=== PATIENT | female | born 1940 | race Caucasian/White ===

== ENCOUNTER → 2017-02-16 | Outpatient (CLI) | payer OTHER ==
[~2017-02-16] MED LIST: AMLO10TA4 PO; ASPI81TA28 PO; ATEN50TA PO; ATOR-26 PO; B-COTAB18 PO; CYCL5TAB PO; GADAVIST IV PRN; GLC/500 PO; GLIP5TAB3 PO; KLN5 PO; LISI-725 PO; OMEP40CA PO; RANI300T2 PO; SERT-234 PO; ULT50 PO; VITACAP26 PO
--- NOTE | 2017-02-16 09:12 | DIAGNOSTIC IMAGING REPORT ---
MRI LUMBAR SPINE W/O CONTRAST CLINICAL HISTORY: CYSTIC ENCEPHALOMALACIA; LUMBAR DDD WORSENING BACK PAIN. DIFFICULTY STANDING. TECHNIQUE: Sagittal and axial T1, T2 and STIR images were obtained. COMPARISON STUDY: No previous studies for comparison. OBSERVATIONS: The vertebral bodies and posterior elements appear intact. There is no abnormal bony signal present to suggest a marrow replacement process. There is artifact from a right sacral bolts. There is a lumbar scoliosis. L1-2: There is a circumferential disc bulge present. There is no significant spinal stenosis. There is moderate left-sided foraminal narrowing. L2-3: There is a circumferential disc bulge. There is mild spinal canal narrowing. There is mild bilateral foraminal narrowing. L3-4: There is a circumferential disc bulge present. There is mild spinal stenosis. There is moderate right-sided foraminal narrowing. L4-5: There is a circumferential disc bulge. There is mild spinal canal narrowing. There is moderate right-sided foraminal narrowing. L5-S1: There is a mild circumferential disc bulge present. There is a probable L5 pars defect. There is bilateral foraminal narrowing. There is mild spinal canal narrowing. The conus medullaris and cauda equina appear normal. IMPRESSION: 1. Scoliosis and moderately advanced multilevel degenerative change 2. Multilevel mild spinal canal narrowing 3. Multilevel foraminal stenosis. Electronically signed by: Bassem Kay M.D. 02/16/2017 9:11 AM Dictated Date/Time: 02/16/2017 9:06 AM
--- NOTE | 2017-02-16 09:51 | DIAGNOSTIC IMAGING REPORT ---
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 COMPARISON STUDY: Noncontrast head CT dated 04/27/2015 TECHNIQUE: MRI of the brain was performed from the vertex to the skull base utilizing various T1 and T2 weighted sequences. Following the IV administration of 7.5 mL of Gadavist contrast, additional enhanced images were obtained. FINDINGS: Sagittal T1, axial diffusion, proton density and T2 weighted axial, coronal FLAIR, and pre and post axial T1-weighted images were acquired. These were supplemented with post gadolinium coronal T1 weighted images. No intra or extra-axial mass lesions are visualized. Axial diffusion-weighted images reveal no evidence of acute or subacute infarction. There is no evidence of ventricular dilatation. Proton density T2-weighted and FLAIR images reveal scattered foci of increased T2 signal within the white matter, likely on a small vessel basis. 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 There are no abnormal flow voids. There is linear hemosiderin apposition in the posterior aspect of the right hemispheric infarct. The 7th and 8th nerve complexes appear normal bilaterally. No cerebellopontine angle masses are visualized. Postcontrast images reveal no evidence of pathologic enhancement. IMPRESSION: 1. No acute intracranial findings 2. 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 No evidence of acute or subacute infarction 4. No evidence of intracranial mass Electronically signed by: Bassem Kay M.D. 02/16/2017 9:49 AM Dictated Date/Time: 02/16/2017 9:43 AM
== END | disposition home or self-care (01) ==
LOC: C.MRIBC 08:16
PROVIDERS: ATTEND Physician Assistant
DX: H90.41 Sensorineural hearing loss, unilateral, right ear, with unrestricted hearing on the contralateral side (principal); M51.36 Other intervertebral disc degeneration, lumbar region; M54.5 Low back pain; M12.88 Other specific arthropathies, not elsewhere classified, other specified site; M47.9 Spondylosis, unspecified; M48.06 Spinal stenosis, lumbar region

== ENCOUNTER 2023-09-28 22:18 | Inpatient (IN) ==
--- NOTE | 2023-09-28 22:34 | Emergency Department Note ---
History of Present Illness General Chief complaint: Abdominal Pain Stated complaint: AB PAIN Time Seen by Provider: 09/28/23 22:22 History of Present Illness Maximum Pain Intensity: 8 This 82-year-old female presents ER complaining of mid abdominal pain for the past 1 to 2 days. She is also has some nausea and vomiting. No diarrhea. She had a partial colectomy in the past due to a polyp. Patient has chest pain, dyspnea, fever, chills, flank pain, diarrhea, urinary symptoms, trauma to the area. Home Medications Medication Instructions Recorded Confirmed Type Saccharomyces boulardii 250 mg 250 mg PO BID 09/16/19 05/17/21 History capsule (Daily Probiotic (S. boulardii)) amlodipine 10 mg tablet 10 mg PO DAILY 09/16/19 05/17/21 History ascorbic acid (vitamin C) 500 mg 500 mg PO DAILY 09/16/19 05/17/21 History capsule aspirin 81 mg tablet,delayed 81 mg PO DAILY 09/16/19 05/17/21 History release atenolol 50 mg tablet 50 mg PO DAILY 09/16/19 05/17/21 History atorvastatin 80 mg tablet 80 mg PO DAILY 09/16/19 05/17/21 History biotin 10,000 mcg capsule 10,000 mcg PO DAILY 09/16/19 05/17/21 History buspirone 5 mg tablet 5 mg PO BID 09/16/19 05/17/21 History cholecalciferol (vitamin D3) 100 4,000 units PO DAILY 09/16/19 05/17/21 History mcg (4,000 unit) capsule cyclobenzaprine 5 mg tablet 5 mg PO TID PRN Spasms 09/16/19 01/30/20 History empagliflozin 10 mg tablet 10 mg PO DAILY 09/16/19 05/17/21 History (Jardiance) glipizide 5 mg tablet 5 mg PO BID 09/16/19 05/17/21 History lisinopril 20 mg tablet 20 mg PO DAILY 09/16/19 05/17/21 History metformin 500 mg tablet 500 mg PO DAILY 09/16/19 05/17/21 History multivitamin (One-A-Day Essential 1 tab PO DAILY 09/16/19 05/17/21 History tablet) pantoprazole 40 mg tablet,delayed 40 mg PO DAILY 09/16/19 05/17/21 History release (Protonix) tramadol 50 mg tablet 50 mg PO DAILY PRN Pain 09/16/19 05/17/21 History trazodone 50 mg tablet 50 mg PO DAILY 09/16/19 05/17/21 History coenzyme Q10 100 mg capsule 100 mg PO DAILY 01/14/20 05/17/21 History sertraline 100 mg tablet 200 mg PO DAILY 01/14/20 05/17/21 History simethicone 125 mg tablet 250 mg PO BID PRN Heartburn 01/14/20 05/17/21 History fluticasone propionate 50 2 sprays intranasal DAILY #18.2 mL 01/16/20 05/17/21 Rx mcg/actuation nasal spray,suspension levocetirizine 5 mg tablet 5 mg PO DAILY PRN allergy symptoms 01/16/20 05/17/21 Rx #60 tabs Allergies Allergy/AdvReac Type Severity Reaction Status Date / Time amoxicillin AdvReac Unknown TARRY Unverified 05/17/21 10:28 STOOLS Past Med/Surg History Medical History Diabetes Surgical History Hx of colonoscopy Social History Smoking Status: Never smoker Age Started Using Tobacco: 22; Age Quit Using Tobacco: 23; Second Hand Exposure: Yes; Do You Dip or Chew Tobacco: No; Preferred Language: Lithuanian Feels Safe at Home: Yes Review of Systems A total of 10 systems reviewed and were otherwise negative Physical Exam Vital Signs Vital Signs - 24 hr 09/28/23 22:27 09/28/23 22:29 09/28/23 22:33 Temperature 36.8 C Temperature Source Oral Pulse Rate 88 94 H Pulse Rate [Apical] Respiratory Rate 20 Respiratory Effort / Characteristics Non-Labored Spontaneous Respiratory Depth Normal Respiratory Pattern Regular Blood Pressure 146/88 H Blood Pressure [Right Arm] Blood Pressure Mean 107 Blood Pressure Mean [Right Arm] Blood Pressure Position Semi-fowlers Blood Pressure Position [Right Arm] Pulse Oximetry 99 97 Oxygen Delivery Method Room Air Room Air Sepsis Recent Fever Within 48 Hours No Sepsis New/Unexplained Change in Mental Status N/A Sepsis Action Taken by Nursing No Action Required 09/28/23 23:32 Temperature Temperature Source Pulse Rate Pulse Rate [Apical] 85 Respiratory Rate 16 Respiratory Effort / Characteristics Non-Labored Spontaneous Respiratory Depth Normal Respiratory Pattern Regular Blood Pressure Blood Pressure [Right Arm] 112/79 Blood Pressure Mean Blood Pressure Mean [Right Arm] 90 Blood Pressure Position Blood Pressure Position [Right Arm] Lying Pulse Oximetry 94 Oxygen Delivery Method Room Air Sepsis Recent Fever Within 48 Hours Sepsis New/Unexplained Change in Mental Status Sepsis Action Taken by Nursing VITALS: Vitals are noted on the nurse's note and reviewed by myself. Vital signs stable. GENERAL: Pleasant elderly female hard of hearing, in no acute distress, nondiaphoretic, well-developed well-nourished. SKIN: Capillary reflex less than 2 seconds. HEENT: Normocephalic. PERRLA. EOMI. Nares patent. Mucous membranes moist. Neck is supple without nuchal rigidity. HEART: Regular rate and rhythm LUNGS: Clear to auscultation bilaterally without wheezes, rales or rhonchi. No retractions or accessory muscle use. ABDOMEN: Positive bowel sounds x 4. Normal tympanic percussion. Soft, tender mid abdomen, without masses or organomegaly. Tamez sign negative. No guarding or rebound tenderness. no CVA tenderness MUSCULOSKELETAL: No gross musculoskeletal defects. NEURO: Patient was alert and oriented to person place and time. No focal neurological deficits. Course Administered Medications Magnesium Sulfate/Dextrose (Magnesium Sulfate / D5w) 1 gm in 100 mls @ 100 mls/hr IV Q1H TERRI Stop: 09/29/23 01:22 Last Admin: 09/29/23 00:24 Dose: 100 mls/hr Documented By: Infusion: 09/29/23 00:24 Dose: Infused Documented By: Admin: 09/28/23 23:33 Dose: 100 mls/hr Documented By: Discontinued Medications Sodium Chloride (Nss) 500 mls @ 999 mls/hr IV .Q31M STA Stop: 09/28/23 23:00 Last Infusion: 09/28/23 23:16 Dose: Infused Documented By: Admin: 09/28/23 22:36 Dose: 999 mls/hr Documented By: BRIDGET Acetaminophen (Ofirmev) 1,000 mg in 100 mls @ 400 mls/hr IV NOW STA Stop: 03/28/24 22:44 Last Infusion: 09/28/23 22:50 Dose: Infused Documented By: Admin: 09/28/23 22:35 Dose: 400 mls/hr Documented By: BRIDGET Ioversol (Optiray 320 100ml) 100 ml IV ONCE ONE Stop: 09/28/23 23:03 Last Admin: 09/28/23 23:02 Dose: 90 ml Documented By: JESSICA Ondansetron HCl (Ondansetron Inj 2 Mg/Ml 2 Ml Vial) 4 mg IV NOW STA Stop: 09/28/23 22:31 Last Admin: 09/28/23 22:35 Dose: 4 mg Documented By: BRIDGET Medical Decision Making Medical Records Attestation: I reviewed the patient's medical records. Home Medications Current Medication List: was personally reviewed by me Laboratory Data Attestation: I reviewed the patient's lab results. 09/28/23 22:31 09/28/23 22:31 Lab Results 09/28/23 09/28/23 Range/Units 22:31 22:38 WBC 11.17 H (4.8-10.8) K/ul RBC 4.40 (4.20-5.40) M/uL Hgb 12.7 (12.0-16.0) g/dl POC Hgb 13.6 (12.0-16.0) g/dl Hct 38.7 (37.0-47.0) % POC Hct 40 (37-47) % MCV 88.0 (80.0-100.0) fL MCH 28.9 (25.0-34.0) pg MCHC 32.8 (32.0-36.0) g/dL RDW Std Deviation 45.1 (36.4-46.3) fL RDW Coeff of Nelida 13.9 (11.5-14.5) % Plt Count 214 (130-400) K/uL MPV 10.4 (9.4-12.4) fL Immature Gran % (Auto) 0.3 % Neut % (Auto) 84.2 % Lymph % (Auto) 6.9 % Pershing % (Auto) 6.9 % Eos % (Auto) 1.3 % Baso % (Auto) 0.4 % Neut # (Auto) 9.42 H (1.40-6.50) K/uL Lymph # (Auto) 0.77 L (1.20-3.40) K/uL Pershing # (Auto) 0.77 H (0.11-0.59) K/uL Eos # (Auto) 0.14 (0.00-0.50) K/uL Baso # (Auto) 0.04 (0.00-0.20) K/uL Immature Gran # (Auto) 0.03 (0.01-0.20) K/uL POC Sodium 138 (135-144) mmol/L Sodium 136 (136-145) mmol/L POC Potassium 4.1 (3.3-5.0) mmol/L Potassium 4.3 (3.5-5.1) mmol/L POC Chloride 101 (101-112) mmol/L Chloride 101 (98-107) mmol/L Carbon Dioxide 25 (21-32) mmol/L POC Total CO2 27 (24-31) mmol/L Anion Gap 10 (3-11) POC Anion Gap 16.0 (16-25) mmol/L POC BUN 22 H (7-18) mg/dl BUN 19 (6-23) mg/dl Creatinine 1.14 (0.6-1.2) mg/dl POC Creatinine 1.1 (0.6-1.3) mg/dl Est Cr Clr Drug Dosing Not Reportable Est GFR ( Amer) 52.6 ml/min Est GFR (Non-Af Amer) 45.4 ml/min BUN/Creatinine Ratio 16.7 (10-20) Glucose 176 H (70-99(Fasting)) mg/dl POC Glucose (other) 180 H (70-99) mg/dl Lactate 0.8 (0.4-2.0) mmol/L Calcium 10.3 (8.6-10.3) mg/dl POC Ioniz Calcium Nickie 1.24 (1.12-1.32) mmol/l Magnesium 1.3 L (1.7-2.4) mg/dl Total Bilirubin 0.6 (0.2-1.0) mg/dl AST 19 (13-39) U/L ALT 12 (7-52) U/L Alkaline Phosphatase 57 (34-104) U/L Troponin I High Sens 4.8 (0-14) pg/ml Total Protein 8.3 (6.0-8.3) gm/dl Albumin 4.9 (3.4-5.0) gm/dl Globulin 3.4 (2.5-4.0) gm/dl Albumin/Globulin Ratio 1.4 (0.9-2) Lipase 45 (11-82) U/L Imaging Data Attestation: I personally reviewed and interpreted this imaging study as follows: Radiologist's Impression: Abdomen/Pelvis CT 09/28/23 22:30 Exam(s): CT ABDOMEN + PELVIS With Contrast IV Amt: 90 ml optiray 320 EXAM: CT Abdomen and Pelvis With Intravenous Contrast CLINICAL HISTORY: Reason for exam: mid abd pain. TECHNIQUE: Axial computed tomography images of the abdomen and pelvis with intravenous contrast. CTDI is 22.59 mGy and DLP is 1053.17 mGy-cm. Automated exposure control was utilized for the study. A dose lowering technique was utilized adhering to the principles of ALARA. CONTRAST: Patient received 90 ml optiray 320 of IV contrast COMPARISON: None. FINDINGS: Lung bases: Trace bilateral lower lobe subpleural atelectasis otherwise clear lung parenchyma. Heart: Unremarkable. No cardiomegaly. No significant pericardial effusion. Normal cardiac size with coronary artery calcifications. Mediastinum: Small hiatal hernia. ABDOMEN: Liver: Unremarkable. No mass. Gallbladder and bile ducts: Status post cholecystectomy with intrahepatic biliary distention. No ductal dilation. Pancreas: Unremarkable. No mass. No ductal dilation. Spleen: The spleen measures 13.0 cm consistent with bright lights but no megaly. Adrenals: Unremarkable. No mass. Kidneys and ureters: Unremarkable. No solid mass. No hydronephrosis. Stomach and bowel: Multiple loops of small bowel distended up to a maximum diameter of 3.4 cm consistent with small bowel obstruction, zone of transition indeterminate. The descending colon is decompressed. There are stuck with the changes along the sigmoid. No mucosal thickening. PELVIS: Appendix: Normal appendix. Bladder: Unremarkable. No mass. Reproductive: Unremarkable as visualized. ABDOMEN and PELVIS: Intraperitoneal space: Unremarkable. No free air. No significant fluid collection. Bones/joints: Advanced degenerative disease of the spine with scoliosis and multilevel vacuum phenomenon. No acute fracture. No dislocation. Soft tissues: There are 2 ventral hernias, one at the umbilicus and one cephalad containing fat. Vasculature: Atherosclerotic disease of aorta with no aneurysm or dissection. Lymph nodes: Unremarkable. No enlarged lymph nodes. IMPRESSION: 1. Small bowel obstruction with indeterminate zone of transition. 2. Mild hiatal hernia. 3. Status post cholecystectomy with nonspecific intrahepatic biliary distention. Remainder of abdominal viscera unremarkable. Electronically signed by: Azalia James MD 09/29/23 00:17 AM Chest X-Ray 09/28/23 22:30 SINGLE VIEW CHEST CLINICAL HISTORY: Upper abdominal pain. FINDINGS: An AP, portable, upright chest radiograph is compared to study dated 04/27/2015 and correlated with chest CT dated 08/19/2019. The examination is mildly degraded by portable technique and patient rotation. The heart is mildly enlarged noting atherosclerotic calcification of the thoracic aorta. The pulmonary vasculature is noncongested. Chronic interstitial thickening is similar to previous. There is mild elevation of the left hemidiaphragm with associated atelectasis. A 9 mm right upper lobe pulmonary nodule is similar to previous. This was also seen on the [address] The lungs and pleural spaces are otherwise clear. No pneumothorax is seen. The skeletal structures are osteopenic. The bony thorax is grossly intact. IMPRESSION: No acute cardiopulmonary abnormality. ACT 112: Negative or not required by law. Electronically signed by: Pepe Estevez M.D. 09/28/2023 11:01 PM MDM Narrative Prior records/ancillary studies reviewed. Triage Nursing notes reviewed. Additional history obtained from nursing. The patient's history was concerning for abdominal pain. Differential diagnosis: Etiologies such as appendicitis, diverticulitis, PUD, biliary pathology, UTI, pancreatitis, obstruction, mesenteric ischemia, aortic pathology, infections, inflammatory bowel disease, renal colic, as well as others were entertained. Physical examination findings: As above. ER treatment provided: An order was placed for continuous cardiac monitoring. The monitor shows a rate of 60-100 with a sinus rhythm per my Independent interpretation. IV fluids, Tylenol, Mg On reassessment the patient felt better. Diagnostics interpreted by me: ECG: Ordered for upper abdominal pain EKG: Normal sinus, normal intervals, no acute ST-T wave changes. Impression normal sinus rhythm independently interpreted by myself The labs Independently Interpreted by myself revealed negative lactic. Mild leukocytosis low mg Imaging studies: Chest x-ray with no acute consolidation, pneumothorax or free air per my independent interpretation; left hemidiaphragm elevation. Consultation: A consultation was placed with the surgeon, Dr. Hanson. The case was discussed and diagnostics were reviewed. He recommends IV fluids and NG tube if patient is vomiting and medical admission. Medicine was consulted and case discussed. Patient was admitted to the medical service. Exam and history seem consistent with small bowel obstruction. Patient was not vomiting in the ER. She was given IV fluids and magnesium as above. She is agreeable treatment plan admission. Medicine and surgery were consulted and the case was discussed. Negative lactic. By the evaluation outlined above emergent etiologies such as appendicitis, diverticulitis, PUD, biliary pathology, UTI, pancreatitis, mesenteric ischemia, aortic pathology, infections, inflammatory bowel disease, renal colic, as well as others were deemed relatively unlikely. The pt informed about the findings as listed above. All questions were answered and pleased with the treatment. The chart was completed utilizing [employer] Speech voice recognition software. Grammatical errors, random word insertions, pronoun errors, and incomplete sentences are an occassional consequence of this system due to software limitations, ambient noise, and hardware issues. Any formal questions or concerns about the content, text, or information contained within the body of this dictation should be directly addressed to the physician diet assistant for clarification. Impression & Plan Small bowel obstruction Discharge Plan Visit Data Chief Complaint: Abdominal Pain Stated Complaint: AB PAIN ED Provider: Agustín Gabriel ED Midlevel Provider: Alannah Melo Discharge Problem: Small bowel obstruction Patient Disposition: Admitted As Inpatient Condition: Good Forms Stand Alone Forms: My [facility] Prescriptions Prescriptions: No Action metformin 500 mg tablet 500 mg PO DAILY glipizide 5 mg tablet 5 mg PO BID Jardiance 10 mg tablet 10 mg PO DAILY atorvastatin 80 mg tablet 80 mg PO DAILY amlodipine 10 mg tablet 10 mg PO DAILY lisinopril 20 mg tablet 20 mg PO DAILY atenolol 50 mg tablet 50 mg PO DAILY pantoprazole [Protonix] 40 mg tablet,delayed release (DR/EC) 40 mg PO DAILY aspirin 81 mg tablet,delayed release (DR/EC) 81 mg PO DAILY trazodone 50 mg tablet 50 mg PO DAILY buspirone 5 mg tablet 5 mg PO BID cyclobenzaprine 5 mg tablet 5 mg PO TID PRN (Reason: Spasms) tramadol 50 mg tablet 50 mg PO DAILY PRN (Reason: Pain) ascorbic acid (vitamin C) 500 mg capsule 500 mg PO DAILY biotin 10,000 mcg capsule 10,000 mcg PO DAILY multivitamin [One-A-Day Essential] Tablet 1 tab PO DAILY cholecalciferol (vitamin D3) 4,000 unit capsule 4,000 units PO DAILY Daily Probiotic (S. boulardii) 250 mg capsule 250 mg PO BID coenzyme Q10 100 mg capsule 100 mg PO DAILY Bicarsim Forte 125 mg tablet 250 mg PO BID PRN (Reason: Heartburn) sertraline 100 mg tablet 200 mg PO DAILY levocetirizine 5 mg tablet 5 mg PO DAILY PRN (Reason: allergy symptoms) Qty: 60 0RF Rx Instructions: Take daily for 10 days then PRN fluticasone propionate 50 mcg/actuation spray,suspension 2 sprays INTNAS DAILY Qty: 18.2 5RF Referrals Referrals: Ludmila Miranda DO [Outside Practitioners] -
[2023-09-28] MEDS: ONDANSETRON INJ 2 MG/ML 2 ML VIAL IV STA (22:35)
[2023-09-28] MEDS: ACETAMINOPHEN 1,000 MG/100 ML VIAL IV STA (22:35)
[2023-09-28] MEDS: SODIUM CHLORIDE 0.9% 500 ML IV STA (22:36)
[2023-09-28 22:47] LABS: Basophils # (auto) 0.04 K/uL (0.00-0.20); Basophils % (auto) 0.4 %; Eosinophils # (auto) 0.14 K/uL (0.00-0.50); Eosinophils % (auto) 1.3 %; Hematocrit (blood only) 38.7 % (37.0-47.0); Hemoglobin 12.7 g/dl (12.0-16.0); Immature Granulocytes # (auto) 0.03 K/uL (0.01-0.20); Immature Granulocytes % (auto) 0.3 %; Lymphocytes # (auto) 0.77 K/uL (1.20-3.40); Lymphocytes % (auto) 6.9 %; Mean Corpuscular Hemoglobin 28.9 pg (25.0-34.0); Mean Corpuscular Hgb Conc 32.8 g/dL (32.0-36.0); Mean Platelet Volume 10.4 fL (9.4-12.4); Monocytes # (auto) 0.77 K/uL (0.11-0.59); Monocytes % (auto) 6.9 %; Neutrophils # (auto) 9.42 K/uL (1.40-6.50); Neutrophils % (auto) 84.2 %; Platelet Count 214 K/uL (130-400); RDW Coefficient of Variation 13.9 % (11.5-14.5); RDW Standard Deviation 45.1 fL (36.4-46.3); White Blood Count 11.17 K/ul (4.8-10.8)
[2023-09-28 22:50] LABS: iSTAT Creatinine 1.1 mg/dl (0.6-1.3); iSTAT Hemoglobin 13.6 g/dl (12.0-16.0); iSTAT Ionized Calcium 1.24 mmol/l (1.12-1.32); iSTAT Potassium 4.1 mmol/L (3.3-5.0)
[2023-09-28] MEDS: OPTIRAY 320 100ml IV ONE (23:02)
--- NOTE | 2023-09-28 23:02 | XRay Report ---
SINGLE VIEW CHEST CLINICAL HISTORY: Upper abdominal pain. FINDINGS: An AP, portable, upright chest radiograph is compared to study dated 04/27/2015 and correla itzel with chest CT dated 08/19/2019. The examination is mildly degraded by portable technique and patie nt rotation. The heart is mildly enlarged noting atherosclerotic calcification of the thoracic aorta . The pulmonary vasculature is noncongested. Chronic interstitial thickening is similar to previous. There is mild elevation of the left hemidiaphragm with associated atelectasis. A 9 mm right upper lob e pulmonary nodule is similar to previous. This was also seen on the [address] The lungs and ple ural spaces are otherwise clear. No pneumothorax is seen. The skeletal structures are osteopenic. The bony thorax is grossly intact. IMPRESSION: No acute cardiopulmonary abnormality. ACT 112: Negative or not required by law. Electronically signed by: Pepe Estevez M.D. 09/28/2023 11:01 PM
[2023-09-28 23:19] LABS: Albumin Level 4.9 gm/dl (3.4-5.0); Anion Gap 10 (3-11); Bilirubin,Total 0.6 mg/dl (0.2-1.0); Calcium 10.3 mg/dl (8.6-10.3); Carbon Dioxide 25 mmol/L (21-32); Chloride 101 mmol/L (98-107); Magnesium 1.3 mg/dl (1.7-2.4); Potassium 4.3 mmol/L (3.5-5.1); Sodium 136 mmol/L (136-145)
[2023-09-28 23:25] LABS: Alanine Aminotransferase 12 U/L (7-52); Albumin Globulin Ratio 1.4 (0.9-2); Alkaline Phosphatase 57 U/L (34-104); Aspartate Aminotransferase 19 U/L (13-39); BUN Creatinine Ratio 16.7 (10-20); Blood Urea Nitrogen 19 mg/dl (6-23); Est GFR (African American) 52.6 ml/min; Est GFR (Non-African American) 45.4 ml/min; Globulin 3.4 gm/dl (2.5-4.0); Glucose 176 mg/dl (70-99(Fasting)); Lipase 45 U/L (11-82); Total Protein 8.3 gm/dl (6.0-8.3)
[2023-09-28 23:26] LABS: Troponin I High Sensitivity 4.8 pg/ml (0-14)
[2023-09-28] MEDS: MAGNESIUM SULFATE / D5W 1 GM/100 ML BAG IV SCH (23:33)
--- NOTE | 2023-09-28 23:57 | Emergency Department Note ---
ED Visit Note ED attending note Patient was seen by the RAMBO Patient has abdominal pain, and prior history of ischemic colitis I have reviewed the patient's lab work, chest x-ray CT is pending at the time of dictation Plan is to evaluate for admission due to abdominal pain I agree with the disposition plan and treatment plan provided by the RAMBO .
--- NOTE | 2023-09-29 00:18 | CT Scan Report ---
Exam(s): CT ABDOMEN + PELVIS With Contrast IV Amt: 90 ml optiray 320 EXAM: CT Abdomen and Pelvis With Intravenous Contrast CLINICAL HISTORY: Reason for exam: mid abd pain. TECHNIQUE: Axial computed tomography images of the abdomen and pelvis with intravenous contrast. CTDI is 22.59 mGy and DLP is 1053.17 mGy-cm. Automated exposure control was utilized for the study. A dose lowering technique was utilized adhering to the principles of ALARA. CONTRAST: Patient received 90 ml optiray 320 of IV contrast COMPARISON: None. FINDINGS: Lung bases: Trace bilateral lower lobe subpleural atelectasis otherwise clear lung parenchyma. Heart: Unremarkable. No cardiomegaly. No significant pericardial effusion. Normal cardiac size with coronary artery calcifications. Mediastinum: Small hiatal hernia. ABDOMEN: Liver: Unremarkable. No mass. Gallbladder and bile ducts: Status post cholecystectomy with intrahepatic biliary distention. No ductal dilation. Pancreas: Unremarkable. No mass. No ductal dilation. Spleen: The spleen measures 13.0 cm consistent with bright lights but no megaly. Adrenals: Unremarkable. No mass. Kidneys and ureters: Unremarkable. No solid mass. No hydronephrosis. Stomach and bowel: Multiple loops of small bowel distended up to a maximum diameter of 3.4 cm consistent with small bowel obstruction, zone of transition indeterminate. The descending colon is decompressed. There are stuck with the changes along the sigmoid. No mucosal thickening. PELVIS: Appendix: Normal appendix. Bladder: Unremarkable. No mass. Reproductive: Unremarkable as visualized. ABDOMEN and PELVIS: Intraperitoneal space: Unremarkable. No free air. No significant fluid collection. Bones/joints: Advanced degenerative disease of the spine with scoliosis and multilevel vacuum phenomenon. No acute fracture. No dislocation. Soft tissues: There are 2 ventral hernias, one at the umbilicus and one cephalad containing fat. Vasculature: Atherosclerotic disease of aorta with no aneurysm or dissection. Lymph nodes: Unremarkable. No enlarged lymph nodes. IMPRESSION: 1. Small bowel obstruction with indeterminate zone of transition. 2. Mild hiatal hernia. 3. Status post cholecystectomy with nonspecific intrahepatic biliary distention. Remainder of abdominal viscera unremarkable. Electronically signed by: Azaila James MD 09/29/23 00:17 AM
[2023-09-29] MEDS: SODIUM CHLORIDE 0.9% 500 ML IV SCH (01:17)
--- NOTE | 2023-09-29 01:27 | History & Physical Report ---
Date of Service September 29, 2023 Assessment & Plan (1) Small bowel obstruction: Plan: 82-year-old female with past medical history significant for type 2 diabetes, hyperlipidemia, drug-induced hyperkalemia, history of CVA, hypertension, paroxysmal supraventricular tachycardia, history of CAD, GERD, vitamin B12 deficiency, degenerative's disc disease, iron deficiency anemia, general anxiety disorder, primary insomnia, presents with abdominal pain and found to have small bowel obstruction. Patient states since last couple of days she is having abdominal pain all over the abdomen 5/10 in severity. And today she had several episodes of vomiting before the ambulance came. Currently after pain medication pain is improved. She had a small bowel movement in the ER. Normal micturition. No fevers. No chest pain or shortness of breath. No cough. No earache. No runny nose or sore throat. No headache. Resting comfortably and hemodynamically stable. Small bowel obstruction N.p.o., IV fluids, IV antiemetics., IV pain meds as needed KUB in a.m. If symptoms were to worsen will do NG tube Surgery consult for further recommendations Hypomagnesia Replace Follow labs Type 2 diabetes Hold metformin Sliding scale Will monitor Mild nonobstructive CAD On aspirin, statin and beta-yamilet History of CVA History of PFO On statin and aspirin. History of hypertension On amlodipine and atenolol Will monitor Paroxysmal supplemental tachycardia On atenolol Hyperlipidemia On statin GERD Protonix GERD anxiety disorder Buspirone Zoloft Insomnia Trazodone DVT prophylaxis Lovenox Disposition Medical floor Full code History of Present Illness Chief Complaint: Abdominal pain Primary Care Provider: Domo Pool DO 82-year-old female with past medical history significant for type 2 diabetes, hyperlipidemia, drug-induced hyperkalemia, history of CVA, hypertension, paroxysmal supraventricular tachycardia, history of CAD, GERD, vitamin B12 deficiency, degenerative's disc disease, iron deficiency anemia, general anxiety disorder, primary insomnia, presents with abdominal pain and found to have small bowel obstruction. Patient states since last couple of days she is having abdominal pain all over the abdomen 5/10 in severity. And today she had several episodes of vomiting before the ambulance came. Currently after pain medication pain is improved. She had a small bowel movement in the ER. Normal micturition. No fevers. No chest pain or shortness of breath. No cough. No earache. No runny nose or sore throat. No headache. Resting comfortably and hemodynamically stable. past medical history. As mentioned above. Past surgical history. Colonoscopy. EGD. EGD with transendoscopic dilatation. 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 Laparoscopic hand-assisted sigmoid colon resection, laparoscopic mobilization of the splenic flexure. Cholecystectomy. Sacroiliac joint injection. Total abdominal hysterectomy with removal of tubes. Social history. . Quit smoking 1961. No alcohol use. No drug use. Family history. Daughter has ALS. Daughter passed of stroke. Mother had retroperitoneal sarcoma. Father had pancreatitis. Ulcers. Maternal grandmother had heart disease. Allergies Allergy/AdvReac Type Severity Reaction Status Date / Time amoxicillin AdvReac Unknown TARRY Unverified 05/17/21 10:28 STOOLS Home Medications Medication Instructions Recorded Confirmed Type amlodipine 5 mg tablet 5 mg PO DAILY 09/29/23 09/29/23 History aspirin 81 mg tablet,delayed 81 mg PO DAILY 09/29/23 09/29/23 History release atenolol 50 mg tablet 50 mg PO DAILY 09/29/23 09/29/23 History atorvastatin 80 mg tablet 80 mg PO DAILY 09/29/23 09/29/23 History buspirone 10 mg tablet 10 mg PO BID 09/29/23 09/29/23 History cetirizine 10 mg tablet 10 mg PO DAILY 09/29/23 09/29/23 History ketoconazole 2 % topical cream 1 applic topical BID 09/29/23 09/29/23 History metformin 1,000 mg tablet 1,000 mg PO BID 09/29/23 09/29/23 History pantoprazole 20 mg tablet,delayed 20 mg PO DAILY 09/29/23 09/29/23 History release sertraline 100 mg tablet 100 mg PO DAILY 09/29/23 09/29/23 History trazodone 50 mg tablet 50 mg PO HS 09/29/23 09/29/23 History Past Med/Surg History Medical History Diabetes Surgical History Hx of colonoscopy Social History Smoking Status: Never smoker Age Started Using Tobacco: 22; Age Quit Using Tobacco: 23; Second Hand Exposure: Yes; Do You Dip or Chew Tobacco: No; Hx Alcohol Use: No Hx Substance Use: No Preferred Language: Peruvian Communication Ability: Effective Pesticide Applicator Required: No Beliefs That Will Affect Care: None Current Living Situation: Spouse Current Living Situation Comment: Mobile Home Other Information That Helps Us Care for You: No Feels Safe at Home: Yes Safety Concerns: Feels Safe At This Time Assistive Devices: None Review of Systems Review of Systems: All systems reviewed & are unremarkable except as noted in HPI & below Physical Exam Physical Exam: General- Not in distress Head- atraumatic Eyes- PERRL. ENT- oropharynx clear Neck- supple, no JVD. Lungs- clear to auscultation , no wheezing or crackles. Heart- regular rhythm; no murmur, no gallop. Abdomen- normal bowel sounds, soft, mild diffuse tenderness, no guarding no distension Extremities- no pretibial edema, no erythema seen Neuro- alert, oriented PERRL, no facial palsy; no dysarthria; moves extremities. Results & Data Results & Data Vital Signs (Past 12 Hours) Vital Signs Temp Pulse Pulse Resp BP BP Pulse Ox 09/29/23 01:00 83 17 132/75 96 09/29/23 00:46 88 09/29/23 00:30 85 17 146/78 H 09/28/23 23:32 85 112/79 95 09/28/23 23:32 85 16 112/79 94 09/28/23 22:33 97 09/28/23 22:29 94 H 09/28/23 22:27 36.8 C 88 20 146/88 H 99 O2 Del Method 09/29/23 01:00 Room Air 09/29/23 00:46 09/29/23 00:30 09/28/23 23:32 Room Air 09/28/23 23:32 Room Air 09/28/23 22:33 Room Air 09/28/23 22:29 09/28/23 22:27 Room Air Diagnostic Findings Laboratory Results WBC 11.17 K/ul (4.8-10.8) H 09/28/23 22:31 RBC 4.40 M/uL (4.20-5.40) 09/28/23 22:31 Hgb 12.7 g/dl (12.0-16.0) 09/28/23 22: POC Hgb 13.6 g/dl (12.0-16.0) 09/28/23 22: Hct 38.7 % (37.0-47.0) 09/28/23 22: POC Hct 40 % (37-47) 09/28/23 22: MCV 88.0 fL (80.0-100.0) 09/28/23 22: MCH 28.9 pg (25.0-34.0) 09/28/23 22: MCHC 32.8 g/dL (32.0-36.0) 09/28/23: RDW Std Deviation 45.1 fL (36.4-46.3) 09/28/23: RDW Coeff of Nelida 13.9 % (11.5-14.5) 09/28/23 22: Plt Count 214 K/uL (130-400) 09/28/23 22: MPV 10.4 fL (9.4-12.4) 09/28/23 22: Immature Gran % (Auto) 0.3 % 09/28/23 22: Neut % (Auto) 84.2 % 09/28/23 22: Lymph % (Auto) 6.9 % 09/28/23 22: [place] % (Auto) 6.9 % 09/28/23 22: Eos % (Auto) 1.3 % 09/28/23 22: Baso % (Auto) 0.4 % 09/28/23: Neut # (Auto) 9.42 K/uL (1.40-6.50) H 09/28/23 22: Lymph # (Auto) 0.77 K/uL (1.20-3.40) L 09/28/23 22: [place] # (Auto) 0.77 K/uL (0.11-0.59) H 09/28/23 22: Eos # (Auto) 0.14 K/uL (0.00-0.50) 09/28/23 22: Baso # (Auto) 0.04 K/uL (0.00-0.20) 09/28/23 22:31 Immature Gran # (Auto) 0.03 K/uL (0.01-0.20) 09/28/23 22:31 POC Sodium 138 mmol/L (135-144) 09/28/23 22:38 Sodium 136 mmol/L (136-145) 09/28/23 22:31 POC Potassium 4.1 mmol/L (3.3-5.0) 09/28/23 22:38 Potassium 4.3 mmol/L (3.5-5.1) 09/28/23 22:31 POC Chloride 101 mmol/L (101-112) 09/28/23 22:38 Chloride 101 mmol/L (98-107) 09/28/23 22:31 Carbon Dioxide 25 mmol/L (21-32) 09/28/23 22:31 POC Total CO2 27 mmol/L (24-31) 09/28/23 22:38 Anion Gap 10 (3-11) 09/28/23 22:31 POC Anion Gap 16.0 mmol/L (16-25) 09/28/23 22:38 POC BUN 22 mg/dl (7-18) H 09/28/23 22:38 BUN 19 mg/dl (6-23) 09/28/23 22:31 Creatinine 1.14 mg/dl (0.6-1.2) 09/28/23 22:31 POC Creatinine 1.1 mg/dl (0.6-1.3) 09/28/23 22:38 Est Cr Clr Drug Dosing Not Reportable 09/28/23 22:31 Est GFR ( Amer) 52.6 ml/min 09/28/23 22:31 Est GFR (Non-Af Amer) 45.4 ml/min 09/28/23 22:31 BUN/Creatinine Ratio 16.7 (10-20) 09/28/23 22:31 Glucose 176 mg/dl (70-99(Fasting)) H 09/28/23 22:31 POC Glucose (other) 180 mg/dl (70-99) H 09/28/23 22:38 Lactate 0.8 mmol/L (0.4-2.0) 09/28/23 22:31 Calcium 10.3 mg/dl (8.6-10.3) 09/28/23 22:31 POC Ioniz Calcium Nickie 1.24 mmol/l (1.12-1.32) 09/28/23 22:38 Magnesium 1.3 mg/dl (1.7-2.4) L 09/28/23 22:31 Total Bilirubin 0.6 mg/dl (0.2-1.0) 09/28/23 22:31 AST 19 U/L (13-39) 09/28/23 22:31 ALT 12 U/L (7-52) 09/28/23 22:31 Alkaline Phosphatase 57 U/L (34-104) 09/28/23 22:31 Troponin I High Sens 4.8 pg/ml (0-14) 09/28/23 22:31 Total Protein 8.3 gm/dl (6.0-8.3) 09/28/23 22:31 Albumin 4.9 gm/dl (3.4-5.0) 09/28/23 22:31 Globulin 3.4 gm/dl (2.5-4.0) 09/28/23 22:31 Albumin/Globulin Ratio 1.4 (0.9-2) 09/28/23 22:31 Lipase 45 U/L (11-82) 09/28/23 22:31 Impressions Abdomen/Pelvis CT 09/28/23 22:30 Exam(s): CT ABDOMEN + PELVIS With Contrast IV Amt: 90 ml optiray 320 EXAM: CT Abdomen and Pelvis With Intravenous Contrast CLINICAL HISTORY: Reason for exam: mid abd pain. TECHNIQUE: Axial computed tomography images of the abdomen and pelvis with intravenous contrast. CTDI is 22.59 mGy and DLP is 1053.17 mGy-cm. Automated exposure control was utilized for the study. A dose lowering technique was utilized adhering to the principles of ALARA. CONTRAST: Patient received 90 ml optiray 320 of IV contrast COMPARISON: None. FINDINGS: Lung bases: Trace bilateral lower lobe subpleural atelectasis otherwise clear lung parenchyma. Heart: Unremarkable. No cardiomegaly. No significant pericardial effusion. Normal cardiac size with coronary artery calcifications. Mediastinum: Small hiatal hernia. ABDOMEN: Liver: Unremarkable. No mass. Gallbladder and bile ducts: Status post cholecystectomy with intrahepatic biliary distention. No ductal dilation. Pancreas: Unremarkable. No mass. No ductal dilation. Spleen: The spleen measures 13.0 cm consistent with bright lights but no megaly. Adrenals: Unremarkable. No mass. Kidneys and ureters: Unremarkable. No solid mass. No hydronephrosis. Stomach and bowel: Multiple loops of small bowel distended up to a maximum diameter of 3.4 cm consistent with small bowel obstruction, zone of transition indeterminate. The descending colon is decompressed. There are stuck with the changes along the sigmoid. No mucosal thickening. PELVIS: Appendix: Normal appendix. Bladder: Unremarkable. No mass. Reproductive: Unremarkable as visualized. ABDOMEN and PELVIS: Intraperitoneal space: Unremarkable. No free air. No significant fluid collection. Bones/joints: Advanced degenerative disease of the spine with scoliosis and multilevel vacuum phenomenon. No acute fracture. No dislocation. Soft tissues: There are 2 ventral hernias, one at the umbilicus and one cephalad containing fat. Vasculature: Atherosclerotic disease of aorta with no aneurysm or dissection. Lymph nodes: Unremarkable. No enlarged lymph nodes. IMPRESSION: 1. Small bowel obstruction with indeterminate zone of transition. 2. Mild hiatal hernia. 3. Status post cholecystectomy with nonspecific intrahepatic biliary distention. Remainder of abdominal viscera unremarkable. Electronically signed by: Azalia James MD 09/29/23 00:17 AM Chest X-Ray 09/28/23 22:30 SINGLE VIEW CHEST CLINICAL HISTORY: Upper abdominal pain. FINDINGS: An AP, portable, upright chest radiograph is compared to study dated 04/27/2015 and correlated with chest CT dated 08/19/2019. The examination is mildly degraded by portable technique and patient rotation. The heart is mildly enlarged noting atherosclerotic calcification of the thoracic aorta. The pulmonary vasculature is noncongested. Chronic interstitial thickening is similar to previous. There is mild elevation of the left hemidiaphragm with associated atelectasis. A 9 mm right upper lobe pulmonary nodule is similar to previous. This was also seen on the [address] The lungs and pleural spaces are otherwise clear. No pneumothorax is seen. The skeletal structures are osteopenic. The bony thorax is grossly intact. IMPRESSION: No acute cardiopulmonary abnormality. ACT 112: Negative or not required by law. Electronically signed by: Pepe Estevez M.D. 09/28/2023 11:01 PM ECG Additional Comments: ECG. Normal sinus rhythm at a rate of 87. No acute ST changes seen. Code Status & VTE Plan VTE Prophylaxis Plan VTE Prophylaxis will be ordered: Yes
[2023-09-29] MEDS ORDERED: GLUCAGON FOR INJ 1 MG VIAL SQ PRN (02:43)
[2023-09-29] MEDS ORDERED: GLUCOSE 10 TAB/TUBE PO PRN (02:43)
[2023-09-29] MEDS ORDERED: ONDANSETRON INJ 2 MG/ML 2 ML VIAL IV PRN (02:43)
[2023-09-29] MEDS ORDERED: CARBOHYDRATES FOR HYPOGLYCEMIA PO PRN (02:43)
[2023-09-29] MEDS ORDERED: GLUCOSE 40% GEL 15 GM TUBE PO PRN (02:43)
[2023-09-29] MEDS ORDERED: MoRPHine SULFATE 4 MG/ML 1 ML CARP\\VIAL IV PRN (02:43)
[2023-09-29] MEDS ORDERED: DEXTROSE 50% 50 ML SYRINGE IV PRN (02:43)
[2023-09-29] MEDS: Patient's HEIGHT &/or WEIGHT Needed STA (03:02)
[2023-09-29] MEDS: INSULIN ASPART PER UNIT CHARGE SC SCH (06:18)
[2023-09-29 07:15] LABS: Estimated Average Glucose 157 mg/dl; Hemoglobin A1C 7.1 % (4.5-5.6)
[2023-09-29 07:16] LABS: Basophils # (auto) 0.03 K/uL (0.00-0.20); Basophils % (auto) 0.5 %; Eosinophils # (auto) 0.07 K/uL (0.00-0.50); Eosinophils % (auto) 1.1 %; Hematocrit (blood only) 30.2 % (37.0-47.0); Hemoglobin 9.8 g/dl (12.0-16.0); Immature Granulocytes # (auto) 0.03 K/uL (0.01-0.20); Immature Granulocytes % (auto) 0.5 %; Lymphocytes # (auto) 0.99 K/uL (1.20-3.40); Lymphocytes % (auto) 16.1 %; Mean Corpuscular Hemoglobin 28.6 pg (25.0-34.0); Mean Corpuscular Hgb Conc 32.5 g/dL (32.0-36.0); Mean Platelet Volume 10.1 fL (9.4-12.4); Monocytes # (auto) 0.57 K/uL (0.11-0.59); Monocytes % (auto) 9.3 %; Neutrophils # (auto) 4.47 K/uL (1.40-6.50); Neutrophils % (auto) 72.5 %; Platelet Count 171 K/uL (130-400); Red Blood Count 3.43 M/uL (4.20-5.40); White Blood Count 6.16 K/ul (4.8-10.8)
[2023-09-29 07:24] LABS: BUN Creatinine Ratio 19.8 (10-20); Calcium 8.5 mg/dl (8.6-10.3); Creatinine Clr Calc Pharmacy 51.9 ml/min; Est GFR (African American) 79.5 ml/min; Est GFR (Non-African American) 68.6 ml/min; Magnesium 1.6 mg/dl (1.7-2.4); Potassium 4.2 mmol/L (3.5-5.1)
[2023-09-29] MEDS: SERTRALINE HCL 100 MG TABLET PO SCH (08:41)
[2023-09-29] MEDS: amLODIPine BESYLATE 5 MG TAB PO SCH (08:41)
[2023-09-29] MEDS: ATENOLOL 50 MG TABLET PO SCH (08:41)
[2023-09-29] MEDS: PANTOprazole 40 MG TAB PO SCH (08:41)
[2023-09-29] MEDS: ASPIRIN 81 MG ECTAB PO SCH (08:41)
[2023-09-29] MEDS: busPIRone 5 MG TAB PO SCH (08:41)
[2023-09-29] MEDS: CETIRIZINE HCL 10 MG TABLET PO SCH (08:41)
[2023-09-29] MEDS: ATORVASTATIN 40 MG TAB PO SCH (08:41)
[2023-09-29] MEDS: ENOXAPARIN INJ 40 MG/0.4 ML SYR SQ SCH (08:42)
[2023-09-29] MEDS: KETOCONAZOLE 2% CR 15 GM TUBE EXT SCH (08:42)
--- NOTE | 2023-09-29 08:48 | Surgery Consultation ---
Date of Consultation September 29, 2023 Assessment & Plan (1) Small bowel obstruction: 82 yo female with 3 days history of abdominal pain with nausea and vomiting. CT scan with SBO. History of prior abdominal surgeries including sigmoid colon resection. KUB today showing persistent SBO but there is air in the right colon. Plan: No acute surgical intervention required continue conservative management highly encouraged ambulating to increase gi motility continue medical management [facility] surgery covering this weekend Discussed wtih Dr. mccall who agrees with above. History of Present Illness Reason for Consultation: SBO Requesting Physician: MD Amadeo Attending Physician: Daniel Childs MD History of Present Illness Dyana is an 82 yo female who presented to ED via EMS due to abdominal pain, nausea, and vomiting that started 3 days ago. States abdominal pain started, generalized in upper abdomen and then nausea and vomiting started yesterday with 4 episodes of projectile vomiting. No prior history of SBO. History of sigmoid colon resection, total hysterectomy, and cholecystectomy. Sigmoid resection for large colon polyp. Denies of any fever or chills. She currently states she is feeling better. Pain about 4/10. Has not passed gas or had bowel movement yet but vomiting has subsided. Allergies Allergy/AdvReac Type Severity Reaction Status Date / Time amoxicillin AdvReac Unknown TARRY Unverified 05/17/21 10:28 STOOLS Home Medications Medication Instructions Recorded Confirmed Type amlodipine 5 mg tablet 5 mg PO DAILY 09/29/23 09/29/23 History aspirin 81 mg tablet,delayed 81 mg PO DAILY 09/29/23 09/29/23 History release atenolol 50 mg tablet 50 mg PO DAILY 09/29/23 09/29/23 History atorvastatin 80 mg tablet 80 mg PO DAILY 09/29/23 09/29/23 History buspirone 10 mg tablet 10 mg PO BID 09/29/23 09/29/23 History cetirizine 10 mg tablet 10 mg PO DAILY 09/29/23 09/29/23 History ketoconazole 2 % topical cream 1 applic topical BID 09/29/23 09/29/23 History metformin 1,000 mg tablet 1,000 mg PO BID 09/29/23 09/29/23 History pantoprazole 20 mg tablet,delayed 20 mg PO DAILY 09/29/23 09/29/23 History release sertraline 100 mg tablet 100 mg PO DAILY 09/29/23 09/29/23 History trazodone 50 mg tablet 50 mg PO HS 09/29/23 09/29/23 History Patient History Medical History Diabetes Surgical History Hx of colonoscopy Social History Smoking Status: Never smoker Age Started Using Tobacco: 22; Age Quit Using Tobacco: 23; Second Hand Exposure: Yes; Do You Dip or Chew Tobacco: No; Hx Alcohol Use: No Hx Substance Use: No Preferred Language: Micronesian Communication Ability: Effective Grain Drier Operator Required: No Beliefs That Will Affect Care: None Current Living Situation: Spouse Current Living Situation Comment: Mobile Home Other Information That Helps Us Care for You: No Feels Safe at Home: Yes Safety Concerns: Feels Safe At This Time Assistive Devices: None Review of Systems Review of Systems: All systems reviewed & are unremarkable except as noted in HPI & below Physical Exam Constitutional: WD/WN, vitals as above cooperative and comfortable; no acute distress and not ill appearing Respiratory: normal respiratory effort, lungs clear to auscultation Cardiovascular: RRR, no murmur, no edema Gastrointestinal (Abdomen): Inspection/Auscultation: abdomen normal to inspection and + abdominal surgical scar (midline laparotomy scar); abdomen not distended Percussion/Palpation: + abdomen tender (upper abdomen and RLQ) and abdomen soft; no guarding, abdomen not rigid and abdomen not firm Skin: no rashes, warm and dry Psychiatric: A+Ox3, euthymic affect Results & Data Vital Signs (Past 12 Hours) Vital Signs Temp Pulse Pulse Pulse Resp BP BP 09/29/23 07:25 36.6 C 79 18 155/79 H 09/29/23 02:44 09/29/23 02:44 36.7 C 79 18 136/75 09/29/23 02:25 09/29/23 01:30 81 15 131/72 09/29/23 01:00 83 17 132/75 09/29/23 00:46 88 09/29/23 00:30 85 17 146/78 H 09/28/23 23:32 85 112/79 09/28/23 23:32 85 16 112/79 09/28/23 22:33 09/28/23 22:29 94 H 09/28/23 22:27 36.8 C 88 20 146/88 H Pulse Ox O2 Del Method 09/29/23 07:25 97 Room Air 09/29/23 02:44 Room Air 09/29/23 02:44 97 Room Air 09/29/23 02:25 Room Air 09/29/23 01:30 96 Room Air 09/29/23 01:00 96 Room Air 09/29/23 00:46 09/29/23 00:30 09/28/23 23:32 95 Room Air 09/28/23 23:32 94 Room Air 09/28/23 22:33 97 Room Air 09/28/23 22:29 09/28/23 22:27 99 Room Air Laboratory Results 09/29/23 09/29/23 09/29/23 Range/Units 06:35 05:52 03:09 WBC 6.16 (4.8-10.8) K/ul RBC 3.43 L (4.20-5.40) M/uL Hgb 9.8 L D (12.0-16.0) g/dl POC Hgb (12.0-16.0) g/dl Hct 30.2 L (37.0-47.0) % POC Hct (37-47) % MCV 88.0 (80.0-100.0) fL MCH 28.6 (25.0-34.0) pg MCHC 32.5 (32.0-36.0) g/dL RDW Std Deviation 45.0 (36.4-46.3) fL RDW Coeff of Nelida 14.0 (11.5-14.5) % Plt Count 171 (130-400) K/uL MPV 10.1 (9.4-12.4) fL Immature Gran % (Auto) 0.5 % Neut % (Auto) 72.5 % Lymph % (Auto) 16.1 % [place] % (Auto) 9.3 % Eos % (Auto) 1.1 % Baso % (Auto) 0.5 % Neut # (Auto) 4.47 (1.40-6.50) K/uL Lymph # (Auto) 0.99 L (1.20-3.40) K/uL [place] # (Auto) 0.57 (0.11-0.59) K/uL Eos # (Auto) 0.07 (0.00-0.50) K/uL Baso # (Auto) 0.03 (0.00-0.20) K/uL Immature Gran # (Auto) 0.03 (0.01-0.20) K/uL POC Sodium (135-144) mmol/L Sodium 138 (136-145) mmol/L POC Potassium (3.3-5.0) mmol/L Potassium 4.2 (3.5-5.1) mmol/L POC Chloride (101-112) mmol/L Chloride 108 H (98-107) mmol/L Carbon Dioxide 26 (21-32) mmol/L POC Total CO2 (24-31) mmol/L Anion Gap 4 (3-11) POC Anion Gap (16-25) mmol/L POC BUN (7-18) mg/dl BUN 16 (6-23) mg/dl Creatinine 0.81 D (0.6-1.2) mg/dl POC Creatinine (0.6-1.3) mg/dl Est Cr Clr Drug Dosing 51.9 Est GFR ( Amer) 79.5 ml/min Est GFR (Non-Af Amer) 68.6 ml/min BUN/Creatinine Ratio 19.8 (10-20) Glucose 130 H (70-99(Fasting)) mg/dl POC Glucose 131 H 167 H (70-99) mg/dl POC Glucose (other) (70-99) mg/dl Estimat Average Glucose 157 mg/dl Hemoglobin A1c 7.1 H (4.5-5.6) % Lactate (0.4-2.0) mmol/L Calcium 8.5 L (8.6-10.3) mg/dl POC Ioniz Calcium Nickie (1.12-1.32) mmol/l Magnesium 1.6 L (1.7-2.4) mg/dl Total Bilirubin (0.2-1.0) mg/dl AST (13-39) U/L ALT (7-52) U/L Alkaline Phosphatase (34-104) U/L Troponin I High Sens (0-14) pg/ml Total Protein (6.0-8.3) gm/dl Albumin (3.4-5.0) gm/dl Globulin (2.5-4.0) gm/dl Albumin/Globulin Ratio (0.9-2) Lipase (11-82) U/L 09/28/23 09/28/23 Range/Units 22:38 22:31 WBC 11.17 H (4.8-10.8) K/ul RBC 4.40 (4.20-5.40) M/uL Hgb 12.7 (12.0-16.0) g/dl POC Hgb 13.6 (12.0-16.0) g/dl Hct 38.7 (37.0-47.0) % POC Hct 40 (37-47) % MCV 88.0 (80.0-100.0) fL MCH 28.9 (25.0-34.0) pg MCHC 32.8 (32.0-36.0) g/dL RDW Std Deviation 45.1 (36.4-46.3) fL RDW Coeff of Nelida 13.9 (11.5-14.5) % Plt Count 214 (130-400) K/uL MPV 10.4 (9.4-12.4) fL Immature Gran % (Auto) 0.3 % Neut % (Auto) 84.2 % Lymph % (Auto) 6.9 % [place] % (Auto) 6.9 % Eos % (Auto) 1.3 % Baso % (Auto) 0.4 % Neut # (Auto) 9.42 H (1.40-6.50) K/uL Lymph # (Auto) 0.77 L (1.20-3.40) K/uL [place] # (Auto) 0.77 H (0.11-0.59) K/uL Eos # (Auto) 0.14 (0.00-0.50) K/uL Baso # (Auto) 0.04 (0.00-0.20) K/uL Immature Gran # (Auto) 0.03 (0.01-0.20) K/uL POC Sodium 138 (135-144) mmol/L Sodium 136 (136-145) mmol/L POC Potassium 4.1 (3.3-5.0) mmol/L Potassium 4.3 (3.5-5.1) mmol/L POC Chloride 101 (101-112) mmol/L Chloride 101 (98-107) mmol/L Carbon Dioxide 25 (21-32) mmol/L POC Total CO2 27 (24-31) mmol/L Anion Gap 10 (3-11) POC Anion Gap 16.0 (16-25) mmol/L POC BUN 22 H (7-18) mg/dl BUN 19 (6-23) mg/dl Creatinine 1.14 (0.6-1.2) mg/dl POC Creatinine 1.1 (0.6-1.3) mg/dl Est Cr Clr Drug Dosing Not Reportable Est GFR ( Amer) 52.6 ml/min Est GFR (Non-Af Amer) 45.4 ml/min BUN/Creatinine Ratio 16.7 (10-20) Glucose 176 H (70-99(Fasting)) mg/dl POC Glucose (70-99) mg/dl POC Glucose (other) 180 H (70-99) mg/dl Estimat Average Glucose mg/dl Hemoglobin A1c (4.5-5.6) % Lactate 0.8 (0.4-2.0) mmol/L Calcium 10.3 (8.6-10.3) mg/dl POC Ioniz Calcium Nickie 1.24 (1.12-1.32) mmol/l Magnesium 1.3 L (1.7-2.4) mg/dl Total Bilirubin 0.6 (0.2-1.0) mg/dl AST 19 (13-39) U/L ALT 12 (7-52) U/L Alkaline Phosphatase 57 (34-104) U/L Troponin I High Sens 4.8 (0-14) pg/ml Total Protein 8.3 (6.0-8.3) gm/dl Albumin 4.9 (3.4-5.0) gm/dl Globulin 3.4 (2.5-4.0) gm/dl Albumin/Globulin Ratio 1.4 (0.9-2) Lipase 45 (11-82) U/L Diagnostic Findings Exam(s): CT ABDOMEN + PELVIS With Contrast IV Amt: 90 ml optiray 320 EXAM: CT Abdomen and Pelvis With Intravenous Contrast CLINICAL HISTORY: Reason for exam: mid abd pain. TECHNIQUE: Axial computed tomography images of the abdomen and pelvis with intravenous contrast. CTDI is 22.59 mGy and DLP is 1053.17 mGy-cm. Automated exposure control was utilized for the study. A dose lowering technique was utilized adhering to the principles of ALARA. CONTRAST: Patient received 90 ml optiray 320 of IV contrast COMPARISON: None. FINDINGS: Lung bases: Trace bilateral lower lobe subpleural atelectasis otherwise clear lung parenchyma. Heart: Unremarkable. No cardiomegaly. No significant pericardial effusion. Normal cardiac size with coronary artery calcifications. Mediastinum: Small hiatal hernia. ABDOMEN: Liver: Unremarkable. No mass. Gallbladder and bile ducts: Status post cholecystectomy with intrahepatic biliary distention. No ductal dilation. Pancreas: Unremarkable. No mass. No ductal dilation. Spleen: The spleen measures 13.0 cm consistent with bright lights but no megaly. Adrenals: Unremarkable. No mass. Kidneys and ureters: Unremarkable. No solid mass. No hydronephrosis. Stomach and bowel: Multiple loops of small bowel distended up to a maximum diameter of 3.4 cm consistent with small bowel obstruction, zone of transition indeterminate. The descending colon is decompressed. There are stuck with the changes along the sigmoid. No mucosal thickening. PELVIS: Appendix: Normal appendix. Bladder: Unremarkable. No mass. Reproductive: Unremarkable as visualized. ABDOMEN and PELVIS: Intraperitoneal space: Unremarkable. No free air. No significant fluid collection. Bones/joints: Advanced degenerative disease of the spine with scoliosis and multilevel vacuum phenomenon. No acute fracture. No dislocation. Soft tissues: There are 2 ventral hernias, one at the umbilicus and one cephalad containing fat. Vasculature: Atherosclerotic disease of aorta with no aneurysm or dissection. Lymph nodes: Unremarkable. No enlarged lymph nodes. IMPRESSION: 1. Small bowel obstruction with indeterminate zone of transition. 2. Mild hiatal hernia. 3. Status post cholecystectomy with nonspecific intrahepatic biliary distention. Remainder of abdominal viscera unremarkable. KUB CLINICAL HISTORY: Small bowel obstruction. FINDINGS: 2 AP, portable, supine abdominal radiographs are correlated with abdominal CT dated 09/28/2023. Distended and gas-filled loops of small bowel measure up to 3.6 cm. This indicates persistent obstruction. No evidence of int raperitoneal free air is seen on these supine images. Cholecystectomy clips are noted in the right upper quadrant. The bladder is filled with excreted IV contrast. There are no abnormal abdominal calcifications. Phleboliths are seen in the pelvis. The skeletal structures are osteopenic and appear intact. There is advanced lumbosacral spondylosis and scoliosis. A cortical lag screw transfixes the right sacroiliac joint. The lung bases are clear as imaged. IMPRESSION: Persistent small bowel obstruction.
--- OUTSIDE RECORDS SUMMARY | 2023-09-29 09:08 | External Medical Summary | Summary of Care ---
Author Name Unknown Organization [facility] Address [address] [place] [address] Phone [phone] Care Team Providers Care Book Sewer Name Role Phone Domo Pool DO Primary Care Provider [phone] Reason for Visit * Reason Onset Date Comments Follow Up Immunizations 09/27/2023 Immunization RSV Vaccine 09/27/2023 Encounter Details Date Type Department Care Team (Latest Contact Info) Description 09/27/2023 9:40 AM EDT Office Visit Family Practice [address] [facility] [address] [place] [address] Domo Pool DO [address] [place] [address] Hip pain, left*; Type 2 diabetes mellitus with hemoglobin A1c goal of less than 8.0% ([facility]); Dyslipidemia, goal LDL below 70; PSVT (paroxysmal supraventricular tachycardia); Essential hypertension with goal blood pressure less than 140/90; Cerebrovascular disease, arteriosclerotic, post-stroke; DDD (degenerative disc disease), lumbar; Primary osteoarthritis of left foot; Primary insomnia; Generalized anxiety disorder; Gastroesophageal reflux disease without esophagitis; Need for RSV vaccination; DM type 2 nursing care encounter ([facility]); Need for qgvadpmlir-mxfezxv-dwbxs ssis (Tdap) vaccine; Coronary artery disease involving lummi coronary artery of lummi heart without angina pectoris; Iron deficiency anemia, unspecified iron deficiency anemia type; Vitamin B 12 deficiency; DDD (degenerative disc disease), cervical Allergies Active Allergy Reactions Criticality Noted Date Comments Amoxicillin Bleeding High 04/27/2015 Amoxicillin-Pot Clavulanate 09/05/19 14 tary stools documented as of this encounter (statuses as of 09/27/2023) Medications Medication Sig Dispensed Refills Start Date End Date Status Aspirin 81 MG Tablet Take 1 Tablet by mouth in the morning. 0 Active Cholecalciferol (VITAMIN D) 1000 UNIT Capsule Take 1 Capsule by mouth in the morning. 0 Active traMADol HCl 50 MG Oral Tablet (Ultram)Indications :Acute bilateral low back pain with left-sided sciatica Take 1 Tab by mouth every 6 hours as needed (for back pain). 60 Tab 0 10/12/2020 Active Additional Information Patient not taking.Reported on 08/02/2023 Polyethylene Glycol 3350 17 GM/SCOOP Oral Powder (MiraLax) Take by mouth 17 g in the morning. One cap full in juice, to effect 1 stool per day. .. 507 g 3 09/22/2021 Active Additional Information Patient taking differently:17 g Oral Daily(AM), One cap full in juice, to effect 1 stool per day. .,Indications: bloating, Reported on 06/08/2022 Prevagen Extra Strength 20 MG Oral Capsule (Apoaequorin)Indica tions:clear mind Take by mouth 1 Capsule daily . 0 Active Probiotic Acidophilus BioBeads Oral Capsule Take 1 Capsule by mouth in the morning. 0 Active OneTouch Verio w/Device Kit Use as directed . Use to test blood sugar once daily 1 Kit 0 01/20/2022 Active Vitamin C 500 MG Oral Capsule Take 1 Capsule by mouth every evening. 0 Active OneTouch UltraSoft LancetsIndications: Type 2 diabetes mellitus with hemoglobin A1c goal of less than 7.0% ([facility]) Use to check blood sugar once daily as directed 100 Each 3 01/25/2022 Active Acetaminophen ER 650 MG Oral Tablet Extended Release Take 2 Tablets by mouth at bedtime as needed (hip pain). 0 Active Meclizine HCl 25 MG Oral Tablet (Antivert) TAKE 1 TABLET BY MOUTH 3 TIMES DAILY NEEDED FOR DIZZINESS Strength: 25 mg 30 Tablet 3 10/10/2022 Active Dicyclomine HCl 10 MG Oral Capsule (Bentyl) TAKE ONE CAPSULE BY MOUTH FOUR TIMES A DAY NEEDED FOR DIARRHEA AND PAIN 120 Capsule 3 01/26/2023 4 Active Fluticasone Propionate 50 MCG/ACT Nasal Suspension (Flonase)Indication s:Post-nasal drip ADMINISTER 2 SPRAYS INTO EACH NOSTRIL IN THE MORNING NEEDED 16 g 3 01/26/2023 4 Active Gabapentin 100 MG Oral Capsule (Neurontin)Indicati ons:DDD (degenerative disc disease), lumbar Take 1 Capsule by mouth in the morning and 1 Capsule at noon and 1 Capsule before bedtime. 300 Capsule 3 02/07/2023 Active metFORMIN HCl 1000 MG Oral Tablet (Glucophage) Take 1 Tablet by mouth 2 times a day with morning and evening meals. 200 Tablet 3 02/15/2023 Active Cyclobenzaprine HCl 5 MG Oral Tablet (Flexeril)Indicatio ns:DDD (degenerative disc disease), cervical,DDD (degenerative disc disease), lumbar TAKE ONE TABLET BY MOUTH THREE TIMES A DAY NEEDED FOR MUSCLE SPASMS, 270 Tablet 3 03/03/2023 Active Atenolol 50 MG Oral Tablet (Tenormin)Indicatio ns:HTN, goal below 140/90 TAKE ONE TABLET BY MOUTH IN THE MORNING 100 Tablet 3 03/25/2023 4 Active amLODIPine Besylate 5 MG Oral Tablet (Norvasc)Indication s:HTN, goal below 140/90 Take 1 Tablet by mouth in the morning. 100 Tablet 3 03/30/2023 Active Sertraline HCl 100 MG Oral Tablet (Zoloft)Indications :Anxiety Take 1 Tablet by mouth in the morning. Takes additional 50 mg tablet. 100 Tablet 3 04/03/2023 Active Ozempic (0.25 or 0.5 MG/DOSE) 2 MG/3ML Solution Pen-injector (Semaglutide(0.25 or 0.5MG/DOS)) Inject 0.5 mg under the skin once a week. - gets from the surgical first assistant! 0 04/03/2023 Active Miconazole Nitrate 2 % External Cream (Monistat Derm) Apply to skin folds as directed 0 Active Nystatin 185942 UNIT/GM External Powder (Nystop) Apply topically to affected area 3 times a day. Apply to skin folds 60 g 0 06/30/2023 Active traZODone HCl 50 MG Oral Tablet (Desyrel)Indication s:Primary insomnia Take 1 Tablet by mouth at bedtime. 90 Tablet 1 07/14/2023 Active Vitamin B12 1000 MCG Oral Tablet Extended Release Take by mouth daily. 0 07/25/2023 Active Cetirizine HCl 10 MG Oral Tablet (ZyrTEC)Indications :Non-seasonal allergic rhinitis due to pollen Take 1 Tablet by mouth in the morning. 100 Tablet 3 07/26/2023 Active Sertraline HCl 50 MG Oral Tablet (Zoloft)Indications :Generalized anxiety disorder Take 1 Tablet by mouth in the morning. 100 Tablet 3 07/26/2023 Active OneTouch Verio In Vitro Strip (Glucose Blood)Indications:T ype 2 diabetes mellitus with hemoglobin A1c goal of less than 7.0% (HCC) USE TO CHECK BLOOD SUGAR TWICE DAILY DIRECTED 200 Strip 3 07/31/2023 Active busPIRone HCl 10 MG Oral Tablet (Buspar)Indications :Anxiety Take 1 Tablet by mouth in the morning and 1 Tablet before bedtime. 200 Tablet 1 09/08/2023 Active Pantoprazole Sodium 20 MG Oral Tablet Delayed Release (Protonix)Indicatio ns:Gastroesophageal reflux disease without esophagitis TAKE ONE TABLET BY MOUTH TWICE A DAY 30 MINUTES BEFORE A MEAL DO NOT CUT, CRUSH OR CHEW THE TABLET. 200 Tablet 3 09/19/2023 Active Atorvastatin Calcium 80 MG Oral Tablet (Lipitor)Indication s:Type 2 diabetes mellitus with hemoglobin A1c goal of less than 7.0% (HCC),Cerebrovascul ar disease, arteriosclerotic, post-stroke Take 1 Tablet by mouth in the morning. 100 Tablet 3 09/22/2023 Active Olaufvy-Ormaok-Zegq l Pertussis 5-2.5-18.5 LF-MCG/0.5 Suspension Prefilled Syringe (Boostrix)Indicatio ns:Need for diphtheria-tetanus- pertussis (Tdap) vaccine Inject 0.5 mL into a large muscle once for 1 dose. 0.5 mL 0 09/27/2023 4 Active Abrysvo 120 MCG/0.5ML Intramuscular Solution Reconstituted (RSV Pre-Fusion F A&B Vac [facility])Indications:Ne ed for RSV vaccination Inject 0.5 mL into a large muscle once for 1 dose. 1 Each 0 09/27/2023 4 Active Hospital, Clinic, or Other Facility Administered Medication Ordered Dose Route Frequency Start Date End Date Status vitamin b-12 (Cyanocobalamin) inj 1,000 mcgIndications:Vitamin B 12 deficiency 1000 mcg IM [id number] 12/29/2022 11/30/2023 Active documented as of this encounter (statuses as of 09/27/2023) Active Problems Problem Noted Date Diagnosed Date Stress due to illness of family member Drug-induced hyperkalemia 04/11/2023 Overview: LISINOPRIL Vitamin B 12 deficiency 12/29/2022 Primary insomnia 06/08/2022 Generalized anxiety disorder 01/25/2022 Sacroiliitis, not elsewhere classified DDD (degenerative disc disease), lumbar 01/26/20 Iron deficiency anemia 09/14/2018 Gastroesophageal reflux disease without esophagi tis 09/14/2018 Type 2 diabetes mellitus wit h hemoglobin A1c goal of less than 8.0% 10/17/2017 Bilateral carpal tunnel syndrome 10/17/2017 Primary osteoarthritis of left foot 10/17/2017 DDD (degenerative disc disease), cervical 2017 Coronary artery disease invo lving lummi coronary artery of lummi heart without angina pectoris 10/17/2017 Dyslipidemia, goal LDL below 70 11/13/2015 PSVT (paroxysmal supraventricular tachycardia) 0 10/14/2015 Essential hypertension with goal blood pressure less than 140/90 09/18/2014 Cerebrovascular disease, arteriosclerotic, post- stroke 07/21/2009 documented as of this encounter (statuses as of 09/27/2023) Resolved Problems Problem Noted Date Diagnosed Date Resolved Date Food insecurity 04/10/2023 08/17/2023 Overview: Per [facility] Protocol Slow transit constipation 01/25/2022 Food insecurity 02/08/2021 04/14/2022 Overview: Per [facility] Protocol Chronic kidney disease, stage 3a 01/11/2021 07/26/2021 Overview: Per CKD protocol Duplicate Type 2 diabetes mellitus wit h stage 3a chronic kidney disease 12/15/2020 01/25/2022 Overview: Per CKD protocol Hypertensive kidney disease with stage 3a chronic kidney disease 12/15/2020 04/19/2022 Overview: Per CKD protocol Sacroiliitis 06/13/2018 11/04/2020 Hypertensive kidney disease with stage 3 chronic kidney disease 04/26/2018 12/17/2020 Overview: Per CKD protocol Diabetes mellitus with stage 3 chronic kidney disease 03/22/2018 12/17/2020 Overview: Per CKD protocol Kidney disease, chronic, sta ge III (GFR 30-59 ml/min) 10/23/2017 04/16/2018 History of ischemic colitis 12/28/2016 09/04/2018 Abnormal stress echocardiogram 10/14/2015 03/22/2018 BARRON (dyspnea on exertion) 09/24/2015 Palpitations 09/24/2015 03/22/2018 Closed fracture of second cervical vertebra 04/28/2015 12/27/2016 Gastritis 04/15/2015 11/02/2017 Anxiety 03/24/2014 01/25/2022 Tubulovillous adenoma of colon 06/27/2012 03/22/2018 Ischemic colitis 02/06/2012 12/28/2016 Overview: found on colonoscopy HTN, goal below 130/80 07/29/200909/18 Overview: Per HTN Taxonomy. Type 2 diabetes mellitus wit h hemoglobin A1c goal of less than 7.0% 04/16/2009 04/05/2022 Overview: Modified per Diabetes protocol #14. ICD-10 update of inactive term DM type 2, not at goal 06/05/200804/16 Overview: Modified per Diabetes protocol #14. HTN, goal below 140/90 06/05/200807/29 Overview: Per HTN Taxonomy. documented as of this encounter (statuses as of 09/27/2023) Immunizations Name Administration Dates Next Due COVID-19 mRNA, LNP-s, No Pre serve, 2-Dose Series (Pfizer) 06/03/2021,09/30/2020,09/04/2020 COVID-19, MRNA-LNP, 23-24, P F, 30 MCG/0.3 mL, 12 YRS AND ABOVE, IM (PFIZER-Comirnaty) 07/21/2023 Covid-19, Mrna, Lnp-s, Pf, B ivalent, 30 Mcg, IM, 12 yrs and above (Pfizer) 06/14/2022 Pneumococcal Conjugate Vacc, 13 Valent (Prevnar) 11/19/2015 Pneumococcal Polysaccharide PPV23 (Pneumovax) 07/03/2008 RSV Vac., Bivalent, Perfusio n F, Pf,0.5 Ml (Abrysvo) 09/27/2023 Seasonal Influenza, PF, 6 M & above, IM , (FluLaval or Fluzone) 03/11/2020,04/15/2019,05/10/2018,03/27 Seasonal Influenza, Quadriva lent Hd (Fluzone Hd) 03/30/2023,04/05/2022,04/14/2021 Seasonal Influenza, Quadriva lent, No Preserve, IM 04/08/2015 Seasonal Influenza, Split, I IV3, With Preserve, Inj 03/24/2014,06/14/2013,04/05/2011,04/02,07/03/2008,06/05/2008 TDAP (age 10 and older)(Boostrix) 09/27/2023,10/2013 Varicella Zoster Vaccine (Adult) 08/19/2015 Zoster Vaccine Recombinant (Shingrix) 12/09/2020 ,11/19/2020,10/22/2020 documented as of this encounter Social History Tobacco Use Types Packs/Day Years Used Date Smoking Tobacco: Former Cigarettes Q uit: 07/28/1961 Passive Smoke Exposure: Current Smokeless Tobacco: Never Tobacco Cessation:Counseling Given: Yes Comments:quit 40 yrs ago, only smoked 6 months. Alcohol Use Standard Drinks/Week Comments No 0 (1 standard drink = 0.6 oz pur e alcohol) PHQ-2 Answer Date Recorded PHQ Adult Total Score 0 07/31/2023 Hunger Vital Sign Answer Date Recorded Within the past 12 months, y ou worried that your food would run out before you got the money to buy more. Never true 08/02/19 24 Within the past 12 months, t he food you bought just didn't last and you didn't have money to get more. Never true 08/02/2023 Sex and Gender Information Value Date Recorded Sex Assigned at Female 10/11/2018 12:10 PM EDT Gender Identity Female 10/11/2018 12:10 PM EDT Sexual Orientation Straight 10/11/2018 12 :10 PM EDT Job Start Date Occupation Industry Not on file Not on file Not on file documented as of this encounter Last Filed Vital Signs Vital Sign Reading Time Taken Comments Blood Pressure 122/70 09/27/2023 9:15 AM EDT Pulse 90 09/27/2023 9:15 AM EDT Temperature 35.8 C (96.5 F) 09/27/2023 9:15 AM ED T Respiratory Rate 14 09/27/2023 9:15 AM EDT Oxygen Saturation 98% 09/27/2023 9:15 AM EDT Inhaled Oxygen Concentration - - Weight 67.8 kg (149 lb 6.4 oz) 09/27/2023 9:15 A M EDT Height 163.2 cm (5' 4.25") 09/27/2023 9:15 AM ED T Body Mass Index 25.45 09/27/2023 9:15 AM EDT documented in this encounter Functional Status Functional Status Response Date of Assess ment Are you deaf or do you have serious difficulty h earing? No 04/27/2015 Are you blind or do you have serious difficulty seeing, even when wearing glasses? No 04/27/2015 Do you have difficulty dress ing or bathing? (5 years old or older) No 04/27/2015 Because of a physical, menta l, or emotional condition, do you have difficulty doing errands alone such as visiting a doctor s office or shopping? (15 years old or older) No 04/27/20 15 Cognitive Status Response Date of Assessm ent Because of a physical, menta l, or emotional condition, do you have serious difficulty concentrating, remembering, or making decisions? (5 years old or older) No 04/27/2015 documented as of this encounter Patient Instructions * Patient Instructions* Celena Rosenberg LPN - 09/27/2023 9:12 AM EDT Diabetes: Keeping Feet Healthy Inspect your feet every day for signs of a problem. Diabetes can damage nerves in your feet and cause neuropathy. This condition makes it hard for you to feel injuries or sore spots. Diabetes can also change blood flow, making it harder for small problems, like a blister, to heal properly. In fact, minor injuries can quickly become serious infections that send you to the hospital. Practice self-care to protect your feet and keep them healthy. Take Special Care Inspect your feet daily for problems such as redness, blisters, cracks, dry skin, or numbness. Use a mirror to see the bottoms of your feet. Or, ask for help. Manage your diabetes. Monitor and control your blood sugar. Take all your medications as prescribed. Avoid walking barefoot, even indoors. Wash your feet with warm water and mild soap. Dry well, especially between toes. Dont treat corns or calluses yourself. Talk to your doctor or point of sale associate (a doctor who specializes in foot care) if you need assistance trimming your toenails. Use moisturizing cream or lotion if you have dry skin, but dont use it between toes. Dont use heating pads on your feet. If you have neuropathy, you could get a burn and not feel it. Stop smoking. Smoking restricts blood flow and can make it harder for wounds to heal. Have Regular Checkups Foot problems can develop quickly. So be sure to follow your healthcare teams schedule for regular checkups. During office visits, take off your shoes and socks as soon as you get in the exam room. Ask your healthcare provider to examine your feet for problems. This will make it easier to find and treat small skin irritations before they get worse. Regular checkups can also help keep track of the blood flow and feeling in your feet. If you have neuropathy, you may need to have checkups more often. Wear Proper Footwear Wearing proper footwear is very important. If areas of your feet have been damaged by too much pressure, your healthcare provider may recommend changing your footwear. In some cases, avoiding high heels or tight work boots may be all thats needed. Or, your healthcare provider may recommend special shoes or custom inserts. These help protect your feet and keep existing irritations from getting worse. If you need special footwear, ask your healthcare provider if you qualify for [facility] diabetic shoe program. Make Sure Shoes and Socks Fit Any pair of shoes--new or old--should feel comfortable as soon as you put them on. There shouldnt be any rubbing when you walk. Wear the right shoe for any activity. For instance, a running shoe is designed to keep your feet injury-free while jogging. Buy shoes at the end of the day, when your feet are larger. Make sure they provide support without feeling too loose. Make sure your socks fit, t oo. Wear soft, seamless, well-padded socks for activity. Cotton or microfiber socks are best to help to absorb sweat. To protect your feet, avoid shoes that are open-toed or open-heeled. If you have questions about what kinds of shoes and socks are best, talk to your healthcare team. Get Regular Exercise Regular exercise improves blood flow in your feet. It also increases foot strength and flexibility.Gentle exercises, like walking or riding a stationary bicycle, are best. You can also do special foot exercises. Just be sure to talk with your healthcare provider before starting any exercise program. Also mention if any exercise causes pain, redness, or other signs of foot problems. Note: If you have any kind of break in the skin of your foot or ankle, keep the area clean. Then call your doctor--especially if the area doesnt appear to be healing. [id number] [employer], [address] [place] [address]. All rights reserved. This information is not intended as a substitute for professional medical care. Always follow your healthcare professional's instructions. ~~PATIENT INSTRUCTIONS FOR TDAP VACCINE~~ Possible side effects of TDAP vaccine, (tetanus shot), are usually mild and can include: 1. Soreness or redness at injection site 2. Low grade fever 3. Body aches You may use a fever / pain reducing medication as needed for these symptoms. LET YOUR DOCTOR KNOW IMMEDIATELY IF YOU HAVE DIFFICULTY BREATHING OR SWALLOWING, EXPERIENCE ITCHINGOF FEET OR HANDS, HAVE SWELLING OF EYES, FACE OR INSIDE OF NOSE. Possible side effects of RSV vaccine, (Respiratory Syncytial Virus), are usually mild and can include: Soreness, swelling or redness at injection site Low grade fever Body aches or joint pain Headache Nausea or diarrhea You may use a fever/pain reducing medication for these symptoms. LET YOUR DOCTOR KNOW IMMEDIATELY IF YOU HAVE DIFFICULTY BREATHING OR SWALLOWING, EXPERIENCE ITCHINGOF FEET OR HANDS, HAVE SWELLING OF EYES, FACE OR INSIDE OF NOSE. documented in this encounter Progress Notes * Domo Pool, DO - 09/27/2023 10:48 AM EDT SUBJECTIVE: Dyana Menard is a 82 year old female. Chief Complaint Patient presents with Follow Up Immunizations Immunization RSV Vaccine HPI: Patient is an 82 year old female with a history of DM type II, CVA, HTN, Hyperlipidemia, Diabetic Neuropathy, CAD, GERD, Iron Deficiency Anemia, Constipation, B -12 Deficiency, Anxiety, Lumbar DDD, and Cervical DDD that is seen after falling 1 week ago. The patient fell on her left thigh. She hit her head and did not have syncope. Head pain has resolved. Left thigh pain is still present. She is able to ambulate. Patient had Lumbar medical branch blocks done by pain management 2 days ago. Back pain has improved. No chest pain or shortness of breath are present. Weight is stable and appetite isfair. Anxiety is unchnaged. Chronic alternating diarrhea and constipation are unchanged. Patient Active Problem List Diagnosis Code Cerebrovascular disease, arteriosclerotic, post-stroke I67.2, Z86.73 Essential hypertension with goal blood pressure less than 140/90 I10 PSVT (paroxysmal supraventricular tachycardia) I47.10 Dyslipidemia, goal LDL below 70 E78.5 Type 2 diabetes mellitus with hemoglobin A1c goal of less than 8.0% ([facility]) E11.9 Bilateral carpal tunnel syndrome G56.03 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 DDD (degenerative disc disease), cervical M50.30 Coronary artery disease involving lummi coronary artery of lummi heart without angina pectoris I25.10 Iron deficiency anemia D50.9 Gastroesophageal reflux disease without esophagitis K21.9 Generalized anxiety disorder F41.1 Sacroiliitis, not elsewhere classified (HCC) M46.1 DDD (degenerative disc disease), lumbar M51.36 Primary insomnia F51.01 Vitamin B 12 deficiency E53.8 Drug-induced hyperkalemia E87.5, T50.905A Stress due to illness of family member Z63.66 Current Outpatient Medications Medication Sig Dispense Refill Aspirin 81 MG Tablet Take 1 Tablet by mouth in the morning. Cholecalciferol (VITAMIN D) 1000 UNIT Capsule Take 1 Capsule by mouth in the morning. Polyethylene Glycol 3350 17 GM/SCOOP Oral Powder (MiraLax) Take by mouth 17 g in the morning. One cap full in juice, to effect 1 stool per day. .. (Patient taking differently: Take 17 g by mouth in the morning. One cap full in juice, to effect 1 stool per day. ..) 507 g 3 Prevagen Extra Strength 20 MG Oral Capsule (Apoaequorin) Take by mouth 1 Capsule daily . Probiotic Acidophilus BioBeads Oral Capsule Take 1 Capsule by mouth in the morning. Vitamin C 500 MG Oral Capsule Take 1 Capsule by mouth every evening. Acetaminophen ER 650 MG Oral Tablet Extended Release Take 2 Tablets by mouth at bedtime as needed (hip pain). Meclizine HCl 25 MG Oral Tablet (Antivert) TAKE 1 TABLET BY MOUTH 3 TIMES DAILY NEEDED FOR DIZZINESS Strength: 25 mg 30 Tablet 3 Dicyclomine HCl 10 MG Oral Capsule (Bentyl) TAKE ONE CAPSULE BY MOUTH FOUR TIMES A DAY NEEDED FOR DIARRHEA AND PAIN 120 Capsule 3 Fluticasone Propionate 50 MCG/ACT Nasal Suspension (Flonase) ADMINISTER 2 SPRAYS INTO EACH NOSTRIL IN THE MORNING NEEDED 16 g 3 Gabapentin 100 MG Oral Capsule (Neurontin) Take 1 Capsule by mouth in the morning and 1 Capsule at noon and 1 Capsule before bedtime. 300 Capsule 3 metFORMIN HCl 1000 MG Oral Tablet (Glucophage) Take 1 Tablet by mouth 2 times a day with morning and evening meals. 200 Tablet 3 Cyclobenzaprine HCl 5 MG Oral Tablet (Flexeril) TAKE ONE TABLET BY MOUTH THREE TIMES A DAY NEEDED FOR MUSCLE SPASMS, 270 Tablet 3 Atenolol 50 MG Oral Tablet (Tenormin) TAKE ONE TABLET BY MOUTH IN THE MORNING 100 Tablet 3 amLODIPine Besylate 5 MG Oral Tablet (Norvasc) Take 1 Tablet by mouth in the morning. 100 Tablet 3 Sertraline HCl 100 MG Oral Tablet (Zoloft) Take 1 Tablet by mouth in the morning. Takes additional 50 mg tablet. 100 Tablet 3 Ozempic (0.25 or 0.5 MG/DOSE) 2 MG/3ML Solution Pen-injector (Semaglutide(0.25 or 0.5MG/DOS)) Inject 0.5 mg under the skin once a week. - gets from the surgical first assistant! traZODone HCl 50 MG Oral Tablet (Desyrel) Take 1 Tablet by mouth at bedtime. 90 Tablet 1 Vitamin B12 1000 MCG Oral Tablet Extended Release Take by mouth daily. Cetirizine HCl 10 MG Oral Tablet (ZyrTEC) Take 1 Tablet by mouth in the morning. 100 Tablet 3 Sertraline HCl 50 MG Oral Tablet (Zoloft) Take 1 Tablet by mouth in the morning. 100 Tablet 3 busPIRone HCl 10 MG Oral Tablet (Buspar) Take 1 Tablet by mouth in the morning and 1 Tablet before bedtime. 200 Tablet 1 Pantoprazole Sodium 20 MG Oral Tablet Delayed Release (Protonix) TAKE ONE TABLET BY MOUTH TWICE A DAY 30 MINUTES BEFORE A MEAL DO NOT CUT, CRUSH OR CHEW THE TABLET. 200 Tablet 3 Atorvastatin Calcium 80 MG Oral Tablet (Lipitor) Take 1 Tablet by mouth in the morning. 100 Tablet 3 Bsfxpza-Wsxygs-Cjain Pertussis 5-2.5-18.5 LF-MCG/0.5 Suspension Prefilled Syringe (Boostrix) Inject0.5 mL into a large muscle once for 1 dose. 0.5 mL 0 Abrysvo 120 MCG/0.5ML Intramuscular Solution Reconstituted (RSV Pre-Fusion F A&B Vac Rcmb) Inject 0.5 mL into a large muscle once for 1 dose. 1 Each 0 traMADol HCl 50 MG Oral Tablet (Ultram) Take 1 Tab by mouth every 6 hours as needed (for back pain). (Patient not taking: Reported on 08/02/2023) 60 Tab 0 MindFuseTouch Verio w/Device Kit Use as directed . Use to test blood sugar once daily 1 Kit 0 MindFuseTouch UltraSoft Lancets Use to check blood sugar once daily as directed 100 Each 3 Miconazole Nitrate 2 % External Cream (Monistat Derm) Apply to skin folds as directed Nystatin 215703 UNIT/GM External Powder (Nystop) Apply topically to affected area 3 times a day. Apply to skin folds 60 g 0 MindFuseTouch Verio In Vitro Strip (Glucose Blood) USE TO CHECK BLOOD SUGAR TWICE DAILY DIRECTED 200 Strip 3 Current Facility-Administered Medications Medication Dose Route Frequency Provider Last Rate Last Admin vitamin b-12 (Cyanocobalamin) inj 1,000 mcg 1,000 mcg Intramuscular Q4 Weeks Domo Pool DO 1,000 mcg at 09/27/23 1016 The patient's medication list was reviewed and updated as needed. Past Medical History: Diagnosis Date Anxiety Bloating CVA (cerebral infarction) 2009 affected her speech. RCA Hearing loss Hypertension Ischemic colitis (HCC) 02/06/12 found on colonoscopy-repeat colonoscopy 05/28/12 Slow transit constipation 01/25/2022 Type 2 diabetes mellitus (HCC) Past Surgical History: Procedure Laterality Date COLONOSCOPY THRU STOMA, W/BIOPSY 02/06/2012 ischemic colitis-repeat colonoscopy in 05/28/12 COLONOSCOPY, DIAGNOSTIC (RECTUM) 03/04/2014 COLONOSCOPY FLEXIBLE PROXIMAL DIAGNOSTIC performed by Riaz Hanson MD at [facility] COLONOSCOPY, DIAGNOSTIC (RECTUM) 02/03/2016 normal, repeat 5 yrs/COLONOSCOPY FLEXIBLE PROXIMAL DIAGNOSTIC performed by Debbie Gordon DO at [facility] COLONOSCOPY, DIAGNOSTIC (RECTUM) 05/11/2020 adenomatous polyp, diverticulosis / COLONOSCOPY FLEXIBLE PROXIMAL DIAGNOSTIC performed by Samy Roe MD at [facility] DESTROY LUMBAR SACRAL NERVE IMAGING SINGLE 04/24/2017 DESTROY LUMBAR SACRAL NERVE IMAGING SINGLE performed by Dez Arevalo DO at [facility] DESTROY LUMBAR SACRAL NERVE IMAGING SINGLE 02/15/2018 DESTROY LUMBAR SACRAL NERVE IMAGING SINGLE performed by Dez Arevalo DO at [facility] DESTROY LUMBAR SACRAL NERVE IMAGING SINGLE 01/18/2023 DESTROY LUMBAR SACRAL NERVE IMAGING SINGLE performed by Dez Arevalo DO at [facility] EGD, FLEXIBLE, DIAGNOSTIC 09/17/2012 biopsies--intestinal metaplasia EGD, FLEXIBLE, DIAGNOSTIC 02/03/2016 mild gastritis, sm HH/ESOPHAGOGASTRODUODENOSCOPY (EGD), FLEXIBLE, TRANSORAL, DIAGNOSTIC performed by Debbie Gordon DO at [facility] EGD, FLEXIBLE, DIAGNOSTIC 05/11/2020 normal bx / ESOPHAGOGASTRODUODENOSCOPY (EGD), FLEXIBLE, TRANSORAL, DIAGNOSTIC performed by Samy Quintana MD at [facility] EGD, FLEXIBLE, TRANSENDOSCOPIC DILATION <30MM 03/04/2014 ESOPHAGOGASTRODUODENOSCOPY (EGD), FLEXIBLE, TRANSORAL, BALLOON DILATION LESS THAN 30MM performed byRiaz Hanson MD at [facility] INFORMATION Pin in right hip for chronic dislocation INFORMATION 02/07/2014 needle loc parial mastectomy/lumpectomy with oncoplastic closure and right axilla sentinel lymph node biopsy [facility] 02/07/14 jillian mandel L-/S-SPINE PARAVERTEBRAL FACET INJ,1 LEVEL 03/16/2017 L-/S-SPINE PARAVERTEBRAL FACET INJ, 1 LEVEL performed by Dez Arevalo, DO at [facility] L-/S-SPINE PARAVERTEBRAL FACET INJ,1 LEVEL 02/05/2018 L-/S-SPINE PARAVERTEBRAL FACET INJ, 1 LEVEL performed by Dez Arevalo, DO at [facility] L-/S-SPINE PARAVERTEBRAL FACET INJ,1 LEVEL 11/03/2022 L-/S-SPINE PARAVERTEBRAL FACET INJ, 1 LEVEL performed by Dez Arevalo, DO at [facility] L-/S-SPINE PARAVERTEBRAL FACET INJ,1 LEVEL 12/07/2022 L-/S-SPINE PARAVERTEBRAL FACET INJ, 1 LEVEL performed by Dez Arevalo, DO at [facility] L-/S-SPINE PARAVERTEBRL FACET INJ,2 LEVELS 03/30/2017 L-/S-SPINE PARAVERTEBRAL FACET INJ, 2 LEVELS performed by Dez Arevalo, DO at [facility] PARTIAL REMOVAL OF COLON 06/11/2012 06/11/2012 Laparoscopic hand-assisted sigmoid colon resection,laparoscopic mobilization of the splenic flexure Dr Hanson [facility]06/11/12 REMOVE GALLBLADDER SACROILIAC JOINT INJECT W/GUIDANCE 04/05/2018 INJECTION SACROILIAC JOINT performed by Dez Arevalo, DO at [facility] SACROILIAC JOINT INJECT W/GUIDANCE 06/18/2018 INJECTION SACROILIAC JOINT performed by Dez Arevalo, DO at [facility] SACROILIAC JOINT INJECT W/GUIDANCE 10/15/2018 INJECTION SACROILIAC JOINT performed by Dez Arevalo, DO at [facility] SACROILIAC JOINT INJECT W/GUIDANCE 01/14/2019 INJECTION SACROILIAC JOINT performed by Dez Arevalo, DO at [facility] SACROILIAC JOINT INJECT W/GUIDANCE 05/20/2019 INJECTION SACROILIAC JOINT performed by Dez Arevalo, DO at [facility] SACROILIAC JOINT INJECT W/GUIDANCE 12/23/2019 INJECTION SACROILIAC JOINT performed by Dez Arevalo, DO at [facility] SACROILIAC JOINT INJECT W/GUIDANCE 01/23/2020 INJECTION SACROILIAC JOINT performed by Dez Arevalo, DO at [facility] SACROILIAC JOINT INJECT W/GUIDANCE 01/18/2021 INJECTION SACROILIAC JOINT performed by Dez Arevalo, DO at [facility] SACROILIAC JOINT INJECT W/GUIDANCE 07/12/2021 INJECTION SACROILIAC JOINT performed by Dez Arevalo, DO at [facility] SACROILIAC JOINT INJECT W/GUIDANCE 01/19/2022 INJECTION SACROILIAC JOINT performed by Dez Arevalo, DO at [facility] SACROILIAC JOINT INJECT W/GUIDANCE 05/31/2023 INJECTION SACROILIAC JOINT performed by Dez Arevalo DO at [facility] TOTAL ABD HYSTERECTOMY W/WO REMOVAL OF TUBE(S) Bilateral age 47 TOTAL HYSTERECTOMY Review of patient's allergies indicates: Allergen Reactions Amoxicillin Bleeding Amoxicillin-Pot Clavulanate tary stools Review of Systems Constitutional: Positive for fatigue. Negative for appetite change and unexpected weight change. HENT: Negative for congestion, sore throat and trouble swallowing. Respiratory: Negative for cough, shortness of breath and wheezing. Cardiovascular: Negative for chest pain, palpitations and leg swelling. Gastrointestinal: Positive for constipation and diarrhea. Negative for abdominal pain, blood in stool, nausea and vomiting. Genitourinary: Negative for dysuria, frequency and hematuria. Musculoskeletal: Positive for back pain and gait problem. Left thigh pain post fall Neurological: Negative for dizziness, syncope and headaches. Psychiatric/Behavioral: Positive for decreased concentration and dysphoric mood. Negative for confusion and sleep disturbance. OBJECTIVE: BP 122/70 | Pulse 90 | Temp 35.8 C (96.5 F) (Tympanic) | Resp 14 | Ht 1.632 m (5' 4.25") | Wt 67.8 kg (149 lb 6.4 oz) | SpO2 98% | BMI 25.45 kg/m | BSA 1.75 m Physical Exam Vitals and nursing note reviewed. Constitutional: General: She is not in acute distress. Appearance: Normal appearance. She is not toxic-appearing. HENT: Head: Normocephalic and atraumatic. Cardiovascular: Rate and Rhythm: Normal rate and regular rhythm. Heart sounds: Normal heart sounds. No murmur heard. No gallop. Pulmonary: Breath sounds: Normal breath sounds. No wheezing, rhonchi or rales. Abdominal: General: Bowel sounds are normal. There is no distension. Palpations: Abdomen is soft. Tenderness: There is no abdominal tenderness. Musculoskeletal: Left upper leg: Tenderness present. No swelling, deformity or bony tenderness. Right lower leg: No edema. Left lower leg: No edema. Neurological: Mental Status: She is alert and oriented to person, place, and time. Mental status is at baseline. Motor: No weakness. Gait: Gait normal. Psychiatric: Mood and Affect: Mood normal. Behavior: Behavior normal. Thought Content: Thought content normal. PLAN AND ASSESSMENT: Hip pain, left (Primary) - XR HIP UNILAT 2-3 VIEWS INCLUDING AP PELVIS No fracture present on x-rays of hip Type 2 diabetes mellitus with hemoglobin A1c goal of less than 8.0% ([facility]) Continue Semaglutide, and Metformin Dyslipidemia, goal LDL below 70 Continue Atorvastatin PSVT (paroxysmal supraventricular tachycardia) Continue Atenolol Essential hypertension with goal blood pressure less than 140/90 Continue Amlodipine, and Atenolol Cerebrovascular disease, arteriosclerotic, post-stroke Continue Atenolol, and ASA DDD (degenerative disc disease), lumbar Primary osteoarthritis of left foot Primary insomnia Generalized anxiety disorder Continue Sertraline and Buspar Gastroesophageal reflux disease without esophagitis Continue Pantoprazole Need for RSV vaccination - RSV VAC, BIVALENT, PERF, PF, 0.5 ML, 60YRS AND ABOVE - Abrysvo 120 MCG/0.5ML Intramuscular Solution Reconstituted (RSV Pre-Fusion F A&B Vac Rcmb); Inject 0.5 mL into a large muscle once for 1 dose. DM type 2 nursing care encounter (HCC) - DIABETES FOOT EXAM Need for nsufhorvol-angqpfz-hilzrxvqz (Tdap) vaccine - TDAP (AGE 10 AND OLDER)(BOOSTRIX) - Eorjoct-Palnob-Gfuhd Pertussis 5-2.5-18.5 LF-MCG/0.5 Suspension Prefilled Syringe (Boostrix); Inject 0.5 mL into a large muscle once for 1 dose. Coronary artery disease involving lummi coronary artery of lummi heart without angina pectoris Continue Atenolol, and ASA Iron deficiency anemia, unspecified iron deficiency anemia type Vitamin B 12 deficiency DDD (degenerative disc disease), cervical Follow Up: Return in about 2 months (around 11/27/2023), or if symptoms worsen or fail to improve. Domo Pool DO 10:48 AM 09/27/2023 * Celena Rosenberg LPN - 09/27/2023 10:22 AM EDT Pre-Administration Time Out Procedure Performed: Yes Patient Identified (Ask Name/Date of ): Yes Does the patient have a fever greater than 101 degrees today? No Patient allergic to latex? No Has the patient ever fainted after receiving an injection? No VFC Stock: No Immunization(s) verified: Yes, Immunization Name: DTaP, vitamin B 12 and RSV , VIS Sheet(s) given: Verified Side and Site: Yes Verified Shot(s) with Parent(s)/Patient: Yes * Celena Rosenberg LPN - 09/27/2023 9:12 AM EDT Socks and Shoes Removed for Annual Diabetic Foot Screening RIGHT FOOT: No Reddened, Cracking, Or Open Areas Noted. RIGHT Dorsalis Pedis Pulse: Palpable RIGHT Posterior Tibial Pulse: Palpable RIGHT Monofilament:Patient reports feeling monofilament pressure on plantar surface of foot LEFT FOOT: No Reddened, Cracking or Open Areas Noted. LEFT Dorsalis Pedis Pulse: Palpable LEFT Posterior Tibial Pulse: Palpable LEFT Monofilament:Patient reports feeling monofilament pressure on plantar surface of foot Do you need diabetic shoes: N/A DM Foot Exam completed today. Provider aware. Celena Rosenberg LPN Tdap covered under Medicare Part D, prescription order pended for physician to sign. Celena Rosenberg LPN documented in this encounter Nursing Notes * Celena Rosenberg LPN - 09/27/2023 9:11 AM EDT Patient had a fall a week ago in bathroom, had socks on and slid. documented in this encounter Plan of Treatment Upcoming Encounters Date Type Department Care Team (Late st Contact Info) Description 11/20/2023 10:00 AM EDT Office Visit Family Practice [address] [facility] [address] [place] [id number] Domo Pool, DO [address] [facility] [place] [address] 11/21/2023 8:45 AM EDT Office Visit Otolaryngology [facility] [address] [facility] [address] [facility] [place] [address] Gautam Morgan, [address] [facility] [place] [address] 11/28/2023 8:00 AM EDT Office Visit [facility] [address] [facility] [address] [facility], [place] [id number] Domo Pool, DO [address] [place] [address] Pending Results Name Type Priority Associated Diagnoses Date /Time XR HIP UNILAT 2-3 VIEWS INCLUDING AP PELVIS Medical Imaging Routine Hip pain, left 09/27/2023 10:08 AM EDT Health Maintenance Due Date Last Done Comments HbA1c 01/19/2024 07/21/2023, 03/04, 12/28/2022, Additional history exists Diabetic Eye Exam 05/10/2024 05/10/2023, , 05/10/2023, Additional history exists Albumin/Creatinine Ratio 07/21/2024 024, 08/02/2022, 08/13/2021, Additional history exists B-12 07/21/2024 07/21/2023, 03/04, 02/07/2023, Additional history exists GFR 07/21/2024 07/21/2023, 10/0 03/2023, 03/30/2023, Additional history exists Depression Screening 07/31/2024 07/31/2023, 08/17/2017 (Course Completed) Diabetic Foot Exam 09/26/2024 09/27/2023, 0 09/19/2022, 12/17/2021, Additional history exists DXA Scan 07/20/2026 07/20/2022, 07/03, 08/13/2018, Additional history exists DTaP,Tdap,and Td Vaccines (3 - Td or Tdap) 09/26/2033 09/27/2023, 09/04/2013 Pneumococcal Vaccine: 65+ Years Completed 11/19/2015, 07/03/2008 COLONOSCOPY-EVERY 5 YRS AGES 18-100 Discontinued 05/11/2020, 05/11/2020, 02/03/2016, Additional history exists Zoster Vaccines Completed 12/09/2020, 11/01, 10/22/2020, Additional history exists Influenza Vaccine (FLU shot) Completed 03/30/2023, 04/05/2022, 04/14/2021, Additional history exists COVID-19 Vaccine Completed 07/21/2023, , 06/03/2021, Additional history exists GARDASIL-HPV IMMUNIZATION SERIES Aged Out No longer eligible based on patient's age to complete this topic Hepatitis B Aged Out No longer eligi ble based on patient's age to complete this topic MENINGOCOCCAL (MENACTRA/MENVEO) Aged Out No longer eligible based on patient's age to complete this topic documented as of this encounter Medical Devices Not on filedocumented as of this encounter Visit Diagnoses Diagnosis Hip pain, left- Primary Pain in joint, pelvic region and thigh Type 2 diabetes mellitus with hemoglobin A1c goal of less than 8.0% ([facility]) Dyslipidemia, goal LDL below 70 Other and unspecified hyperlipidemia PSVT (paroxysmal supraventricular tachycardia) ([facility]) Paroxysmal supraventricular tachycardia Essential hypertension with goal blood pressure less than 140/90 Cerebrovascular disease, arteriosclerotic, post-stroke Cerebral atherosclerosis DDD (degenerative disc disease), lumbar Degeneration of lumbar or lumbosacral intervertebral disc Primary osteoarthritis of left foot Primary insomnia Persistent disorder of initiating or maintaining sleep Generalized anxiety disorder Gastroesophageal reflux disease without esophagitis Esophageal reflux Need for RSV vaccination Need for prophylactic vaccination and inoculation against respiratory syncytial virus DM type 2 nursing care encounter ([facility]) Type II or unspecified type diabetes mellitus without mention of complication, not stated as uncontrolled Need for ektbeadylf-gnguqfu-vetndubjx (Tdap) vaccine Need for prophylactic vaccination with combined azelldszvx-capmpek-eypkvzhvf (DTP) vaccine Coronary artery disease involving lummi coronary artery of lummi heart without angina pectoris Iron deficiency anemia, unspecified iron deficiency anemia type Vitamin B 12 deficiency Other B-complex deficiencies DDD (degenerative disc disease), cervical Degeneration of cervical intervertebral disc documented in this encounter Administered Medications Active Administered Medications - up to 3 most recent administrations Medication Order MAR Action Action Date Dose Rate Site vitamin b-12 (Cyanocobalamin) inj 1,000 mcg 1,000 mcg, Intramuscular, [id number], First dose on Pham 12/29/22 at 1530, Last dose on Pham 11/02/23 at 1530, For 12 doses Given 09/27/2023 10:16 AM EDT 1,000 mcg Arm Left Upper Given 07/21/2023 9:59 AM EST 1,000 mcg De ltoid Right Upper Given 03/30/2023 9:04 AM EDT 1,000 mcg Ar m Right Upper documented in this encounter Advance Directives Documents on File Type Date Recorded Patient Ward Secretary Expl 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 Question Answer Comments Discussion of Advance Directives occurred with: Patient Healthcare Agents on File Name Relationship Healthcare Agent [facility] Communication Dell Menard Spouse Health Care Repr esentative (appointed verbally by patient or by statute hierarchy) Care Teams Book Sewer Relationship Specialty Start Date End Date Domo Pool DO [address] [place] [address] PCP - General Internal Medicine 01/19/22 documented as of this encounter
--- OUTSIDE RECORDS SUMMARY | 2023-09-29 09:08 | External Medical Summary | Summary of Care ---
Author Name Unknown Organization [facility] Address [address] [address] Phone [phone] Care Team Providers Care Information Technology Advisor Name Role Phone Domo Pool DO Primary Care Provider [phone] Reason for Visit * Reason Onset Date Comments Follow Up 09/26/2023 Encounter Details Date Type Department Care Team (Late st Contact Info) Description 09/26/2023 11:00 AM EDT Scheduled Telephone Interventional [facility], [facility] [address] [place] [address] Nurse Prudencio Phone Call Interventional Pain [facility] [address] [place] [address] Arrived Allergies Active Allergy Reactions Criticality Noted Date Comments Amoxicillin Bleeding High 04/27/2015 Amoxicillin-Pot Clavulanate 09/05/19 14 tary stools documented as of this encounter (statuses as of 09/26/2023) Medications Medication Sig Dispensed Refills Start Date End Date Status Aspirin 81 MG Tablet Take 1 Tablet by mouth in the morning. 0 Active Cholecalciferol (VITAMIN D) 1000 UNIT Capsule Take 1 Capsule by mouth in the morning. 0 Active traMADol HCl 50 MG Oral Tablet (Ultram)Indication s:Acute bilateral low back pain with left-sided sciatica [...] Prevagen Extra Strength 20 MG Oral Capsule (Apoaequorin)Indic ations:clear mind Take by mouth 1 Capsule daily . 0 Active Probiotic Acidophilus BioBeads Oral Capsule Take 1 Capsule by mouth in the morning. 0 Active SyrinixTouch Verio w/Device Kit Use as directed . Use to test blood sugar once daily 1 Kit 0 01/20/2022 Active Vitamin C 500 MG Oral Capsule Take 1 Capsule by mouth every evening. 0 Active OneTouch UltraSoft LancetsIndications :Type 2 diabetes mellitus with hemoglobin A1c goal of less than 7.0% ([facility]) Use to check blood sugar once daily [...] DIARRHEA AND PAIN 120 Capsule 3 01/26/2023 01/26/2024 Active Fluticasone Propionate 50 MCG/ACT Nasal Suspension (Flonase)Indicatio ns:Post-nasal drip ADMINISTER 2 SPRAYS INTO EACH NOSTRIL IN THE MORNING NEEDED 16 g 3 01/26/2023 01/26/2024 Active Gabapentin 100 MG Oral Capsule (Neurontin)Indicat ions:DDD (degenerative disc disease), lumbar Take 1 Capsule by mouth in the morning and 1 Capsule at noon and 1 Capsule before bedtime. 300 Capsule 3 02/07/2023 Active metFORMIN HCl 1000 MG Oral Tablet (Glucophage) Take 1 Tablet by mouth 2 times a day with morning and evening meals. 200 Tablet 3 02/15/2023 Active Cyclobenzaprine HCl 5 MG Oral Tablet (Flexeril)Indicati ons:DDD (degenerative disc disease), cervical,DDD (degenerative disc disease), lumbar TAKE ONE TABLET BY MOUTH THREE TIMES A DAY NEEDED FOR MUSCLE SPASMS, 270 Tablet 3 03/03/2023 Active Atenolol 50 MG Oral Tablet (Tenormin)Indicati ons:HTN, goal below 140/90 TAKE ONE TABLET BY MOUTH IN THE MORNING 100 Tablet 3 03/25/2023 03/24/2024 Active amLODIPine Besylate 5 MG Oral Tablet (Norvasc)Indicatio ns:HTN, goal below 140/90 Take 1 Tablet by mouth in the morning. 100 Tablet 3 03/30/2023 Active Sertraline HCl 100 MG Oral Tablet (Zoloft)Indication s:Anxiety Take 1 Tablet by mouth in the morning. Takes additional 50 mg tablet. 100 Tablet 3 04/03/2023 Active Ozempic (0.25 or 0.5 MG/DOSE) 2 MG/3ML Solution Pen-injector (Semaglutide(0.25 or 0.5MG/DOS)) Inject 0.5 mg under the skin once a week. - gets from the artificial inseminator! 0 04/03/2023 Active Miconazole Nitrate 2 % External Cream (Monistat Derm) Apply to skin folds as directed 0 Active Nystatin 383564 UNIT/GM External Powder (Nystop) Apply topically to affected area 3 times a day. Apply to skin folds 60 g 0 06/30/2023 Active traZODone HCl 50 MG Oral Tablet (Desyrel)Indicatio ns:Primary insomnia Take 1 Tablet by mouth at bedtime. 90 Tablet 1 07/14/2023 Active Vitamin B12 1000 MCG Oral Tablet Extended Release Take by mouth daily. 0 07/25/2023 Active Cetirizine HCl 10 MG Oral Tablet (ZyrTEC)Indication s:Non-seasonal allergic rhinitis due to pollen Take 1 Tablet by mouth in the morning. 100 Tablet 3 07/26/2023 Active Sertraline HCl 50 MG Oral Tablet (Zoloft)Indication s:Generalized anxiety disorder Take 1 Tablet by mouth in the morning. 100 Tablet 3 07/26/2023 Active OneTouch Verio In Vitro Strip (Glucose Blood)Indications: Type 2 diabetes mellitus with hemoglobin A1c goal of less than 7.0% ([facility]) USE TO CHECK BLOOD SUGAR TWICE DAILY DIRECTED 200 Strip 3 07/31/2023 Active busPIRone HCl 10 MG Oral Tablet (Buspar)Indication s:Anxiety Take 1 Tablet by mouth in the morning and 1 Tablet before bedtime. 200 Tablet 1 09/08/2023 Active Pantoprazole Sodium 20 MG Oral Tablet Delayed Release (Protonix)Indicati ons:Gastroesophage al reflux disease without esophagitis TAKE ONE TABLET BY MOUTH TWICE A DAY 30 MINUTES BEFORE A MEAL DO NOT CUT, CRUSH OR CHEW THE TABLET. 200 Tablet 3 09/19/2023 Active Atorvastatin Calcium 80 MG Oral Tablet (Lipitor)Indicatio ns:Type 2 diabetes mellitus with hemoglobin A1c goal of less than 7.0% ([facility]),Cerebrovascu lar disease, arteriosclerotic, post-stroke Take 1 Tablet by mouth in the morning. 100 Tablet 3 09/22/2023 Active Hospital, Clinic, or Other Facility Administered Medication Ordered Dose Route Frequency Start Date End Date Status vitamin b-12 (Cyanocobalamin) inj 1,000 mcgIndications:Vitamin B 12 deficiency 1000 mcg IM [id number] 12/29/2022 11/30/2023 Active documented as of this encounter (statuses as of 09/26/2023) Active Problems Problem Noted Date Diagnosed Date Stress due to illness of family member 4 Drug-induced hyperkalemia 04/11/2023 Overview: LISINOPRIL Vitamin B 12 deficiency 12/29/2022 Primary insomnia 06/08/2022 Generalized anxiety disorder 01/25/2022 Sacroiliitis, not elsewhere classified 2 DDD (degenerative disc disease), lumbar 01/26/20 22 Iron deficiency anemia 09/14/2018 Gastroesophageal reflux disease without esophagi tis 09/14/2018 Type 2 diabetes mellitus wit h hemoglobin A1c goal of less than 8.0% 10/17/2017 Bilateral carpal tunnel syndrome 10/17/2017 Primary osteoarthritis of left foot 10/17/2017 DDD (degenerative disc disease), cervical 2017 Coronary artery disease invo lving [place] coronary artery of [place] heart without angina pectoris 10/17/2017 Dyslipidemia, goal LDL below 70 11/13/2015 PSVT (paroxysmal supraventricular tachycardia) 0 10/14/2015 Essential hypertension with goal blood pressure less than 140/90 09/18/2014 Cerebrovascular disease, arteriosclerotic, post- stroke 07/21/2009 documented as of this encounter (statuses as of 09/26/2023) Resolved Problems Problem Noted Date Diagnosed Date [...] as of this encounter (statuses as of 09/26/2023) Immunizations Name Administration Dates Next Due COVID-19 mRNA, LNP-s, No Pre serve, 2-Dose Series ([employer]) 06/03/2021,09/30/2020,09/04/2020 COVID-19, MRNA-LNP, 23-24, P F, 30 MCG/0.3 mL, 12 YRS AND ABOVE, IM ([facility]) 07/21/2023 Covid-19, Mrna, Lnp-s, Pf, B ivalent, 30 Mcg, IM, 12 yrs and above ([employer]) 06/14/2022 Pneumococcal Conjugate Vacc, 13 Valent (Prevnar) 11/19/2015 Pneumococcal Polysaccharide PPV23 (Pneumovax) 07/03/2008 Seasonal Influenza, PF, 6 M & above, IM , (FluLaval or Fluzone) 03/11/2020,04/15/2019,05/10/2018,03/27 Seasonal Influenza, Quadriva lent Hd (Fluzone Hd) 03/30/2023,04/05/2022,04/14/2021 Seasonal Influenza, Quadriva lent, No Preserve, IM 04/08/2015 Seasonal Influenza, Split, I IV3, With Preserve, Inj 03/24/2014,06/14/2013,04/05/2011,04/02,07/03/2008,06/05/2008 TDAP (age 10 and older)(Boostrix) 09/04/2013 Varicella Zoster Vaccine (Adult) 08/19/2015 Zoster Vaccine Recombinant (Shingrix) 12/09/2020 ,11/19/2020,10/22/2020 documented as of this encounter Social History Tobacco Use Types Packs/Day Years Used Date Smoking Tobacco: Former Cigarettes Q uit: 07/28/1961 Passive Smoke Exposure: Current Smokeless Tobacco: Never Comments:quit 40 yrs ago, on ly smoked 6 months. Alcohol Use Standard Drinks/Week [...] on file documented as of this encounter Functional Status Functional Status Response [...] No 04/27/2015 documented as of this encounter Miscellaneous Notes * Telephone Encounter - Basia Flores LPN - 09/26/2023 10:38 AM EDT Patient reports at leat 90% improvement even up until present time. States right low back pain is starting to return but not close to baseline. Imaging planned: Yes, Fluoroscopy First or second MBB/Facet: FIRST Intend to assess for RFA?: Yes Levels planned (max 2 levels, indicate laterality): B/L L3, L4/5 Anesthesia or Conscious Sedation Planned? (if yes, ABN must be complete as this will not be covered): No Multiple procedures planned for same day?: No Axial moderate/severe neck or low back pain, causing a functional deficit measured on a pain or disability scale?: Yes Baseline Pain score: 8 out of 10 Pain score s/p 1st diagnostic: 2 out of 10 Has the pain been present for > 3 months?: Yes Has the pain failed to respond to conservative care?: Yes Is there untreated radiculopathy or neurogenic claudication in the same body region?: No Is there evidence of non-facet pathology that could explain the source of the pain which has not been addressed?: No Is there the intention to perform a second diagnostic block if the first is positive?: Yes documented in this encounter Plan of Treatment Upcoming Encounters Date Type Department Care Team (Late st Contact Info) Description 09/27/2023 9:40 AM EDT [facility] [address] [facility] [phone] Domo Pool, DO [address] [place] [address] 11/20/2023 10:00 AM EDT Office [facility] [address] [facility] [phone] Domo Pool[facility] [address] [facility] [address] 11/21/2023 8:45 AM EDT Office Visit Otolaryngology [facility] [address] [facility] [place] [address] Gautam Morgan, DO [address] [place] [address] Health Maintenance Due Date Last Done Comments DTaP,Tdap,and Td Vaccines (2 - Td or Tdap) 09/05/2023 09/04/2013 Diabetic Foot Exam 09/20/2023 09/19/2022, 0 12/17/2021, 12/09/2020, Additional history exists HbA1c 01/19/2024 07/21/2023, 03/04, 12/28/2022, Additional history exists Diabetic Eye Exam 05/10/2024 05/10/2023, , 05/10/2023, Additional history exists Albumin/Creatinine Ratio 07/21/2024 024, 08/02/2022, 08/13/2021, Additional history exists B-12 07/21/2024 07/21/2023, 03/04, 02/07/2023, Additional history exists GFR 07/21/2024 07/21/2023, 10/0 03/2023, 03/30/2023, Additional history exists Depression Screening 07/31/2024 07/31/2023, 08/17/2017 (Course Completed) DXA Scan 07/20/2026 07/20/2022, 07/03, 08/13/2018, Additional history exists Pneumococcal Vaccine: 65+ Years Completed 11/19/2015, 07/03/2008 [...] Not on filedocumented as of this encounter Advance Directives Documents on File Type Date Recorded 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
--- OUTSIDE RECORDS SUMMARY | 2023-09-29 09:08 | External Medical Summary | Summary of Care ---
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 [M47.817] Procedures L-/S-SPINE PARAVERTEBRAL FACET INJ,1 LEVEL L-/S-SPINE PARAVERTEBRL FACET INJ,2 LEVELS L-/S-SPINE PARAVERTEBRAL FACET INJ, 1 LEVEL L-/S-SPINE PARAVERTEBRAL FACET INJ, 2 LEVELS Brayan Mares DO [address] [place] [address] Or [facility] [address] [place] [address] Referral ID Status Reason Start Date Expiration Date Visits Re quested Visits Authorized [id number] Encounter Details Date Type Department Care Team (Latest Contact Info) Description 09/25/2023 8:07 AM EDT - 09/25/2023 9:15 AM EDT Hospital Encounter OR [facility], Operating Room [facility] [address] [place] [address] Brayan Mares DO [address] [place] [address] Discharge Disposition: Home - Self Care Allergies Active Allergy Reactions Criticality Noted Date Comments Amoxicillin Bleeding High 04/27/2015 Amoxicillin-Pot Clavulanate 09/05/19 14 tary stools documented as of this encounter (statuses as of 09/25/2023) Medications Medication Sig Dispensed Refills Start Date [...] hemoglobin A1c goal of less than 7.0% ([facility]) Use to check blood sugar [...] once a week. 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 0 04/03/2023 Active Miconazole Nitrate 2 % External Cream (Monistat Derm) Apply to skin folds as directed 0 Active Nystatin 212108 UNIT/GM External Powder (Nystop) Apply topically to [...] the morning. 100 Tablet 3 07/26/2023 Active busPIRone HCl 10 MG Oral Tablet [...] hemoglobin A1c goal of less than 7.0% ([facility]),Cerebrovascu lar disease, arteriosclerotic, post-stroke Take 1 Tablet by mouth in the morning. 100 Tablet 3 09/22/2023 Active documented as of this encounter (statuses as of 09/25/2023) Active Problems Problem Noted Date Diagnosed Date Stress due to illness of family member 4 Drug-induced hyperkalemia 04/11/2023 Overview: LISINOPRIL Vitamin B 12 deficiency 12/29/2022 Primary insomnia 06/08/2022 Generalized anxiety disorder 01/25/2022 Sacroiliitis, not elsewhere classified 2 DDD (degenerative disc disease), lumbar 01/26/20 Iron deficiency anemia 09/14/2018 Gastroesophageal reflux disease without esophagi tis 09/14/2018 Type 2 diabetes mellitus wit h hemoglobin A1c goal of less than 8.0% 10/17/2017 Bilateral carpal tunnel syndrome 10/17/2017 Primary osteoarthritis of left foot 10/17/2017 DDD (degenerative disc disease), cervical 2017 Coronary artery disease invo lving [place] coronary artery of [place] heart without angina pectoris 10/17/2017 Dyslipidemia, goal LDL below 70 11/13/2015 PSVT (paroxysmal supraventricular tachycardia) 0 10/14/2015 Essential hypertension with goal blood pressure less than 140/90 09/18/2014 Cerebrovascular disease, arteriosclerotic, post- stroke 07/21/2009 documented as of this encounter (statuses as of 09/25/2023) Resolved Problems Problem Noted Date Diagnosed Date [...] as of this encounter (statuses as of 09/25/2023) Immunizations Name Administration Dates Next Due COVID-19 mRNA, LNP-s, No Pre serve, 2-Dose Series ([employer] 06/03/2021,09/30/2020,09/04/2020 COVID-19, MRNA-LNP, 23-24, P F, 30 MCG/0.3 mL, 12 YRS AND ABOVE, IM ([employer]Comir[employer]) 07/21/2023 Covid-19, Mrna, Lnp-s, Pf, B ivalent, [...] Sign Reading Time Taken Comments Blood Pressure 152/87 09/25/2023 9:05 AM EDT Pulse 83 09/25/2023 9:05 AM EDT Temperature 36.1 C (97 F) 09/25/2023 8:12 AM EDT Respiratory Rate 16 09/25/2023 9:05 AM EDT Oxygen Saturation 98% 09/25/2023 9:05 AM EDT Inhaled Oxygen Concentration - - Weight - - Height - - Body Mass Index - - documented in this encounter Functional Status Functional [...] No 04/27/2015 documented as of this encounter Discharge Instructions * Discharge Instr - AVS* Brayan Mares DO - 09/25/2023 9:05 AM EDT [facility] [address] [place] [address] Discharge Date: 09/25/2023 You may call [facility] at [phone] during business hours. For after-hours emergencies call [phone]. Your attending physician at the time of your discharge was: Brayan Mares DO [address] [facility] [place] [address] The information below provides you with the instructions and the list of medications you need to betaking following discharge from the hospital. If you have any questions, please ask before leaving.Please carry this letter with you when you see your doctor in the clinic. Diet: Resume your normal diet If you are diabetic, follow your blood sugars closely for next 2-3 days as they are likely to be elevated. If you are having difficulty controlling your blood sugars call your family doctor or the physician that treats your diabetes. Activity: Do not engage in strenuous activity today Resume your normal activities tomorrow Do not soak in water for 24 hours. No swimming, hot tub or bath but showering is allowed. Do not use heat on the injection site for 24 hours. If uncomfortable ice may be helpful. Some injections may make your arms or legs weak for a few hours. Be extremely careful when walking or changing positions that you do not fall. Have someone assist you for the next 6 hours. If weakness or numbness becomes progressive CALL IMMEDIATELY or GO TO THE NEAREST EMERGENCY ROOM Keep a diary of your pain until seen in the office to help us determine how effective the injectionwas Do not restart physical therapy or chiropractic manipulation until 48 hours after your injection Call : If weakness or numbness suddenly becomes worse or become progressive If the injection site becomes red, swollen, warm to the touch, begins to bleed or drain fluid, or is excessively painful. If you have any questions Medications: Resume all the medications you were taking prior to your injection. Resume your anticoagulants tomorrow unless otherwise instructed by your family physician, silo operator or the anticoagulation clinic. Additional Instructions: It is recommended that you complete the provided hourly pain/activity log to track your pain relief to help you determine the level of relief you received from this injection. Driving: You may resume driving in 12-24 hours if no weakness is noted . Date you may return to work or school: N/A Follow Up: Please ensure that you have a scheduled telephone follow-up with [facility] office at [phone] in 1-2 business days to review the results of the injection you received. documented in this encounter Progress Notes * Brayan Mares DO - 09/25/2023 9:05 AM EDT [facility] [address] [address] OUTPATIENT SURGERY DISCHARGE SUMMARY NOTE Name: Dyana Menard Location: OR [facility]/OR Date: 09/25/2023 Time: 9:05 AM Surgery Date: 09/25/2023 Procedure: L-/S-SPINE PARAVERTEBRAL FACET INJ, 1 LEVEL, L-/S-SPINE PARAVERTEBRAL FACET INJ, 2 LEVELS Bilateral Bilateral Surgeon: Brayan Mares DO Discharge Diagnosis: lumbosacral spondylosis After examination of this patient, I have determined she is ready for discharge to home when the patient meets criteria. Discharge instructions were given to the patient. Brayan Mares DO [facility], Operating Room [facility] [address] [place] [address] documented in this encounter H&P Notes * Brayan Mares DO - 09/25/2023 9:01 AM EDT Interventional Pain H&P Subjective: History of Present Illness: Dyana Menard is a 82 year old year-old female with a past medical history significant for chronic lower back pain related to lumbar spondylosis who is presenting for bilateral L3-5 MBB to improve her pain and function. her pain is essentially unchanged since our last office visit with her. PriorRFA at L4 and L5 levels only. ASA 3 AW nml Review of Systems: A focused 12-pt ROS were of reviewed with the patient including difficulty with sleep, snoring, aspiration history, dysphagia, stomach pain, nausea and vomiting, severe headaches, confusion, open skin lesions or wounds, chest pain, shortness of breath, excessive thirst, somnolence, dysuria, incomplete bladder emptying, easy bruising, recent clotting problems or bleeding, depression or rushed thoughts unless noted previously. Review of patient's allergies indicates: Allergen Reactions Amoxicillin Bleeding Amoxicillin-Pot Clavulanate tary stools Medications, Past Medical History, Past Surgical History reviewed and documented in Epic. See detailed report if needed. Pertinent Labs/Test Results: INR ( ) Date Value 10/14/2015 0.92 No results found for: "CREATININE" Hemoglobin A1C (%) Date Value 07/21/2023 7.4 (H) 05/08/2020 7.4 (H) Lab Results Component Value Date/Time AMPHETAMINES - [facility] NEGATIVE 04/27/2015 04:20 PM BARBITURATES - [facility] NEGATIVE 04/27/2015 04:20 PM BENZODIAZEPINES - [facility] NEGATIVE 04/27/2015 04:20 PM METHADONE METABOLITE NEGATIVE 04/27/2015 04:20 PM OXYCODONE NEGATIVE 04/27/2015 04:20 PM CANNABINOIDS - [facility] NEGATIVE 04/27/2015 04:20 PM Imaging: I personally reviewed the imaging and my findings were . FLUORO INTERVENTIONAL PAIN PROCEDURE NONBILLABLE This procedure will not be read by a Radiologist. Please see operative note. Objective Physical Exam: Vital Signs: BP 149/79 | Pulse 82 | Temp 36.1 C (97 F) (Tympanic) | Resp 14 | SpO2 97% There isno height or weight on file to calculate BMI. General: No apparent distress. Eyes: pupils equal and round, sclera white, pupils midsize. ENT: mucous membranes moist Resp: Non-labored breathing CV: Extremities warm and well-perfused. Psych: Oriented; affect warm, insight good. Skin: No rashes or lesions appreciated on exposed skin Neuromuscular Exam: Facet loading pos, SLR neg, TTT over lumbar spine Assessment: Dyana is a 82 year old year-old female with: Lumbosacral spondylosis Plan: The patient is undergoing bilateral L3,4,5 medial branch blocks #1 today to alleviate her pain and improve her function. RFA planned. The risks, benefits and alternatives to the procedure were reviewed at length and the patient was provided the opportunity to ask questions which were answered to their voiced understanding. Following this comprehensive discussion, the patient opted to proceed. Thepatient was consented to the procedure following this comprehensive conversation. Brayan Mares DO OR [facility], Operating Room [facility] [address] [place] [id number] documented in this encounter Nursing Notes * Anna Stevenson RN - 09/25/2023 9:15 AM EDT Patient tolerated pain injection well. Ready for discharge to home. * Beverly Garcia RN - 09/25/2023 9:02 AM EDT Band aid applied to area. Patient transferred to PACU 11 via wheelchair * Beverly Garcia RN - 09/25/2023 9:00 AM EDT Patient tolerating pain management injection well. documented in this encounter OR Notes * OR Surgeon - Brayan Mares DO - 09/25/2023 9:03 AM EDT Diagnostic Medial Branch Nerve Blocks DATE: 09/25/2023 PHYSICIAN: Brayan Mares DO PREOPERATIVE DIAGNOSIS: Lumbar spondylosis POSTOPERATIVE DIAGNOSIS: Lumbar spondylosis PROCEDURES PERFORMED: 1. L3 diagnostic medial branch nerve blocks, bilateral. 2. Additional levels: L4 and L5 (dorsal ramus) medial branch blocks, bilateral. 3. Fluoroscopy for precise needle localization MONITORS: Automatic blood pressure cuff and pulse oximetry readily available There was no fleet administrative assistant, EBL or drains placed during this procedure. INDICATIONS: We had the pleasure of seeing Dyana Menard ([id number]) in the pain management clinic at [facility] today. The patient has a history of lumbar spondylosis. The patient is here today for diagnostic lumbar medial branch nerve blocks. MEDICATIONS: Current Facility-Administered Medications Medication Dose Route Frequency Provider Last Rate Last Admin lidocaine 1 % inj 15 mg 1.5 mL Subcutaneous Once Brayan Mares DO ALLERGIES: Review of patient's allergies indicates: Allergen Reactions Amoxicillin Bleeding Amoxicillin-Pot Clavulanate tary stools REVIEW OF SYSTEMS: Negative for fever, chills, chest pain, SOB, bleeding abnormalities, nausea, vomiting, diarrhea, worsening edema, or new rashes. FOCUSED PHYSICAL EXAMINATION: The patient is awake, alert and oriented, and is in no acute distress. Vital signs are stable. The patient is afebrile. The rest of the PE is essentially unchanged fromthe patient's recent visit to our office. I explained the procedure to the patient including the risks, benefits and alternatives to the procedure. The risks discussed with the patient included but were not limited to: bleeding, infection, and damage to surrounding nerves, tissues, and organs, paralysis, increased pain, allergic reaction, blood pressure instability, seizures, heart block, headaches, and . Alternatives to the procedure were also explained and include: do nothing, surgery, medications, and physical therapy. The patient verbalized understanding and was willing to proceed. PROCEDURE IN DETAIL: An informed consent was obtained. The patient was taken to the procedure room and was positively identified by the staff and the attending physician. The patient was positioned prone on the procedure bed. Vital signs were monitored as above and remained stable throughout the procedure. The skin was prepped and draped in the standard sterile fashion with ChloraPrep. A surgicalpause (time-out) was performed and was agreed upon by the members of the team. A fluoroscopic view of the lumbar spine was obtained, and the area of interest was identified. Under fluoroscopic guidance a 25-gauge 3.5-inch spinal needle was advanced towards the junction between the transverse process and the superior articular process of the L4 and L5 vertebral bodies forthe L3 and L4 medial branch nerves on the right side. Additional needles were placed at the junction of superior articular process and sacral ala at the level of the L5 medial branch nerve on the right side. Full contact with the osseous structures was obtained. Proper needle position was verifiedin AP and declined views. After this, 0.5 ml of bupivacaine 0.5% was injected at each point. All needles were withdrawn. The procedure was repeated in the same fashion on the contralateral side. The p atient tolerated the procedure well. COMPLICATIONS: None DISPOSITION: It was recommended that the patient create an hourly pain/activity log to track her pain relief to help her determine the level of relief she received from this injection over the next 12 hours or until the block subsides. 2. The patient was requested to call the pain medicine clinic within the next 1- 2 business days to review these results and was provided the phone number for this. Brayan Mares DO OR [facility], Operating Room [facility] [address] [place] [phone] documented in this encounter Plan of Treatment Upcoming Encounters Date Type Department Care Team (Late st Contact Info) Description 09/26/2023 11:00 AM EDT Scheduled Telephone Interventional Pain Center, [facility] [address] [place] [address] Nurse Prudencio Phone Call Interventional Pain [facility] [address] [place] [address] 11/20/2023 10:00 AM EDT Office Visit [address] [employer] [address] [place] [address] Domo Pool, DO [address] [place] [address] 11/21/2023 8:45 AM EDT Office Visit Otolaryngology [facility] 132 [facility] [place] [address] Gautam Morgan, DO 132 [facility] [place] [address] Scheduled Procedures Name Priority Associated Diagnoses Date/Ti me L-/S-SPINE PARAVERTEBRAL FACET INJ, 1 LEVEL Spondylosis of lumbosacral region without myelopathy or radiculopathy 09/25/2023 4:25 PM EDT L-/S-SPINE PARAVERTEBRAL FACET INJ, 2 LEVELS Spondylosis of lumbosacral region without myelopathy or radiculopathy 09/25/2023 4:25 PM EDT Health Maintenance Due Date Last Done [...] Not on filedocumented as of this encounter Procedures Procedure Name Priority Date/Time Associated Diagnosis Comments FLUORO INTERVENTIONAL PAIN PROCEDURE NONBILLABLE Routine 09/25/2023 9:09 AM EDT documented in this encounter Results * FLUORO INTERVENTIONAL PAIN PROCEDURE NONBILLABLE (09/25/2023 9:09 AM EDT) Narrative Scheduling, Silent - 09/25/2023 9:09 AM EDT This procedure will not be read by a Radiologist. Please see operative note. Brayan Mares DO RAD FLUOROSCOPY documented in this encounter Administered Medications Inactive Administered Medications - up to 3 most recent administrations Medication Order MAR Action Action Date Dose Rate Site bupivacaine HCl (Sensorcaine) 0.5 % (PF) inj 7.5 mg 7.5 mg (1.5 mL), Injection, ONCE, On 09/25/23 at 0845, For 1 dose, Bilateral Given 09/25/2023 8:57 AM EDT 3 mL documented in this encounter Active and Recently Administered Medications Times are shown in EDT. Scheduled Medication Order 09/23/2023 09/24/2023 09/25/2023 bupivacaine HCl (Sensorcaine) 0.5 % (PF) inj 7.5 mg (COMPLETED) 7.5 mg (1.5 mL), Injection, ONCE, On 09/25/23 at 0845, For 1 dose, Bilateral 0857 (Given - Provid er: Beverly Garcia RN - Comment: bilateral lumbar [id number] divided doses) lidocaine 1 % inj 15 mg 15 mg (1.5 mL), Subcutaneous, ONCE, On 09/25/23 at 0845, For 1 dose, Bilateral 0845 (Not Given - Pr ovider: Beverly Garcia RN - Reason: Order Discontinued) documented in this encounter Advance Directives Documents on File Type Date Recorded Patient Family Manager Expl anation Advance Directives and Livin g [...] patient or by statute hierarchy) Care Teams Systems Tester Relationship Specialty Start Date End Date Domo Pool DO [address] [place] [address] PCP - General Internal Medicine 01/19/22 documented as of this encounter
--- OUTSIDE RECORDS SUMMARY | 2023-09-29 09:08 | External Medical Summary | Summary of Care ---
Author Name Unknown Organization [facility] Address [address] [address] Phone [phone] Care Team Providers Care Didactic Program In Dietetics Director Name Role Phone Domo Pool DO Primary Care Provider [phone] Reason for Visit * Reason Onset Date Comments Follow Up 09/26/2023 Encounter Details Date Type Department Care Team (Late st Contact Info) Description 09/26/2023 11:00 AM EDT Scheduled Telephone Interventional Pain Center, [facility] [address] [place] [address] Nurse Prudencio Phone Call Interventional Pain [facility] [address] [place] [address] Chronic bilateral low back pain without sciatica*; Spondylosis of lumbosacral region without myelopathy or radiculopathy Allergies Active Allergy Reactions Criticality Noted Date [...] by mouth in the morning. 0 Active OloTouch Verio w/Device Kit Use as directed . Use to test blood sugar once daily 1 Kit 0 01/20/2022 Active Vitamin C 500 MG Oral Capsule Take 1 Capsule by mouth every evening. 0 Active OloTouch UltraSoft LancetsIndications :Type 2 diabetes mellitus with hemoglobin A1c goal of less than 7.0% ([facility]) Use to check blood sugar once [...] once a week. 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 0 04/03/2023 Active Miconazole Nitrate 2 % External Cream (Monistat Derm) Apply to skin folds as directed 0 Active Nystatin 100489 UNIT/GM External Powder (Nystop) Apply topically to [...] hemoglobin A1c goal of less than 7.0% ([facility]),Cerebrovascu lar disease, arteriosclerotic, post-stroke Take 1 Tablet by mouth in the morning. 100 Tablet 3 09/22/2023 Active Hospital, Clinic, or Other Facility Administered Medication Ordered Dose Route Frequency Start Date End Date Status vitamin b-12 (Cyanocobalamin) inj 1,000 mcgIndications:Vitamin B 12 deficiency 1000 mcg IM [id number] 12/29/2022 11/30/2023 Active documented as of this [...] cervical 2017 Coronary artery disease invo lving [place] coronary artery of [place] heart without angina pectoris 10/17/2017 Dyslipidemia, goal [...] mRNA, LNP-s, No Pre serve, 2-Dose Series ([employer]) 06/03/2021,09/30/2020,09/04/2020 COVID-19, MRNA-LNP, 23-24, P F, 30 MCG/0.3 mL, 12 YRS AND ABOVE, IM ([employer]) 07/21/2023 Covid-19, Mrna, Lnp-s, Pf, B ivalent, [...] as of this encounter Miscellaneous Notes * Addendum Note - Delphine Mares DO - 09/27/2023 3:38 PM EDTAddended by: DELPHINE MARES on: 09/27/2023 03:38 PM Modules accepted: Orders * Telephone Encounter - Delphine Mares DO - 09/27/2023 3:37 PM EDT Successful L-MBB. * Telephone Encounter - Basia Flores LPN [...] AM EDT Office Visit Family Practice [address] [place] [address] [place] [address] Domo Pool, DO 293 [place] [address] 11/21/2023 8:45 AM EDT Office Visit Otolaryngology [facility] 132 [place] [address] Gautam Morgan, DO 132 [place] [address] 11/28/2023 8:00 AM EDT Office Visit [facility] [address] [facility] [address] [place] [address] Domo Pool, DO 293 [place] [address] Scheduled Orders Name Type Priority Associated Diagnoses Orde r Schedule L-/S-SPINE PARAVERTEBRAL FACET INJ,1 LEVEL Procedures Routine Spondylosis of lumbosacral region without myelopathy or radiculopathy Chronic bilateral low back pain without sciatica Expected: 09/28/2023, Expires: 12/28/2023 L-/S-SPINE PARAVERTEBRL FACET INJ,2 LEVELS Procedures Routine Spondylosis of lumbosacral region without myelopathy or radiculopathy Chronic bilateral low back pain without sciatica Expected: 09/28/2023, Expires: 12/28/2023 Health Maintenance Due Date Last Done Comments [...] as of this encounter Visit Diagnoses Diagnosis Chronic bilateral low back pain without sciatica- Primary Spondylosis of lumbosacral region without myelopathy or radiculopathy Lumbosacral spondylosis without myelopathy documented in this encounter Advance Directives Documents on File Type Date Recorded Patient Change Management Specialist Expl anation Advance Directives and Livin g [...] Agents on File Name Relationship Healthcare Agent [facility] p Communication Dell Menard Spouse Health Care Repr esentative (appointed verbally by patient or by statute hierarchy) Care Teams Didactic Program In Dietetics Director Relationship Specialty Start Date End Date Domo Pool DO [address] [place] [address] PCP - General Internal Medicine 01/19/22 documented as of this encounter
--- OUTSIDE RECORDS SUMMARY | 2023-09-29 09:08 | External Medical Summary | Summary of Care ---
Author Name Unknown Organization [facility] Address [address] [place] [address] Phone [phone] Care Team Providers Care Generator Assembler Name Role Phone Padmini Pool DO Primary Care Provider [phone] Reason for Visit * Reason Comments Medication Refill Encounter Details Date Type Department Care Team (Late st Contact Info) Description 09/22/2023 Refill Family Practice [address] [facility], [place] [address] [place] [address] Padmini Pool DO [address] [place] [address] Type 2 diabetes mellitus with hemoglobin A1c goal of less than 7.0% ([facility]); Cerebrovascular Dz, Post-Stroke Allergies Active Allergy Reactions Criticality Noted Date Comments Amoxicillin Bleeding High 04/27/2015 Amoxicillin-Pot Clavulanate 09/05/19 14 tary stools documented as of this encounter (statuses as of 09/22/2023) Medications Medication Sig Dispensed Refills Start Date End Date Status Aspirin 81 MG Tablet Take 1 Tablet by mouth in the morning. 0 Active Cholecalciferol (VITAMIN D) 1000 UNIT Capsule Take 1 Capsule by mouth in the morning. 0 Active traMADol HCl 50 MG Oral Tablet (Ultram)Indicatio ns:Acute bilateral low back pain with left-sided sciatica [...] Prevagen Extra Strength 20 MG Oral Capsule (Apoaequorin)Kathy cations:clear mind Take by mouth 1 Capsule daily . 0 Active Probiotic Acidophilus BioBeads Oral Capsule Take 1 Capsule by mouth in the morning. 0 Active MyShapeTouch Verio w/Device Kit Use as directed . Use to test blood sugar once daily 1 Kit 0 01/20/2022 Active Vitamin C 500 MG Oral Capsule Take 1 Capsule by mouth every evening. 0 Active MyShapeTouch UltraSoft LancetsIndication s:Type 2 diabetes mellitus with hemoglobin A1c goal of less than 7.0% ([facility]) Use to check blood sugar [...] Active Fluticasone Propionate 50 MCG/ACT Nasal Suspension (Flonase)Indicati ons:Post-nasal drip ADMINISTER 2 SPRAYS INTO EACH NOSTRIL IN THE MORNING NEEDED 16 g 3 01/26/2023 4 Active Gabapentin 100 MG Oral Capsule (Neurontin)Indica tions:DDD (degenerative disc disease), lumbar Take 1 Capsule by mouth in the morning and 1 Capsule at noon and 1 Capsule before bedtime. 300 Capsule 3 02/07/2023 Active metFORMIN HCl 1000 MG Oral Tablet (Glucophage) Take 1 Tablet by mouth 2 times a day with morning and evening meals. 200 Tablet 3 02/15/2023 Active Cyclobenzaprine HCl 5 MG Oral Tablet (Flexeril)Indicat ions:DDD (degenerative disc disease), cervical,DDD (degenerative disc disease), lumbar TAKE ONE TABLET BY MOUTH THREE TIMES A DAY NEEDED FOR MUSCLE SPASMS, 270 Tablet 3 03/03/2023 Active Atenolol 50 MG Oral Tablet (Tenormin)Indicat ions:HTN, goal below 140/90 TAKE ONE TABLET BY MOUTH IN THE MORNING 100 Tablet 3 03/25/2023 4 Active amLODIPine Besylate 5 MG Oral Tablet (Norvasc)Indicati ons:HTN, goal below 140/90 Take 1 Tablet by mouth in the morning. 100 Tablet 3 03/30/2023 Active Sertraline HCl 100 MG Oral Tablet (Zoloft)Indicatio ns:Anxiety Take 1 Tablet by mouth in the morning. Takes additional 50 mg tablet. 100 Tablet 3 04/03/2023 Active Ozempic (0.25 or 0.5 MG/DOSE) 2 MG/3ML Solution Pen-injector (Semaglutide(0.25 or 0.5MG/DOS)) Inject 0.5 mg under the skin once a week. - gets from the licensed practical vocational nurse! 0 04/03/2023 Active Miconazole Nitrate 2 % External Cream (Monistat Derm) Apply to skin folds as directed 0 Active Nystatin 194167 UNIT/GM External Powder (Nystop) Apply topically to affected area 3 times a day. Apply to skin folds 60 g 0 06/30/2023 Active traZODone HCl 50 MG Oral Tablet (Desyrel)Indicati ons:Primary insomnia Take 1 Tablet by mouth at bedtime. 90 Tablet 1 07/14/2023 Active Vitamin B12 1000 MCG Oral Tablet Extended Release Take by mouth daily. 0 07/25/2023 Active Cetirizine HCl 10 MG Oral Tablet (ZyrTEC)Indicatio ns:Non-seasonal allergic rhinitis due to pollen Take 1 Tablet by mouth in the morning. 100 Tablet 3 07/26/2023 Active Sertraline HCl 50 MG Oral Tablet (Zoloft)Indicatio ns:Generalized anxiety disorder Take 1 Tablet by mouth in the morning. 100 Tablet 3 07/26/2023 Active OneAbeluch Gay In Vitro Strip (Glucose Blood)Indications :Type 2 diabetes mellitus with hemoglobin A1c goal of less than 7.0% (HCC) USE TO CHECK BLOOD SUGAR TWICE DAILY DIRECTED 200 Strip 3 07/31/2023 Active Ketoconazole 2 % External CreamIndications: Cutaneous candidiasis Apply topically to affected area 2 times a day for 28 days. Apply to abdominal rash 60 g 1 08/28/2023 4 Active busPIRone HCl 10 MG Oral Tablet (Buspar)Indicatio ns:Anxiety Take 1 Tablet by mouth in the morning and 1 Tablet before bedtime. 200 Tablet 1 09/08/2023 Active Pantoprazole Sodium 20 MG Oral Tablet Delayed Release (Protonix)Indicat ions:Gastroesopha geal reflux disease without esophagitis TAKE ONE TABLET BY MOUTH TWICE A DAY 30 MINUTES BEFORE A MEAL DO NOT CUT, CRUSH OR CHEW THE TABLET. 200 Tablet 3 09/19/2023 Active Atorvastatin Calcium 80 MG Oral Tablet (Lipitor)Indicati ons:Type 2 diabetes mellitus with hemoglobin A1c goal of less than 7.0% (HCC),Cerebrovasc ular disease, arteriosclerotic, post-stroke Take 1 Tablet by mouth in the morning. 100 Tablet 3 09/22/2023 Active Atorvastatin Calcium 80 MG Oral Tablet (Lipitor)Indicati ons:Type 2 diabetes mellitus with hemoglobin A1c goal of less than 7.0% (HCC),Cerebrovasc ular disease, arteriosclerotic, post-stroke TAKE ONE TABLET BY MOUTH IN THE MORNING 100 Tablet 1 11/10/2022 4 Discontinue d(Refill) Hospital, Clinic, or Other Facility Administered Medication Ordered Dose Route Frequency Start Date End Date Status vitamin b-12 (Cyanocobalamin) inj 1,000 mcgIndications:Vitamin B 12 deficiency 1000 mcg IM [id number] 12/29/2022 11/30/2023 Active documented as of this encounter (statuses as of 09/22/2023) Active Problems Problem Noted Date Diagnosed Date [...] cervical 2017 Coronary artery disease invo lving [place] coronary artery of [place] heart without angina pectoris 10/17/2017 Dyslipidemia, goal LDL below 70 11/13/2015 PSVT (paroxysmal supraventricular tachycardia) 0 10/14/2015 Essential hypertension with goal blood pressure less than 140/90 09/18/2014 Cerebrovascular disease, arteriosclerotic, post- stroke 07/21/2009 documented as of this encounter (statuses as of 09/22/2023) Resolved Problems Problem Noted Date Diagnosed Date [...] as of this encounter (statuses as of 09/22/2023) Immunizations Name Administration Dates Next Due COVID-19 mRNA, LNP-s, No Pre serve, 2-Dose Series ([employer]) 06/03/2021,09/30/2020,09/04/2020 COVID-19, MRNA-LNP, 23-24, P F, 30 MCG/0.3 mL, 12 YRS AND ABOVE, IM ([employer]-Comirnaty) 07/21/2023 Covid-19, Mrna, Lnp-s, Pf, B ivalent, [...] encounter Miscellaneous Notes * Telephone Encounter - Benjamín Croft RPh - 09/22/2023 8:36 AM EDTSigned Prescriptions: Disp Refills Atorvastatin Calcium 80 MG Oral Tablet (Li*100 Ta*3 Sig: Take 1 Tablet by mouth in the morning.Authorizing Provider: PADMINI POOL User: BENJAMÍN CROFT * Telephone Encounter - Benjamín Croft RPh - 09/22/2023 8:36 AM EDT Refill sent to mail order per protocol. Benjamín Fernandez, Pharm D, BCACP Clinical Pharmacist [address] [facility] 09/22/2023, 8:37 AM Ph. [phone] documented in this encounter Plan of Treatment Upcoming Encounters Date Type Department Care Team (Latest Contact Info) Description 09/25/2023 8:25 AM EDT Hospital Encounter OR [facility], Operating Room [facility] [address] [place] [phone] Brayan Mares DO [address] [place] [address] 09/25/2023 8:25 AM EDT - 09/25/2023 8:50 AM EDT Surgery OR [facility], Operating Room [facility] [address] [place] [phone] Brayan Mares, DO [address] [place] [phone] L-/S-SPINE PARAVERTEBRAL FACET INJ, 1 LEVEL 11/20/2023 10:00 AM EDT Office Visit Family [address] [facility] [place] [address] Padmini Pool, DO 293 [facility] [place] [address] 11/21/2023 8:45 AM EDT Office Visit [facility] [place] [address] Gautam Morgan, DO 132 [facility] [place] [address] Scheduled Procedures Name Priority Associated Diagnoses Date/Ti me L-/S-SPINE PARAVERTEBRAL FACET INJ, 1 LEVEL Spondylosis of lumbosacral region without myelopathy or radiculopathy 09/25/2023 8:25 AM EDT L-/S-SPINE PARAVERTEBRAL FACET INJ, 2 LEVELS Spondylosis of lumbosacral region without myelopathy or radiculopathy 09/25/2023 8:25 AM EDT Health Maintenance Due Date Last [...] as of this encounter Visit Diagnoses Diagnosis Type 2 diabetes mellitus with hemoglobin A1c goal of less than 7.0% (HCC) Cerebrovascular Dz, Post-Stroke Cerebral atherosclerosis Spondylosis of lumbosacral region without myelopathy or radiculopathy Lumbosacral spondylosis without myelopathy documented in this encounter Advance Directives Documents on File Type Date Recorded Patient Technology Recruiter Expl anation Advance Directives and Livin g [...] patient or by statute hierarchy) Care Teams Generator Assembler Relationship Specialty Start Date End Date Padmini Pool DO [address] [place] [address] PCP - General Internal Medicine 01/19/22 documented as of this encounter
--- OUTSIDE RECORDS SUMMARY | 2023-09-29 09:09 | External Medical Summary | Summary of Care ---
Author Name Unknown Organization [facility] Address [address] [place] [address] Phone [phone] Care Team Providers Care Inspector Of Dredging Name Role Phone Padmini Pool DO Primary Care Provider [phone] Reason for Visit * Reason Onset Date Comments Medication Refill 09/07/2023 Encounter Details Date Type Department Care Team (Late st Contact Info) Description 09/07/2023 Refill Family Practice [facility], [place] [address] [place] [address] Padmini Pool DO [address] [place] [address] Anxiety Allergies Active Allergy Reactions Criticality Noted Date Comments Amoxicillin Bleeding High 04/27/2015 Amoxicillin-Pot Clavulanate 09/05/19 14 tary stools documented as of this encounter (statuses as of 09/08/2023) Medications Medication Sig Dispensed Refills Start Date [...] by mouth in the morning. 0 Active utoopiaTouch Verio w/Device Kit Use as directed . Use to test blood sugar once daily 1 Kit 0 01/20/2022 Active Vitamin C 500 MG Oral Capsule Take 1 Capsule by mouth every evening. 0 Active utoopiaTouch UltraSoft LancetsIndication s:Type 2 diabetes mellitus with hemoglobin A1c goal of less than 7.0% ([facility]) Use to check blood sugar once daily as directed 100 Each 3 01/25/2022 Active Acetaminophen ER 650 MG Oral Tablet Extended Release Take 2 Tablets by mouth at bedtime as needed (hip pain). 0 Active Meclizine HCl 25 MG Oral Tablet (Antivert) TAKE 1 TABLET BY MOUTH 3 TIMES DAILY NEEDED FOR DIZZINESS Strength: 25 mg 30 Tablet 3 10/10/2022 Active Atorvastatin Calcium 80 MG Oral Tablet (Lipitor)Indicati ons:Type 2 diabetes mellitus with hemoglobin A1c goal of less than 7.0% ([facility]),Cerebrovasc ular disease, arteriosclerotic, post-stroke TAKE ONE TABLET BY MOUTH IN THE MORNING 100 Tablet 1 11/10/2022 4 Active Pantoprazole Sodium 20 MG Oral Tablet Delayed Release (Protonix)Indicat ions:Gastroesopha geal reflux disease without esophagitis TAKE ONE TABLET BY MOUTH TWICE A DAY 30 MINUTES BEFORE A MEAL DO NOT CUT, CRUSH OR CHEW THE TABLET. 200 Tablet 3 08/08/2022 Active Dicyclomine HCl 10 MG Oral Capsule [...] once a week. - gets from the wood coater! 0 04/03/2023 Active Miconazole Nitrate 2 % External Cream (Monistat Derm) Apply to skin folds as directed 0 Active Nystatin 336454 UNIT/GM External Powder (Nystop) Apply topically to [...] Active OneTouch Verio In Vitro Strip (Glucose Blood)Indications :Type 2 diabetes mellitus with hemoglobin A1c goal of less than 7.0% ([facility]) USE TO CHECK BLOOD SUGAR TWICE [...] before bedtime. 200 Tablet 1 09/08/2023 Active busPIRone HCl 10 MG Oral Tablet (Buspar)Indicatio ns:Anxiety TAKE ONE TABLET BY MOUTH IN THE MORNING AND TAKE ONE TABLET BEFORE BEDTIME 200 Tablet 2 11/09/2022 4 Discontinue d(Refill) Hospital, Clinic, or Other Facility Administered Medication Ordered Dose Route Frequency Start Date End Date Status vitamin b-12 (Cyanocobalamin) inj 1,000 mcgIndications:Vitamin B 12 deficiency 1000 mcg IM [id number] 12/29/2022 11/30/2023 Active documented as of this encounter (statuses as of 09/08/2023) Active Problems Problem Noted Date Diagnosed Date [...] cervical 2017 Coronary artery disease invo lving [place] coronary artery of [place] heart without angina pectoris 10/17/2017 Dyslipidemia, goal LDL below 70 11/13/2015 PSVT (paroxysmal supraventricular tachycardia) 0 10/14/2015 Essential hypertension with goal blood pressure less than 140/90 09/18/2014 Cerebrovascular disease, arteriosclerotic, post- stroke 07/21/2009 documented as of this encounter (statuses as of 09/08/2023) Resolved Problems Problem Noted Date Diagnosed Date [...] as of this encounter (statuses as of 09/08/2023) Immunizations Name Administration Dates Next Due COVID-19 mRNA, LNP-s, No Pre serve, 2-Dose Series ([employer]) 06/03/2021,09/30/2020,09/04/2020 COVID-19, MRNA-LNP, 23-24, P F, 30 [...] encounter Miscellaneous Notes * Telephone Encounter - Padmini Pool DO - 09/08/2023 1:05 PM ESTSigned Prescriptions: Disp Refills busPIRone HCl 10 MG Oral Tablet (Buspar) 200 Ta*1 Sig: Take 1 Tablet by mouth in the morning and 1 Tablet before bedtime.Authorizing Provider: PADMINI POOL------- * Telephone Encounter - Melony Deluna [facility] - 09/08/2023 12:48 PM EST Pending Prescriptions: Disp Refills busPIRone HCl 10 MG Oral Tablet (Buspar) 200 Ta*1 Sig: Take 1 Tablet by mouth in the morning and 1 Tablet before bedtime. * Telephone Encounter - Melony Deluna [facility] - 09/08/2023 12:47 PM EST [facility] is currently not authorized to approve refills for the pended medication(s) per refill protocol. Please approve if appropriate. Pending Prescriptions: Disp Refills busPIRone HCl 10 MG Oral Tablet (Buspar) 200 Ta*1 Sig: Take 1 Tablet by mouth in the morning and 1 Tablet before bedtime. Thank you, Melony Deluna, PharmD Clinical Pharmacist [facility] 09/08/23 12:47 PM [phone] * Telephone Encounter - GreenBatsheva [facility] - 09/07/2023 11:04 AM EST Pending Prescriptions: Disp Refills busPIRone HCl 10 MG Oral Tablet (Buspar) 200 Ta*2 Last Visit: 07/26/2023 (in office), 01/20/2023 (telemedicine) Next Visit: 11/20/2023 Last date the medication was ordered: Patient Active Problem List Diagnosis Code Cerebrovascular disease, arteriosclerotic, post-stroke I67.2, Z86.73 Essential hypertension with goal blood pressure less than 140/90 I10 PSVT (paroxysmal supraventricular tachycardia) I47.10 Dyslipidemia, goal LDL below 70 E78.5 Type 2 diabetes mellitus with hemoglobin A1c goal of less than 8.0% ([facility]) E11.9 Bilateral carpal tunnel syndrome G56.03 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 DDD (degenerative disc disease), cervical M50.30 Coronary artery disease involving [place] coronary artery of [place] heart without angina pectoris I25.10 Iron deficiency anemia D50.9 Gastroesophageal reflux disease without esophagitis K21.9 Generalized anxiety disorder F41.1 Sacroiliitis, not elsewhere classified ([facility]) M46.1 DDD (degenerative disc disease), lumbar M51.36 Primary insomnia F51.01 Vitamin B 12 deficiency E53.8 Drug-induced hyperkalemia E87.5, T50.905A Stress due to illness of family member Z63.79 Labs: Lab Results Component Value Date/Time CREATININE - [facility] 1.0 07/21/2023 09:55 AM CREATININE - [facility] 0.9 07/22/2020 09:48 AM CREATININE, RANDOM URINE - [facility] 176 07/21/2023 10:31 AM CREATININE, RANDOM URINE - [facility] 124 01/05/2017 10:19 AM CREATININE-OUTSIDE LAB 0.99 02/18/2013 12:00 AM Lab Results Component Value Date/Time POTASSIUM - [facility] 4.5 07/26/2023 12:02 PM POTASSIUM - [facility] 4.9 07/22/2020 09:48 AM POTASSIUM POCT - [facility] 4.0 04/27/2015 03:38 PM POTASSIUM-OUTSIDE LAB 4.0 02/18/2013 12:00 AM Lab Results Component Value Date/Time TSH - [facility] 1.76 07/01/2020 09:52 AM Lab Results Component Value Date/Time LDL CHOLESTEROL (CALCULATED) - [facility] 54 07/21/2023 09:55 AM LDL CHOLESTEROL (CALCULATED) - [facility] 40 04/05/2022 11:04 AM LDL CHOLESTEROL (CALCULATED) - [facility] 35 07/01/2020 09:52 AM LDL CHOLESTEROL (CALCULATED) - [facility] 38 04/23/2019 09:04 AM LDL CHOLESTEROL (DIRECT MEASURE) - [facility] NOT APPLICABLE 07/01/2020 09:52 AM LDL CHOLESTEROL (DIRECT MEASURE) - [facility] 52 07/27/2015 02:42 PM Lab Results Component Value Date/Time ALT - [facility] 16 07/26/2023 12:02 PM ALT - [facility] 19 02/15/2020 07:40 AM Hemoglobin AIC Results: Lab Results Component Value Date/Time HEMOGLOBIN A1C - [facility] 7.4 (H) 07/21/2023 09:55 AM HEMOGLOBIN A1C - [facility] 7.7 (H) 03/30/2023 09:24 AM HEMOGLOBIN A1C - [facility] 6.8 (H) 12/28/2022 10:19 AM HEMOGLOBIN A1C - [facility] 7.4 (H) 05/08/2020 12:58 PM HEMOGLOBIN A1C - [facility] 8.3 (H) 02/15/2020 07:40 AM HEMOGLOBIN A1C - [facility] 7.4 (H) 10/28/2019 08:11 AM documented in this encounter Plan of Treatment Upcoming Encounters Date Type Department Care Team (Latest Contact Info) Description 09/25/2023 8:25 AM EDT Hospital Encounter OR [facility], Operating Room [facility] [address] [place] [phone] Brayan Mares DO [address] [place] [phone] 09/25/2023 8:25 AM EDT - 09/25/2023 8:50 AM EDT Surgery OR [facility], Operating Room [facility] [address] [place] [phone] Brayan Mares, DO [address] [place] [phone] L-/S-SPINE PARAVERTEBRAL FACET INJ, 1 LEVEL 11/20/2023 10:00 AM EDT Office Visit Family Practice [address] [place] [address] 293 [facility], [place] [phone] Padmini Pool, DO 293 [facility], [place] [address] 11/21/2023 8:45 AM EDT Office Visit Otolaryngology 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
--- OUTSIDE RECORDS SUMMARY | 2023-09-29 09:09 | External Medical Summary | Summary of Care ---
Author Name Unknown Organization [facility] Address [address] [facility] [place] [address] Phone [phone] Care Team Providers Care Burlap Man Name Role Phone Domo Pool DO Primary Care Provider [phone] Encounter Details Date Type Department Care Team (Late st Contact Info) Description 09/13/2023 Documentation [facility] Jennifer Gordillo, Health Sanding Machine Operator Allergies Active Allergy Reactions Criticality Noted Date Comments Amoxicillin Bleeding High 04/27/2015 Amoxicillin-Pot Clavulanate 09/05/19 14 tary stools documented as of this encounter (statuses as of 09/13/2023) Medications Medication Sig Dispensed Refills Start Date [...] [facility]),Cerebrovascu lar disease, arteriosclerotic, post-stroke TAKE ONE TABLET BY MOUTH IN THE MORNING 100 Tablet 1 11/10/2022 11/10/2023 Active Pantoprazole Sodium 20 MG Oral Tablet [...] once a week. - gets from the patient biller! 0 04/03/2023 Active Miconazole Nitrate 2 % External Cream (Monistat Derm) Apply to skin folds as directed 0 Active Nystatin 638210 UNIT/GM External Powder (Nystop) Apply topically to [...] than 7.0% ([facility]) USE TO CHECK BLOOD SUGAR TWICE DAILY DIRECTED 200 Strip 3 07/31/2023 Active Ketoconazole 2 % External CreamIndications:C utaneous candidiasis Apply topically to affected area 2 times a day for 28 days. Apply to abdominal rash 60 g 1 08/28/2023 09/25/2023 Active busPIRone HCl 10 MG Oral Tablet (Buspar)Indication s:Anxiety Take 1 Tablet by mouth in the morning and 1 Tablet before bedtime. 200 Tablet 1 09/08/2023 Active Hospital, Clinic, or Other Facility Administered Medication Ordered Dose Route Frequency Start Date End Date Status vitamin b-12 (Cyanocobalamin) inj 1,000 mcgIndications:Vitamin B 12 deficiency 1000 mcg IM [id number] 12/29/2022 11/30/2023 Active documented as of this encounter (statuses as of 09/13/2023) Active Problems Problem Noted Date Diagnosed Date [...] cervical 2017 Coronary artery disease invo lving [place] coronary artery of [place] heart without angina pectoris 10/17/2017 Dyslipidemia, goal LDL below 70 11/13/2015 PSVT (paroxysmal supraventricular tachycardia) 0 10/14/2015 Essential hypertension with goal blood pressure less than 140/90 09/18/2014 Cerebrovascular disease, arteriosclerotic, post- stroke 07/21/2009 documented as of this encounter (statuses as of 09/13/2023) Resolved Problems Problem Noted Date Diagnosed Date [...] as of this encounter (statuses as of 09/13/2023) Immunizations Name Administration Dates Next Due COVID-19 mRNA, LNP-s, No Pre serve, 2-Dose Series ([employer]) 06/03/2021,09/30/2020,09/04/2020 COVID-19, MRNA-LNP, 23-24, P F, 30 MCG/0.3 mL, 12 YRS AND ABOVE, IM ([employer]) 07/21/2023 Covid-19, Mrna, Lnp-s, Pf, B ivalent, 30 Mcg, IM, 12 yrs and above ([employer]) 06/14/2022 Pneumococcal Conjugate Vacc, 13 Valent (Prevnar) [...] No 04/27/2015 documented as of this encounter Progress Notes * Jennifer Gordillo, Health Sanding Machine Operator - 09/13/2023 12:21 PM EDT SESSION TYPE: Group exercise session: Exercise Subtype or Modality: Flexibility Training Patient completed a group exercise session which consisted of balance training. All exercises included improving balance and strength of lower extremities. She tolerated the exercises well and had nocomplaints. documented in this encounter Plan of Treatment Upcoming Encounters Date Type Department Care Team (Latest Contact Info) Description 09/25/2023 8:25 AM EDT Hospital Encounter OR [facility], Operating Room [facility] [address] [place] [phone] Brayan Mares, DO [address] [place] [phone] 09/25/2023 8:25 AM EDT - 09/25/2023 8:50 AM EDT Surgery OR [facility], Operating Room [facility] [address] [place] [phone] Brayan Mares, DO [address] [place] [phone] L-/S-SPINE PARAVERTEBRAL FACET INJ, 1 LEVEL 11/20/2023 10:00 AM EDT Office Visit Family Practice [address] [place] [address] 293 [facility] [place] [address] Domo Pool, DO 293 [place] [address] 11/21/2023 8:45 AM EDT Office Visit Otolaryngology 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
--- OUTSIDE RECORDS SUMMARY | 2023-09-29 09:09 | External Medical Summary | Summary of Care ---
Author Name Unknown Organization [facility] Address [address] [place] [address] Phone [phone] Care Team Providers Care Linen Room Worker Name Role Phone Padmini Pool DO Primary Care Provider [phone] Encounter Details Date Type Department Care Team (Late st Contact Info) Description 09/15/2023 Refill Family Practice [address] [place] [address] [place] [phone] Padmini Pool DO [address] [place], [place] [phone] Gastroesophageal reflux disease without esophagitis Allergies Active Allergy Reactions Criticality Noted Date Comments Amoxicillin Bleeding High 04/27/2015 Amoxicillin-Pot Clavulanate 09/05/19 14 tary stools documented as of this encounter (statuses as of 09/19/2023) Medications Medication Sig Dispensed Refills Start Date [...] mouth every evening. 0 Active OneTouch UltraSoft LancetsIndication s:Type 2 diabetes mellitus with hemoglobin A1c goal of less than 7.0% (HCC) Use to check blood sugar once daily [...] MORNING 100 Tablet 1 11/10/2022 4 Active Dicyclomine HCl 10 MG Oral Capsule [...] IN THE MORNING 100 Tablet 3 03/25/2023 Active amLODIPine Besylate 5 MG Oral Tablet [...] once a week. - gets from the tobacco baler! 0 04/03/2023 Active Miconazole Nitrate 2 % External Cream (Monistat Derm) Apply to skin folds as directed 0 Active Nystatin 601012 UNIT/GM External Powder (Nystop) Apply topically to [...] hemoglobin A1c goal of less than 7.0% ([facility]) USE TO CHECK BLOOD SUGAR TWICE DAILY [...] THE TABLET. 200 Tablet 3 09/19/2023 Active Pantoprazole Sodium 20 MG Oral Tablet Delayed Release (Protonix)Indicat ions:Gastroesopha geal reflux disease without esophagitis TAKE ONE TABLET BY MOUTH TWICE A DAY 30 MINUTES BEFORE A MEAL DO NOT CUT, CRUSH OR CHEW THE TABLET. 200 Tablet 3 08/08/2022 4 Discontinue d(Refill) Hospital, Clinic, or Other Facility Administered Medication Ordered Dose Route Frequency Start Date End Date Status vitamin b-12 (Cyanocobalamin) inj 1,000 mcgIndications:Vitamin B 12 deficiency 1000 mcg IM [id number] 12/29/2022 11/30/2023 Active documented as of this encounter (statuses as of 09/19/2023) Active Problems Problem Noted Date Diagnosed Date [...] Coronary artery disease invo lving [place] coronary artery of [place] heart without angina pectoris 10/17/2017 Dyslipidemia, goal LDL below 70 11/13/2015 PSVT (paroxysmal supraventricular tachycardia) 0 10/14/2015 Essential hypertension with goal blood pressure less than 140/90 09/18/2014 Cerebrovascular disease, arteriosclerotic, post- stroke 07/21/2009 documented as of this encounter (statuses as of 09/19/2023) Resolved Problems Problem Noted Date Diagnosed Date [...] as of this encounter (statuses as of 09/19/2023) Immunizations Name Administration Dates Next Due COVID-19 mRNA, LNP-s, No Pre serve, 2-Dose Series ([employer]) 06/03/2021,09/30/2020,09/04/2020 COVID-19, MRNA-LNP, 23-24, P F, 30 MCG/0.3 mL, 12 YRS AND ABOVE, IM ([employer]) 07/21/2023 Covid-19, Mrna, Lnp-s, Pf, B ivalent, [...] encounter Miscellaneous Notes * Telephone Encounter - Margo Wan [facility] - 09/19/2023 1:09 PM EDTSigned Prescriptions: Disp Refills Pantoprazole Sodium 20 MG Oral Tablet Lolita*200 Ta*3 Sig: TAKE ONE TABLET BY MOUTH TWICE A DAY 30 MINUTES BEFORE A MEAL DO NOT CUT, CRUSH OR CHEW THE TABLET.Authorizing Provider: PADMINI POOL User: MARGO WAN * Telephone Encounter - Batsheva Bridges [facility] - 09/15/2023 9:49 AM EDT Pending Prescriptions: Disp Refills Pantoprazole Sodium 20 MG Oral Tablet Del*200 Ta*3 Last Visit: 07/26/2023 (in office), 01/20/2023 (telemedicine) Next Visit: 11/20/2023 Last date the medication was ordered: 08-08-2022 Patient Active Problem List Diagnosis Code Cerebrovascular disease, arteriosclerotic, post-stroke I67.2, Z86.73 Essential hypertension with goal blood pressure less than 140/90 I10 PSVT (paroxysmal supraventricular tachycardia) I47.10 Dyslipidemia, goal LDL below 70 E78.5 Type 2 diabetes mellitus with hemoglobin A1c goal of less than 8.0% ([facility]) E11.9 Bilateral carpal tunnel syndrome G56.03 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 DDD (degenerative disc disease), cervical M50.30 Coronary artery disease involving [place] coronary artery of [place] heart without angina pectoris I25.10 Iron deficiency [...] Operating Room [facility] [address] [place] [phone] Brayan Mares, [address] [place] [phone] 09/25/2023 8:25 AM EDT - 09/25/2023 8:50 AM EDT Surgery OR [facility], Operating Room [facility] [address] [place] [phone] Brayan Mares, [address] [place] [phone] L-/S-SPINE PARAVERTEBRAL FACET INJ, 1 LEVEL 11/20/2023 10:00 AM EDT Office Visit Family Practice [address] [place] [address] 293 [facility] [place] [address] Padmini Pool, DO 293 [facility], [place] [address] 11/21/2023 8:45 AM EDT Office Visit Otolaryngology [facility] [address] [place] [address] Gautam Morgan, DO [address] [place] [address] Scheduled Procedures Name Priority Associated Diagnoses Date/Ti [...] as of this encounter Visit Diagnoses Diagnosis Gastroesophageal reflux disease without esophagitis Esophageal reflux Spondylosis of lumbosacral region without myelopathy or radiculopathy Lumbosacral spondylosis without myelopathy documented in this encounter Advance Directives Documents on File Type Date Recorded Patient Surgical First Assistant Expl anation Advance Directives and Livin g [...] patient or by statute hierarchy) Care Teams Linen Room Worker Relationship Specialty Start Date End Date Padmini Pool DO [address] [place] [address] PCP - General Internal Medicine 01/19/22 documented as of this encounter
--- OUTSIDE RECORDS SUMMARY | 2023-09-29 09:10 | External Medical Summary | Summary of Care ---
Author Name Unknown Organization [facility] [address] [facility] [address] Phone [phone] Care Team Providers Care Office Cashier Name Role Phone Domo Pool DO Primary Care Provider [phone] Encounter Details Date Type Department Care Team (Late st Contact Info) Description 09/06/2023 Documentation [facility] Jennifer Gordillo, Health Multiple Cut Off Saw Operator Allergies Active Allergy Reactions Criticality Noted Date Comments Amoxicillin Bleeding High 04/27/2015 Amoxicillin-Pot Clavulanate 09/05/19 14 tary stools documented as of this encounter (statuses as of 09/06/2023) Medications Medication Sig Dispensed Refills Start Date [...] hemoglobin A1c goal of less than 7.0% ([facility]) Use to check blood sugar once [...] hemoglobin A1c goal of less than 7.0% ([facility]),Cerebrovascu lar disease, arteriosclerotic, post-stroke TAKE ONE TABLET BY MOUTH IN THE MORNING 100 Tablet 1 11/10/2022 11/10/2023 Active busPIRone HCl 10 MG Oral Tablet (Buspar)Indication s:Anxiety TAKE ONE TABLET BY MOUTH IN THE MORNING AND TAKE ONE TABLET BEFORE BEDTIME 200 Tablet 2 11/09/2022 11/09/2023 Active Pantoprazole Sodium 20 MG Oral Tablet [...] once a week. - gets from the manager of corporate! 0 04/03/2023 Active Miconazole Nitrate 2 % External Cream (Monistat Derm) Apply to skin folds as directed 0 Active Nystatin 089033 UNIT/GM External Powder (Nystop) Apply topically to [...] rash 60 g 1 08/28/2023 09/25/2023 Active Hospital, Clinic, or Other Facility Administered Medication Ordered Dose Route Frequency Start Date End Date Status vitamin b-12 (Cyanocobalamin) inj 1,000 mcgIndications:Vitamin B 12 deficiency 1000 mcg IM [id number] 12/29/2022 11/30/2023 Active documented as of this encounter (statuses as of 09/06/2023) Active Problems Problem Noted Date Diagnosed Date [...] cervical 2017 Coronary artery disease invo lving [place] coronary artery of [place] heart without angina pectoris 10/17/2017 Dyslipidemia, goal LDL below 70 11/13/2015 PSVT (paroxysmal supraventricular tachycardia) 0 10/14/2015 Essential hypertension with goal blood pressure less than 140/90 09/18/2014 Cerebrovascular disease, arteriosclerotic, post- stroke 07/21/2009 documented as of this encounter (statuses as of 09/06/2023) Resolved Problems Problem Noted Date Diagnosed Date [...] as of this encounter (statuses as of 09/06/2023) Immunizations Name Administration Dates Next Due COVID-19 mRNA, LNP-s, No Pre serve, 2-Dose Series ([employer]) 06/03/2021,09/30/2020,09/04/2020 COVID-19, MRNA-LNP, 23-24, P F, 30 MCG/0.3 mL, 12 YRS AND ABOVE, IM ([employer]) 07/21/2023 Covid-19, Mrna, Lnp-s, Pf, B ivalent, 30 Mcg, IM, 12 yrs and above ([employer]) 06/14/2022 Pneumococcal Conjugate Vacc, 13 Valent (Prevnar) [...] encounter Progress Notes * Jennifer Gordillo, Health Multiple Cut Off Saw Operator - 09/06/2023 11:04 AM EST SESSION TYPE: Group exercise session: Exercise Subtype or Modality: Balance Training Patient completed a group exercise session which consisted of balance training. All exercises included improving balance and strength of lower extremities. She tolerated the exercises well and had nocomplaints. documented in this encounter Plan of Treatment Upcoming Encounters Date Type Department Care Team (Latest Contact Info) Description 09/25/2023 8:25 AM EDT Hospital Encounter OR [facility], Operating Room [facility] [address] [place] [phone] Brayan Mares, DO [address] [place] [phone] 09/25/2023 8:25 AM EDT - 09/25/2023 8:50 AM EDT Surgery OR [facility], Operating Room [facility] [address] [place] [address] Brayan Mares, DO [address] [place] [phone] L-/S-SPINE PARAVERTEBRAL FACET INJ, 1 LEVEL 11/20/2023 10:00 AM EDT Office Visit Family Practice [address] [place] [address] 293 [facility] [place] [address] Domo Pool, DO 293 [place] [address] 11/21/2023 8:45 AM EDT Office Visit Otolaryngology [facility] [address] [place] [address] Gautam Morgan, DO [address] [place] [address] Scheduled Procedures Name Priority Associated Diagnoses Date/Ti [...] Documents on File Type Date Recorded Patient Home Visitor Home Base [employer] Expl anation Advance Directives and Livin g [...] Relationship Healthcare Agent Relationshi p Communication Dell Derian Spouse Health Care Repr esentative (appointed verbally by patient or by statute hierarchy) Care Teams Office Cashier Relationship Specialty Start Date End Date Domo Pool DO [address] [place] [address] PCP - General Internal Medicine 01/19/22 documented as of this encounter
--- OUTSIDE RECORDS SUMMARY | 2023-09-29 09:10 | External Medical Summary | Summary of Care ---
Author Name Unknown Organization [facility] Address [address] [place] [address] Phone [phone] Care Team Providers Care Offal Roller Name Role Phone Domo Pool DO Primary Care Provider [phone] Encounter Details Date Type Department Care Team (Late st Contact Info) Description 08/28/2023 Telephone Family Practice [address] [facility] [place] [address] [place] [phone] Domo Pool DO [address] [place], [place] [phone] Allergies Active Allergy Reactions Criticality Noted Date Comments Amoxicillin Bleeding High 04/27/2015 Amoxicillin-Pot Clavulanate 09/05/19 14 tary stools documented as of this encounter (statuses as of 08/28/2023) Medications Medication Sig Dispensed Refills Start Date [...] by mouth in the morning. 0 Active Thrillophilia.comTouch Verio w/Device Kit Use as directed . Use to test blood sugar once daily 1 Kit 0 01/20/2022 Active Vitamin C 500 MG Oral Capsule Take 1 Capsule by mouth every evening. 0 Active OneTouch UltraSoft LancetsIndications :Type 2 diabetes mellitus with hemoglobin A1c goal of less than 7.0% ([facility]) Use to check blood sugar once [...] goal of less than 7.0% ([facility]),Cerebrovascu lar disease, arteriosclerotic, post-stroke TAKE ONE [...] once a week. - gets from the care tech! 0 04/03/2023 Active Miconazole Nitrate 2 % External Cream (Monistat Derm) Apply to skin folds as directed 0 Active Nystatin 337761 UNIT/GM External Powder (Nystop) Apply topically to [...] goal of less than 7.0% ([facility]) USE TO CHECK BLOOD SUGAR TWICE [...] mcgIndications:Vitamin B 12 deficiency 1000 mcg IM [id number] 12/29/2022 11/30/2023 Active documented as of this encounter (statuses as of 08/28/2023) Active Problems Problem Noted Date Diagnosed Date [...] cervical 2017 Coronary artery disease invo lving [place] coronary artery of [place] heart without angina pectoris 10/17/2017 Dyslipidemia, goal LDL below 70 11/13/2015 PSVT (paroxysmal supraventricular tachycardia) 0 10/14/2015 Essential hypertension with goal blood pressure less than 140/90 09/18/2014 Cerebrovascular disease, arteriosclerotic, post- stroke 07/21/2009 documented as of this encounter (statuses as of 08/28/2023) Resolved Problems Problem Noted Date Diagnosed Date [...] as of this encounter (statuses as of 08/28/2023) Immunizations Name Administration Dates Next Due COVID-19 mRNA, LNP-s, No Pre serve, 2-Dose Series ([employer]) 06/03/2021,09/30/2020,09/04/2020 COVID-19, MRNA-LNP, 23-24, P F, 30 MCG/0.3 mL, 12 YRS AND ABOVE, IM ([employer]) 07/21/2023 Covid-19, Mrna, Lnp-s, Pf, B ivalent, 30 Mcg, IM, 12 yrs and above ([employer]) 06/14/2022 Pneumococcal Conjugate Vacc, 13 Valent (Prevnar) [...] No 04/27/2015 documented as of this encounter Plan of Treatment Upcoming Encounters Date Type Department Care Team (Latest Contact Info) Description 09/25/2023 8:25 AM EDT Hospital Encounter OR [facility], Operating Room [facility] [address] [place] [phone] Brayan Mares, DO [address] [place] [phone] 09/25/2023 8:25 AM EDT - 09/25/2023 8:50 AM EDT Surgery OR [facility], Operating Room [facility] [address] [place] [phone] Brayan Mares, DO [address] [place] [address] L-/S-SPINE PARAVERTEBRAL FACET INJ, 1 LEVEL 11/20/2023 10:00 AM EDT Office Visit Family Practice [address] [place] [address] 293 [place] [address] Domo Pool, DO 293 [place] [address] 11/21/2023 8:45 AM EDT Office Visit Otolaryngology [facility] [address] [place] [address] Gautam Morgan, DO 132 [facility] [place] [address] Scheduled Procedures Name Priority Associated Diagnoses Date/Ti [...] 02/07/2023, Additional history exists GFR 07/21/2024 07/21/2023, 1003/2023, 03/30/2023, Additional history exists Depression Screening 07/31/2024 [...] as of this encounter Visit Diagnoses Diagnosis Cutaneous candidiasis- Primary Candidiasis of skin and nails Spondylosis of lumbosacral region without myelopathy or radiculopathy Lumbosacral spondylosis without myelopathy documented in this encounter Advance Directives Documents on File Type Date Recorded Patient Distribution Operations Manager Expl anation Advance Directives and Livin [...] patient or by statute hierarchy) Care Teams Offal Roller Relationship Specialty Start Date End Date Domo Pool DO [address] [place] [address] PCP - General Internal Medicine 01/19/22 documented as of this encounter
--- OUTSIDE RECORDS SUMMARY | 2023-09-29 09:10 | External Medical Summary | Summary of Care ---
Author Name Unknown Organization [facility] Address [address] [place] [address] Phone [phone] Care Team Providers Care Market Consultant Name Role Phone Domo Pool DO Primary Care Provider [phone] Encounter Details Date Type Department Care Team (Late st Contact Info) Description 09/07/2023 10:30 AM EST Home Visit Care Coordination and Integration [address] [place], [place] [phone] Denia Espino Community Health Sales Clerk Food [address] [place], [place] [phone] Allergies Active Allergy Reactions Criticality Noted Date Comments Amoxicillin Bleeding High 04/27/2015 Amoxicillin-Pot Clavulanate 09/05/19 14 tary stools documented as of this encounter (statuses as of 09/07/2023) Medications Medication Sig Dispensed Refills Start Date [...] by mouth in the morning. 0 Active RelayrTouch Verio w/Device Kit Use as directed . Use to test blood sugar once daily 1 Kit 0 01/20/2022 Active Vitamin C 500 MG Oral Capsule Take 1 Capsule by mouth every evening. 0 Active RelayrTouch UltraSoft LancetsIndications :Type 2 diabetes mellitus with [...] than 7.0% (HCC),Cerebrovascu lar disease, arteriosclerotic, post-stroke TAKE ONE TABLET [...] once a week. - gets from the web site administrator! 0 04/03/2023 Active Miconazole Nitrate 2 % External Cream (Monistat Derm) Apply to skin folds as directed 0 Active Nystatin 809917 UNIT/GM External Powder (Nystop) Apply topically to [...] A1c goal of less than 7.0% ([facility]) USE TO CHECK BLOOD SUGAR TWICE [...] mcgIndications:Vitamin B 12 deficiency 1000 mcg IM [id number] 12/29/2022 11/30/2023 Active documented as of this encounter (statuses as of 09/07/2023) Active Problems Problem Noted Date Diagnosed Date [...] cervical 2017 Coronary artery disease invo lving [place] coronary artery of [place] heart without angina pectoris 10/17/2017 Dyslipidemia, goal LDL below 70 11/13/2015 PSVT (paroxysmal supraventricular tachycardia) 0 10/14/2015 Essential hypertension with goal blood pressure less than 140/90 09/18/2014 Cerebrovascular disease, arteriosclerotic, post- stroke 07/21/2009 documented as of this encounter (statuses as of 09/07/2023) Resolved Problems Problem Noted Date Diagnosed Date [...] as of this encounter (statuses as of 09/07/2023) Immunizations Name Administration Dates Next Due COVID-19 mRNA, LNP-s, No Pre serve, 2-Dose Series ([employer]) 06/03/2021,09/30/2020,09/04/2020 COVID-19, MRNA-LNP, 23-24, P F, 30 MCG/0.3 mL, 12 YRS AND ABOVE, IM ([employer]) 07/21/2023 Covid-19, Mrna, Lnp-s, Pf, B ivalent, 30 Mcg, IM, 12 yrs and above ([employer]) 06/14/2022 Pneumococcal Conjugate Vacc, 13 Valent (Prevnar) [...] as of this encounter Progress Notes * Denia Espino, Community Health Sales Clerk Food - 09/07/2023 10:58 AM EST Telemedicine visit: No Community Health Sales Clerk Food (MEE) documentation: MEE hv to drop off a list of resources for pt. To assist with paying electric bill. Pt. Encouraged to call each one to find out what services they provide and can help them with. Pt. States that the things like [employer] that we had applied for previously, were denied due to income. documented in this encounter Plan of Treatment Upcoming Encounters Date Type Department Care Team (Latest Contact Info) Description 09/25/2023 8:25 AM EDT Hospital Encounter OR [facility], Operating Room [facility] [address] [place] [phone] Brayan Mares, DO [address] [place] [address] 09/25/2023 8:25 AM EDT - 09/25/2023 8:50 AM EDT Surgery OR [facility], Operating Room [facility] [address] [place] [phone] Brayan Mares, DO [address] [place] [phone] L-/S-SPINE PARAVERTEBRAL FACET INJ, 1 LEVEL 11/20/2023 10:00 AM EDT Office Visit Family Practice [address] [place] [address] 293 [place] [address] Domo Pool, DO 293 [place] [address] 11/21/2023 8:45 AM EDT Office Visit Otolaryngology [facility] [address] [place] [address] Gautam Morgan, DO [address] [place] [address] Scheduled Procedures Name Priority Associated Diagnoses Date/Ti [...] Documents on File Type Date Recorded Patient Inventory Control Specialist Expl anation Advance Directives and Livin [...] patient or by statute hierarchy) Care Teams Market Consultant Relationship Specialty Start Date End Date Domo Pool DO [address] [facility] [place] [address] PCP - General Internal Medicine 01/19/22 documented as of this encounter
--- OUTSIDE RECORDS SUMMARY | 2023-09-29 09:10 | External Medical Summary | Summary of Care ---
Author Name Unknown Organization [facility] Address [address] [place] [address] Phone [phone] Care Team Providers Care Puller Through Name Role Phone Domo Pool DO Primary Care Provider Encounter Details Date Type Department Care Team (Late st Contact Info) Description 08/29/2023 11:45 AM EST Scheduled Telephone Care Coordination and Integration [address], [place] [phone] Denia Espino [facility] Software Qa System Specialist [address] [place] [address] Allergies Active Allergy Reactions Criticality Noted Date Comments Amoxicillin Bleeding High 04/27/2015 Amoxicillin-Pot Clavulanate 09/05/19 14 tary stools documented as of this encounter (statuses as of 08/29/2023) Medications Medication Sig Dispensed Refills Start Date [...] by mouth in the morning. 0 Active Entrepreneur Education Management CorporationTouch Verio w/Device Kit Use as directed . Use to test blood sugar once daily 1 Kit 0 01/20/2022 Active Vitamin C 500 MG Oral Capsule Take 1 Capsule by mouth every evening. 0 Active Entrepreneur Education Management CorporationTouch UltraSoft LancetsIndications :Type 2 diabetes mellitus with [...] once a week. - gets from the last repairer! 0 04/03/2023 Active Miconazole Nitrate 2 % External Cream (Monistat Derm) Apply to skin folds as directed 0 Active Nystatin 606848 UNIT/GM External Powder (Nystop) Apply topically to [...] hemoglobin A1c goal of less than 7.0% ([facility]) USE TO CHECK BLOOD SUGAR TWICE DAILY [...] mcgIndications:Vitamin B 12 deficiency 1000 mcg IM [id number] 12/29/2022 11/30/2023 Active documented as of this encounter (statuses as of 08/29/2023) Active Problems Problem Noted Date Diagnosed Date [...] cervical 2017 Coronary artery disease invo lving [place] coronary artery of [place] heart without angina pectoris 10/17/2017 Dyslipidemia, goal LDL below 70 11/13/2015 PSVT (paroxysmal supraventricular tachycardia) 0 10/14/2015 Essential hypertension with goal blood pressure less than 140/90 09/18/2014 Cerebrovascular disease, arteriosclerotic, post- stroke 07/21/2009 documented as of this encounter (statuses as of 08/29/2023) Resolved Problems Problem Noted Date Diagnosed Date [...] as of this encounter (statuses as of 08/29/2023) Immunizations Name Administration Dates Next Due COVID-19 mRNA, LNP-s, No Pre serve, 2-Dose Series ([employer]) 06/03/2021,09/30/2020,09/04/2020 COVID-19, MRNA-LNP, 23-24, P F, 30 MCG/0.3 mL, 12 YRS AND ABOVE, IM ([employer]) 07/21/2023 Covid-19, Mrna, Lnp-s, Pf, B ivalent, 30 Mcg, IM, 12 yrs and above (VisiQuate) 06/14/2022 Pneumococcal Conjugate Vacc, 13 Valent (Prevnar) [...] Progress Notes * Denia Espino, [facility] Software Qa System Specialist - 08/29/2023 11:55 AM EST Telemedicine visit: No [facility] Software Qa System Specialist (MEE) documentation: MEE f/u call for [facility] phone number and contact to have pt. And spouse apply for [facility] benefits. Discussed with pt. That she was notified that she doesn't qualify for SNAP. Pt very concerned about her spouse this date. He is not feeling well and was seen in Dr. Pool's office yesterday. Pt states he had a lot of blood work completed, but doesn't have any upcoming appointments scheduled in less than a month. documented in this encounter Plan of Treatment Upcoming Encounters Date Type Department Care Team (Latest Contact Info) Description 09/25/2023 8:25 AM EDT Hospital Encounter OR [facility], Operating Room [facility] [address] [place] [address] [address] Brayan Mares, [address] [place] [address] 09/25/2023 8:25 AM EDT - 09/25/2023 8:50 AM EDT Surgery OR [facility], Operating Room [facility] [address] [address] Brayan Mares DO [address] [place] [address] L-/S-SPINE PARAVERTEBRAL FACET INJ, 1 LEVEL 11/20/2023 10:00 AM EDT Office Visit Family Practice [address] [place] [address] [address] [place] [address] Domo Pool, DO 293 [facility], [place] [address] 11/21/2023 8:45 AM EDT Office Visit Otolaryngology [facility] [address] [address] Gautam Morgan, DO [address] [place] [address] Scheduled Procedures Name Priority Associated Diagnoses Date/Ti [...] Documents on File Type Date Recorded Patient Journeyman Level Acoustic Analyst Expl anation Advance Directives and Livin g [...] patient or by statute hierarchy) Care Teams Puller Through Relationship Specialty Start Date End Date Domo Pool DO [address] [place] [address] PCP - General Internal Medicine 01/19/22 documented as of this encounter
--- OUTSIDE RECORDS SUMMARY | 2023-09-29 09:10 | External Medical Summary | Summary of Care ---
Author Name Unknown Organization [facility] Address [address] [place] [address] Phone [phone] Care Team Providers Care Laundry Route Driver Name Role Phone Domo Pool DO Primary Care Provider [phone] Encounter Details Date Type Department Care Team (Late st Contact Info) Description 08/29/2023 11:45 AM EST Scheduled Telephone Care Coordination and Integration [address] [place], [place] [phone] Denia Espino [facility] Pediatric Orthodontist [address] [place] [address] Allergies Active Allergy Reactions Criticality [...] by mouth in the morning. 0 Active BreezieTouch Verio w/Device Kit Use as directed . Use to test blood sugar once daily 1 Kit 0 01/20/2022 Active Vitamin C 500 MG Oral Capsule Take 1 Capsule by mouth every evening. 0 Active BreezieTouch UltraSoft LancetsIndications :Type 2 diabetes mellitus with [...] once a week. - gets from the signal supervisor! 0 04/03/2023 Active Miconazole Nitrate 2 % External Cream (Monistat Derm) Apply to skin folds as directed 0 Active Nystatin [id number] UNIT/GM External Powder (Nystop) Apply topically to [...] A1c goal of less than 7.0% ([facility]) USE TO CHECK BLOOD SUGAR TWICE DAILY [...] mcgIndications:Vitamin B 12 deficiency 1000 mcg IM [id number] 12/29/2022 11/30/2023 Active documented as of this [...] cervical 2017 Coronary artery disease invo lving [place] coronary artery of [place] heart without angina pectoris 10/17/2017 Dyslipidemia, goal [...] mRNA, LNP-s, No Pre serve, 2-Dose Series ([employer]) 06/03/2021,09/30/2020,09/04/2020 COVID-19, MRNA-LNP, 23-24, P F, 30 MCG/0.3 mL, 12 YRS AND ABOVE, IM ([employer]) 07/21/2023 Covid-19, Mrna, Lnp-s, Pf, B ivalent, 30 Mcg, IM, 12 yrs and above ([employer]) 06/14/2022 Pneumococcal Conjugate Vacc, 13 Valent (Prevnar) [...] Progress Notes * Denia Espino, [facility] Pediatric Orthodontist - 08/29/2023 11:55 AM EST Telemedicine visit: No [facility] Pediatric Orthodontist (MEE) documentation: MEE f/u call for [facility] [...] [facility], Operating Room OSS [address] [phone] Brayan Mares, [address] [place] [address] 09/25/2023 8:25 AM EDT - 09/25/2023 8:50 AM EDT Surgery OR [facility], Operating Room [facility] [address] [address] Brayan Mares DO [address] [place] [address] L-/S-SPINE PARAVERTEBRAL FACET INJ, 1 LEVEL 11/20/2023 10:00 AM EDT Office Visit Family Practice [address] [place] [address] 293 [place] [address] Domo Pool, DO 293 [facility], [place] [address] 11/21/2023 8:45 AM EDT Office Visit Otolaryngology [facility] [address] [place] [address] [address] Gautam Morgan, DO [address] [place] [address] Scheduled Procedures Name Priority Associated Diagnoses Date/Ti [...] Documents on File Type Date Recorded 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
--- OUTSIDE RECORDS SUMMARY | 2023-09-29 09:11 | External Medical Summary | Summary of Care ---
Author Name Unknown Organization [facility] Address [address] [place] [address] Phone [phone] Care Team Providers Care Director Biomedical Engineering Name Role Phone Domo Pool DO Primary Care Provider [phone] Encounter Details Date Type Department Care Team (Late st Contact Info) Description 08/21/2023 9:30 AM EST Home Visit Care Coordination and Integration [address] [place], [place] [phone] Denia Espino [facility] Veneer Stock Grader [address] [place] [address] Allergies Active Allergy Reactions Criticality Noted Date Comments Amoxicillin Bleeding High 04/27/2015 Amoxicillin-Pot Clavulanate 09/05/19 14 tary stools documented as of this encounter (statuses as of 08/21/2023) Medications Medication Sig Dispensed Refills Start Date [...] by mouth in the morning. 0 Active [employer] / [employer]LLTouch Verio w/Device Kit Use as directed . Use to test blood sugar once daily 1 Kit 0 01/20/2022 Active Vitamin C 500 MG Oral Capsule Take 1 Capsule by mouth every evening. 0 Active [employer] / [employer]LL[employer] UltraSoft LancetsIndications :Type 2 diabetes mellitus with [...] once a week. - gets from the burlap worker! 0 04/03/2023 Active Miconazole Nitrate 2 % External Cream (Monistat Derm) Apply to skin folds as directed 0 Active Nystatin [id number] UNIT/GM External Powder (Nystop) Apply topically to [...] goal of less than 7.0% ([facility]) USE TO CHECK BLOOD SUGAR TWICE DAILY DIRECTED 200 Strip 3 07/31/2023 Active Hospital, Clinic, or Other Facility Administered Medication Ordered Dose Route Frequency Start Date End Date Status vitamin b-12 (Cyanocobalamin) inj 1,000 mcgIndications:Vitamin B 12 deficiency 1000 mcg IM [id number] 12/29/2022 11/30/2023 Active documented as of this encounter (statuses as of 08/21/2023) Active Problems Problem Noted Date Diagnosed Date [...] cervical 2017 Coronary artery disease invo lving [place] coronary artery of [place] heart without angina pectoris 10/17/2017 Dyslipidemia, goal LDL below 70 11/13/2015 PSVT (paroxysmal supraventricular tachycardia) 0 10/14/2015 Essential hypertension with goal blood pressure less than 140/90 09/18/2014 Cerebrovascular disease, arteriosclerotic, post- stroke 07/21/2009 documented as of this encounter (statuses as of 08/21/2023) Resolved Problems Problem Noted Date Diagnosed Date [...] as of this encounter (statuses as of 08/21/2023) Immunizations Name Administration Dates Next Due COVID-19 mRNA, LNP-s, No Pre serve, 2-Dose Series ([employer]) 06/03/2021,09/30/2020,09/04/2020 COVID-19, MRNA-LNP, 23-24, P F, 30 MCG/0.3 mL, 12 YRS AND ABOVE, IM ([employer] 07/21/2023 Covid-19, Mrna, Lnp-s, Pf, B ivalent, 30 Mcg, IM, 12 yrs and above ([employer]) 06/14/2022 Pneumococcal Conjugate Vacc, 13 Valent (Prevnar) [...] Progress Notes * Denia Espino, [facility] Veneer Stock Grader - 08/21/2023 1:34 PM EST Telemedicine visit: No Community [facility] Veneer Stock Grader (MEE) documentation: MEE picked up completed and signed documents for Assistance, Lie heap, Rent rebcrow, financial assistance for [facility] and [facility]. All will either be delivered to appropriate offices or mailed to appropriate offices. documented in this encounter Plan of Treatment Upcoming Encounters Date Type Department Care Team (Latest Contact Info) Description 09/25/2023 8:25 AM EDT Hospital Encounter OR [facility], Operating Room [facility] [address] [place] [phone] Brayan Mares, DO [address] [place] [address] 09/25/2023 8:25 AM EDT - 09/25/2023 8:50 AM EDT Surgery OR [facility], Operating Room [facility] [address] [place] [phone] Brayan Mares, DO [address] [place] [phone] L-/S-SPINE PARAVERTEBRAL FACET INJ, 1 LEVEL 11/20/2023 10:00 AM EDT Office Visit Family Practice [address] [place] [address] 293 [place] [address] Domo Pool DO 293 [place] [address] 11/21/2023 8:45 AM EDT Office Visit Otolaryngology [facility] [address] [place] [address] Gautam Morgan, DO [address] [place] [address] Scheduled Procedures Name Priority Associated Diagnoses Date/Ti [...] Documents on File Type Date Recorded 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
--- OUTSIDE RECORDS SUMMARY | 2023-09-29 09:11 | External Medical Summary | Summary of Care ---
Author Name Unknown Organization [facility] Address [address] [facility] [address] Phone [phone] Care Team Providers Care Corn Shredder Name Role Phone Domo Pool DO Primary Care Provider [phone] Encounter Details Date Type Department Care Team (Late st Contact Info) Description 08/23/2023 Documentation HEALTH & WELLNESS Jennifer Gordillo, Health Powerhouse Laborer Allergies Active Allergy Reactions Criticality Noted Date Comments Amoxicillin Bleeding High 04/27/2015 Amoxicillin-Pot Clavulanate 09/05/19 14 tary stools documented as of this encounter (statuses as of 08/23/2023) Medications Medication Sig Dispensed Refills Start Date [...] hemoglobin A1c goal of less than 7.0% ([facility]) Use to check blood sugar once [...] hemoglobin A1c goal of less than 7.0% ([facility]),Cerebrovascu lar disease, arteriosclerotic, post-stroke TAKE ONE [...] once a week. - gets from the ear flap binder! 0 04/03/2023 Active Miconazole Nitrate 2 % External Cream (Monistat Derm) Apply to skin folds as directed 0 Active Nystatin [id number] UNIT/GM External Powder (Nystop) Apply topically to [...] mcgIndications:Vitamin B 12 deficiency 1000 mcg IM [id number] 12/29/2022 11/30/2023 Active documented as of this encounter (statuses as of 08/23/2023) Active Problems Problem Noted Date Diagnosed Date [...] cervical 2017 Coronary artery disease invo lving [place] coronary artery of [place] heart without angina pectoris 10/17/2017 Dyslipidemia, goal LDL below 70 11/13/2015 PSVT (paroxysmal supraventricular tachycardia) 0 10/14/2015 Essential hypertension with goal blood pressure less than 140/90 09/18/2014 Cerebrovascular disease, arteriosclerotic, post- stroke 07/21/2009 documented as of this encounter (statuses as of 08/23/2023) Resolved Problems Problem Noted Date Diagnosed Date [...] as of this encounter (statuses as of 08/23/2023) Immunizations Name Administration Dates Next Due COVID-19 mRNA, LNP-s, No Pre serve, 2-Dose Series ([employer]) 06/03/2021,09/30/2020,09/04/2020 COVID-19, MRNA-LNP, 23-24, P F, 30 MCG/0.3 mL, 12 YRS AND ABOVE, IM ([employer] 07/21/2023 Covid-19, Mrna, Lnp-s, Pf, B ivalent, 30 Mcg, IM, 12 yrs and above ([employer]) 06/14/2022 Pneumococcal Conjugate Vacc, 13 Valent (Prevnar) [...] of this encounter Progress Notes * Jennifer Gordillo Health Powerhouse Laborer - 08/23/2023 3:02 PM EST SESSION TYPE: Group exercise session: Exercise [...] Operating Room [facility] [address] [place] [phone] Brayan Mares, DO [address] [place] [phone] 09/25/2023 8:25 AM EDT - 09/25/2023 8:50 AM EDT Surgery OR [facility], Operating Room [facility] [address] [place] [address] Brayan Mares, DO [address] [place] [phone] L-/S-SPINE PARAVERTEBRAL FACET INJ, 1 LEVEL 11/20/2023 10:00 AM EDT Office Visit Family Practice [address] [place] [address] 293 [facility] [place] [address] Domo Pool, DO 293 [place] [address] 11/21/2023 8:45 AM EDT Office [facility] [place] [address] Gautam Morgan, DO 132 [facility] [place] [address] Scheduled Procedures Name Priority Associated Diagnoses Date/Ti [...] Documents on File Type Date Recorded 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 Question Answer Comments Discussion of Advance Directives occurred with: Patient Healthcare Agents on File Name Relationship Healthcare Agent [facility] Communication Dell Menard Spouse Health Care Repr esentative (appointed verbally by patient or by statute hierarchy) Care Teams Corn Shredder Relationship Specialty Start Date End Date Domo Pool DO [address] [place] [address] PCP - General Internal Medicine 01/19/22 documented as of this encounter
--- OUTSIDE RECORDS SUMMARY | 2023-09-29 09:11 | External Medical Summary | Summary of Care ---
Author Name Unknown Organization [facility] Address [address] [place] [address] Phone [phone] Care Team Providers Care Consulting Marine Engineer Name Role Phone Domo Pool DO Primary Care Provider [phone] Reason for Visit * Reason Onset Date Comments Advice 08/09/2023 Advise - high bragg gar Encounter Details Date Type Department Care Team (Late st Contact Info) Description 08/09/2023 Telephone Family Practice [address] [facility] [address] [place] [phone] Domo Pool DO [address] [place], [place] [phone] Advice (Advise - high sugar) Allergies Active Allergy Reactions Criticality Noted Date Comments Amoxicillin Bleeding High 04/27/2015 Amoxicillin-Pot Clavulanate 09/05/19 14 tary stools documented as of this encounter (statuses as of 08/09/2023) Medications Medication Sig Dispensed Refills Start Date [...] A1c goal of less than 7.0% ([facility]) Use to check blood sugar once daily [...] A1c goal of less than 7.0% ([facility]),Cerebrovascu lar disease, arteriosclerotic, post-stroke TAKE ONE TABLET [...] once a week. - gets from the sports teacher! 0 04/03/2023 Active Miconazole Nitrate 2 % External Cream (Monistat Derm) Apply to skin folds as directed 0 Active Nystatin 690887 UNIT/GM External Powder (Nystop) Apply topically to [...] A1c goal of less than 7.0% ([facility]) USE TO CHECK BLOOD SUGAR TWICE DAILY DIRECTED 200 Strip 3 07/31/2023 Active Hospital, Clinic, or Other Facility Administered Medication Ordered Dose Route Frequency Start Date End Date Status vitamin b-12 (Cyanocobalamin) inj 1,000 mcgIndications:Vitamin B 12 deficiency 1000 mcg IM [id number] 12/29/2022 11/30/2023 Active documented as of this encounter (statuses as of 08/09/2023) Active Problems Problem Noted Date Diagnosed Date Stress due to illness of family member 4 Drug-induced hyperkalemia 04/11/2023 Overview: [facility] Food insecurity 04/10/2023 Overview: Per [facility] Protocol Vitamin B 12 deficiency 12/29/2022 Primary insomnia [...] cervical 2017 Coronary artery disease invo lving [place] coronary artery of [place] heart without angina pectoris 10/17/2017 Dyslipidemia, goal LDL below 70 11/13/2015 PSVT (paroxysmal supraventricular tachycardia) 0 10/14/2015 Essential hypertension with goal blood pressure less than 140/90 09/18/2014 Cerebrovascular disease, arteriosclerotic, post- stroke 07/21/2009 documented as of this encounter (statuses as of 08/09/2023) Resolved Problems Problem Noted Date Diagnosed Date Resolved Date Slow transit constipation 01/25/2022 Food insecurity 02/08/2021 [...] as of this encounter (statuses as of 08/09/2023) Immunizations Name Administration Dates Next Due COVID-19 mRNA, LNP-s, No Pre serve, 2-Dose Series ([employer]) 06/03/2021,09/30/2020,09/04/2020 COVID-19, MRNA-LNP, 23-24, P F, 30 MCG/0.3 mL, 12 YRS AND ABOVE, IM ([employer]) 07/21/2023 Covid-19, Mrna, Lnp-s, Pf, B ivalent, 30 Mcg, IM, 12 yrs and above ([employer]) 06/14/2022 Pneumococcal Conjugate Vacc, 13 Valent (Prevnar) [...] encounter Miscellaneous Notes * Telephone Encounter - Beti Lawton, [facility] - 08/09/2023 8:49 AM EST Diabetes telephone follow - up 08/09/2023 Patient Phone Numbers - Reason for contacting patient: Reports that blood sugar is a lot higher this morning than usual. Last night had Green beans, chicken thigh, rice. This morning took sugar then had [employer] with margarine and coffee and splenda and 1% milk. Denies any sugary drinks or sweets last night or overnight. Denies feeling ill other than some diarrhea for a few days, but that has resolved. - Current diabetic medications: Metformin 1000mg twice daily Ozempic 0.5 mg weekly on Fridays - Glucose review/ SMBG: Breakfast: pre meal 214 today, 164, 141, 163, 160, 152, Therapy Management Assessment/Plan: 1) Diabetes: Advised patient to continue current regimen and check sugars later today and tomorrow morning. If still > 200 tomorrow, give us a call. Follow up as needed. Beti Santo RPh, Pharm D Clinical Pharmacist [facility] 08/09/2023, 8:49 AM * Telephone Encounter - Batsheva Bridges OSA - 08/09/2023 8:38 AM EST Pt calling to discuss her rising sugar number. States it was 219 this am but been running around 160s She is asking if a nurse or pharmacist can call her back as she is starting to get very concerned over her numbers. documented in this encounter Plan of Treatment Upcoming Encounters Date Type Department Care Team (Latest Contact Info) Description 09/25/2023 8:25 AM EDT Hospital Encounter OR [facility], Operating Room [facility] [address] [place] [phone] Brayan Mares DO [address] [place] [phone] 09/25/2023 8:25 AM EDT - 09/25/2023 8:50 AM EDT Surgery OR [facility], Operating Room [facility] [address] [place] [phone] Brayan Mares, DO [address] [place] [phone] L-/S-SPINE PARAVERTEBRAL FACET INJ, 1 LEVEL 11/20/2023 10:00 AM EDT Office Visit Family Practice [address] [place] [address] 293 [place] [address] Domo Pool, DO 293 [place] [address] 11/21/2023 8:45 AM EDT Office Visit Otolaryngology [facility] [address] [facility] [place] [address] Gautam Morgan, DO 132 [facility] [place] [address] Scheduled Procedures Name Priority Associated Diagnoses Date/Ti me L-/S-SPINE PARAVERTEBRAL FACET INJ, 1 LEVEL Spondylosis of lumbosacral region without myelopathy or radiculopathy 09/25/2023 8:25 AM EDT L-/S-SPINE PARAVERTEBRAL FACET INJ, 2 LEVELS Spondylosis of lumbosacral region without myelopathy or radiculopathy 09/25/2023 8:25 AM EDT Health Maintenance Due Date Last Done Comments Hepatitis B (1 of 3 - Risk 3-dose series) 2002 DTaP,Tdap,and Td Vaccines (2 - Td or [...] hemoglobin A1c goal of less than 8.0% ([facility] Primary Spondylosis of lumbosacral region without myelopathy or radiculopathy Lumbosacral spondylosis without myelopathy documented in this encounter Advance Directives Documents on File Type Date Recorded 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
--- OUTSIDE RECORDS SUMMARY | 2023-09-29 09:11 | External Medical Summary | Summary of Care ---
Author Name Unknown Organization [facility] Address [address] [place] [address] Phone [phone] Care Team Providers Care Granite Chip Terrazzo Finisher Name Role Phone Domo Pool DO Primary Care Provider [phone] Encounter Details Date Type Department Care Team (Late st Contact Info) Description 08/17/2023 1:30 PM EST Home Visit Care Coordination and Integration [address] [place], [place] [id number] Denia Espino [facility] Automatic Drill Operator [address] [place] [address] Allergies Active Allergy Reactions Criticality Noted Date Comments Amoxicillin Bleeding High 04/27/2015 Amoxicillin-Pot Clavulanate 09/05/19 14 tary stools documented as of this encounter (statuses as of 08/17/2023) Medications Medication Sig Dispensed Refills Start Date [...] by mouth in the morning. 0 Active TeraVicta TechnologiesTouch Verio w/Device Kit Use as directed . Use to test blood sugar once daily 1 Kit 0 01/20/2022 Active Vitamin C 500 MG Oral Capsule Take 1 Capsule by mouth every evening. 0 Active TeraVicta TechnologiesTouch UltraSoft LancetsIndications :Type 2 diabetes mellitus with [...] once a week. - gets from the clinical research tech! 0 04/03/2023 Active Miconazole Nitrate 2 % External Cream (Monistat Derm) Apply to skin folds as directed 0 Active Nystatin 049010 UNIT/GM External Powder (Nystop) Apply topically to [...] goal of less than 7.0% ([facility]) USE TO CHECK BLOOD SUGAR TWICE DAILY DIRECTED 200 Strip 3 07/31/2023 Active Hospital, Clinic, or Other Facility Administered Medication Ordered Dose Route Frequency Start Date End Date Status vitamin b-12 (Cyanocobalamin) inj 1,000 mcgIndications:Vitamin B 12 deficiency 1000 mcg IM [id number] 12/29/2022 11/30/2023 Active documented as of this encounter (statuses as of 08/17/2023) Active Problems Problem Noted Date Diagnosed Date [...] cervical 2017 Coronary artery disease invo lving [place] coronary artery of [place] heart without angina pectoris 10/17/2017 Dyslipidemia, goal LDL below 70 11/13/2015 PSVT (paroxysmal supraventricular tachycardia) 0 10/14/2015 Essential hypertension with goal blood pressure less than 140/90 09/18/2014 Cerebrovascular disease, arteriosclerotic, post- stroke 07/21/2009 documented as of this encounter (statuses as of 08/17/2023) Resolved Problems Problem Noted Date Diagnosed Date [...] as of this encounter (statuses as of 08/17/2023) Immunizations Name Administration Dates Next Due COVID-19 mRNA, LNP-s, No Pre serve, 2-Dose Series ([employer]) 06/03/2021,09/30/2020,09/04/2020 COVID-19, MRNA-LNP, 23-24, P F, 30 MCG/0.3 mL, 12 YRS AND ABOVE, IM ([employer]Comirnat[employer]) 07/21/2023 Covid-19, Mrna, Lnp-s, Pf, B ivalent, 30 Mcg, IM, 12 yrs and above ([employer]) 06/14/2022 Pneumococcal Conjugate Vacc, 13 Valent (Prevnar) [...] Progress Notes * Denia Espino, [facility] Automatic Drill Operator - 08/17/2023 4:12 PM EST Telemedicine visit: No [facility] Automatic Drill Operator (MEE) documentation: MEE f/u visit to assist pt. To fill out applications for: Rent rebate SNAP/ Assistance Medical assistance for [facility] and [facility] [place] application. All applications were completed. Pt's spouse needed to sign papers and MEE will pick them up Monday, August 21, and will deliver or mail applications as appropriate. documented in this encounter Plan of Treatment Upcoming Encounters Date Type Department Care Team (Latest Contact Info) Description 08/21/2023 9:30 AM EST Home Visit Care Coordination and Integration [address] [facility] [place] [address] Denia Espino [facility] Automatic Drill Operator [address] [facility] [place] [address] 09/25/2023 8:25 AM EDT Hospital Encounter OR [facility], Operating Room [facility] [address] [place] [phone] Brayan Mares, [address] [place] [address] 09/25/2023 8:25 AM EDT - 09/25/2023 8:50 AM EDT Surgery OR [facility], Operating Room [facility] [address] [place] [phone] Brayan Mares, [address] [place] [phone] L-/S-SPINE PARAVERTEBRAL FACET INJ, 1 LEVEL 11/20/2023 10:00 AM EDT Office Visit Family Practice [address] [place] [address] 293 [facility] [place] [address] Domo Pool, DO [address] [facility], [place] [address] 11/21/2023 8:45 AM EDT Office Visit Otolaryngology [facility] [address] [place] [address] Gautam Morgan, DO [address] [place] [address] Scheduled Procedures Name Priority Associated Diagnoses Date/Ti [...] Documents on File Type Date Recorded Patient Roller Structural Mill Expl anation Advance Directives and Livin g [...] patient or by statute hierarchy) Care Teams Granite Chip Terrazzo Finisher Relationship Specialty Start Date End Date Domo Pool DO [address] [place] [address] PCP - General Internal Medicine 01/19/22 documented as of this encounter
--- OUTSIDE RECORDS SUMMARY | 2023-09-29 09:12 | External Medical Summary | Summary of Care ---
Author Name Unknown Organization [facility] Address [address] [place] [address] Phone [phone] Care Team Providers Care Patient Financial Coordinator Name Role Phone Domo Pool DO Primary Care Provider [phone] Reason for Visit * Reason Onset Date Comments Advice 08/09/2023 Advise - high bragg gar Encounter Details Date Type Department Care Team (Late st Contact Info) Description 08/09/2023 Telephone Family Practice [address] [facility] [address] [place] [phone] Domo Pool DO [address] [place], [place] [phone] Advice (Advise - high sugar) Allergies Active [...] less than 7.0% ([facility]) Use to check blood sugar [...] of less than 7.0% ([facility]),Cerebrovascu lar disease, arteriosclerotic, post-stroke TAKE [...] once a week. - gets from the control operator! 0 04/03/2023 Active Miconazole Nitrate 2 % External Cream (Monistat Derm) Apply to skin folds as directed 0 Active Nystatin 178215 UNIT/GM External Powder (Nystop) Apply topically to [...] mcgIndications:Vitamin B 12 deficiency 1000 mcg IM [id number] 12/29/2022 11/30/2023 Active documented as of this [...] cervical 2017 Coronary artery disease invo lving [place] coronary artery of [place] heart without angina pectoris 10/17/2017 Dyslipidemia, goal [...] mRNA, LNP-s, No Pre serve, 2-Dose Series ([employer]) 06/03/2021,09/30/2020,09/04/2020 COVID-19, MRNA-LNP, 23-24, P F, 30 MCG/0.3 mL, 12 YRS AND ABOVE, IM ([employer]-Comirnat) 07/21/2023 Covid-19, Mrna, Lnp-s, Pf, B ivalent, 30 Mcg, IM, 12 yrs and above ([employer]) 06/14/2022 Pneumococcal Conjugate Vacc, 13 Valent (Prevnar) [...] Notes * Telephone Encounter - Beti Lawton, [facility] - 08/09/2023 8:49 AM EST Diabetes telephone follow - up 08/09/2023 Patient Phone Numbers - Reason for contacting patient: Reports that blood sugar is a lot higher this morning than usual. Last night had Green beans, chicken thigh, rice. This morning took sugar then had [place] with margarine and coffee and splenda and [...] [phone] Brayan Mares DO [address] [place] [phone] 09/25/2023 8:25 AM EDT - 09/25/2023 8:50 AM EDT Surgery OR [facility], Operating Room [facility] [address] [place] [phone] Brayan Mares, DO [address] [place] [phone] L-/S-SPINE PARAVERTEBRAL FACET INJ, 1 LEVEL 11/20/2023 10:00 AM EDT Office Visit Family Practice [address] [place] [address] 293 [place] [address] Domo Pool, DO 293 [place] [address] 11/21/2023 8:45 AM EDT Office Visit Otolaryngology [facility] [address] [facility] [place] [address] Gautam Morgan, DO 132 [facility] [place] [address] Scheduled Procedures Name Priority Associated Diagnoses Date/Ti [...] A1c goal of less than 8.0% ([facility])- Primary Spondylosis of lumbosacral region without myelopathy or radiculopathy Lumbosacral spondylosis without myelopathy documented in this encounter Advance Directives Documents on File Type Date Recorded Patient Universal Grinder Set Up Operator Expl anation Advance Directives and Livin [...] Agents on File Name Relationship Healthcare Agent [facility] p Communication Dell Menard Spouse Health Care Repr esentative (appointed verbally by patient or by statute hierarchy) Care Teams Patient Financial Coordinator Relationship Specialty Start Date End Date Domo Pool DO [address] [place] [address] PCP - General Internal Medicine 01/19/22 documented as of this encounter
--- OUTSIDE RECORDS SUMMARY | 2023-09-29 09:12 | External Medical Summary | Summary of Care ---
Author Name Unknown Organization [facility] Address [address] [place] [address] Phone [phone] Care Team Providers Care Radiological Equipment Specialist Name Role Phone Domo Pool DO Primary Care Provider [phone] Encounter Details Date Type Department Care Team (Late st Contact Info) Description 08/02/2023 11:00 AM EST Home Visit Care Coordination and Integration [address] [place], [place] [phone] Denia Espino [facility] Shading Painter [address] [place] [address] Allergies Active Allergy Reactions Criticality Noted Date Comments Amoxicillin Bleeding High 04/27/2015 Amoxicillin-Pot Clavulanate 09/05/19 14 tary stools documented as of this encounter (statuses as of 08/02/2023) Medications Medication Sig Dispensed Refills Start Date [...] by mouth in the morning. 0 Active WavesatTouch Verio w/Device Kit Use as directed . Use to test blood sugar once daily 1 Kit 0 01/20/2022 Active Vitamin C 500 MG Oral Capsule Take 1 Capsule by mouth every evening. 0 Active WavesatTouch UltraSoft LancetsIndications :Type 2 diabetes mellitus with [...] CHEW THE TABLET. 200 Tablet 3 08/08/2022 08/08/2023 Active Dicyclomine HCl 10 MG Oral Capsule [...] once a week. - gets from the canned food reconditioning inspector! 0 04/03/2023 Active Miconazole Nitrate 2 % External Cream (Monistat Derm) Apply to skin folds as directed 0 Active Nystatin 828298 UNIT/GM External Powder (Nystop) Apply topically to [...] hemoglobin A1c goal of less than 7.0% ([facility]) USE TO CHECK BLOOD SUGAR TWICE DAILY DIRECTED 200 Strip 3 07/31/2023 Active Hospital, Clinic, or Other Facility Administered Medication Ordered Dose Route Frequency Start Date End Date Status vitamin b-12 (Cyanocobalamin) inj 1,000 mcgIndications:Vitamin B 12 deficiency 1000 mcg IM [id number] 12/29/2022 11/30/2023 Active documented as of this encounter (statuses as of 08/02/2023) Active Problems Problem Noted Date Diagnosed Date Stress due to illness of family member 4 Drug-induced hyperkalemia 04/11/2023 Overview: [facility] Food insecurity 04/10/2023 Overview: Per [facility] Protocol Vitamin B 12 deficiency [...] cervical 2017 Coronary artery disease invo lving [place] coronary artery of [place] heart without angina pectoris 10/17/2017 Dyslipidemia, goal LDL below 70 11/13/2015 PSVT (paroxysmal supraventricular tachycardia) 0 10/14/2015 Essential hypertension with goal blood pressure less than 140/90 09/18/2014 Cerebrovascular disease, arteriosclerotic, post- stroke 07/21/2009 documented as of this encounter (statuses as of 08/02/2023) Resolved Problems Problem Noted Date Diagnosed Date [...] as of this encounter (statuses as of 08/02/2023) Immunizations Name Administration Dates Next Due COVID-19 mRNA, LNP-s, No Pre serve, 2-Dose Series ([employer]) 06/03/2021,09/30/2020,09/04/2020 COVID-19, MRNA-LNP, 23-24, P F, 30 MCG/0.3 mL, 12 YRS AND ABOVE, IM ([employer]-Comirnat[employer] Radius) 07/21/2023 Covid-19, Mrna, Lnp-s, Pf, B ivalent, 30 Mcg, IM, 12 yrs and above ([employer]) 06/14/2022 Pneumococcal Conjugate Vacc, 13 Valent (Prevnar) [...] Progress Notes * Denia Espino, [facility] Shading Painter - 08/02/2023 5:25 PM EST Telemedicine visit: No Community [facility] Shading Painter (MEE) documentation: MEE f/u visit per DARLENE Sagastume Bottles out completed with no discrepancies in medications. MEE provided pt with and assist with filling out assistance paper work for financial as well as food assistance. MEE delivered to the Assistance office in [place]. MEE to get application for rent rebate, however, [facility] states they won't have them until mid August. MEE will assist with filling this out for pt. documented in this encounter Plan of Treatment Upcoming Encounters Date Type Department Care Team (Latest Contact Info) Description 09/25/2023 8:25 AM EDT Hospital Encounter OR [facility], Operating Room [facility] [address] [place] [phone] Brayan Mares, DO [address] [place] [phone] 09/25/2023 8:25 AM EDT - 09/25/2023 8:50 AM EDT Surgery OR [facility], Operating Room [facility] [address] [place] [address] Brayan Mares, DO [address] [place] [phone] L-/S-SPINE PARAVERTEBRAL FACET INJ, 1 LEVEL 11/20/2023 10:00 AM EDT Office Visit Family Practice [address] [place] [address] 293 [facility] [place] [address] Domo Pool, DO 293 [place] [address] 11/21/2023 8:45 AM EDT Office Visit Otolaryngology [facility] [address] [place] [address] Gautam Morgan, DO 132 [facility] [place] [address] Scheduled Procedures Name Priority Associated Diagnoses Date/Ti [...] Documents on File Type Date Recorded Patient Material Spreader Expl anation Advance Directives and Livin g [...] patient or by statute hierarchy) Care Teams Radiological Equipment Specialist Relationship Specialty Start Date End Date Domo Pool DO [address] [place] [address] PCP - General Internal Medicine 01/19/22 documented as of this encounter
--- OUTSIDE RECORDS SUMMARY | 2023-09-29 09:12 | External Medical Summary | Summary of Care ---
Author Name Unknown Organization [facility] Address [address] [place] [address] Phone [phone] Care Team Providers Care Cosmetics Machine Operator Name Role Phone Domo Pool DO Primary Care Provider [phone] Reason for Visit * Reason Onset Date Comments Med Request 07/31/2023 Encounter Details Date Type Department Care Team (Late st Contact Info) Description 07/31/2023 Telephone Family Practice 65 [facility] [address] [place] [address] Domo Pool DO [address] [place] [address] Med Request Allergies Active Allergy Reactions Criticality Noted Date Comments Amoxicillin Bleeding High 04/27/2015 Amoxicillin-Pot Clavulanate 09/05/19 14 tary stools documented as of this encounter (statuses as of 07/31/2023) Medications Medication Sig Dispensed Refills Start Date [...] back pain). 60 Tab 0 10/12/2020 Active Polyethylene Glycol 3350 17 GM/SCOOP Oral Powder [...] A1c goal of less than 7.0% ([facility]) Use to check blood sugar once [...] A1c goal of less than 7.0% ([facility]),Cerebrovasc ular disease, arteriosclerotic, post-stroke TAKE ONE TABLET BY MOUTH IN THE MORNING 100 Tablet 1 11/10/2022 4 Active busPIRone HCl 10 MG Oral Tablet (Buspar)Indicatio ns:Anxiety TAKE ONE TABLET BY MOUTH IN THE MORNING AND TAKE ONE TABLET BEFORE BEDTIME 200 Tablet 2 11/09/2022 4 Active Pantoprazole Sodium 20 MG Oral Tablet Delayed Release (Protonix)Indicat ions:Gastroesopha geal reflux disease without esophagitis TAKE ONE TABLET BY MOUTH TWICE A DAY 30 MINUTES BEFORE A MEAL DO NOT CUT, CRUSH OR CHEW THE TABLET. 200 Tablet 3 08/08/2022 4 Active Dicyclomine HCl 10 MG Oral [...] once a week. - gets from the traffic control officer! 0 04/03/2023 Active Miconazole Nitrate 2 % External Cream (Monistat Derm) Apply to skin folds as directed 0 Active Nystatin 683499 UNIT/GM External Powder (Nystop) Apply topically to [...] DAILY DIRECTED 200 Strip 3 07/31/2023 Active OneTouch Verio In Vitro Strip (Glucose Blood)Indications :Type 2 diabetes mellitus with hemoglobin A1c goal of less than 7.0% ([facility]) USE TO CHECK BLOOD SUGAR ONCE DAILY DIRECTED 100 Strip 3 03/25/2023 4 Discontinue d(Refill) Hospital, Clinic, or Other Facility Administered Medication Ordered Dose Route Frequency Start Date End Date Status vitamin b-12 (Cyanocobalamin) inj 1,000 mcgIndications:Vitamin B 12 deficiency 1000 mcg IM [id number] 12/29/2022 11/30/2023 Active documented as of this encounter (statuses as of 07/31/2023) Active Problems Problem Noted Date Diagnosed Date [...] cervical 2017 Coronary artery disease invo lving [place] coronary artery of [place] heart without angina pectoris 10/17/2017 Dyslipidemia, goal LDL below 70 11/13/2015 PSVT (paroxysmal supraventricular tachycardia) 0 10/14/2015 Essential hypertension with goal blood pressure less than 140/90 09/18/2014 Cerebrovascular disease, arteriosclerotic, post- stroke 07/21/2009 documented as of this encounter (statuses as of 07/31/2023) Resolved Problems Problem Noted Date Diagnosed Date [...] as of this encounter (statuses as of 07/31/2023) Immunizations Name Administration Dates Next Due COVID-19 mRNA, LNP-s, No Pre serve, 2-Dose Series ([employer]) 06/03/2021,09/30/2020,09/04/2020 COVID-19, MRNA-LNP, 23-24, P F, 30 MCG/0.3 mL, 12 YRS AND ABOVE, IM ([employer]-Comirnat) 07/21/2023 Covid-19, Mrna, Lnp-s, Pf, B ivalent, [...] Answer Date Recorded PHQ Adult Total Score 9 07/21/2023 Hunger Vital Sign Answer Date Recorded Within the past 12 months, y ou worried that your food would run out before you got the money to buy more. Never true Within the past 12 months, t he food you bought just didn't last and you didn't have money to get more. Sometimes true Sex and Gender Information Value Date Recorded [...] encounter Miscellaneous Notes * Telephone Encounter - Celena Rosenberg LPN - 07/31/2023 11:42 AM EST Pended per request. * Telephone Encounter - Jaylin Franks CPhT - 07/31/2023 11:33 AM EST Patient request her OneTouch Verio test strips to be increased to use twice a day , she has been testing more frequently recently [facility] /Thank you, Jaylin Franks Polyethylene Combiner [facility] ([facility]) 07/31/2023 11:33 AM documented in this encounter Plan of Treatment Upcoming Encounters Date Type Department Care Team (Latest Contact Info) Description 09/25/2023 8:25 AM EDT Hospital Encounter OR [facility], Operating Room [facility] [address] [place] [phone] Brayan Mares DO [address] [place] [address] 09/25/2023 8:25 AM EDT - 09/25/2023 8:50 AM EDT Surgery OR [facility], Operating Room [facility] [address] [place] [phone] Brayan Mares DO [address] [place] [address] L-/S-SPINE PARAVERTEBRAL FACET INJ, 1 LEVEL 11/20/2023 10:00 AM EDT Office Visit Family Practice [address] [place] 293 [place] [address] Domo Pool, DO 293 [facility] [place] [address] 11/21/2023 8:45 AM EDT Office Visit Otolaryngology [facility] [address] [place] [address] Gautam Morgan, [address] [place] [address] Scheduled Procedures Name Priority Associated Diagnoses Date/Ti [...] exists Diabetic Eye Exam 05/10/2024 05/10/2023, , 04/11/2022, Additional history exists Albumin/Creatinine Ratio 07/21/2024 024, 08/02/2022, 08/13/2021, Additional history exists B-12 07/21/2024 07/21/2023, 03/04, 02/07/2023, Additional history exists Depression Screening 07/21/2024 07/21/2023, 08/17/2017 (Course Completed) GFR 07/21/2024 07/21/2023, 10/0 03/2023, 03/30/2023, Additional history exists DXA Scan 07/20/2026 07/20/2022, 08/03, 04/10/2015 Pneumococcal Vaccine: 65+ Years Completed 11/19/2015, 07/03/2008 [...] A1c goal of less than 7.0% ([facility]) Spondylosis of lumbosacral region without myelopathy or radiculopathy Lumbosacral spondylosis without myelopathy documented in this encounter Advance Directives Documents on File Type Date Recorded Patient 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 Question Answer Comments Discussion of Advance Directives occurred with: Patient Care Teams Cosmetics Machine Operator Relationship Specialty Start Date End Date Domo Pool DO [address] [place] [address] PCP - General Internal Medicine 01/19/22 documented as of this encounter
--- OUTSIDE RECORDS SUMMARY | 2023-09-29 09:12 | External Medical Summary | Summary of Care ---
Author Name Unknown Organization [facility] Address [address] [place] [address] Phone [phone] Care Team Providers Care Inventory Management Specialist Name Role Phone Domo Pool DO Primary Care Provider Reason for Visit * Reason Onset Date Comments Test Results 07/25/202307/25 Encounter Details Date Type Department Care Team (Late st Contact Info) Description 07/25/2023 Telephone Family Practice [address] [facility] [address] [place] [address] Domo Pool DO [address] [place], [place] [id number] Test Results (07/25) Allergies Active Allergy Reactions Criticality Noted Date Comments Amoxicillin Bleeding High 04/27/2015 Amoxicillin-Pot Clavulanate 09/05/19 14 tary stools documented as of this encounter (statuses as of 07/29/2023) Medications Medication Sig Dispensed Refills Start Date [...] goal of less than 7.0% ([facility]) Use to check blood sugar once daily [...] goal of less than 7.0% ([facility]),Cerebrovasc ular disease, arteriosclerotic, post-stroke TAKE ONE TABLET [...] MUSCLE SPASMS, 270 Tablet 3 03/03/2023 Active OneTouch Verio In Vitro Strip (Glucose Blood)Indications :Type 2 diabetes mellitus with hemoglobin A1c goal of less than 7.0% ([facility]) USE TO CHECK BLOOD SUGAR ONCE DAILY DIRECTED 100 Strip 3 03/25/2023 4 Active Atenolol 50 MG Oral Tablet (Tenormin)Indicat [...] once a week. - gets from the [employer]! 0 04/03/2023 Active Miconazole Nitrate 2 % External Cream (Monistat Derm) Apply to skin folds as directed 0 Active Nystatin 952336 UNIT/GM External Powder (Nystop) Apply topically to [...] (ZyrTEC)Indicatio ns:Non-seasonal allergic rhinitis due to pollen TAKE ONE TABLET BY MOUTH EVERY MORNING 100 Tablet 3 12/28/2022 4 Discontinue d(Refill) Sertraline HCl 50 MG Oral Tablet (Zoloft) TAKE ONE TABLET BY MOUTH EVERY MORNING IN ADDITION TO THE 100MG TABLET 100 Tablet 3 10/13/2022 4 Discontinue d(Refill) Hospital, Clinic, or Other Facility Administered Medication Ordered Dose Route Frequency Start Date End Date Status vitamin b-12 (Cyanocobalamin) inj 1,000 mcgIndications:Vitamin B 12 deficiency 1000 mcg IM [id number] 12/29/2022 11/30/2023 Active documented as of this encounter (statuses as of 07/29/2023) Active Problems Problem Noted Date Diagnosed Date [...] cervical 2017 Coronary artery disease invo lving [place] coronary artery of [place] heart without angina pectoris 10/17/2017 Dyslipidemia, goal LDL below 70 11/13/2015 PSVT (paroxysmal supraventricular tachycardia) 0 10/14/2015 Essential hypertension with goal blood pressure less than 140/90 09/18/2014 Cerebrovascular disease, arteriosclerotic, post- stroke 07/21/2009 documented as of this encounter (statuses as of 07/29/2023) Resolved Problems Problem Noted Date Diagnosed Date [...] as of this encounter (statuses as of 07/29/2023) Immunizations Name Administration Dates Next Due COVID-19 mRNA, LNP-s, No Pre serve, 2-Dose Series ([employer]) 06/03/2021,09/30/2020,09/04/2020 COVID-19, MRNA-LNP, 23-24, P F, 30 MCG/0.3 mL, 12 YRS AND ABOVE, IM ([facility] 07/21/2023 Covid-19, Mrna, Lnp-s, Pf, B ivalent, 30 Mcg, IM, 12 yrs and above ([employer]) 06/14/2022 Pneumococcal Conjugate Vacc, 13 Valent [...] Telephone Encounter - Celena Rosenberg LPN - 07/25/2023 4:14 PM EST Patient is aware and will comply. Will go to [facility] tomorrow for lab. Please schedule nurse visit for vit b 12 at 10. States diarrhea for a couple days. Denies nausea. Denies fever or chills. Denies belly pain. Dooly diet and let us know if no improvement. Thank you * Telephone Encounter - Batsheva Green OSA - 07/25/2023 3:09 PM EST Returning your call Celena/Beti * Telephone Encounter - Celena Rosenberg LPN - 07/25/2023 2:41 PM EST Called, left message for patient to return call. Patient will need labs, take oral otc vit b 12 and injections per order. Thank you * Telephone Encounter - Celena Rosenberg LPN - 07/25/2023 2:38 PM EST ----- Message from Domo Pool DO sent at 07/25/2023 6:48 AM EST ----- Potasium is up B 12 is low again Patient heeds to have monthly B 12 injections Start B 12 1000 mcg oral daily as well Repeat Potassium level today documented in this encounter Plan of Treatment Upcoming Encounters Date Type Department Care Team (Latest Contact Info) Description 09/25/2023 8:25 AM EDT Hospital Encounter OR [facility], Operating Room [facility] [address] [place] [phone] Brayan Mares DO [address] [place] [address] 09/25/2023 8:25 AM EDT - 09/25/2023 8:50 AM EDT Surgery OR [facility], Operating Room [facility] [address] [place] [phone] Brayan Mares, DO [address] [place] [phone] L-/S-SPINE PARAVERTEBRAL FACET INJ, 1 LEVEL 11/20/2023 10:00 AM EDT Office Visit Family Practice [address] [place] [address] 293 [facility] [place] [phone] Domo Pool, DO 293 [place] [address] 11/21/2023 8:45 AM EDT Office Visit Otolaryngology [facility] [address] [place] [address] Gautam Morgan, DO [address] [place] [address] Scheduled Procedures Name Priority Associated Diagnoses Date/Ti [...] 12/09/2020, Additional history exists HbA1c 01/19/2024 07/21/2023, 092 01/2023, 12/28/2022, Additional history exists Diabetic Eye Exam 05/10/2024 05/10/2023, , 04/11/2022, Additional history exists Albumin/Creatinine Ratio 07/21/2024 024, 08/02/2022, 08/13/2021, Additional history exists B-12 07/21/2024 07/21/2023, 03/04, 02/07/2023, Additional history exists Depression Screening 07/21/2024 07/21/2023, 08/17/2017 (Course Completed) GFR 07/21/2024 07/21/2023, 100 03/2023, 03/30/2023, Additional history exists DXA Scan [...] Not on filedocumented as of this encounter Results * POTASSIUM (07/26/2023 12:02 PM EST) Potassium 4.5 3.5 - 5.1 mmol/L 07/26/2023 1:35 PM EST [facility] [place] [facility] Blood Venous blood specimen / Unknown Venipuncture / Unknown 07/26/2023 12:02 PM EST 07/26/2023 12:02 PM EST Domo Pool DO LAB BLOOD ORDERABLES [facility] [place] [address] documented in this encounter Visit Diagnoses Diagnosis Serum potassium elevated- Primary Hyperpotassemia Spondylosis of lumbosacral region without myelopathy or radiculopathy Lumbosacral spondylosis without myelopathy documented in this encounter Advance Directives Documents on File Type Date Recorded 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
--- OUTSIDE RECORDS SUMMARY | 2023-09-29 09:13 | External Medical Summary ---
Author Name Unknown Address Unknown Organization [facility] [address] [place] [id number] Laboratory Report Ordering Provider Test Date Status TEVIN FLORES 07/26/2023 12:02:33 Final Observation Date Value Abnormality Reference (Units ) Status AST (Aspartate aminotransferase) 07/26/2023 12:02:33 16 10-35 (U/L) Final Performing Location [facility] [address] [place] [id number]
--- OUTSIDE RECORDS SUMMARY | 2023-09-29 09:13 | External Medical Summary | Summary of Care ---
Author Name Unknown Organization [facility] Address [address] [facility] [place] [address] Phone [phone] Care Team Providers Care Seafood Manager Name Role Phone Domo Pool DO Primary Care Provider [phone] Encounter Details Date Type Department Care Team (Late st Contact Info) Description 07/25/2023 Documentation [facility] Jennifer Gordillo, Health Clinician Oncology Allergies Active Allergy Reactions Criticality Noted Date Comments Amoxicillin Bleeding High 04/27/2015 Amoxicillin-Pot Clavulanate 09/05/19 14 tary stools documented as of this encounter (statuses as of 07/25/2023) Medications Medication Sig Dispensed Refills Start Date [...] Active Additional Information Patient not taking.Reported on 07/13/2023 Polyethylene Glycol 3350 17 GM/SCOOP Oral Powder [...] A1c goal of less than 7.0% ([facility]) Use to check blood sugar once daily as directed 100 Each 3 01/25/2022 Active Acetaminophen ER 650 MG Oral Tablet Extended Release Take 2 Tablets by mouth at bedtime as needed (hip pain). 0 Active Meclizine HCl 25 MG Oral Tablet (Antivert) TAKE 1 TABLET BY MOUTH 3 TIMES DAILY NEEDED FOR DIZZINESS Strength: 25 mg 30 Tablet 3 10/10/2022 Active Cetirizine HCl 10 MG Oral Tablet (ZyrTEC)Indication s:Non-seasonal allergic rhinitis due to pollen TAKE ONE TABLET BY MOUTH EVERY MORNING 100 Tablet 3 12/28/2022 12/28/2023 Active Atorvastatin Calcium 80 MG Oral Tablet (Lipitor)Indicatio ns:Type 2 diabetes mellitus with hemoglobin A1c goal of less than 7.0% ([facility]),Cerebrovascu lar disease, arteriosclerotic, post-stroke TAKE ONE TABLET BY MOUTH IN THE MORNING 100 Tablet 1 11/10/2022 11/10/2023 Active busPIRone HCl 10 MG Oral Tablet (Buspar)Indication s:Anxiety TAKE ONE TABLET BY MOUTH IN THE MORNING AND TAKE ONE TABLET BEFORE BEDTIME 200 Tablet 2 11/09/2022 11/09/2023 Active Sertraline HCl 50 MG Oral Tablet (Zoloft) TAKE ONE TABLET BY MOUTH EVERY MORNING IN ADDITION TO THE 100MG TABLET 100 Tablet 3 10/13/2022 10/13/2023 Active Pantoprazole Sodium 20 MG Oral Tablet [...] A1c goal of less than 7.0% ([facility]) USE TO CHECK BLOOD SUGAR ONCE DAILY DIRECTED 100 Strip 3 03/25/2023 03/24/2024 Active Atenolol 50 MG Oral Tablet (Tenormin)Indicati [...] once a week. - gets from the council member! 0 04/03/2023 Active Miconazole Nitrate 2 % External Cream (Monistat Derm) Apply to skin folds as directed 0 Active Nystatin 534774 UNIT/GM External Powder (Nystop) Apply topically to affected area 3 times a day. Apply to skin folds 60 g 0 06/30/2023 Active traZODone HCl 50 MG Oral Tablet (Desyrel)Indicatio ns:Primary insomnia Take 1 Tablet by mouth at bedtime. 90 Tablet 1 07/14/2023 Active Vitamin B12 1000 MCG Oral Tablet Extended Release Take by mouth daily. 0 07/25/2023 Active Hospital, Clinic, or Other Facility Administered Medication Ordered Dose Route Frequency Start Date End Date Status vitamin b-12 (Cyanocobalamin) inj 1,000 mcgIndications:Vitamin B 12 deficiency 1000 mcg IM [id number] 12/29/2022 11/30/2023 Active documented as of this encounter (statuses as of 07/25/2023) Active Problems Problem Noted Date Diagnosed Date [...] cervical 2017 Coronary artery disease invo lving [place] coronary artery of [place] heart without angina pectoris 10/17/2017 Dyslipidemia, goal LDL below 70 11/13/2015 PSVT (paroxysmal supraventricular tachycardia) 0 10/14/2015 Essential hypertension with goal blood pressure less than 140/90 09/18/2014 Cerebrovascular disease, arteriosclerotic, post- stroke 07/21/2009 documented as of this encounter (statuses as of 07/25/2023) Resolved Problems Problem Noted Date Diagnosed Date [...] as of this encounter (statuses as of 07/25/2023) Immunizations Name Administration Dates Next Due COVID-19 mRNA, LNP-s, No Pre serve, 2-Dose Series ([email or web address]) 06/03/2021,09/30/2020,09/04/2020 COVID-19, MRNA-LNP, 23-24, P F, 30 MCG/0.3 mL, 12 YRS AND ABOVE, IM ([employer]) 07/21/2023 Covid-19, Mrna, Lnp-s, Pf, B ivalent, [...] encounter Progress Notes * Jennifer Gordillo [facility] Clinician Oncology - 07/25/2023 3:50 PM EST Did patient attend session 2 of 10 of the small group balance program? No: Patient did not attend session 1 of 10 of the small group balance program. Didn't attend session 2 due to weather. documented in this encounter Plan of Treatment Upcoming Encounters Date Type Department Care Team (Latest Contact Info) Description 07/28/2023 11:00 AM EST Office Visit Family Practice [address] [place] [address] 293 [facility] [place] [phone] College, Health Clinician Oncology [facility] [address] [place] [address] 09/25/2023 8:25 AM EDT Hospital Encounter OR [facility], Operating Room [facility] [address] [place] [phone] Brayan Mares, DO [address] [place] [phone] 09/25/2023 8:25 AM EDT - 09/25/2023 8:50 AM EDT Surgery OR [facility], Operating Room [facility] [address] [place] [phone] Brayan Mares, DO [address] [place] [phone] L-/S-SPINE PARAVERTEBRAL FACET INJ, 1 LEVEL 11/20/2023 10:00 AM EDT Office Visit Family Practice [address] [place] [address] 293 [facility] [place] [phone] Domo Pool, DO 293 [facility], [place] [address] 11/21/2023 8:45 AM EDT Office Visit Otolaryngology [facility] [address] [place] [address] Gautam Morgan, DO [address] [place] [address] Scheduled Procedures Name Priority Associated Diagnoses Date/Ti [...] 07/21/2023, 08/17/2017 (Course Completed) GFR 07/21/2024 07/21/2023, 10/03/2023, 03/30/2023, Additional history exists DXA Scan 07/20/2026 [...] Documents on File Type Date Recorded 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
--- OUTSIDE RECORDS SUMMARY | 2023-09-29 09:13 | External Medical Summary ---
Author Name Unknown Address Unknown Organization [facility] [place] [id number] Laboratory Report Ordering Provider Test Date Status TEVIN FLORES 07/26/2023 12:02:33 Final Observation Date Value Abnormality Reference (Units ) Status ALT (Alanine aminotransferase) 07/26/2023 12:02:33 16 10-35 (U/L) Final Performing Location [facility] [address] - [address] [place] [id number]
--- OUTSIDE RECORDS SUMMARY | 2023-09-29 09:13 | External Medical Summary ---
Author Name Unknown Address Unknown Organization [facility] [address] [place] [id number] Laboratory Report Ordering Provider Test Date Status SANA W[place] 07/26/2023 12:02:33 Final Observation Date Value Abnormality Reference (Units ) Status Potassium 07/26/2023 12:02:33 4.5 3.5-5.1 (m mol/L) Final Performing Location [facility] [place] [address] - [address] [place] [id number]
--- OUTSIDE RECORDS SUMMARY | 2023-09-29 09:13 | External Medical Summary | Summary of Care ---
Author Name Unknown Organization [facility] Address [address] [place] [address] Phone [phone] Care Team Providers Care Staple Cutter Name Role Phone Domo Pool DO Primary Care Provider [phone] Reason for Visit * Reason Comments Follow Up Encounter Details Date Type Department Care Team (Late st Contact Info) Description 07/26/2023 1:00 PM EST Office Visit Family Practice [address] [place] [address] [address] [place] [address] Domo Pool [address] [place] [address] Type 2 diabetes mellitus with hemoglobin A1c goal of less than 8.0% ([facility])*; Essential hypertension with goal blood pressure less than 140/90; Vitamin B 12 deficiency; Cerebrovascular disease, arteriosclerotic, post-stroke; Dyslipidemia, goal LDL below 70; Coronary artery disease involving [place] coronary artery of [place] heart without angina pectoris; Iron deficiency anemia, unspecified iron deficiency anemia type; Gastroesophageal reflux disease without esophagitis; Primary insomnia; Generalized anxiety disorder; Non-seasonal allergic rhinitis due to pollen; DDD (degenerative disc disease), lumbar Allergies Active Allergy Reactions Criticality Noted Date Comments Amoxicillin Bleeding High 04/27/2015 Amoxicillin-Pot Clavulanate 09/05/19 14 tary stools documented as of this encounter (statuses as of 07/26/2023) Medications Medication Sig Dispensed Refills Start Date [...] by mouth in the morning. 0 Active Sagent PharmaceuticalsTouch Verio w/Device Kit Use as directed . Use to test blood sugar once daily 1 Kit 0 01/20/2022 Active Vitamin C 500 MG Oral Capsule Take 1 Capsule by mouth every evening. 0 Active [employer] Pharm[employer]Touch UltraSoft LancetsIndication s:Type 2 diabetes mellitus with [...] hemoglobin A1c goal of less than 7.0% ([facility]) USE TO CHECK BLOOD SUGAR [...] once a week. - gets from the electrical drafter! 0 04/03/2023 Active Miconazole Nitrate 2 % External Cream (Monistat Derm) Apply to skin folds as directed 0 Active Nystatin 433357 UNIT/GM External Powder (Nystop) Apply topically to [...] the morning. 100 Tablet 3 07/26/2023 Active Cetirizine HCl 10 MG Oral Tablet [...] mcgIndications:Vitamin B 12 deficiency 1000 mcg IM [id number] 12/29/2022 11/30/2023 Active documented as of this encounter (statuses as of 07/26/2023) Active Problems Problem Noted Date Diagnosed Date Stress due to illness of family member Drug-induced hyperkalemia 04/11/2023 Overview: [facility] Food insecurity 04/10/2023 Overview: Per [facility] Protocol Vitamin B 12 deficiency 12/29/2022 Primary insomnia 06/08/2022 Generalized anxiety disorder 01/25/2022 Sacroiliitis, not elsewhere classified DDD (degenerative disc disease), lumbar 01/26/20 22 Iron deficiency anemia 09/14/2018 Gastroesophageal reflux disease without esophagi tis 09/14/2018 Type 2 diabetes mellitus wit h hemoglobin A1c goal of less than 8.0% 10/17/2017 Bilateral carpal tunnel syndrome 10/17/2017 Primary osteoarthritis of left foot 10/17/2017 DDD (degenerative disc disease), cervical 2017 Coronary artery disease invo lving [place] coronary artery of [place] heart without angina pectoris 10/17/2017 Dyslipidemia, goal LDL below 70 11/13/2015 PSVT (paroxysmal supraventricular tachycardia) 0 10/14/2015 Essential hypertension with goal blood pressure less than 140/90 09/18/2014 Cerebrovascular disease, arteriosclerotic, post- stroke 07/21/2009 documented as of this encounter (statuses as of 07/26/2023) Resolved Problems Problem Noted Date Diagnosed Date [...] as of this encounter (statuses as of 07/26/2023) Immunizations Name Administration Dates Next Due COVID-19 mRNA, LNP-s, No Pre serve, 2-Dose Series ([employer]) 06/03/2021,09/30/2020,09/04/2020 COVID-19, MRNA-LNP, 23-24, P F, 30 MCG/0.3 mL, 12 YRS AND ABOVE, IM [facility] 07/21/2023 Covid-19, Mrna, Lnp-s, Pf, B ivalent, [...] Sign Reading Time Taken Comments Blood Pressure 140/74 07/26/2023 1:16 PM EST Pulse 90 07/26/2023 1:16 PM EST Temperature 35.6 C (96 F) 07/26/2023 1:16 PM EST Respiratory Rate 14 07/26/2023 1:16 PM EST Oxygen Saturation 98% 07/26/2023 1:16 PM EST Inhaled Oxygen Concentration - - Weight 66.6 kg (146 lb 12.8 oz) 07/26/2023 1:16 PM EST Height 163.2 cm (5' 4.25") 07/26/2023 1:16 PM ES T Body Mass Index 25 07/26/2023 1:16 PM EST documented in this encounter Functional Status Functional [...] as of this encounter Progress Notes * Domo Pool, - 07/26/2023 1:45 PM EST SUBJECTIVE: Dyana Menard is a 82 year old female. Chief Complaint Patient presents with Follow Up HPI: Patient is an 82 year old female with a history of DM type II, CVA, HTN, Hyperlipidemia, Diabetic Neuropathy, CAD, GERD, Iron Deficiency Anemia, Constipation, B -12 Deficiency, Anxiety, Lumbar DDD, and CervicaL DDD that is seen follow up. No chest pain or shortness of breath are present. Anxiety is unchanged. She is concerned that she may have left inguinal hernia. No abdominal pain is present. Patient Active Problem List Diagnosis Code Cerebrovascular disease, arteriosclerotic, post-stroke I67.2, Z86.73 Essential hypertension with goal blood pressure less than 140/90 I10 PSVT (paroxysmal supraventricular tachycardia) I47.10 Dyslipidemia, goal LDL below 70 E78.5 Type 2 diabetes mellitus with hemoglobin A1c goal of less than 8.0% ([facility]) E11.9 Bilateral carpal tunnel syndrome G56.03 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 DDD (degenerative disc disease), cervical M50.30 Coronary artery disease involving [place] coronary artery of [place] heart without angina pectoris I25.10 Iron deficiency anemia D50.9 Gastroesophageal reflux disease without esophagitis K21.9 Generalized anxiety disorder F41.1 Sacroiliitis, not elsewhere classified ([facility]) M46.1 DDD (degenerative disc disease), lumbar M51.36 Primary insomnia F51.01 Vitamin B 12 deficiency E53.8 Drug-induced hyperkalemia E87.5, T50.905A Food insecurity Z59.41 Stress due to illness of family member Z63.79 Current Outpatient Medications Medication Sig Dispense Refill Aspirin 81 MG Tablet Take 1 Tablet by mouth in the morning. Cholecalciferol (VITAMIN D) 1000 UNIT Capsule Take 1 Capsule by mouth in the morning. traMADol HCl 50 MG Oral Tablet (Ultram) Take 1 Tab by mouth every 6 hours as needed (for back pain). 60 Tab 0 Polyethylene Glycol 3350 17 GM/SCOOP Oral Powder [...] DIZZINESS Strength: 25 mg 30 Tablet 3 Atorvastatin Calcium 80 MG Oral Tablet (Lipitor) TAKE ONE TABLET BY MOUTH IN THE MORNING 100 Tablet1 busPIRone HCl 10 MG Oral Tablet (Buspar) TAKE ONE TABLET BY MOUTH IN THE MORNING AND TAKE ONE TABLET BEFORE BEDTIME 200 Tablet 2 Pantoprazole Sodium 20 MG Oral Tablet Delayed Release (Protonix) TAKE ONE TABLET BY MOUTH TWICE A DAY 30 MINUTES BEFORE A MEAL DO NOT CUT, CRUSH OR CHEW THE TABLET. 200 Tablet 3 Dicyclomine HCl 10 MG Oral [...] once a week. - gets from the electrical drafter! Miconazole Nitrate 2 % External Cream (Monistat Derm) Apply to skin folds as directed Nystatin 223911 UNIT/GM External Powder (Nystop) Apply topically to affected area 3 times a day. Apply to skin folds 60 g 0 traZODone HCl 50 MG Oral Tablet (Desyrel) [...] mouth in the morning. 100 Tablet 3 [employer] w/Device Kit Use as directed . Use to test blood sugar once daily 1 Kit 0 OneTouch UltraSoft Lancets Use to check blood sugar once daily as directed 100 Each 3 OneTouch Verio In Vitro Strip (Glucose Blood) USE TO CHECK BLOOD SUGAR ONCE DAILY DIRECTED 100 Strip 3 Current Facility-Administered Medications Medication Dose Route Frequency Provider Last Rate Last Admin vitamin b-12 (Cyanocobalamin) inj 1,000 mcg 1,000 mcg Intramuscular Q4 Weeks Domo Pool DO 1,000 mcg at 07/21/23 0959 The patient's medication list was reviewed and [...] performed by Riaz Hanson MD at ENDOSCOPY [facility] COLONOSCOPY, DIAGNOSTIC (RECTUM) 02/03/2016 normal, repeat 5 yrs/COLONOSCOPY FLEXIBLE PROXIMAL DIAGNOSTIC performed by Debbie Gordon DO at ENDOSCOPY [facility] COLONOSCOPY, DIAGNOSTIC (RECTUM) 05/11/2020 adenomatous polyp, diverticulosis / COLONOSCOPY FLEXIBLE PROXIMAL DIAGNOSTIC performed by Samy Roe MD at ENDOSCOPY [facility] DESTROY LUMBAR SACRAL NERVE IMAGING SINGLE 04/24/2017 DESTROY LUMBAR SACRAL NERVE IMAGING SINGLE performed by Dez Arevalo DO at [facility] DESTROY LUMBAR SACRAL NERVE IMAGING SINGLE 02/15/2018 DESTROY LUMBAR SACRAL NERVE IMAGING SINGLE performed by Dez Arevalo DO at [facility] DESTROY LUMBAR SACRAL NERVE IMAGING SINGLE 01/18/2023 DESTROY LUMBAR SACRAL NERVE IMAGING SINGLE performed by Dez Arevalo DO at [facility] EGD, FLEXIBLE, DIAGNOSTIC 09/17/2012 biopsies--intestinal metaplasia EGD, FLEXIBLE, DIAGNOSTIC 02/03/2016 mild gastritis, sm HH/ESOPHAGOGASTRODUODENOSCOPY (EGD), FLEXIBLE, TRANSORAL, DIAGNOSTIC performed by Debbie Gordon DO at ENDOSCOPY [facility] EGD, FLEXIBLE, DIAGNOSTIC 05/11/2020 normal bx / ESOPHAGOGASTRODUODENOSCOPY (EGD), FLEXIBLE, TRANSORAL, DIAGNOSTIC performed by Samy Quintana MD at ENDOSCOPY [facility] EGD, FLEXIBLE, TRANSENDOSCOPIC DILATION <30MM 03/04/2014 ESOPHAGOGASTRODUODENOSCOPY (EGD), FLEXIBLE, TRANSORAL, BALLOON DILATION LESS THAN 30MM performed byRiaz Hanson MD at ENDOSCOPY [facility] INFORMATION Pin in right hip for chronic dislocation INFORMATION 02/07/2014 needle loc parial mastectomy/lumpectomy with oncoplastic closure and right axilla sentinel lymph node biopsy [facility] 02/07/14 jillian sisitki L-/S-SPINE PARAVERTEBRAL FACET INJ,1 LEVEL 03/16/2017 L-/S-SPINE PARAVERTEBRAL FACET INJ, 1 LEVEL performed by Dez Arevalo, DO at OR [facility] L-/S-SPINE PARAVERTEBRAL FACET INJ,1 LEVEL 02/05/2018 L-/S-SPINE PARAVERTEBRAL FACET INJ, 1 LEVEL performed by Dez Arevalo, DO at OR [facility] L-/S-SPINE PARAVERTEBRAL FACET INJ,1 LEVEL 11/03/2022 L-/S-SPINE PARAVERTEBRAL FACET INJ, 1 LEVEL performed by Dez Arevalo, DO at OR [facility] L-/S-SPINE PARAVERTEBRAL FACET INJ,1 LEVEL 12/07/2022 L-/S-SPINE PARAVERTEBRAL FACET INJ, 1 LEVEL performed by Dez Arevalo, DO at OR [facility] L-/S-SPINE PARAVERTEBRL FACET INJ,2 LEVELS 03/30/2017 L-/S-SPINE PARAVERTEBRAL FACET INJ, 2 LEVELS performed by [place] Zbigniew Arevalo, DO at OR [facility] PARTIAL REMOVAL OF COLON 06/11/2012 06/11/2012 Laparoscopic hand-assisted sigmoid colon resection,laparoscopic mobilization of the splenic flexure Dr Hanson [facility]06/11/12 REMOVE GALLBLADDER SACROILIAC JOINT INJECT W/GUIDANCE 04/05/2018 INJECTION SACROILIAC JOINT performed by Dez Arevalo, DO at OR [facility] SACROILIAC JOINT INJECT W/GUIDANCE 06/18/2018 INJECTION SACROILIAC JOINT performed by Dez Arevalo, DO at OR [facility] SACROILIAC JOINT INJECT W/GUIDANCE 10/15/2018 INJECTION SACROILIAC JOINT performed by Dez Arevalo, DO at OR [facility] SACROILIAC JOINT INJECT W/GUIDANCE 01/14/2019 INJECTION SACROILIAC [...] 05/31/2023 INJECTION SACROILIAC JOINT performed by Dez Arevalo, DO at OR [facility] TOTAL ABD HYSTERECTOMY W/WO REMOVAL OF TUBE(S) Bilateral age 47 TOTAL HYSTERECTOMY Review of patient's allergies indicates: Allergen Reactions Amoxicillin Bleeding Amoxicillin-Pot Clavulanate tary stools Review of Systems Constitutional: Positive for fatigue. Negative for appetite change, chills, fever and unexpected weight change. Respiratory: Negative for cough, shortness of breath and wheezing. Cardiovascular: Negative for chest pain, palpitations and leg swelling. Gastrointestinal: Negative for abdominal pain, blood in stool, constipation, diarrhea, nausea and vomiting. Genitourinary: Negative for dysuria, frequency and hematuria. Musculoskeletal: Positive for back pain and gait problem. Neurological: Negative for dizziness, syncope and headaches. Psychiatric/Behavioral: Positive for decreased concentration and dysphoric mood. Negative for confusion. The patient is nervous/anxious. OBJECTIVE: BP 140/74 (BP Site: Left Arm, BP Position: Sitting, BP Cuff Size: Regular) | Pulse 90 | Temp 35.6 C (96 F) (Tympanic) | Resp 14 | Ht 1.632 m (5' 4.25") | Wt 66.6 kg (146 lb 12.8 oz) | SpO2 98% | BMI 25.00 kg/m | BSA 1.74 m Physical Exam Vitals and nursing note reviewed. Constitutional: General: She is not in acute distress. Appearance: Normal appearance. She is not toxic-appearing. HENT: Head: Normocephalic and atraumatic. Cardiovascular: Rate and Rhythm: Normal rate and regular rhythm. Heart sounds: Normal heart sounds. No murmur heard. No gallop. Pulmonary: Effort: Pulmonary effort is normal. Breath sounds: Normal breath sounds. No wheezing, rhonchi or rales. Abdominal: General: Bowel sounds are normal. There is no distension. Palpations: Abdomen is soft. Tenderness: There is no abdominal tenderness. Comments: No left inguinal hernia Musculoskeletal: Right lower leg: No edema. Left lower leg: No edema. Neurological: Mental Status: She is alert and oriented to person, place, and time. Mental status is at baseline. Motor: No weakness. Gait: Gait abnormal. Psychiatric: Mood and Affect: Mood is anxious and depressed. Affect is flat. PLAN AND ASSESSMENT: Type 2 diabetes mellitus with hemoglobin A1c goal of less than 8.0% ([facility]) (Primary) Continue Ozempic, and Metformin Essential hypertension with goal blood pressure less than 140/90 Continue Amlodipine, and Atenolol Vitamin B 12 deficiency B -12 1000 mcg oral daily Cerebrovascular disease, arteriosclerotic, post-stroke ASA Dyslipidemia, goal LDL below 70 Continue Atorvastatin Coronary artery disease involving [place] coronary artery of [place] heart without angina pectoris Continue ASA, and Atenolol Iron deficiency anemia, unspecified iron deficiency anemia type Continue Ferrous Sulfate Gastroesophageal reflux disease without esophagitis Continue Pantoprazole Primary insomnia Continue Trazodone Generalized anxiety disorder - Sertraline HCl 50 MG Oral Tablet (Zoloft); Take 1 Tablet by mouth in the morning. Non-seasonal allergic rhinitis due to pollen - Cetirizine HCl 10 MG Oral Tablet (ZyrTEC); Take 1 Tablet by mouth in the morning. DDD (degenerative disc disease), lumbar Follow Up: Return in about 4 months (around 11/20/2023), or if symptoms worsen or fail to improve. Domo Pool DO 1:46 PM 07/26/2023 documented in this encounter Nursing Notes * Livia Taylor LPN - 07/26/2023 1:14 PM EST Patient here for routine follow up visit. Patient had B12 injection on 07/21/23. Would like to discuss lab results. Patient would also like to discuss hernia. documented in this encounter Plan of Treatment Upcoming Encounters Date Type Department Care Team (Latest Contact Info) Description 07/28/2023 11:00 AM EST Office Visit Family [address] [facility], [place] [phone] [place], [facility] Scrap Hoist Operator [address], [place] [address] 09/25/2023 8:25 AM EDT Hospital Encounter [facility], Operating Room [facility] [address] [place] [address] Brayan Mares, DO [address] [place] [phone] 09/25/2023 8:25 AM EDT - 09/25/2023 8:50 AM EDT Surgery OR [facility], Operating Room [facility] [address] [place] [phone] Brayan Mares, DO [address] [place] [address] L-/S-SPINE PARAVERTEBRAL FACET INJ, 1 LEVEL 11/20/2023 10:00 AM EDT Office Visit [address] [place] [phone] Domo Pool, DO [address] [facility], [place] [address] 11/21/2023 8:45 AM EDT Office Visit Otolaryngology [facility] [address] [place] [address] Gautam Morgan, [address] [place] [address] Scheduled Procedures Name Priority Associated Diagnoses Date/Ti [...] 07/21/2023, 08/17/2017 (Course Completed) GFR 07/21/2024 07/21/2023, 03/2023, 03/30/2023, Additional history exists DXA Scan [...] hemoglobin A1c goal of less than 8.0% ([facility])- Primary Essential hypertension with goal blood pressure less than 140/90 Vitamin B 12 deficiency Other B-complex deficiencies Cerebrovascular disease, arteriosclerotic, post-stroke Cerebral atherosclerosis Dyslipidemia, goal LDL below 70 Other and unspecified hyperlipidemia Coronary artery disease involving [place] coronary artery of [place] heart without angina pectoris Iron deficiency anemia, unspecified iron deficiency anemia type Gastroesophageal reflux disease without esophagitis Esophageal reflux Primary insomnia Persistent disorder of initiating or maintaining sleep Generalized anxiety disorder Non-seasonal allergic rhinitis due to pollen DDD (degenerative disc disease), lumbar Degeneration of lumbar or lumbosacral intervertebral disc Spondylosis of lumbosacral region without myelopathy or radiculopathy Lumbosacral spondylosis without myelopathy documented in this encounter Advance Directives Documents on File Type Date Recorded Patient Research Nurse Expl anation Advance Directives and Livin g [...] Advance Directives occurred with: Patient Care Teams Staple Cutter Relationship Specialty Start Date End Date Domo Pool DO [address] [place] [address] PCP - General Internal Medicine 01/19/22 documented as of this encounter
--- OUTSIDE RECORDS SUMMARY | 2023-09-29 09:13 | External Medical Summary | Summary of Care ---
Author Name Unknown Organization [facility] Address [address] [facility] [address] Phone [phone] Care Team Providers Care Net Software Engineer Name Role Phone Domo Pool DO Primary Care Provider [phone] Encounter Details Date Type Department Care Team (Late st Contact Info) Description 07/28/2023 Documentation [facility] Jennifer Gordillo, Health Office Machines Teacher Allergies Active Allergy Reactions Criticality Noted Date Comments Amoxicillin Bleeding High 04/27/2015 Amoxicillin-Pot Clavulanate 09/05/19 14 tary stools documented as of this encounter (statuses as of 07/28/2023) Medications Medication Sig Dispensed Refills Start Date [...] hemoglobin A1c goal of less than 7.0% ([facility]) Use to check blood sugar once daily [...] hemoglobin A1c goal of less than 7.0% ([facility]),Cerebrovascu lar disease, arteriosclerotic, post-stroke TAKE ONE TABLET [...] hemoglobin A1c goal of less than 7.0% ([facility]) USE TO CHECK BLOOD SUGAR ONCE DAILY [...] once a week. - gets from the director of safety and security! 0 04/03/2023 Active Miconazole Nitrate 2 % External Cream (Monistat Derm) Apply to skin folds as directed 0 Active Nystatin 597771 UNIT/GM External Powder (Nystop) Apply topically to [...] the morning. 100 Tablet 3 07/26/2023 Active Hospital, Clinic, or Other Facility Administered Medication Ordered Dose Route Frequency Start Date End Date Status vitamin b-12 (Cyanocobalamin) inj 1,000 mcgIndications:Vitamin B 12 deficiency 1000 mcg IM [id number] 12/29/2022 11/30/2023 Active documented as of this encounter (statuses as of 07/28/2023) Active Problems Problem Noted Date Diagnosed Date [...] cervical 2017 Coronary artery disease invo lving [place] coronary artery of [place] heart without angina pectoris 10/17/2017 Dyslipidemia, goal LDL below 70 11/13/2015 PSVT (paroxysmal supraventricular tachycardia) 0 10/14/2015 Essential hypertension with goal blood pressure less than 140/90 09/18/2014 Cerebrovascular disease, arteriosclerotic, post- stroke 07/21/2009 documented as of this encounter (statuses as of 07/28/2023) Resolved Problems Problem Noted Date Diagnosed Date [...] as of this encounter (statuses as of 07/28/2023) Immunizations Name Administration Dates Next Due COVID-19 mRNA, LNP-s, No Pre serve, 2-Dose Series ([employer]) 06/03/2021,09/30/2020,09/04/2020 COVID-19, MRNA-LNP, 23-24, P F, 30 MCG/0.3 mL, 12 YRS AND ABOVE, IM ([employer]) 07/21/2023 Covid-19, Mrna, Lnp-s, Pf, B ivalent, 30 Mcg, IM, 12 yrs and above ([employer]) 06/14/2022 Pneumococcal Conjugate Vacc, 13 Valent (Prevnar) [...] encounter Progress Notes * Jennifer Gordillo Health Office Machines Teacher - 07/28/2023 2:39 PM EST Did patient attend session 3 of 10 of the small group balance program? No: Patient did not attend session 1 of 10 of the small group balance program. Patient didn't attend balance session 3. documented in this encounter Plan of Treatment Upcoming Encounters Date Type Department Care Team (Latest Contact Info) Description 09/25/2023 8:25 AM EDT Hospital Encounter [facility], Operating Room [facility] [address] [phone] Brayan Mares, DO [address] [place] [phone] 09/25/2023 8:25 AM EDT - 09/25/2023 8:50 AM EDT Surgery [facility], Operating Room [facility] [address] [place] [phone] Brayan Mares, DO [address] [place] [phone] L-/S-SPINE PARAVERTEBRAL FACET INJ, 1 LEVEL 11/20/2023 10:00 AM EDT Office Visit [address] 293 [facility] [address] Domo Pool, DO [address] [place] [address] 11/21/2023 8:45 AM EDT Office Visit Otolaryngology [facility] [address] [place] [address] Gautam Morgan, DO [address] [facility] [place] [address] Scheduled Procedures Name Priority Associated Diagnoses Date/Ti [...] 07/21/2023, 08/17/2017 (Course Completed) GFR 07/21/2024 07/21/2023, 1003/2023, 03/30/2023, Additional history exists DXA Scan 07/20/2026 [...] on File Type Date Recorded Patient Material Specialist Expl anation Advance Directives and Livin [...] Advance Directives occurred with: Patient Care Teams Net Software Engineer Relationship Specialty Start Date End Date Domo Pool DO [address] [facility] [place] [address] PCP - General Internal Medicine 01/19/22 documented as of this encounter
--- OUTSIDE RECORDS SUMMARY | 2023-09-29 09:13 | External Medical Summary | Summary of Care ---
Author Name Unknown Organization [facility] Address [address] [place] [address] Phone [phone] Care Team Providers Care Food Preparation Kitchen Aide Name Role Phone Domo Pool DO Primary Care Provider [phone] Reason for Visit * Reason Comments Follow Up Encounter Details Date Type Department Care Team (Latest Contact Info) Description 07/21/2023 8:40 AM EST Office Visit Family Practice [address] [place] [address] [address] [place] [address] Domo Pool [address] [place] [address] Type 2 diabetes mellitus with hemoglobin A1c goal of less than 8.0% ([facility])*; PSVT (paroxysmal supraventricular tachycardia); Sacroiliitis, not elsewhere classified (HCC); Essential hypertension with goal blood pressure less than 140/90; Coronary artery disease involving siletz tribe coronary artery of siletz tribe heart without angina pectoris; Dyslipidemia, goal LDL below 70; Generalized anxiety disorder; Stress due to illness of family member; Iron deficiency anemia, unspecified iron deficiency anemia type; Gastroesophageal reflux disease without esophagitis; Primary insomnia; Vitamin B 12 deficiency; Risk and functional assessment; Need for COVID-19 vaccine Allergies Active Allergy Reactions Criticality Noted Date [...] by mouth in the morning. 0 Active SetupTouch Verio w/Device Kit Use as directed . Use to test blood sugar once daily 1 Kit 0 01/20/2022 Active Vitamin C 500 MG Oral Capsule Take 1 Capsule by mouth every evening. 0 Active SetupTouch UltraSoft LancetsIndications :Type 2 diabetes mellitus with [...] hemoglobin A1c goal of less than 7.0% ([facility]) USE TO CHECK BLOOD SUGAR ONCE DAILY [...] once a week. 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 0 04/03/2023 Active Miconazole Nitrate 2 % External Cream (Monistat Derm) Apply to skin folds as directed 0 Active Nystatin 106053 UNIT/GM External Powder (Nystop) Apply topically to affected area 3 times a day. Apply to skin folds 60 g 0 06/30/2023 Active traZODone HCl 50 MG Oral Tablet (Desyrel)Indicatio ns:Primary insomnia Take 1 Tablet by mouth at bedtime. 90 Tablet 1 07/14/2023 Active Hospital, Clinic, or Other Facility Administered Medication Ordered Dose Route Frequency Start Date End Date Status vitamin b-12 (Cyanocobalamin) inj 1,000 mcgIndications:Vitamin B 12 deficiency 1000 mcg IM [id number] 12/29/2022 11/30/2023 Active documented as of this [...] cervical 2017 Coronary artery disease invo lving siletz tribe coronary artery of siletz tribe heart without angina pectoris 10/17/2017 Dyslipidemia, goal [...] mRNA, LNP-s, No Pre serve, 2-Dose Series ([email or web address]) 06/03/2021,09/30/2020,09/04/2020 COVID-19, MRNA-LNP, 23-24, P F, 30 MCG/0.3 mL, 12 YRS AND ABOVE, IM ([employer]) 07/21/2023 Covid-19, Mrna, Lnp-s, Pf, B ivalent, [...] Sign Reading Time Taken Comments Blood Pressure 136/72 07/21/2023 9:21 AM EST Pulse 87 07/21/2023 9:21 AM EST Temperature 36.1 C (97 F) 07/21/2023 9:21 AM EST Respiratory Rate - - Oxygen Saturation 97% 07/21/2023 9:21 AM EST Inhaled Oxygen Concentration - - Weight 66.2 kg (146 lb) 07/21/2023 9:21 AM EST Height - - Body Mass Index 24.86 05/23/2023 11:50 AM EST documented in this encounter Functional Status [...] encounter Patient Instructions * Patient Instructions* Celena Varner RN - 07/21/2023 9:07 AM EST Patient Instructions - Fall Prevention (This education is for all patients over 65 regardless of symptoms) Remember to take your current medications as prescribed. In order to prevent falls, you are encouraged to: Exercise Utilize assistive/adaptive devices Avoid multifocal lenses when walking Avoid hazards in home Maintain a regular toileting schedule Any questions please contact our office. Preventing Falls in the Home (This education is for all patients over 65 regardless of symptoms) As you get older, falls are more likely. Thats because your reaction time slows. Your muscles and joints may also get stiffer, making them less flexible. Illness, medications, and vision changes can also affect your balance. A fall could leave you unable to live on your own. To make your home safer, follow these tips: Floors Put nonskid pads under area rugs Remove throw rugs Replace worn floor coverings Tack carpets firmly to each step on carpeted stairs. Put nonskid strips on the edges of uncarpeted stairs Keep floors and stairs free of clutter and cords Arrange furniture so there are clear pathways Clean up any spills right away Bathrooms Install grab bars in the tub or shower Apply nonskid strips or put a nonskid rubber mat in the tub or shower Sit on a bath chair to bathe Use bathmats with nonskid backing Lighting Keep a flashlight in each room Put a nightlight along the pathway between the bedroom and the bathroom Rishi Patient Education Copyright 2008 - 2010 Rishi except where otherwise noted Preventing Falls: Exercises to Improve Balance, Flexibility, Strength, and Staying Power (This education is for all patients over 65 regardless of symptoms) Certain types of exercises may help make you less likely to fall. Try the ones below. Or do other exercises that your healthcare provider suggests. Depending on your health, you may need to start slowly. Dont let that stop you. Even small amounts of exercise can help you. Be sure to talk to yourhealthcare provider before starting any exercise program. Improve Balance Many types of exercise can help improve balance. Jesus chi and yoga are good examples. Heres another one to try. You can do it anytime and almost anywhere. Stand next to a counter or solid support. Push yourself up onto your tiptoes. Hold for 5 seconds. If you start to lose your balance, hold on to the counter. Rest and repeat 5 times. Work up to holding for 20 to 30 seconds, if you can. Increase Flexibility Being more flexible makes it easier for you to move around safely. Try exercises like the seated hamstring stretch. Sit in a chair and put one foot on a stool. Straighten your leg and reach with both hands down either side of your leg. Reach as far down your leg as you can. Hold for about 20 seconds. Go back to the starting position. Then repeat 5 times. Switch legs. Build Strength Resistance exercises help build strength. You can do them without equipment. Or you can use weights, elastic bands, or special machines. One such exercise is called the biceps curl. You can hold a 1 pound weight or even a can of soup. Do this exercise at least 3 times a week. Strive for everyday. Sit up straight in a chair. Keep your elbow close to your body and your wrist straight. Bend your arm, moving your hand up to your shoulder. Then slowly lower your arm. Repeat 5 times. Switch to the other arm. Build Your Staying Power Aerobic exercises make your heart and lungs stronger so you can keep moving longer. Walking and swimming are two of the best types of exercises you can do. Using a stationary bike is great, too. Find an aerobic exercise that you enjoy. Start slowly and build up. Even 5 minutes is helpful. Aimfor a goal of 30 minutes, at least 3 times a week. You dont have to do 30 minutes in one session. Break it up and walk a little throughout the day. More Helpful Tips Start easy. Slowly work up to doing more. Talk with your healthcare provider about the best exercises for you. Call senior centers or health clubs about exercise programs. If needed, have a family member watch you walk every so often to check your stability. Exercise with a friend. Choose an activity you both enjoy. Try exercises that you can do anytime, anywhere. Here are two examples. Have someone with you when you first try these: Practice walking by placing one foot right in front of the other. Stand up and sit down 10 times. Repeat this throughout the day. [employer] Patient Education Copyright 2009 - 2010 Rishi except where otherwise noted. Preventing Falls: Moving Safely Using a Cane or Walker (This education is for all patients over 65 regardless of symptoms) Keep the cane away from your feet so you dont trip. A walking aid, such as a cane or walker, can help you stay more independent and avoid falls. Remember to keep your walking aid within easy reach when youre in a chair or in bed. And learn how to use it safely so you dont injure yourself. Using a Cane If you have a stronger side, hold the cane on that side. Get your balance. Move the cane and your weaker leg forward. Support your weight on both the cane and your weaker side. Step with your stronger leg. Start again from step 1. If youre using a folding walker, be sure you know how to lock it open. Check that its locked open before each use. Using a Walker Roll the walker (or lift it, if youre using one without wheels) forward about 12 inches. Step forward with your weaker leg first. Use the walker to help keep your balance. Bring your other foot forward to the center of the walker. Start again from step 1. Helpful Tips Check with your healthcare provider about the right walking aid to use. Ask about a walker with a seat attached. Check the tips of your cane or walker to make sure they have nonskid covers. Move slowly from room to room. Dont moran. Sit down to get dressed. Use a jey pack or backpack to keep your hands free. Get help for jobs that mean climbing, even on a stepstool. Rishi Patient Education Copyright 2008 - 2010 Rishi except where otherwise noted. Urinary Incontinence Plan of Care Documentation: (This education is for all patients over 65 regardless of symptoms) Current medications reconciled. Patient encouraged to: Practice kegal exercises Provide education materials Use the restroom every 2 hours throughout the day Limit caffeine, alcohol, spicy foods and acidic foods Keep a bladder diary Limit fluid intake 3-4 hours before bed Lose weight Prevent constipation Take fluid pills at a time when you can get to the bathroom quickly Control sugar better if diabetic Limit fluid intake to 60 oz. per day Wear support stockings (TEDs)if you have edema Celena Varner RN 07/21/2023 Kegel Exercises Kegel exercises dont require special clothing or equipment. Theyre easy to learn and simple to do. And if you do them right, no one can tell youre doing them, so they can be done almost anywhere. Your doctor, nurse, or physical therapist can answer any questions you have and help you get started. A Weak Pelvic Floor The pelvic floor muscles may weaken due to aging, and vaginal childbirth, injury, surgery, chronic cough, or lack of exercise. If the pelvic floor is weak, your bladder and other pelvic organs may sag out of place. The urethra may also open too easily and allow urine to leak out. Kegel exercises can help you strengthen your pelvic floor muscles so they can better support the pelvic organs and control urine flow. How Kegel Exercises Are Done Try each of the Kegel exercises described below. When youre doing them, try not to move your leg, buttock, or stomach muscles. While youre urinating, try to stop the flow of urine. Start and stop it as often as you can. Contract as if you were stopping your urine stream, but do it when youre not urinating. Tighten your rectum as if trying not to pass gas. Contract your anus, but dont move your buttocks. Helpful Hints Do your Kegels as often as you can. The more you do them, the faster youll feel the results. Pick an activity you do often as a reminder. For instance, do your Kegels every time you sit down. Tighten your pelvic floor before you sneeze, get up from a chair, cough, laugh, or lift. This protects your pelvic floor from injury and can help prevent urine leakage. Try to hold each Kegel for a slow count to five. You probably wont be able to hold them for thatlong at first, but keep practicing. It will get easier as your pelvic floor gets stronger. Eventually, special weights that you place in your vagina may be recommended to help make your Kegels even more effective. Rishi Patient Education Copyright 2008 - 2010 Rishi except where otherwise noted. Here are some helpful tips for your urinary incontinence: (This education is for all patients over 65 regardless of symptoms) Practice Kegel exercises Use the restroom every 2 hours throughout the day Limit caffeine, alcohol, spicy foods, and acidic foods Keep a bladder diary Limit fluid intake 3-4 hours before bed Lose weight Prevent constipation Take fluid pills at a time when can get to the bathroom quickly Control sugar better if diabetic Limit fluid intake to 60 oz. per day Any questions, please feel free to contact our office. documented in this encounter Progress Notes * Domo Pool, - 07/21/2023 9:50 AM EST SUBJECTIVE: Dyana Menard is a 82 year old female. Chief Complaint Patient presents with Follow Up HPI: Patient is an 82 year old female with a history of DM type II, CVA, HTN, Hyperlipidemia, Diabetic Neuropathy, CAD, GERD, iron Deficiency Anemia, Constipation, Anxiety, Lumbar DDD, and cervical DDD that is seen for follow up. She has difficulty eating and is waiting on delivery of new dentures. No chest pain or shortness of breath are present. Weight is stable. Back pain is present every day. Patient is following with Pain management. Anxiety is unchanged. 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 Cetirizine HCl 10 MG Oral Tablet (ZyrTEC) TAKE ONE TABLET BY MOUTH EVERY MORNING 100 Tablet 3 Atorvastatin Calcium 80 MG Oral Tablet (Lipitor) TAKE ONE TABLET BY MOUTH IN THE MORNING 100 Tablet1 busPIRone HCl 10 MG Oral Tablet (Buspar) TAKE ONE TABLET BY MOUTH IN THE MORNING AND TAKE ONE TABLET BEFORE BEDTIME 200 Tablet 2 Sertraline HCl 50 MG Oral Tablet (Zoloft) TAKE ONE TABLET BY MOUTH EVERY MORNING IN ADDITION TO XYS000MR TABLET 100 Tablet 3 Pantoprazole Sodium 20 MG Oral Tablet Delayed [...] once a week. 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 Miconazole Nitrate 2 % External Cream (Monistat Derm) Apply to skin folds as directed Nystatin 249587 UNIT/GM External Powder (Nystop) Apply topically to affected area 3 times a day. Apply to skin folds 60 g 0 traZODone HCl 50 MG Oral Tablet (Desyrel) Take 1 Tablet by mouth at bedtime. 90 Tablet 1 traMADol HCl 50 MG Oral Tablet (Ultram) Take 1 Tab by mouth every 6 hours as needed (for back pain). (Patient not taking: Reported on 07/13/2023) 60 Tab 0 SetupTouch Verio w/Device Kit Use as directed . Use to test blood sugar once daily 1 Kit 0 SetupTouch UltraSoft Lancets Use to check blood sugar once daily as directed 100 Each 3 Acetaminophen ER 650 MG Oral Tablet Extended Release Take 2 Tablets by mouth at bedtime as needed (hip pain). (Patient not taking: Reported on 07/21/2023) Meclizine HCl 25 MG Oral Tablet (Antivert) TAKE 1 TABLET BY MOUTH 3 TIMES DAILY NEEDED FOR DIZZINESS Strength: 25 mg 30 Tablet 3 OneTouch Verio In Vitro Strip (Glucose Blood) USE TO CHECK BLOOD SUGAR ONCE DAILY DIRECTED 100 Strip 3 Current Facility-Administered Medications Medication Dose Route Frequency Provider Last Rate Last Admin vitamin b-12 (Cyanocobalamin) inj 1,000 mcg 1,000 mcg Intramuscular Q4 Weeks Domo Pool DO 1,000 mcg at 03/30/23 0904 The patient's medication list was reviewed and [...] performed by Riaz Hanson MD at [facility]OSCOPY [facility] COLONOSCOPY, DIAGNOSTIC (RECTUM) 02/03/2016 normal, repeat 5 yrs/COLONOSCOPY FLEXIBLE PROXIMAL DIAGNOSTIC performed by Debbie Gordon DO at [facility] COLONOSCOPY, DIAGNOSTIC (RECTUM) 05/11/2020 adenomatous polyp, diverticulosis / COLONOSCOPY FLEXIBLE PROXIMAL DIAGNOSTIC performed by Samy Roe MD at ENDOSCOPY [facility] DESTROY LUMBAR SACRAL NERVE IMAGING SINGLE 04/24/2017 [...] DIAGNOSTIC performed by Debbie Gordon DO at [facility] EGD, FLEXIBLE, DIAGNOSTIC 05/11/2020 normal bx / ESOPHAGOGASTRODUODENOSCOPY (EGD), FLEXIBLE, TRANSORAL, DIAGNOSTIC performed by Samy Quintana MD at [facility] EGD, FLEXIBLE, TRANSENDOSCOPIC DILATION <30MM 03/04/2014 ESOPHAGOGASTRODUODENOSCOPY (EGD), FLEXIBLE, TRANSORAL, BALLOON DILATION LESS THAN 30MM performed byRiaz Hanson MD at ENDOSCOPY [facility] INFORMATION Pin in right hip for chronic dislocation INFORMATION 02/07/2014 needle loc parial mastectomy/lumpectomy with oncoplastic closure and right axilla sentinel lymph node biopsy [facility] 02/07/14 walsh sisbassem L-/S-SPINE PARAVERTEBRAL FACET INJ,1 LEVEL 03/16/2017 L-/S-SPINE PARAVERTEBRAL FACET INJ, 1 LEVEL performed by Dez Arevalo, DO at [facility] L-/S-SPINE PARAVERTEBRAL FACET INJ,1 LEVEL 02/05/2018 L-/S-SPINE PARAVERTEBRAL FACET INJ, 1 LEVEL performed by Dez Arevalo, DO at [facility] L-/S-SPINE PARAVERTEBRAL FACET INJ,1 LEVEL 11/03/2022 L-/S-SPINE PARAVERTEBRAL FACET INJ, 1 LEVEL performed by Dez Arevalo, DO at [facility] L-/S-SPINE PARAVERTEBRAL FACET INJ,1 LEVEL 12/07/2022 L-/S-SPINE PARAVERTEBRAL FACET INJ, 1 LEVEL performed by Dez Arevalo, DO at [facility] L-/S-SPINE PARAVERTEBRL FACET INJ,2 LEVELS 03/30/2017 L-/S-SPINE PARAVERTEBRAL FACET INJ, 2 LEVELS performed by Dez Arevalo, DO at OR [facility] PARTIAL REMOVAL OF COLON 06/11/2012 06/11/2012 Laparoscopic hand-assisted sigmoid colon resection,laparoscopic mobilization of the splenic flexure Dr Hanson [facility]06/11/12 REMOVE GALLBLADDER SACROILIAC JOINT INJECT W/GUIDANCE 04/05/2018 [...] INJECTION SACROILIAC JOINT performed by Dez Arevalo, at [facility] TOTAL ABD HYSTERECTOMY W/WO [...] diarrhea, nausea and vomiting. Genitourinary: Negative for dysuria and hematuria. Musculoskeletal: Positive for back pain and gait problem. Psychiatric/Behavioral: Positive for decreased concentration and dysphoric mood. Negative for suicidal ideas. The patient is nervous/anxious. OBJECTIVE: BP 136/72 (BP Site: Left Arm, BP Position: Sitting, BP Cuff Size: Regular) | Pulse 87 | Temp 36.1 C (97 F) | Wt 66.2 kg (146 lb) | SpO2 97% | BMI 24.86 kg/m | BSA 1.73 m Physical Exam Vitals and nursing note [...] Tenderness: There is no abdominal tenderness. Musculoskeletal: Right lower leg: No edema. Left lower leg: No edema. Neurological: Mental Status: She is alert and oriented to person, place, and time. Mental status is at baseline. Motor: No weakness. Gait: Gait normal. Psychiatric: Mood and Affect: Mood is anxious and depressed. PLAN AND ASSESSMENT: Type 2 diabetes mellitus with hemoglobin A1c goal of less than 8.0% ([facility]) (Primary) - HEMOGLOBIN A1C; Future; Expected date: 07/21/2023 - ALBUMIN / CREATININE RATIO, URINE; Future; Expected date: 07/21/2023 - BASIC METABOLIC PANEL; Future; Expected date: 07/21/2023 Continue Ozempic and Metformin PSVT (paroxysmal supraventricular tachycardia) Continue Atenolol Sacroiliitis, not elsewhere classified ([facility]) Continue to follow with Pain Management Continue Gabapentin and Cyclobenzaprine Essential hypertension with goal blood pressure less than 140/90 - CBC WITH WBC DIFFERENTIAL; Future; Expected date: 07/21/2023 Coronary artery disease involving siletz tribe coronary artery of siletz tribe heart without angina pectoris - CBC WITH WBC DIFFERENTIAL; Future; Expected date: 07/21/2023 Dyslipidemia, goal LDL below 70 - LIPID PANEL WITH DIRECT LDL IF TG IS HIGH; Future; Expected date: 07/21/2023 Generalized anxiety disorder Continue Sertraline and Buspar Stress due to illness of family member Iron deficiency anemia, unspecified iron deficiency anemia type Gastroesophageal reflux disease without esophagitis Continue Pantoprazole Primary insomnia Continue Trazodone Vitamin B 12 deficiency - VITAMIN B12; Future; Expected date: 07/21/2023 B12 IM today Risk and functional assessment Need for COVID-19 vaccine - COVID-19, MRNA-LNP, PF, 23-24, 30MCG/0.3ML, IM, 12YRS AND ABOVE ([employer]) Follow Up: Return in about 4 months (around 11/19/2023), or if symptoms worsen or fail to improve. Domo Pool DO 9:50 AM 07/21/2023 Celena Smith RN - 07/21/2023 9:07 AM EST Pre-Administration Time Out Procedure Performed: Yes Patient Identified (Ask Name/Date of ): Yes Does the patient have a fever greater than 101 degrees today? No Patient allergic to latex? No Has the patient ever fainted after receiving an injection? No VFC Stock: No Injection(s) verified: Yes, Injection Name: vitamin B12 Verified Side and Site: Yes Verified Shot(s) with Parent(s)/Patient: Yes Pre-Administration Time Out Procedure Performed: Yes Patient Identified (Ask Name/Date of ): Yes Does the patient have a fever greater than 101 degrees today? No Patient allergic to latex? No Has the patient ever fainted after receiving an injection? No VFC Stock: No Immunization(s) verified: Yes, Immunization Name: covid, VIS Sheet(s) given: Yes Verified Side and Site: Yes Verified Shot(s) with Parent(s)/Patient: Yes Fall Risk Plan of Care Documentation: - Current medications reconciled Patient encouraged to: - Exercise - Provide education materials for Core strengthening - Utilize assistive/adaptive devices - Provide education materials - Avoid multifocal lenses when walking - Avoid hazards in home - Provide education materials - Maintain a regular toileting schedule Celena Varner RN 07/21/2023 documented in this encounter Nursing Notes * Celena Varner RN - 07/21/2023 9:13 AM EST 4 month return Lower back pain-saw Dr Mares and will be getting injection in August. Using monistat cream and nystatin powder for rash skin folds-not helping. documented in this encounter Plan of Treatment Upcoming Encounters Date Type Department Care Team (Latest Contact Info) Description 07/28/2023 11:00 AM EST Office Visit Family Practice [address] [phone] [employer] [facility] [address] [address] 09/25/2023 8:25 AM EDT Hospital Encounter [facility], Operating Room [facility] [address] [place] [id number] Brayan Mares, DO [address] [place] [phone] 09/25/2023 8:25 AM EDT - 09/25/2023 8:50 AM EDT Surgery OR [facility], Operating Room [facility] [address] [place] [phone] Brayan Mares, DO [address] [place] [id number] L-/S-SPINE PARAVERTEBRAL FACET INJ, 1 LEVEL 11/20/2023 10:00 AM EDT Office Visit Family Practice [address] [place] [address] [address] [place] [address] Domo Pool, DO [address] [place] [address] 11/21/2023 8:45 AM EDT Office [facility] [place] [address] [facility]autam Morgan, DO [facility] [place] [address] Scheduled Procedures Name Priority Associated Diagnoses Date/Ti [...] Procedure Name Priority Date/Time Associated Diagnosis Comments ALBUMIN / CREATININE RATIO, URINE Routine 07/21/2023 10:31 AM EST Type 2 diabetes mellitus with hemoglobin A1c goal of less than 8.0% (HCC) DIFFERENTIAL, AUTOMATED Routine 07/21/2023 9:55 AM EST Essential hypertension with goal blood pressure less than 140/90 Coronary artery disease involving siletz tribe coronary artery of siletz tribe heart without angina pectoris LIPID PANEL WITH DIRECT LDL IF TG IS HIGH Routine 07/21/2023 9:55 AM EST Dyslipidemia, goal LDL below 70 HEMOGLOBIN A1C Routine 07/21/2023 9:55 AM EST Type 2 diabetes mellitus with hemoglobin A1c goal of less than 8.0% (HCC) BASIC METABOLIC PANEL Routine 07/21/2023 9:55 AM EST Type 2 diabetes mellitus with hemoglobin A1c goal of less than 8.0% (HCC) CBC Routine 07/21/2023 9:55 AM EST Essential hypertension with goal blood pressure less than 140/90 Coronary artery disease involving [place] coronary artery of [place] heart without angina pectoris CBC Routine 07/21/2023 9:55 AM EST Essential hypertension with goal blood pressure less than 140/90 Coronary artery disease involving [place] tribe coronary artery of [place] heart without angina pectoris VITAMIN B12 Routine 07/21/2023 9:55 AM EST Vitamin B 12 deficiency documented in this encounter Results * ALBUMIN / CREATININE RATIO, URINE (07/21/2023 10:31 AM EST) Albumin, Random Urine 3.83 mg/dL 07/21/2023 6:39 PM EST LABORATORY [facility] Creatinine, Random Urine 176 mg/dL 07/21/2023 6:39 PM EST LABORATORY [facility] Albumin / Creatinine Ratio, Urine 22 <30 mg/g Creat 07/21/2023 6:39 PM EST LABORATORY [facility] Urine Urine specimen obtained by clean catch procedure / Unknown Non-blood Collection / Unknown 07/21/2023 10:31 AM EST 07/21/2023 10:31 AM EST [facility] LABORATORY [facility] - 07/21/2023 6:39 PM EST Normal: <30 mg/g creatinine High: 30-300 mg/g creatinine Very High: >300 mg/g creatinine Nephrotic: >2200 mg/g creatinine Domo Pool DO LAB URINE ORDERABLES LABORATORY [facility] [address] [place] [address] * DIFFERENTIAL, AUTOMATED (07/21/2023 9:55 AM EST) WBC 8.64 4.00 - 10.80 K/uL 07/21/2023 6:44 PM EST LABORATORY [facility] Neutrophils % 69.1 40.0 - 75.0 % 07/21/2023 6:44 PM EST LABORATORY [facility] Lymphocytes % 20.0 18.0 - 42.0 % 07/21/2023 6:44 PM EST LABORATORY [facility] Monocytes % 7.6 1.0 - 11.0 % 07/21/2023 6:44 PM EST LABORATORY [facility] Eosinophils % 2.3 0.0 - 6.0 % 07/21/2023 6:44 PM EST LABORATORY [facility] Basophils % 0.7 0.0 - 2.0 % 07/21/2023 6:44 PM EST LABORATORY [facility] Immature Granulocytes % 0.3 0.0 - 2.0 % 07/21/2023 6:44 PM EST LABORATORY [facility] Absolute Neutrophils 5.96 1.80 - 7.70 K/uL 07/21/2023 6:44 PM EST LABORATORY [facility] Absolute Lymphocytes 1.73 1.00 - 4.80 K/ul 07/21/2023 6:44 PM EST LABORATORY [facility] Absolute Monocytes 0.66 0.00 - 1.10 K/uL 07/21/2023 6:44 PM EST LABORATORY [facility] Absolute Eosinophils 0.20 0.00 - 0.70 K/uL 07/21/2023 6:44 PM EST LABORATORY [facility] Absolute Basophils 0.06 0.00 - 0.20 K/uL 07/21/2023 6:44 PM EST LABORATORY [facility] Absolute Immature Granulocytes 0.03 0.00 - 0.20 K/uL 07/21/2023 6:44 PM EST LABORATORY [facility] Blood Venous blood specimen / Unknown Venipuncture / Unknown 07/21/2023 9:55 AM EST 07/21/2023 9:55 AM EST Domo Pool DO LAB BLOOD ORDERABLES LABORATORY [facility] [address] [place], [place] [id number] * (ABNORMAL) CBC (07/21/2023 9:55 AM EST) Pathologist [facility] WBC 8.64 4.00 - 10.80 K/uL 07/21/2023 6:44 PM EST LABORATORY [facility] RBC 4.09 3.85 - 5.15 M/uL 07/21/2023 6:44 PM EST LABORATORY [facility] HGB 11.9(L) 12.0 - 15.3 g/dL 07/21/2023 6:44 PM EST LABORATORY [facility] HCT 38.8 36.0 - 45.2 % 07/21/2023 6:44 PM EST LABORATORY [facility] MCV 94.9 81.5 - 97.5 fL 07/21/2023 6:44 PM EST LABORATORY [facility] MCH 29.1 27.0 - 34.0 pg 07/21/2023 6:44 PM EST LABORATORY [facility] MCHC 30.7 32.0 - 36.0 g/dL 07/21/2023 6:44 PM EST LABORATORY [facility] RDW 13.9 11.5 - 15.5 % 07/21/2023 6:44 PM EST LABORATORY [facility] PLT 235 140 - 400 K/uL 07/21/2023 6:44 PM EST LABORATORY [facility] MPV 11.4 6.6 - 11.1 fL 07/21/2023 6:44 PM EST LABORATORY [facility] nRBCs 0 <=0 /100 WBCs 07/21/2023 6:44 PM EST LABORATORY [facility] Blood Venous blood specimen / Unknown Venipuncture / Unknown 07/21/2023 9:55 AM EST 07/21/2023 9:55 AM EST Domo Pool DO LAB BLOOD ORDERABLES LABORATORY [facility] [address] [place] [address] * (ABNORMAL) BASIC METABOLIC PANEL (07/21/2023 9:55 AM EST) BUN 17 6 - 20 mg/dL 07/21/2023 5:11 PM EST LABORATORY [facility] Creatinine 1.0 0.5 - 1.0 mg/dL 07/21/2023 5:11 PM EST LABORATORY [facility] Estimated Glomerular Filtration Rate 59(L) >=60 mL/min 07/21/2023 5:11 PM EST LABORATORY C Comment:eGFR is calculated b ased on the CKD-EPI 2020 equation Sodium 144 135 - 146 mmol/L 07/21/2023 5:11 PM EST LABORATORY [facility] Potassium 5.6(H) 3.5 - 5.1 mmol/L 07/21/2023 5:11 PM EST LABORATORY [facility] Chloride 107 98 - 107 mmol/L 07/21/2023 5:11 PM EST LABORATORY [facility] CO2 25 22 - 32 mmol/L 07/21/2023 5:11 PM EST LABORATORY C Anion Gap 12 7 - 15 mmol/L 07/21/2023 5:11 PM EST LABORATORY [facility] Glucose 175(H) 70 - 120 mg/dL 07/21/2023 5:11 PM EST LABORATORY [facility] Calcium 9.8 8.4 - 10.2 mg/dL 07/21/2023 5:11 PM EST LABORATORY [facility] Blood Venous blood specimen / Unknown Venipuncture / Unknown 07/21/2023 9:55 AM EST 07/21/2023 9:55 AM EST Domo Pool DO LAB BLOOD ORDERABLES LABORATORY [facility] [address] [place] [address] * LIPID PANEL WITH DIRECT LDL IF TG IS HIGH (07/21/2023 9:55 AM EST) Triglycerides 119 <=174 mg/dL 07/21/2023 5:11 PM EST LABORATORY [facility] Comment: Triglyceride Reference Ranges (mg/dL): <150 Acceptable 150-174 Borderline high 175-499 High >=500 Very high Cholesterol 130 <200 mg/dL 07/21/2023 5:11 PM EST LABORATORY [facility] Comment: Total Cholesterol Reference Ranges (mg/dL): <200 Desirable 200-239 Borderline high >=240 High HDL Cholesterol 52 >49 mg/dL 5:11 PM EST LABORATORY [facility] Comment: HDL Cholesterol Reference Ranges (mg/dL): >=60 High (Desirable) <50 Low (Undesirable) For Females <40 Low (Undesirable) For Males Non-HDL Cholesterol 78 <=159 mg/dL 07/21/2023 5:11 PM EST LABORATORY [facility] Comment: Non-HDL Cholesterol Reference Range (mg/dL): <100 Target level for high risk ASCVD patient <130 Optimal for general population 130-159 Near optimal for general population 160-189 Borderline High 190-219 High >=220 Very High LDL Cholesterol 54 <=129 mg/dL 07/21/2023 5:11 PM EST LABORATORY [facility] Comment: LDL Cholesterol Reference Ranges (mg/dL): <70 Target level for high risk ASCVD patient <100 Optimal for general population 100-129 Near optimal for general population 130-159 Borderline high 160-189 High >=190 Very high Blood Venous blood specimen / Unknown Venipuncture / Unknown 07/21/2023 9:55 AM EST 07/21/2023 9:55 AM EST Domo Pool DO LAB BLOOD ORDERABLES Performing Organization Address City/State/[facility] Co de Phone Number LABORATORY [facility] [address] [place] [address] * (ABNORMAL) HEMOGLOBIN A1C (07/21/2023 9:55 AM EST) Hemoglobin A1C 7.4(H) 4.0 - 5.6 % 07/21/2023 5:25 PM EST LABORATORY [facility] Comment:The use of HbA1c to monitor glycemic status is based on normal hemoglobin and HbA composition. This test should not be used in patients with abnormal hemoglobin that affects the half life of the red blood cell or the in vivo glycation rates. Estimated Average Glucose 166(H) <126 mg/dL 07/21/2023 5:25 PM EST LABORATORY [facility] Blood Venous blood specimen / Unknown Venipuncture / Unknown 07/21/2023 9:55 AM EST 07/21/2023 9:55 AM EST Domo Pool DO LAB BLOOD ORDERABLES LABORATORY [facility] [address] [place] [address] * (ABNORMAL) VITAMIN B12 (07/21/2023 9:55 AM EST) Pathologist [facility] Vitamin B12 199(L) 232 - 1,245 pg/mL 07/21/2023 6:00 PM EST LABORATORY [facility] Blood Venous blood specimen / Unknown Venipuncture / Unknown 07/21/2023 9:55 AM EST 07/21/2023 9:55 AM EST Domo Pool DO LAB BLOOD ORDERABLES Performing Organization Address City/[facility]/ZIP Co de Phone Number LABORATORY [facility] [address] [place] [address] documented in this encounter Visit Diagnoses Diagnosis Type 2 diabetes mellitus with hemoglobin A1c goal of less than 8.0% ([facility])- Primary PSVT (paroxysmal supraventricular tachycardia) Paroxysmal supraventricular tachycardia Sacroiliitis, not elsewhere classified (HCC) Sacroiliitis, not elsewhere classified Essential hypertension with goal blood pressure less than 140/90 Coronary artery disease involving [place] coronary artery of [place] heart without angina pectoris Dyslipidemia, goal LDL below 70 Other and unspecified hyperlipidemia Generalized anxiety disorder Stress due to illness of family member Other health problem within the family Iron deficiency anemia, unspecified iron deficiency anemia type Gastroesophageal reflux disease without esophagitis Esophageal reflux Primary insomnia Persistent disorder of initiating or maintaining sleep Vitamin B 12 deficiency Other B-complex deficiencies Risk and functional assessment Screening for unspecified condition Need for COVID-19 vaccine Spondylosis of lumbosacral region without myelopathy or radiculopathy Lumbosacral spondylosis without myelopathy documented in this encounter Administered Medications Active Administered Medications - up to 3 most recent administrations Medication Order MAR Action Action Date Dose Rate Site vitamin b-12 (Cyanocobalamin) inj 1,000 mcg 1,000 mcg, Intramuscular, [id number], First dose on Mon12/29/22 at 1530, Last dose on Pham 11/02/23 at 1530, For 12 doses Given 07/21/2023 9:59 AM EST 1,000 mcg Deltoid Right Upper Given 03/30/2023 9:04 AM EDT 1,000 mcg Ar m Right Upper Given 03/02/2023 8:51 AM EDT 1,000 mcg Ar m Left Upper documented in this encounter Advance Directives Documents on File Type Date Recorded Patient Teletypesetter Monitor Expl anation Advance Directives and Livin g Will 01/11/2019 ADVANCE DIRECTIVE Advance Directives and Livin g Will 01/11/2019 LIVING WILL Latest Code Status on File Code Status Date Activated Date Inactivated Comments Full Code 04/27/2015 4:15 PM 05/01/2015 12:58 AM T his order reflects the patients wishes and were consensually agreed upon. Question Answer Comments Discussion of Advance Directives occurred with: Patient Care Teams Food Preparation Kitchen Aide Relationship Specialty Start Date End Date Domo Pool DO [address] [place] [address] PCP - General Internal Medicine 01/19/22 documented as of this encounter"
--- OUTSIDE RECORDS SUMMARY | 2023-09-29 09:13 | External Medical Summary | Summary of Care ---
Author Name Unknown Organization [facility] Address [address] [facility] [address] Phone [phone] Care Team Providers Care Fws Faculty Assistant Name Role Phone Domo Pool DO Primary Care Provider [phone] Reason for Visit * Reason Comments Outpatient Testing Encounter Details Date Type Department Care Team (Late st Contact Info) Description 07/26/2023 12:00 PM EST [facility], [facility] [address] [facility] [place] [phone] [facility] [address] [place] [address] Encounter for long-term (current) use of medications; Serum potassium elevated Allergies Active Allergy Reactions Criticality Noted Date [...] once a week. - [place]! 0 04/03/2023 Active Miconazole Nitrate 2 % External Cream (Monistat Derm) Apply to skin folds as directed 0 Active Nystatin [id number] UNIT/GM External Powder (Nystop) Apply topically to [...] mcgIndications:Vitamin B 12 deficiency 1000 mcg IM [id number] 12/29/2022 11/30/2023 Active documented as of this [...] cervical 2017 Coronary artery disease invo lving [place] coronary artery of [place] heart without angina pectoris 10/17/2017 Dyslipidemia, goal [...] mRNA, LNP-s, No Pre serve, 2-Dose Series ([employer]) 06/03/2021,09/30/2020,09/04/2020 COVID-19, MRNA-LNP, 23-24, P F, 30 MCG/0.3 mL, 12 YRS AND ABOVE, IM ([facility]) 07/21/2023 Covid-19, Mrna, Lnp-s, Pf, B ivalent, 30 Mcg, IM, 12 yrs and above ([employer]) 06/14/2022 Pneumococcal Conjugate Vacc, 13 Valent (Prevnar) [...] Department Care Team (Latest Contact Info) Description 07/26/2023 1:00 PM EST Office Visit Family Practice [address] [facility] [address] [place] [phone] Domo Pool, DO [address] [place] [address] 07/28/2023 11:00 AM EST Office Visit Family Practice [address] [facility] [address] [place] [phone] [facility] [address] [place] [address] 09/25/2023 8:25 AM EDT Hospital Encounter OR [facility], Operating Room [facility] [address] [place] [phone] Brayan Mares, DO [address] [place] [phone] 09/25/2023 8:25 AM EDT - 09/25/2023 8:50 AM EDT Surgery OR [facility], Operating Room [facility] [address] [place] [phone] Brayan Mares, DO [address] [place] [phone] L-/S-SPINE PARAVERTEBRAL FACET INJ, 1 LEVEL 11/20/2023 10:00 AM EDT Office Visit Family Practice [address] [facility] [address] [place] [address] Domo Pool, DO [address] [facility], [place] [address] 11/21/2023 8:45 AM EDT Office Visit Otolaryngology [facility] [address] [place] [address] Gautam Morgan, DO [address] [place] [address] Pending Results Name Type Priority Associated Diagnoses Date /Time ALT Lab Routine Encounter for long-term (current) use of medications 07/26/2023 12:02 PM EST AST Lab Routine Encounter for long-term (current) use of medications 07/26/2023 12:02 PM EST POTASSIUM Lab STAT Serum potassium elevated 07/26/2023 12:02 PM EST Scheduled Procedures Name Priority Associated Diagnoses Date/Ti [...] as of this encounter Visit Diagnoses Diagnosis Encounter for long-term (current) use of medications Encounter for long-term (current) use of other medications Serum potassium elevated Hyperpotassemia Spondylosis of lumbosacral region without myelopathy or radiculopathy Lumbosacral spondylosis without myelopathy documented in this encounter Advance Directives Documents on File Type Date Recorded Patient Director Speech And Hearing Expl anation Advance Directives and Livin g [...] Advance Directives occurred with: Patient Care Teams Fws Faculty Assistant Relationship Specialty Start Date End Date Domo Pool DO [address] [place] [facility] [place] [address] PCP - General Internal Medicine 01/19/22 documented as of this encounter
--- OUTSIDE RECORDS SUMMARY | 2023-09-29 09:14 | External Medical Summary ---
Author Name Unknown Address Unknown Organization [id number]:[facility] [address] [facility] [place] [address] Laboratory Report Ordering Provider Test Date Status SANA WASHINGTON 07/21/2023 09:55:41 Final Observation Date Value Abnormality Reference (Units ) Status Triglyceride 07/21/2023 09:55:41 119 <=174 ( mg/dL) Final Triglyceride Reference Range s (mg/dL):
<150 Acceptable
150-174 Borderline high
175-499 High
>=500 Very high Cholesterol 07/21/2023 09:55:41 130 <200 (mg /dL) Final Total Cholesterol Reference Ranges (mg/dL):
<200 Desirable
200-239 Borderline high
>=240 High HDL 07/21/2023 09:55:41 52 >49 (mg/dL ) Final HDL Cholesterol Reference Ra nges (mg/dL):
>=60 High (Desirable)
<50 Low (Undesirable) For Females
<40 Low (Undesirable) For Males NON-HDL CHOLESTEROL 07/21/2023 09:55:41 78 <=159 (mg/dL) Final Non-HDL Cholesterol Referenc e Range (mg/dL):
<100 Target level for high risk ASCVD patient
<130 Optimal for general population
130-159 Near optimal for general population
160-189 Borderline High
190-219 High
>=220 Very High LDL, (calculated) 07/21/2023 09:55:41 54 <= 129 (mg/dL) Final LDL Cholesterol Reference Ra nges (mg/dL):
<70 Target level for high risk ASCVD patient
<100 Optimal for general population
100-129 Near optimal for general population
130-159 Borderline high
160-189 High
>=190 Very high Performing Location [facility] [address] [facility] [address]
--- OUTSIDE RECORDS SUMMARY | 2023-09-29 09:14 | External Medical Summary | Summary of Care ---
Author Name Unknown Organization [facility] Address [address] [place] [address] Phone [phone] Care Team Providers Care Quill Machine Operator Name Role Phone Domo Pool DO Primary Care Provider [phone] Reason for Visit * Reason Comments Follow Up Encounter Details Date Type Department Care Team (Latest Contact Info) Description 07/21/2023 8:40 AM EST Office Visit Family Practice [address] [place] [address] [address] [place] [address] Domo Pool [address] [place] [address] Type 2 diabetes mellitus with hemoglobin A1c goal of less than 8.0% ([facility])*; PSVT (paroxysmal supraventricular tachycardia); Sacroiliitis, not elsewhere classified (HCC); Essential hypertension with goal blood pressure less than 140/90; Coronary artery disease involving alatna coronary artery of alatna heart without angina pectoris; Dyslipidemia, goal LDL [...] as of this encounter (statuses as of 07/21/2023) Medications Medication Sig Dispensed Refills Start Date [...] by mouth in the morning. 0 Active MoonfruitTouch Verio w/Device Kit Use as directed . Use to test blood sugar once daily 1 Kit 0 01/20/2022 Active Vitamin C 500 MG Oral Capsule Take 1 Capsule by mouth every evening. 0 Active MoonfruitTouch UltraSoft LancetsIndications :Type 2 diabetes mellitus with [...] hemoglobin A1c goal of less than 7.0% ([facility]) USE TO CHECK BLOOD SUGAR [...] once a week. - gets from the mini shifter! 0 04/03/2023 Active Miconazole Nitrate 2 % External Cream (Monistat Derm) Apply to skin folds as directed 0 Active Nystatin 543741 UNIT/GM External Powder (Nystop) Apply topically to [...] mcgIndications:Vitamin B 12 deficiency 1000 mcg IM [id number] 12/29/2022 11/30/2023 Active documented as of this encounter (statuses as of 07/21/2023) Active Problems Problem Noted Date Diagnosed Date [...] cervical 2017 Coronary artery disease invo lving alatna coronary artery of alatna heart without angina pectoris 10/17/2017 Dyslipidemia, goal LDL below 70 11/13/2015 PSVT (paroxysmal supraventricular tachycardia) 0 10/14/2015 Essential hypertension with goal blood pressure less than 140/90 09/18/2014 Cerebrovascular disease, arteriosclerotic, post- stroke 07/21/2009 documented as of this encounter (statuses as of 07/21/2023) Resolved Problems Problem Noted Date Diagnosed Date [...] as of this encounter (statuses as of 07/21/2023) Immunizations Name Administration Dates Next Due COVID-19 mRNA, LNP-s, No Pre serve, 2-Dose Series (Tetragenetics) 06/03/2021,09/30/2020,09/04/2020 COVID-19, MRNA-LNP, 23-24, P F, 30 MCG/0.3 mL, 12 YRS AND ABOVE, IM (Promuc-Comirnat) 07/21/2023 Covid-19, Mrna, Lnp-s, Pf, B ivalent, [...] Answer Date Recorded PHQ Adult Total Score 1 03/30/2023 Hunger Vital Sign Answer Date Recorded Within [...] times. Repeat this throughout the day. [employer] Patient Education Copyright 2009 - 2010 Rishi [...] disease), cervical M50.30 Coronary artery disease involving alatna coronary artery of alatna heart without angina pectoris I25.10 Iron deficiency [...] BY MOUTH EVERY MORNING IN ADDITION TO [id number] TABLET 100 Tablet 3 Pantoprazole Sodium 20 [...] once a week. - gets from the mini shifter! Miconazole Nitrate 2 % External Cream (Monistat Derm) Apply to skin folds as directed Nystatin [id number] UNIT/GM External Powder (Nystop) Apply topically to [...] taking: Reported on 07/13/2023) 60 Tab 0 MoonfruitTouch Verio w/Device Kit Use as directed . Use to test blood sugar once daily 1 Kit 0 MoonfruitTouch UltraSoft Lancets Use to check blood sugar [...] performed by Riaz Hanson MD at [facility] COLONOSCOPY, DIAGNOSTIC (RECTUM) 02/03/2016 normal, repeat 5 yrs/COLONOSCOPY FLEXIBLE PROXIMAL DIAGNOSTIC performed by Debbie Gordon DO at [facility] COLONOSCOPY, DIAGNOSTIC (RECTUM) 05/11/2020 adenomatous polyp, diverticulosis / COLONOSCOPY FLEXIBLE PROXIMAL DIAGNOSTIC performed by Samy Roe MD at [facility] DESTROY LUMBAR SACRAL NERVE IMAGING SINGLE 04/24/2017 DESTROY LUMBAR SACRAL NERVE IMAGING SINGLE performed by Dez Arevalo DO at [facility] DESTROY LUMBAR SACRAL NERVE IMAGING SINGLE 02/15/2018 DESTROY LUMBAR SACRAL NERVE IMAGING SINGLE performed by Dez Arevalo DO at [facility] DESTROY LUMBAR SACRAL NERVE IMAGING SINGLE 01/18/2023 DESTROY LUMBAR SACRAL NERVE IMAGING SINGLE performed by Dez Arevalo DO at [facility] EGD, FLEXIBLE, DIAGNOSTIC 09/17/2012 biopsies--intestinal metaplasia EGD, FLEXIBLE, DIAGNOSTIC 02/03/2016 mild gastritis, sm HH/ESOPHAGOGASTRODUODENOSCOPY (EGD), FLEXIBLE, TRANSORAL, DIAGNOSTIC performed by Debbie Gordon DO at [facility] EGD, FLEXIBLE, DIAGNOSTIC 05/11/2020 normal bx / ESOPHAGOGASTRODUODENOSCOPY (EGD), FLEXIBLE, TRANSORAL, DIAGNOSTIC performed by Samy Quintana MD at [facility] EGD, FLEXIBLE, TRANSENDOSCOPIC DILATION <30MM 03/04/2014 ESOPHAGOGASTRODUODENOSCOPY (EGD), FLEXIBLE, TRANSORAL, BALLOON DILATION LESS THAN 30MM performed byRiaz Hanson MD at [facility] INFORMATION Pin in right hip for chronic dislocation INFORMATION 02/07/2014 needle loc parial mastectomy/lumpectomy with oncoplastic closure and right axilla sentinel lymph node biopsy [facility] 02/07/14 walsh sisbassem L-/S-SPINE PARAVERTEBRAL FACET INJ,1 [...] performed by Dez Arevalo, DO at OR [facility] PARTIAL REMOVAL OF COLON 06/11/2012 06/11/2012 Laparoscopic hand-assisted sigmoid colon resection,laparoscopic mobilization of the splenic flexure Dr Hanson [facility]06/11/12 REMOVE GALLBLADDER SACROILIAC JOINT INJECT W/GUIDANCE 04/05/2018 INJECTION SACROILIAC JOINT performed by Dez Arevalo, DO at OR [facility] SACROILIAC JOINT INJECT W/GUIDANCE 06/18/2018 INJECTION SACROILIAC JOINT performed by Dez rAevalo, DO at OR [facility] SACROILIAC JOINT INJECT [...] hemoglobin A1c goal of less than 8.0% ([facility]) (Primary) - HEMOGLOBIN A1C; Future; Expected date: 07/21/2023 - ALBUMIN / CREATININE RATIO, URINE; Future; Expected date: 07/21/2023 - BASIC METABOLIC PANEL; Future; Expected date: 07/21/2023 Continue Ozempic and Metformin PSVT (paroxysmal supraventricular tachycardia) Continue Atenolol Sacroiliitis, not elsewhere classified ([facility]) Continue to follow with Pain Management Continue Gabapentin and Cyclobenzaprine Essential hypertension with goal blood pressure less than 140/90 - CBC WITH WBC DIFFERENTIAL; Future; Expected date: 07/21/2023 Coronary artery disease involving alatna coronary artery of alatna heart without angina pectoris - CBC WITH [...] PF, 23-24, 30MCG/0.3ML, IM, 12YRS AND ABOVE (Promuc) Follow Up: Return in about 4 months [...] Care Team (Latest Contact Info) Description 07/21/2023 11:00 AM EST Office Visit Family Practice [address] [address] [employer] Order Specialist Fam Prac [address] [address] Arrived 09/25/2023 8:25 AM EDT Hospital Encounter [facility], Operating Room [facility] [address] [place] [id number] Brayan Mares, DO [address] [place] [id number] 09/25/2023 8:25 AM EDT - 09/25/2023 8:50 AM EDT Surgery OR [facility], Operating Room [facility] [address] [place] [id number] Brayan Mares, DO [address] [place] [phone] L-/S-SPINE PARAVERTEBRAL FACET INJ, 1 LEVEL 11/20/2023 10:00 AM EDT Office Visit Family Practice [address] [place] [address] [address] [facility] [place] [address] Domo Pool, DO [address] [place] [place] [address] 11/21/2023 8:45 AM EDT Office Visit Otolaryngology [facility] [address] [place] [id number] Gautam Morgan, DO [address] [place] [id number] Pending Results Name Type Priority Associated Diagnoses Date /Time VITAMIN B12 Lab Routine Vitamin B 12 deficiency 07/21/2023 9:55 AM EST HEMOGLOBIN A1C Lab Routine Type 2 diabetes mellitus with hemoglobin A1c goal of less than 8.0% ([facility]) 07/21/2023 9:55 AM EST LIPID PANEL WITH DIRECT LDL IF TG IS HIGH Lab Routine Dyslipidemia, goal LDL below 70 07/21/2023 9:55 AM EST ALBUMIN / CREATININE RATIO, URINE Lab Routine Type 2 diabetes mellitus with hemoglobin A1c goal of less than 8.0% (HCC) 07/21/2023 10:31 AM EST CBC WITH WBC DIFFERENTIAL Lab Routine Essential hypertension with goal blood pressure less than 140/90 Coronary artery disease involving alatna coronary artery of alatna heart without angina pectoris 07/21/2023 9:55 AM EST BASIC METABOLIC PANEL Lab Routine Type 2 diabetes mellitus with hemoglobin A1c goal of less than 8.0% (HCC) 07/21/2023 9:55 AM EST CBC Lab Routine Essential hypertension with goal blood pressure less than 140/90 Coronary artery disease involving alatna coronary artery of alatna heart without angina pectoris 07/21/2023 9:55 AM EST DIFFERENTIAL, AUTOMATED Lab Routine Essential hypertension with goal blood pressure less than 140/90 Coronary artery disease involving alatna coronary artery of alatna heart without angina pectoris 07/21/2023 9:55 AM EST Scheduled Orders Name Type Priority Associated Diagnoses Orde r Schedule VITAMIN B12 Lab Routine Vitamin B 12 deficiency Expected: 07/21/2023 (Approximate), Expires: 07/20/2024 HEMOGLOBIN A1C Lab Routine Type 2 diabetes mellitus with hemoglobin A1c goal of less than 8.0% (HCC) Expected: 07/21/2023 (Approximate), Expires: 07/20/2024 LIPID PANEL WITH DIRECT LDL IF TG IS HIGH Lab Routine Dyslipidemia, goal LDL below 70 Expected: 07/21/2023, Expires: 07/21/2024 ALBUMIN / CREATININE RATIO, URINE Lab Routine Type 2 diabetes mellitus with hemoglobin A1c goal of less than 8.0% (HCC) Expected: 07/21/2023 (Approximate), Expires: 07/20/2024 CBC WITH WBC DIFFERENTIAL Lab Routine Essential hypertension with goal blood pressure less than 140/90 Coronary artery disease involving alatna coronary artery of alatna heart without angina pectoris Expected: 07/21/2023 (Approximate), Expires: 07/21/2024 BASIC METABOLIC PANEL Lab Routine Type 2 diabetes mellitus with hemoglobin A1c goal of less than 8.0% (HCC) Expected: 07/21/2023 (Approximate), Expires: 07/20/2024 Scheduled Procedures Name Priority Associated Diagnoses Date/Ti me L-/S-SPINE PARAVERTEBRAL FACET INJ, 1 LEVEL Spondylosis of lumbosacral region without myelopathy or radiculopathy 09/25/2023 8:25 AM EDT L-/S-SPINE PARAVERTEBRAL FACET INJ, 2 LEVELS Spondylosis of lumbosacral region without myelopathy or radiculopathy 09/25/2023 8:25 AM EDT Health Maintenance Due Date Last Done Comments Hepatitis B (1 of 3 - Risk 3-dose series) 2002 Albumin/Creatinine Ratio 08/02/2023 023, 08/13/2021, 01/05/2017, Additional history exists DTaP,Tdap,and Td Vaccines (2 - Td or Tdap) 09/05/2023 09/04/2013 Diabetic Foot Exam 09/20/2023 09/19/2022, 0 12/17/2021, 12/09/2020, Additional history exists HbA1c 09/28/2023 03/30/2023, 12/02, 08/02/2022, Additional history exists B-12 03/30/2024 03/30/2023, 08/0 01/2023, 12/28/2022, Additional history exists GFR 04/10/2024 04/10/2023, 03/04, 02/07/2023, Additional history exists Diabetic Eye Exam 05/10/2024 05/10/2023, , 04/11/2022, Additional history exists Depression Screening 07/21/2024 07/21/2023, 08/17/2017 (Course Completed) DXA Scan 07/20/2026 07/20/2022, 08/03, 04/10/2015 Pneumococcal [...] hemoglobin A1c goal of less than 8.0% (HCC)- Primary PSVT (paroxysmal supraventricular tachycardia) Paroxysmal supraventricular tachycardia Sacroiliitis, not elsewhere classified (HCC) Sacroiliitis, not elsewhere classified Essential hypertension with goal blood pressure less than 140/90 Coronary artery disease involving alatna coronary artery of alatna heart without angina pectoris Dyslipidemia, goal LDL [...] (Cyanocobalamin) inj 1,000 mcg 1,000 mcg, Intramuscular, [id number], First dose on Pham 12/29/22 at 1530, Last dose on Pham 11/02/23 at 1530, For 12 doses Given 07/21/2023 9:59 AM EST 1,000 mcg Deltoid Right Upper Given 03/30/2023 9:04 AM EDT 1,000 mcg Ar m Right Upper Given 03/02/2023 8:51 AM EDT 1,000 mcg Ar m Left Upper documented in this encounter Advance Directives Documents on File Type Date Recorded Patient Recycling Coordinator Expl anation Advance Directives and Livin g [...] Advance Directives occurred with: Patient Care Teams Quill Machine Operator Relationship Specialty Start Date End Date Domo Pool DO [address] [facility] [place], [place] [address] PCP - General Internal Medicine 01/19/22 documented as of this encounter"
--- OUTSIDE RECORDS SUMMARY | 2023-09-29 09:14 | External Medical Summary ---
Author Name Unknown Address Unknown Organization [id number]:[facility] [place] [address] [place] [address] Laboratory Report Ordering Provider Test Date Status SANA [place] 07/21/2023 10:31:10 Final Normal: <30 mg/g creatinine< br/>High: 30-300 mg/g creatinine
Very High: >300 mg/g creatinine
Nephrotic: >2200 mg/g creatinine Observation Date Value Abnormality Reference (Units ) Status Albumin, Urine 07/21/2023 10:31:10 3.83 (mg/dL) Final Creatinine, Urine 07/21/2023 10:31:10 176 (mg/dL) Final Albumin/Creatinine [Mass Ratio] in Urine 07/21/2023 10:31:10 22 <30 (mg/g Creat) Final Performing Location [facility] [place] [address] [place] [address]
--- OUTSIDE RECORDS SUMMARY | 2023-09-29 09:14 | External Medical Summary | Summary of Care ---
Author Name Unknown Organization [facility] Address [address] [place] [address] Phone [phone] Care Team Providers Care Geotechnical Intern Name Role Phone Domo Pool DO Primary Care Provider [phone] Reason for Visit * Reason Comments Medical Nutrition Therapy Encounter Details Date Type Department Care Team (Late st Contact Info) Description 07/21/2023 10:00 AM EST Nutrition Services Nutrition Services 65 [facility] 293 [place] [address] Araseli Vale RDN [facility] [place] [address] Arrived Allergies Active Allergy Reactions Criticality Noted [...] by mouth in the morning. 0 Active LiPlasome PharmaTouch Verio w/Device Kit Use as directed . Use to test blood sugar once daily 1 Kit 0 01/20/2022 Active Vitamin C 500 MG Oral Capsule Take 1 Capsule by mouth every evening. 0 Active LiPlasome PharmaTouch UltraSoft LancetsIndications :Type 2 diabetes mellitus with hemoglobin A1c goal of less than 7.0% ([facility]) Use to check blood [...] A1c goal of less than 7.0% ([facility]),Cerebrovascu lar disease, arteriosclerotic, post-stroke [...] A1c goal of less than 7.0% ([facility]) USE TO CHECK BLOOD [...] once a week. - gets from the long term care phlebotomist! 0 04/03/2023 Active Miconazole Nitrate 2 % External Cream (Monistat Derm) Apply to skin folds as directed 0 Active Nystatin 685728 UNIT/GM External Powder (Nystop) Apply topically to [...] mcgIndications:Vitamin B 12 deficiency 1000 mcg IM [id number] 12/29/2022 11/30/2023 Active documented as of this encounter (statuses as of 07/21/2023) Active Problems Problem Noted Date Diagnosed Date Stress due to illness of family member 4 Drug-induced hyperkalemia 04/11/2023 Overview: [facility] Food insecurity 04/10/2023 Overview: Per [facility] Protocol Vitamin B 12 deficiency [...] 2017 Coronary artery disease invo lving [place] coronary artery of [place] heart without angina pectoris 10/17/2017 Dyslipidemia, goal [...] mRNA, LNP-s, No Pre serve, 2-Dose Series ([employer]) 06/03/2021,09/30/2020,09/04/2020 COVID-19, MRNA-LNP, 23-24, P F, 30 MCG/0.3 mL, 12 YRS AND ABOVE, IM (WatchParty-ComirnatApokalyyis) 07/21/2023 Covid-19, Mrna, Lnp-s, Pf, B ivalent, [...] Sign Reading Time Taken Comments Blood Pressure - - Pulse - - Temperature - - Respiratory Rate - - Oxygen Saturation - - Inhaled Oxygen Concentration - - Weight 66.2 kg (146 lb) 07/21/2023 9:55 AM EST Height 163.2 cm (5' 4.25") 07/21/2023 9:55 AM ES T Body Mass Index 24.87 07/21/2023 9:55 AM EST documented in this encounter Functional [...] this encounter Patient Instructions * Patient Instructions* Araseli Vale RDN - 07/21/2023 10:21 AM EST Current Goals: Discussed the following goals with patient who agrees to the following: Choose to add pakistani yogurt (Oikes Triple Zero or equivalent) and sugar free chocolate pudding to increase protein intake documented in this encounter Progress Notes * Araseli Vale RDN - 07/21/2023 9:44 AM EST NUTRITION FOLLOW-UP NOTE - [address] [place] [address] Name: Dyana Menard Location: NUTRITION SERVICES [address] [place] [address] Date: 07/21/2023 Time: 9:44 AM Patient location: [address] [place] [address] Clinic. Patient was seen [id number] in the clinic. Patient was verified with two unique identifiers. Reason for Nutrition Follow-up: Type 2 Diabetes NUTRITION ASSESSMENT: Client History Patient reports she and spouse were sick with a virus over the holidays. Patient stated "I just don't care any more. Dell get mad at me for everything." Patient expressed frustration with not being able help her daughter with ALS. Patient with limited intake of meats as she continues to await her new dentures. Patient has made limited progress towards the following goals: Choose to eat 3 meals/day. Support System: Spouse Barriers to Learning: None Special Education Needs: None Food/Nutrition-Related History Describes typical diet history/24 hr recall Breakfast: cheerios and coffee Lunch:cottage cheese with fruit; flavored water Dinner: spouse prepared, scalloped potatoes and ham---patient could not eat the ham because of ill-fitting dentures---so she had a 1/2 cup fruit and scrambled eggs; flavored water Snacks: cookies and coffee Drinks: coffee, flavored water, 1% milk Restaurant meals: rare Diet Recall/Food Logs Indicate: AREAS FOR IMPROVEMENT: Inconsistent carbohydrate intake Inadequate fruit and vegetable intake Inadequate protein intake POSITIVE: Portion control Food and Nutrient Intake and other pertinent information: Continues to get food from office of aging every Monday---but is having difficulty chewing meats and certain vegetables; receiving food assistance from the community. Physical Activity: coming to [employer] 2 times/week Medications Changes/Updates: Current Outpatient Medications Medication Sig Dispense Refill Aspirin 81 MG Tablet Take 1 Tablet by mouth in the morning. Cholecalciferol (VITAMIN D) 1000 UNIT Capsule Take 1 Capsule by mouth in the morning. traMADol HCl 50 MG Oral Tablet (Ultram) Take 1 Tab by mouth every 6 hours as needed (for back pain). (Patient not taking: Reported on 07/13/2023) 60 Tab 0 Polyethylene Glycol 3350 17 [...] 1 Capsule by mouth in the morning. [employer] Verio w/Device Kit Use as directed . Use to test blood sugar once daily 1 Kit 0 Vitamin C 500 MG Oral Capsule Take 1 Capsule by mouth every evening. LiPlasome PharmaTouch UltraSoft Lancets Use to check blood sugar once daily as directed 100 Each 3 Acetaminophen ER 650 MG Oral Tablet Extended Release Take 2 Tablets by mouth at bedtime as needed (hip pain). (Patient not taking: Reported on 07/21/2023) Meclizine HCl 25 MG Oral Tablet (Antivert) TAKE 1 TABLET BY MOUTH 3 TIMES DAILY NEEDED FOR DIZZINESS Strength: 25 mg 30 Tablet 3 Cetirizine HCl 10 MG Oral Tablet (ZyrTEC) [...] BY MOUTH EVERY MORNING IN ADDITION TO [id number] TABLET 100 Tablet 3 Pantoprazole Sodium 20 [...] NEEDED FOR MUSCLE SPASMS, 270 Tablet 3 OneTouch Verio In Vitro Strip (Glucose Blood) USE TO CHECK BLOOD SUGAR ONCE DAILY DIRECTED 100 Strip 3 Atenolol 50 MG Oral Tablet (Tenormin) [...] once a week. - gets from the long term care phlebotomist! Miconazole Nitrate 2 % External Cream (Monistat Derm) Apply to skin folds as directed Nystatin 641597 UNIT/GM External Powder (Nystop) Apply topically to affected area 3 times a day. Apply to skin folds 60 g 0 traZODone HCl 50 MG Oral Tablet (Desyrel) Take 1 Tablet by mouth at bedtime. 90 Tablet 1 Current Facility-Administered Medications Medication Dose Route Frequency Provider Last Rate Last Admin vitamin b-12 (Cyanocobalamin) inj 1,000 mcg 1,000 mcg Intramuscular Q4 Weeks Domo Pool DO 1,000 mcg at 03/30/23 0904 Nutrition-Focused Physical Findings Overall appearance: WNWD, thin extremities Fluid accumulation: Fluid Assessment: Normal Fluid Location: N/A Fluid Description: N/A Digestive system: Appetite: fair, Complete dentures Nerves and cognition: Awake, alert and Oriented Anthropometric Measurements Current Weight: Wt Readings from Last 1 Encounters: 07/21/23 66.2 kg (146 lb) Wt Readings from Last 4 Encounters: 07/21/23 66.2 kg (146 lb) 07/21/23 66.2 kg (146 lb) 05/23/23 64.9 kg (143 lb) 04/05/23 64 kg (141 lb) Weight Change: increased by 5 pounds in the past 3 months (has winter clothes/boots on) BMI Readings from Last 1 Encounters: 07/21/23 24.87 kg/m Biochemical Data, Medical Tests, and Procedures Labs drawn today, No current pertinent labs since last visit. Self-Monitoring Blood Glucose Source of Information: Participant verbally reviewed from memory Frequency of tests: once daily Summary: 140-160; remains on 0.5 mg weekly of Ozempic Hypoglycemia?: No Hemoglobin AIC Results: Lab Results Component Value Date/Time HEMOGLOBIN A1C - [facility] 7.7 (H) 03/30/2023 09:24 AM HEMOGLOBIN A1C - [facility] 6.8 (H) 12/28/2022 10:19 AM HEMOGLOBIN A1C - [facility] 6.2 (H) 08/02/2022 02:06 PM HEMOGLOBIN A1C - [facility] 7.4 (H) 05/08/2020 12:58 PM HEMOGLOBIN A1C - [facility] 8.3 (H) 02/15/2020 07:40 AM HEMOGLOBIN A1C - [facility] 7.4 (H) 10/28/2019 08:11 AM Previous Nutrition Diagnosis: Inconsistent carbohydrate intake related to Poor meal distribution as evidenced by Reported diet and/or activity recall. CURRENT NUTRITION DIAGNOSIS Suboptimal protein intake related to difficulty chewing and ill-fitting dentures as evidenced by Reported diet and/or activity recall. NUTRITION INTERVENTION: NUTRITION EDUCATION Comprehensive nutrition education NUTRITION COUNSELING Strategies Motivational Interviewing Diabetes Standards of Care: Care Gaps have been addressed with other members of [address] [place] [address] Care Team Nutrition Prescription: Diet: 2000 mg Sodium Consistent Carbohydrate Heart Healthy Low Fat/Low Cholesterol Mandie Trevinoor: Mandie Corey (Female): 1345.45 (07/21/23 0955) Daily Calorie Needs: 1400 Kcals Daily Protein Needs: 53-66 Grams protein Current Goals: Discussed the following goals with patient who agrees to the following: Choose to add pakistani yogurt (Oikes Triple Zero or equivalent) and sugar free chocolate pudding to increase protein intake Dietitian Action: Discussed sources of lean proteins to add to diet/intake Provided examples of soft, high proteins snacks Discussed adding a protein source to each meal Offered emotional support for all patient is going through at this time Recommendations to Ordering Provider: Continue current plan of nutrition care. NUTRITION MONITORING AND EVALUATION: The following will be monitored and evaluated at the next visit: Monitor weight. Monitor labs. Monitor goals and progress. Plan: Patient scheduled to return in 4 months; dietitian phone # given for future reference. 30 minutes Medical Nutrition Therapy Araseli Vale RDN 07/21/2023 9:44 AM NUTRITION SERVICES [address] [place] [address] documented in this encounter Plan of Treatment Upcoming Encounters Date Type Department Care Team (Latest Contact Info) Description 07/21/2023 11:00 AM EST Office Visit Family Practice [address] [place] [address] 293 [facility], [place] [address] [employer], [employer] [facility] Prac [address] [place], [place] [address] [address] Arrived 09/25/2023 8:25 AM EDT Hospital Encounter OR [facility], Operating Room [facility] [address] [place] [phone] Brayan Mares, [address] [place] [phone] 09/25/2023 8:25 AM EDT - 09/25/2023 8:50 AM EDT Surgery OR [facility], Operating Room [facility] [address] [place] [phone] Brayan Mares, DO [address] [place] [phone] L-/S-SPINE PARAVERTEBRAL FACET INJ, 1 LEVEL 11/20/2023 10:00 AM EDT Office Visit Family Practice [address] [place] [address] 293 [place] [phone] Domo Pool, DO [address] [facility] [facility] [place], [place] [address] 11/21/2023 8:45 AM EDT Office Visit Otolaryngology 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
--- OUTSIDE RECORDS SUMMARY | 2023-09-29 09:14 | External Medical Summary ---
Author Name Unknown Address Unknown Organization [id number]:[facility] [place] [address] [facility] [address] Laboratory Report Ordering Provider Test Date Status SANA WASHINGTON 07/21/2023 09:55:41 Final Observation Date Value Abnormality Reference (Units ) Status HbA1C 07/21/2023 09:55:41 7.4 Above high normal 4. 0-5.6 (%) Final The use of HbA1c to monitor glycemic status is based on normal hemoglobin and HbA composition. This test should not be used in patients with abnormal hemoglobin that affects the half life of the red blood cell or the in vivo glycation rates. Glucose, estimated average 07/21/2023 09:55:41 166 Above high normal <126 (mg/dL) Pantera nava Performing Location [facility] [place] [address] [facility] [address]
--- OUTSIDE RECORDS SUMMARY | 2023-09-29 09:14 | External Medical Summary ---
Author Name Unknown Address Unknown Organization [id number]:[facility] [place] - [facility] [address] [facility] [address] Laboratory Report Ordering Provider Test Date Status SANA WASHINGTON 07/21/2023 09:55:41 Final Observation Date Value Abnormality Reference (Units ) Status WBC, Total 07/21/2023 09:55:41 8.64 4.00-10.80 (K/uL) Final RBC 07/21/2023 09:55:41 4.09 3.85-5.15 (M/uL) Final Hemoglobin 07/21/2023 09:55:41 11.9 Below low normal 12.0-15.3 (g/dL) Final HCT 07/21/2023 09:55:41 38.8 36.0-45.2 (%) Final MCV 07/21/2023 09:55:41 94.9 81.5-97.5 (fL) Final MCH 07/21/2023 09:55:41 29.1 27.0-34.0 (pg) Final MCHC 07/21/2023 09:55:41 30.7 32.0-36.0 (g/dL) Final RDW 07/21/2023 09:55:41 13.9 11.5-15.5 (%) Final Platelets 07/21/2023 09:55:41 235 140-400 (K/uL) Final MPV 07/21/2023 09:55:41 11.4 6.6-11.1 (fL) Final Nucleated erythrocytes/100 leukocytes [Ratio] in Blood by Automated count 07/21/2023 09:55:41 0 <=0 (/100 WBCs) Final Performing Location [facility] [place] - [address] [place] [address]
--- OUTSIDE RECORDS SUMMARY | 2023-09-29 09:14 | External Medical Summary | Summary of Care ---
Author Name Unknown Organization [facility] Address [address] [place] [address] Phone [phone] Care Team Providers Care Drive In Theater Attendant Name Role Phone Domo Pool DO Primary Care Provider [phone] Reason for Visit * Reason Comments Follow Up Encounter Details Date Type Department Care Team (Latest Contact Info) Description 07/21/2023 8:40 AM EST Office Visit Family Practice [address] [place] [address] 293 [place] [address] Domo Pool 293 [place] [address] Type 2 diabetes mellitus with hemoglobin A1c goal of less than 8.0% ([facility])*; PSVT (paroxysmal supraventricular tachycardia); Sacroiliitis, not elsewhere classified (HCC); Essential hypertension with goal blood pressure less than 140/90; Coronary artery disease involving [place] coronary artery of [place] heart without angina pectoris; Dyslipidemia, goal LDL [...] by mouth in the morning. 0 Active Cam-Trax TechnologiesTouch Verio w/Device Kit Use as directed . Use to test blood sugar once daily 1 Kit 0 01/20/2022 Active Vitamin C 500 MG Oral Capsule Take 1 Capsule by mouth every evening. 0 Active Cam-Trax TechnologiesTouch UltraSoft LancetsIndications :Type 2 diabetes mellitus [...] goal of less than 7.0% ([facility]) USE TO CHECK BLOOD SUGAR [...] a week. - gets from the lead shipper! 0 04/03/2023 Active Miconazole Nitrate 2 % External Cream (Monistat Derm) Apply to skin folds as directed 0 Active Nystatin 296452 UNIT/GM External Powder (Nystop) Apply topically to [...] mcgIndications:Vitamin B 12 deficiency 1000 mcg IM [id number] 12/29/2022 11/30/2023 Active documented as of this [...] cervical 2017 Coronary artery disease invo lving [place] coronary artery of [place] heart without angina pectoris 10/17/2017 Dyslipidemia, goal [...] mRNA, LNP-s, No Pre serve, 2-Dose Series ([employer]) 06/03/2021,09/30/2020,09/04/2020 COVID-19, MRNA-LNP, 23-24, P F, 30 MCG/0.3 mL, 12 YRS AND ABOVE, IM (Sportlobster-Comirnat) 07/21/2023 Covid-19, Mrna, Lnp-s, Pf, B ivalent, [...] times. Repeat this throughout the day. Jose AlfredoMy Team Zone Patient Education Copyright 2009 - 2010 Rishi [...] disease), cervical M50.30 Coronary artery disease involving [place] coronary artery of [place] heart without angina pectoris I25.10 Iron deficiency [...] BY MOUTH EVERY MORNING IN ADDITION TO [id number] TABLET 100 Tablet 3 Pantoprazole Sodium 20 [...] a week. - gets from the lead shipper! Miconazole Nitrate 2 % External Cream (Monistat Derm) Apply to skin folds as directed Nystatin 928767 UNIT/GM External Powder (Nystop) Apply topically to [...] taking: Reported on 07/13/2023) 60 Tab 0 Cam-Trax TechnologiesTouch Verio w/Device Kit Use as directed . Use to test blood sugar once daily 1 Kit 0 Cam-Trax TechnologiesTouch UltraSoft Lancets Use to check blood sugar [...] 1,000 mcg 1,000 mcg Intramuscular Q4 Weeks Doom Pool DO 1,000 mcg at 03/30/23 0904 [...] performed by Riaz Hanson MD at ENDOSCOPY [facility] COLONOSCOPY, DIAGNOSTIC (RECTUM) 02/03/2016 normal, repeat 5 yrs/COLONOSCOPY FLEXIBLE PROXIMAL DIAGNOSTIC performed by Debbie Gordon DO at [facility] COLONOSCOPY, DIAGNOSTIC (RECTUM) 05/11/2020 adenomatous polyp, diverticulosis / COLONOSCOPY FLEXIBLE PROXIMAL DIAGNOSTIC performed by Samy Roe MD at ENDOSCOPY [facility] DESTROY LUMBAR SACRAL NERVE IMAGING SINGLE 04/24/2017 DESTROY LUMBAR SACRAL NERVE IMAGING SINGLE performed by Dez Arevalo DO at [facility] DESTROY LUMBAR SACRAL NERVE IMAGING SINGLE 02/15/2018 DESTROY LUMBAR SACRAL NERVE IMAGING SINGLE performed by Dez Arevalo DO at [facility] DESTROY LUMBAR SACRAL NERVE IMAGING SINGLE 01/18/2023 DESTROY LUMBAR SACRAL NERVE IMAGING SINGLE performed by Dez Arevalo DO at [facility] EGD, FLEXIBLE, DIAGNOSTIC 09/17/2012 biopsies--intestinal metaplasia EGD, FLEXIBLE, DIAGNOSTIC 02/03/2016 mild gastritis, sm HH/ESOPHAGOGASTRODUODENOSCOPY (EGD), FLEXIBLE, TRANSORAL, DIAGNOSTIC performed by Debbie Gordon DO at [facility] EGD, FLEXIBLE, DIAGNOSTIC 05/11/2020 normal bx / ESOPHAGOGASTRODUODENOSCOPY (EGD), FLEXIBLE, TRANSORAL, DIAGNOSTIC performed by Samy Quintana MD at [facility] EGD, FLEXIBLE, TRANSENDOSCOPIC DILATION <30MM 03/04/2014 ESOPHAGOGASTRODUODENOSCOPY (EGD), FLEXIBLE, TRANSORAL, BALLOON DILATION LESS THAN 30MM performed byRiaz Hanson MD at ENDOSCOPY [facility] INFORMATION Pin in right hip for chronic dislocation INFORMATION 02/07/2014 needle loc parial mastectomy/lumpectomy with oncoplastic closure and right axilla sentinel lymph node biopsy [facility] 02/07/14 w[place]h sisbassem L-/S-SPINE PARAVERTEBRAL FACET INJ,1 [...] performed by Dez Arevalo, DO at OR [facility] PARTIAL REMOVAL OF COLON 06/11/2012 06/11/2012 Laparoscopic hand-assisted sigmoid colon resection,laparoscopic mobilization of the splenic flexure Dr Hanson [facility]06/11/12 REMOVE GALLBLADDER SACROILIAC JOINT INJECT W/GUIDANCE 04/05/2018 [...] hemoglobin A1c goal of less than 8.0% ([facility]) (Primary) - HEMOGLOBIN A1C; Future; Expected date: 07/21/2023 - ALBUMIN / CREATININE RATIO, URINE; Future; Expected date: 07/21/2023 - BASIC METABOLIC PANEL; Future; Expected date: 07/21/2023 Continue Ozempic and Metformin PSVT (paroxysmal supraventricular tachycardia) Continue Atenolol Sacroiliitis, not elsewhere classified ([facility]) Continue to follow with Pain Management Continue Gabapentin and Cyclobenzaprine Essential hypertension with goal blood pressure less than 140/90 - CBC WITH WBC DIFFERENTIAL; Future; Expected date: 07/21/2023 Coronary artery disease involving [place] coronary artery of [place] heart without angina pectoris - CBC WITH [...] PF, 23-24, 30MCG/0.3ML, IM, 12YRS AND ABOVE ([employer]) Follow Up: Return in about 4 months [...] AM EST Office Visit Family Practice [address] [address] [employer], [employer] [facility] [facility] [address] [address] Arrived 09/25/2023 8:25 AM EDT Hospital Encounter OR [facility], Operating Room [facility] [address] [place] [phone] Brayan Mares, DO [address] [place] [phone] 09/25/2023 8:25 AM EDT - 09/25/2023 8:50 AM EDT Surgery OR [facility], Operating Room [facility] [address] [place] [phone] Brayan Mares, DO [address] [place] [phone] L-/S-SPINE PARAVERTEBRAL FACET INJ, 1 LEVEL 11/20/2023 10:00 AM EDT Office Visit Family Practice [address] [place] [address] 293 [place] [address] Domo Pool, DO 293 [place] [address] 11/21/2023 8:45 AM EDT Office Visit Otolaryngology [facility] [address] [place] [address] Gautam Morgan, DO [address] [place] [address] Pending Results Name Type Priority Associated Diagnoses Date /Time VITAMIN B12 Lab Routine Vitamin B 12 deficiency 07/21/2023 9:55 AM EST HEMOGLOBIN A1C Lab Routine Type 2 diabetes mellitus with hemoglobin A1c goal of less than 8.0% ([facility]) 07/21/2023 9:55 AM EST LIPID [...] less than 140/90 Coronary artery disease involving [place] coronary artery of [place] heart without angina pectoris 07/21/2023 9:55 AM EST BASIC METABOLIC PANEL Lab Routine Type 2 diabetes mellitus with hemoglobin A1c goal of less than 8.0% (HCC) 07/21/2023 9:55 AM EST CBC Lab Routine Essential hypertension with goal blood pressure less than 140/90 Coronary artery disease involving [place] coronary artery of [place] heart without angina pectoris 07/21/2023 9:55 AM EST DIFFERENTIAL, AUTOMATED Lab Routine Essential hypertension with goal blood pressure less than 140/90 Coronary artery disease involving [place] coronary artery of [place] heart without angina pectoris 07/21/2023 9:55 AM [...] less than 140/90 Coronary artery disease involving [place] coronary artery of [place] heart without angina pectoris Expected: 07/21/2023 (Approximate), [...] less than 140/90 Coronary artery disease involving [place] coronary artery of [place] heart without angina pectoris Dyslipidemia, goal LDL [...] (Cyanocobalamin) inj 1,000 mcg 1,000 mcg, Intramuscular, [id number], First dose on Pham 12/29/22 at 1530, Last dose on Pham 11/02/23 at 1530, For 12 doses Given 07/21/2023 9:59 AM EST 1,000 mcg Deltoid Right Upper Given 03/30/2023 9:04 AM EDT 1,000 mcg Ar m Right Upper Given 03/02/2023 8:51 AM EDT 1,000 mcg Ar m Left Upper documented in this encounter Advance Directives Documents on File Type Date Recorded Patient Ribber Expl anation Advance Directives and Livin g [...] Advance Directives occurred with: Patient Care Teams Drive In Theater Attendant Relationship Specialty Start Date End Date Domo Pool DO [address] [facility], [place] [address] PCP - General Internal Medicine 01/19/22 documented as of this encounter"
--- OUTSIDE RECORDS SUMMARY | 2023-09-29 09:14 | External Medical Summary ---
Author Name Unknown Address Unknown Organization K01:[facility] [place] [address] [facility] [place] [address] Laboratory Report Ordering Provider Test Date Status SANA WASHINGTON 07/21/2023 09:55:41 Final Observation Date Value Abnormality Reference (Units ) Status SYNC LEUKOCYTES IN BLOOD BY AUTOMATED COUNT 07/21/2023 09:55:41 8.64 4.00-10.80 (K/uL) Final Segs 07/21/2023 09:55:41 69.1 40.0-75.0 (%) Final Lymphs % 07/21/2023 09:55:41 20.0 18.0-42.0 (%) Final Monos 07/21/2023 09:55:41 7.6 1.0-11.0 (%) Final Eosinophils 07/21/2023 09:55:41 2.3 0.0-6.0 (%) Final Basos 07/21/2023 09:55:41 0.7 0.0-2.0 (%) Final Immature Granulocyte, Percent 07/21/2023 09:55:41 0.3 0.0-2.0 (%) Final Absolute Segs 07/21/2023 09:55:41 5.96 1.80-7.70 (K/uL) Final Lymphs, absolute 07/21/2023 09:55:41 1.73 1.00-4.80 (K/ul) Final Monos, Abs 07/21/2023 09:55:41 0.66 0.00-1.10 (K/uL) Final Eos, Abs 07/21/2023 09:55:41 0.20 0.00-0.70 (K/uL) Final Basos, Abs 07/21/2023 09:55:41 0.06 0.00-0.20 (K/uL) Final Immature Granulocytes, Number 07/21/2023 09:55:41 0.03 0.00-0.20 (K/uL) Final Performing Location LAB[facility]ORY [facility] [place] [address] [facility] [place] [address]
--- OUTSIDE RECORDS SUMMARY | 2023-09-29 09:15 | External Medical Summary | Summary of Care ---
Author Name Unknown Organization [facility] Address [address] [facility] [place] [address] Phone [phone] Care Team Providers Care Rawhide Bone Roller Name Role Phone Domo Pool DO Primary Care Provider [phone] Reason for Visit * Reason Comments Back Pain Encounter Details Date Type Department Care Team (Late st Contact Info) Description 07/13/2023 11:00 AM EST Office Visit Interventional Pain Center, [facility] [address] [place] [address] Brayan Mares DO [address] [place] [address] Spondylosis of lumbosacral region without myelopathy or radiculopathy*; Chronic bilateral low back pain without sciatica Allergies Active Allergy Reactions Criticality Noted Date Comments Amoxicillin Bleeding High 04/27/2015 Amoxicillin-Pot Clavulanate 09/05/19 14 tary stools documented as of this encounter (statuses as of 07/13/2023) Medications Medication Sig Dispensed Refills Start Date [...] by mouth in the morning. 0 Active CivilisedMoneyTouch Verio w/Device Kit Use as directed . [...] MORNING 100 Tablet 3 12/28/2022 12/28/2023 Active traZODone HCl 50 MG Oral Tablet (Desyrel)Indicatio ns:Primary insomnia TAKE ONE TABLET BY MOUTH AT BEDTIME 100 Tablet 1 12/18/2022 12/18/2023 Active Atorvastatin Calcium 80 MG Oral Tablet [...] once a week. 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 0 04/03/2023 Active Miconazole Nitrate 2 % External Cream (Monistat Derm) Apply to skin folds as directed 0 Active Nystatin [id number] UNIT/GM External Powder (Nystop) Apply topically to affected area 3 times a day. Apply to skin folds 60 g 0 06/30/2023 Active Hospital, Clinic, or Other Facility Administered Medication Ordered Dose Route Frequency Start Date End Date Status vitamin b-12 (Cyanocobalamin) inj 1,000 mcgIndications:Vitamin B 12 deficiency 1000 mcg IM [id number] 12/29/2022 11/30/2023 Active documented as of this encounter (statuses as of 07/13/2023) Active Problems Problem Noted Date Diagnosed Date Drug-induced hyperkalemia 04/11/2023 Overview: LISINOPRIL Food insecurity [...] cervical 2017 Coronary artery disease invo lving [place] coronary artery of [place] heart without angina pectoris 10/17/2017 Dyslipidemia, goal LDL below 70 11/13/2015 PSVT (paroxysmal supraventricular tachycardia) 0 10/14/2015 Essential hypertension with goal blood pressure less than 140/90 09/18/2014 Cerebrovascular disease, arteriosclerotic, post- stroke 07/21/2009 documented as of this encounter (statuses as of 07/13/2023) Resolved Problems Problem Noted Date Diagnosed Date [...] as of this encounter (statuses as of 07/13/2023) Immunizations Name Administration Dates Next Due COVID-19 mRNA, LNP-s, No Pre serve, 2-Dose Series (Pfizer) 06/03/2021,09/30/2020,09/04/2020 Covid-19, Mrna, Lnp-s, Pf, B ivalent, 30 [...] as of this encounter Progress Notes * Brayan Mares, - 07/13/2023 11:22 AM EST Interventional Pain Follow-up Appointment Subjective: Chief Complaint: Chief Complaint Patient presents with Back Pain History of Present Illness: Dyana Menard is a 82 year old year-old female with a past medical history significant for chronic lower back pain who recently underwent bilateral SIJ injections with Dr. Arevalo. Have worked previously, did not improve her pain this time. She felt like she had initial relief while in-office forher injection but that she went home and this wore off and she got no relief after that time. She received excellent relief following her bilateral L4 and L5 ablation that lasted until recentlybut her relief was cut short by a fall which caused the pain to return. She estimates that this caused the pain to gradually return, estimates approximately 3-4 months of total relief before return to baseline. The pain is located in the lower back, and it does not radiate. She describes it as a dull, achy and sharp painful sensation. Aggravating factors include: laying flat, walking, arising from a seated position, prolonged sitting. Alleviating factors include: gabapentin. The pain is present nearly 100% of time. Her current pain score is 7/10. Her pain at its least is 5 / 10. Her worst pain is 9 / 10. Denies weakness. Denies numbness. Denies bowel or bladder incontinence. Denies symptoms of saddle anesthesia. Denies fevers/chills/night sweats. Denies unintentional weight loss. Review of Systems: A focused 12-pt ROS were of reviewed with the patient including difficulty with sleep, snoring, aspiration history, dysphagia, stomach pain, nausea and vomiting, severe headaches, confusion, open skin lesions or wounds, chest pain, shortness of breath, excessive thirst, somnolence, dysuria, incomplete bladder emptying, easy bruising, recent clotting problems or bleeding, depression or rushed thoughts unless noted previously. Allergies, Medications, Past Medical History, Past Surgical History reviewed and documented in [facility]. See detailed report if needed. Pertinent Labs/Test Results: INR ( ) Date Value 10/14/2015 0.92 No results found for: "CREATININE" Hemoglobin A1C (%) Date Value 03/30/2023 7.7 (H) 05/08/2020 7.4 (H) Lab Results Component Value Date/Time AMPHETAMINES - [facility] NEGATIVE 04/27/2015 04:20 PM BARBITURATES - [facility] NEGATIVE 04/27/2015 04:20 PM BENZODIAZEPINES - [facility] NEGATIVE 04/27/2015 04:20 PM METHADONE METABOLITE NEGATIVE 04/27/2015 04:20 PM OXYCODONE NEGATIVE 04/27/2015 04:20 PM CANNABINOIDS - [facility] NEGATIVE 04/27/2015 04:20 PM Imaging: Personally reviewed Dr. Irina FONTENOT and RFA procedural images for approximately 10 mins. FLUORO INTERVENTIONAL PAIN PROCEDURE NONBILLABLE This procedure will not be read by a Radiologist. Please see operative note. Objective Physical Exam: Vital Signs: There were no vitals taken for this visit. There is no height or weight on file to calculate BMI. General: No apparent distress. Eyes: pupils equal and round, sclera white, pupils midsize. ENT: mucous membranes moist Resp: Non-labored breathing CV: Extremities warm and well-perfused. Psych: Oriented; affect warm, insight good. Skin: No rashes or lesions appreciated on exposed skin Neuromuscular Exam: Inspection: Rises from a seated position without difficulty. There is not evidence of erythema, edema in the extremities. Gait: Ambulates unassisted; gait is antalgic. Palpation: Palpation does reveal midline lumbar tenderness; There is lumbar paraspinal tenderness bilaterally regions. Trigger points were not identified. PSIS tenderness: none GTB tenderness: none Spine range of motion: There is pain with lumbar extension There is pain with lumbar oblique extension to the right There is pain with lumbar oblique extension to the left There is not pain with lumbar flexion Range of motion is grossly intact at the hips, knees and ankles bilaterally. Motor: Motor strength exam reveals: Lower extremities: Right Left Hip flexion: L1,L2,L3 5/5 5/5 Add hips: L2L3 5/5 5/5 Knee flexion: S1 5/5 5/5 Knee extension: L3,L4 5/5 5/5 Dorsiflexion: L4,L5 5/5 5/5 Plantarflexion: S1 5/5 5/5 EHL: L5 5/5 5/5 Sitting straight leg test Negative on the right Negative on the left. Assessment: Dyana is a 82 year old year-old female with: Spondylosis of lumbosacral region without myelopathy or radiculopathy (Primary) - L-/S-SPINE PARAVERTEBRAL FACET INJ,1 LEVEL; Future; Expected date: 07/14/2023 - L-/S-SPINE PARAVERTEBRL FACET INJ,2 LEVELS; Future; Expected date: 07/14/2023 Chronic bilateral low back pain without sciatica - L-/S-SPINE PARAVERTEBRAL FACET INJ,1 LEVEL; Future; Expected date: 07/14/2023 - L-/S-SPINE PARAVERTEBRL FACET INJ,2 LEVELS; Future; Expected date: 07/14/2023 Plan: Pt states she got great relief with Dr. Arevalo' RFA but that it only lasted approximately 3-4 months. I recommended to her that we repeat the diagnostic procedure but to include blocking the L4/5 facet joints. Scheduled for bilateral L3,4,5 medial branch blocks under XR guidance. The risks, benefits and alternatives to the procedure were reviewed at length and the patient was provided the opportunity to ask questions which were answered to their voiced understanding. Following this comprehensive discussion, the patient opted to proceed. The patient was advised that they will require a tour bus driver. Pre-procedural handout provided. Medical Decision Making I spent 35 minutes reviewing the patient's prior visit office notes, procedure notes, images, conducting the history and physical examination, formulating a care plan, considering interventional options, drafting orders and medication prescriptions as well as recording the medical documentation. Brayan Mares DO [facility], [address] [address] documented in this encounter Nursing Notes * Basia Flores LPN - 07/13/2023 11:02 AM EST Patient reports no improvement after b/l SI injections with Still has pain in low back, does not radiate into lower ext Worse with standing at the sink doing dishes, vacumming documented in this encounter Plan of Treatment Upcoming Encounters Date Type Department Care Team (Latest Contact Info) Description 07/14/2023 11:00 AM EST Office Visit Family Practice 65 [facility] [address] [place] [address] College, Health Deputy Director Of Finance [facility] Prac [address] [place] [address] 07/21/2023 8:40 AM EST Office Visit Family Practice 65 [facility] [address] [facility], [place] [address] Domo Pool, DO 293 [place] [address] 07/21/2023 10:00 AM EST Nutrition Services Nutrition Services 65 [facility] [address] [facility], [place] [address] Araseli Vale, NORBERT [address] [facility] [place] [address] 09/25/2023 8:25 AM EDT Hospital Encounter OR [facility], Operating Room [facility] [address] [place] [address] Brayan Mares, DO [address] [place] [phone] 09/25/2023 8:25 AM EDT - 09/25/2023 8:50 AM EDT Surgery OR [facility], Operating Room [facility] [address] [place] [address] Brayan Mares, DO [address] [place] [id number] L-/S-SPINE PARAVERTEBRAL FACET INJ, 1 LEVEL 11/21/2023 8:45 AM EDT Office Visit Otolaryngology [facility] [address] [place] [address] Gautam Morgan, DO [address] [place] [address] Scheduled Orders Name Type Priority Associated Diagnoses Orde r Schedule L-/S-SPINE PARAVERTEBRAL FACET INJ,1 LEVEL Procedures Routine Spondylosis of lumbosacral region without myelopathy or radiculopathy Chronic bilateral low back pain without sciatica Expected: 07/14/2023, Expires: 10/12/2023 L-/S-SPINE PARAVERTEBRL FACET INJ,2 LEVELS Procedures Routine Spondylosis of lumbosacral region without myelopathy or radiculopathy Chronic bilateral low back pain without sciatica Expected: 07/14/2023, Expires: 10/12/2023 Scheduled Procedures Name Priority Associated Diagnoses Date/Ti me L-/S-SPINE PARAVERTEBRAL FACET INJ, 1 LEVEL Spondylosis of lumbosacral region without myelopathy or radiculopathy 09/25/2023 8:25 AM EDT L-/S-SPINE PARAVERTEBRAL FACET INJ, 2 LEVELS Spondylosis of lumbosacral region without myelopathy or radiculopathy 09/25/2023 8:25 AM EDT Health Maintenance Due Date Last Done Comments Hepatitis B (1 of 3 - Risk 3-dose series) 2002 COVID-19 Vaccine ( season) 2023 06/14/2022, 06/03/2021, 09/30/2020, Additional history exists Albumin/Creatinine Ratio 08/02/2023 023, 08/13/2021, 01/05/2017, Additional history exists DTaP,Tdap,and Td Vaccines (2 - Td or Tdap) 09/05/2023 09/04/2013 Diabetic Foot Exam 09/20/2023 09/19/2022, 0 12/17/2021, 12/09/2020, Additional history exists HbA1c 09/28/2023 03/30/2023, 12/02, 08/02/2022, Additional history exists B-12 03/30/2024 03/30/2023, 08/0 01/2023, 12/28/2022, Additional history exists Depression Screening 03/30/2024 03/30/2023, 08/17/2017 (Course Completed) GFR 04/10/2024 04/10/2023, 03/04, 02/07/2023, Additional history exists Diabetic Eye Exam 05/10/2024 05/10/2023, , 04/11/2022, Additional history exists DXA Scan 07/20/2025 07/20/2022, 08/03, 04/10/2015 Pneumococcal Vaccine: 65+ Years Completed 11/19/2015, 07/03/2008 COLONOSCOPY-EVERY 5 YRS AGES 18-100 Discontinued 05/11/2020, 05/11/2020, 02/03/2016, Additional history exists Zoster Vaccines Completed 12/09/2020, 11/01, 10/22/2020, Additional history exists Influenza Vaccine (FLU shot) Completed 03/30/2023, 04/05/2022, 04/14/2021, Additional history exists GARDASIL-HPV IMMUNIZATION SERIES Aged Out No longer eligible based on patient's age to complete this topic MENINGOCOCCAL (MENACTRA/MENVEO) Aged Out No longer eligible based on patient's age to complete this topic documented as of this encounter Medical Devices Not on filedocumented as of this encounter Visit Diagnoses Diagnosis Spondylosis of lumbosacral region without myelopathy or radiculopathy- Primary Lumbosacral spondylosis without myelopathy Chronic bilateral low back pain without sciatica Spondylosis of lumbosacral region without myelopathy or radiculopathy Lumbosacral spondylosis without myelopathy documented in this encounter Advance Directives Documents on File Type Date Recorded 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
--- OUTSIDE RECORDS SUMMARY | 2023-09-29 09:15 | External Medical Summary ---
Author Name Unknown Address Unknown Organization K01:[facility] [place] [address] [place] [address] Laboratory Report Ordering Provider Test Date Status SANA WASHINGTON 07/21/2023 09:55:41 Final Observation Date Value Abnormality Reference (Units ) Status Vitamin B12 07/21/2023 09:55:41 199 Below low normal 2 32-1245 (pg/mL) Final Performing Location LABORATORY [facility] - [address] [place] [address]
--- OUTSIDE RECORDS SUMMARY | 2023-09-29 09:15 | External Medical Summary ---
Author Name Unknown Address Unknown Organization K01:[facility] [place] [address] [place] [address] Laboratory Report Ordering Provider Test Date Status SANA WASHINGTON 07/21/2023 09:55:41 Final Observation Date Value Abnormality Reference (Units ) Status BUN 07/21/2023 09:55:41 17 6-20 (mg/dL) Final Creatinine 07/21/2023 09:55:41 1.0 0.5-1.0 (mg/dL) Final Glomerular filtration rate/1.73 sq M.predicted [Volume Rate/Area] in Serum, Plasma or Blood by Creatinine-based formula (CKD-EPI) 07/21/2023 09:55:41 59 Below low normal >=60 (mL/min) Final eGFR is calculated based on the CKD-EPI 2020 equation SODIUM 07/21/2023 09:55:41 144 135-146 (m mol/L) Final Potassium 07/21/2023 09:55:41 5.6 Above high normal 3. 5-5.1 (mmol/L) Final Cl 07/21/2023 09:55:41 107 98-107 (mm ol/L) Final CO2 07/21/2023 09:55:41 25 22-32 (mmo l/L) Final Anion gap 07/21/2023 09:55:41 12 7-15 (mmol /L) Final Glucose 07/21/2023 09:55:41 175 Above high normal 70 -120 (mg/dL) Final Calcium 07/21/2023 09:55:41 9.8 8.4-10.2 ( mg/dL) Final Performing Location [facility]ORY [facility] [place] [address] [place] [address]
--- OUTSIDE RECORDS SUMMARY | 2023-09-29 09:15 | External Medical Summary | Summary of Care ---
Author Name Unknown Organization [facility] Address [address] [place] [address] Phone [phone] Care Team Providers Care Parking Meter Attendant Name Role Phone Domo Pool DO Primary Care Provider [phone] Reason for Visit * Reason Onset Date Comments Medication Question 05/05/2023 Ozempic Encounter Details Date Type Department Care Team (Late st Contact Info) Description 05/05/2023 Telephone Family Practice 65 [facility] 293 [place] [phone] Domo Pool DO [address] [place], [place] [id number] Medication Question (Ozempic) Allergies Active Allergy Reactions Criticality Noted Date Comments Amoxicillin Bleeding High 04/27/2015 Amoxicillin-Pot Clavulanate 09/05/19 14 tary stools documented as of this encounter (statuses as of 07/11/2023) Medications Medication Sig Dispensed Refills Start Date [...] EVERY MORNING 100 Tablet 3 12/28/2022 4 Active traZODone HCl 50 MG Oral Tablet (Desyrel)Indicati ons:Primary insomnia TAKE ONE TABLET BY MOUTH AT BEDTIME 100 Tablet 1 12/18/2022 4 Active Atorvastatin Calcium 80 MG Oral Tablet [...] BEDTIME 200 Tablet 2 11/09/2022 4 Active Sertraline HCl 50 MG Oral Tablet (Zoloft) TAKE ONE TABLET BY MOUTH EVERY MORNING IN ADDITION TO THE 100MG TABLET 100 Tablet 3 10/13/2022 4 Active Pantoprazole Sodium 20 MG Oral [...] goal of less than 7.0% ([facility]) USE TO CHECK BLOOD SUGAR ONCE DAILY [...] once a week. 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 0 04/03/2023 Active Biotin 1000 MCG Oral TabletIndications :hair loss Take 5 Tablets by mouth in the morning. 1 Tab 0 11/02/2017 3 Discontinue d(Medicatio n List Clean Up) amLODIPine Besylate 5 MG Oral Tablet (Norvasc)Indicati ons:HTN, goal below 140/90 Take 1 Tablet by mouth in the morning. 10 Tablet 3 03/30/2023 3 Discontinue d(Medicatio n List Clean Up) Hospital, Clinic, or Other Facility Administered Medication Ordered Dose Route Frequency Start Date End Date Status vitamin b-12 (Cyanocobalamin) inj 1,000 mcgIndications:Vitamin B 12 deficiency 1000 mcg IM [id number] 12/29/2022 11/30/2023 Active documented as of this encounter (statuses as of 07/11/2023) Active Problems Problem Noted Date Diagnosed Date [...] cervical 2017 Coronary artery disease invo lving [place] coronary artery of [place] heart without angina pectoris 10/17/2017 Dyslipidemia, goal LDL below 70 11/13/2015 PSVT (paroxysmal supraventricular tachycardia) 0 10/14/2015 Essential hypertension with goal blood pressure less than 140/90 09/18/2014 Cerebrovascular disease, arteriosclerotic, post- stroke 07/21/2009 documented as of this encounter (statuses as of 07/11/2023) Resolved Problems Problem Noted Date Diagnosed Date [...] as of this encounter (statuses as of 07/11/2023) Immunizations Name Administration Dates Next Due COVID-19 [...] Notes * Telephone Encounter - Beti Lawton, [facility] - 05/05/2023 2:23 PM EDT Spoke to patient - missed dose last week, wondering what to do. Advised patient to just resume OZempic 0.5mg as of today. Sent refill order to [facility] to resume patient's Ozempic fills. Also left new forms for 2023 at front end loader driver for patient to stop by and sign. Beti Fernandez, Pharm D, BCACP Clinical Pharmacist [address] [facility] 05/05/2023, 2:25 PM Ph. [phone] * Telephone Encounter - Batsheva Green OSA - 05/05/2023 11:56 AM EDT Messed up on Ozempic and wants to know how to remedy this as she has never done that before documented in this encounter Plan of Treatment Upcoming Encounters Date Type Department Care Team (Late st Contact Info) Description 07/13/2023 11:00 AM EST Office Visit Interventional Pain Center, [facility] [address] [place] [address] Brayan Mares, [address] [place] [address] 07/14/2023 11:00 AM EST Office Visit Family Practice [address] [place] [address] 293 [facility], [place] [phone] Portia, Health Biomathematician Fam Prac [address] [place] [address] 07/21/2023 8:40 AM EST Office Visit Family Practice 65 [facility] 293 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
--- OUTSIDE RECORDS SUMMARY | 2023-09-29 09:15 | External Medical Summary | Summary of Care ---
Author Name Unknown Organization [facility] Address [address] [place] [address] Phone [phone] Care Team Providers Care Ballistics Professor Name Role Phone Padmini Pool DO Primary Care Provider [phone] Reason for Visit * Reason Onset Date Comments Medication Refill 07/14/2023 Encounter Details Date Type Department Care Team (Late st Contact Info) Description 07/14/2023 Refill Family Practice 65 [facility] 293 [place] [address] Padmini Pool DO [address] [place], [place] [id number] Primary insomnia Allergies Active Allergy Reactions Criticality Noted Date Comments Amoxicillin Bleeding High 04/27/2015 Amoxicillin-Pot Clavulanate 09/05/19 14 tary stools documented as of this encounter (statuses as of 07/14/2023) Medications Medication Sig Dispensed Refills Start Date [...] by mouth in the morning. 0 Active UnifiedTouch Verio w/Device Kit Use as directed . [...] MORNING 100 Tablet 3 12/28/2022 4 Active Atorvastatin Calcium 80 MG Oral Tablet (Lipitor)Indicati ons:Type 2 diabetes mellitus with hemoglobin A1c goal of less than 7.0% ([facility]),Cerebrovasc ular disease, arteriosclerotic, post-stroke TAKE ONE TABLET [...] 7.0% ([facility]) USE TO CHECK BLOOD SUGAR [...] once a week. - gets from the matcher! 0 04/03/2023 Active Miconazole Nitrate 2 % External Cream (Monistat Derm) Apply to skin folds as directed 0 Active Nystatin 511363 UNIT/GM External Powder (Nystop) Apply topically to affected area 3 times a day. Apply to skin folds 60 g 0 06/30/2023 Active traZODone HCl 50 MG Oral Tablet (Desyrel)Indicati ons:Primary insomnia Take 1 Tablet by mouth at bedtime. 90 Tablet 1 07/14/2023 Active traZODone HCl 50 MG Oral Tablet (Desyrel)Indicati ons:Primary insomnia TAKE ONE TABLET BY MOUTH AT BEDTIME 100 Tablet 1 12/18/2022 4 Discontinue d(Refill) Hospital, Clinic, or Other Facility Administered Medication Ordered Dose Route Frequency Start Date End Date Status vitamin b-12 (Cyanocobalamin) inj 1,000 mcgIndications:Vitamin B 12 deficiency 1000 mcg IM [id number] 12/29/2022 11/30/2023 Active documented as of this encounter (statuses as of 07/14/2023) Active Problems Problem Noted Date Diagnosed Date [...] cervical 2017 Coronary artery disease invo lving [place] coronary artery of [place] heart without angina pectoris 10/17/2017 Dyslipidemia, goal LDL below 70 11/13/2015 PSVT (paroxysmal supraventricular tachycardia) 0 10/14/2015 Essential hypertension with goal blood pressure less than 140/90 09/18/2014 Cerebrovascular disease, arteriosclerotic, post- stroke 07/21/2009 documented as of this encounter (statuses as of 07/14/2023) Resolved Problems Problem Noted Date Diagnosed Date [...] as of this encounter (statuses as of 07/14/2023) Immunizations Name Administration Dates Next Due COVID-19 [...] Telephone Encounter - Padmini Pool DO - 07/14/2023 4:48 PM ESTSigned Prescriptions: Disp Refills traZODone HCl 50 MG Oral Tablet (Desyrel) 90 Tab*1 Sig: Take 1 Tablet by mouth at bedtime.Authorizing Provider: PADMINI POOL * Telephone Encounter - Beit Lawton [facility] - 07/14/2023 4:31 PM EST Patient reports she dropped her bottle of trazodone into the toilet and is asking for new fill because she hasn't had it for 4 days and isn't sleeping. Beti Fernandez, Pharm D, BCACP Clinical Pharmacist 65 [facility] - [facility] 07/14/2023, 4:32 PM Ph. [phone] documented in this encounter Plan of Treatment Upcoming Encounters Date Type Department Care Team (Latest Contact Info) Description 07/18/2023 11:00 AM EST Office Visit Family Practice [address] [phone] [place], [facility] Blade Aligner Fam Prac [address] [address] 07/21/2023 8:40 AM EST Office Visit Family Practice [address] [phone] Padmini Pool DO [address] [place] [address] 07/21/2023 10:00 AM EST Nutrition Services Nutrition Services [address] [id number] Araseli Vale RDN [address] [place], [place] [address] [place] [address] 09/25/2023 8:25 AM EDT Hospital Encounter OR [facility], Operating Room [facility] [address] [place] [phone] Brayan Mares, DO [address] [place] [phone] 09/25/2023 8:25 AM EDT - 09/25/2023 8:50 AM EDT Surgery OR [facility], Operating Room [facility] [address] [place] [phone] Brayan Mares, DO [address] [place] [phone] L-/S-SPINE PARAVERTEBRAL FACET INJ, 1 LEVEL 11/21/2023 8:45 AM EDT Office Visit Otolaryngology [facility] [address] [place] [address] Gautam Morgan, DO [address] [place] [address] Scheduled Procedures Name Priority Associated Diagnoses Date/Ti [...] as of this encounter Visit Diagnoses Diagnosis Primary insomnia Persistent disorder of initiating or maintaining sleep Spondylosis of lumbosacral region without myelopathy or radiculopathy Lumbosacral spondylosis without myelopathy documented in this encounter Advance Directives Documents on File Type Date Recorded Patient Dish Person Expl anation Advance Directives and [place]avan [place] 01/11/2019 ADVANCE DIRECTIVE Advance Directives and Livin g Will 01/11/2019 LIVING WILL Latest Code Status on File Code Status Date Activated Date Inactivated Comments Full Code 04/27/2015 4:15 PM 05/01/2015 12:58 AM Th is order reflects the patients wishes and were consensually agreed upon. Question Answer Comments Discussion of Advance Directives occurred with: Patient Care Teams Ballistics Professor Relationship Specialty Start Date End Date Padmini Pool DO [address] [facility] [place] [address] PCP - General Internal Medicine 01/19/22 documented as of this encounter
--- OUTSIDE RECORDS SUMMARY | 2023-09-29 09:15 | External Medical Summary | Summary of Care ---
Author Name Unknown Organization [facility] [address] [facility] [address] Phone [phone] Care Team Providers Care Inside Sales Associate Name Role Phone Domo Pool DO Primary Care Provider [phone] Encounter Details Date Type Department Care Team (Late st Contact Info) Description 07/14/2023 Documentation HEALTH & WELLNESS Jennifer Gordillo, Health Treatment Plant Operator Allergies Active Allergy Reactions Criticality Noted [...] goal of less than 7.0% ([facility]) Use to check blood sugar once daily [...] goal of less than 7.0% ([facility]),Cerebrovascu lar disease, arteriosclerotic, post-stroke TAKE ONE TABLET [...] goal of less than 7.0% ([facility]) USE TO CHECK BLOOD SUGAR ONCE DAILY [...] once a week. - gets from the doubler operator! 0 04/03/2023 Active Miconazole Nitrate 2 % External Cream (Monistat Derm) Apply to skin folds as directed 0 Active Nystatin 138862 UNIT/GM External Powder (Nystop) Apply topically to affected area 3 times a day. Apply to skin folds 60 g 0 06/30/2023 Active Hospital, Clinic, or Other Facility Administered Medication Ordered Dose Route Frequency Start Date End Date Status vitamin b-12 (Cyanocobalamin) inj 1,000 mcgIndications:Vitamin B 12 deficiency 1000 mcg IM [id number] 12/29/2022 11/30/2023 Active documented as of this [...] cervical 2017 Coronary artery disease invo lving [place] coronary artery of [place] heart without angina pectoris 10/17/2017 Dyslipidemia, goal [...] mRNA, LNP-s, No Pre serve, 2-Dose Series ([employer]) 06/03/2021,09/30/2020,09/04/2020 Covid-19, Mrna, Lnp-s, Pf, B ivalent, 30 Mcg, IM, 12 yrs and above ([employer]) 06/14/2022 Pneumococcal Conjugate Vacc, 13 Valent [...] encounter Progress Notes * Jennifer Gordillo Health Treatment Plant Operator - 07/14/2023 12:56 PM EST Did patient attend session 1 of 10 of the small group balance program? Yes: Patient attended session 1 of 10 of the small group balance program. Session 1 focused on a review of fall prevention in the home, lower extremity strengthening and hand eye coordination drills. Practiced exercises as a group. Exercises included warm-up, mini squats, heel/toe raises, seated knee raises, seated knee extensions, narrow stance, partial tandem stance. documented in this encounter Plan of Treatment Upcoming Encounters Date Type Department Care Team (Latest Contact Info) Description 07/21/2023 8:40 AM EST Office Visit Family Practice [address] [facility] [place] 293 [facility], [place] [phone] Domo Pool, DO 293 [facility], [place] [address] 07/21/2023 10:00 AM EST Nutrition Services Nutrition Services 65 [facility] 293 [facility], [place] [address] Araseli Vale RDN [address] [place], [place] [address] [address] 09/25/2023 8:25 AM EDT Hospital Encounter OR [facility], Operating Room [facility] [address] [place] [phone] Brayan Mares, DO [address] [place] [phone] 09/25/2023 8:25 AM EDT - 09/25/2023 8:50 AM EDT Surgery OR [facility], Operating Room [facility] [address] [place] [phone] Brayan Mares, DO [address] [place] [phone] L-/S-SPINE PARAVERTEBRAL FACET INJ, 1 LEVEL 11/21/2023 8:45 AM EDT Office Visit Otolaryngology [facility] [address] [place] [address] Gautam Morgan, DO [address] [place] [address] Scheduled Procedures Name Priority Associated Diagnoses Date/Ti me L-/S-SPINE PARAVERTEBRAL FACET INJ, 1 LEVEL Spondylosis of lumbosacral region without myelopathy or radiculopathy 09/25/2023 8:25 AM EDT L-/S-SPINE PARAVERTEBRAL FACET INJ, 2 LEVELS Spondylosis of lumbosacral region without myelopathy or radiculopathy 09/25/2023 8:25 AM EDT Health Maintenance Due Date Last Done Comments Hepatitis B (1 of 3 - Risk 3-dose series) 2002 COVID-19 Vaccine (5 - season) 2023 06/14/2022, 06/03/2021, 09/30/2020, Additional history [...] Documents on File Type Date Recorded Patient Gas Well Drilling Manager Expl anation Advance Directives and Livin [...] Advance Directives occurred with: Patient Care Teams Inside Sales Associate Relationship Specialty Start Date End Date Domo Pool DO [address] [place] [facility] [place] [address] PCP - General Internal Medicine 01/19/22 documented as of this encounter
--- OUTSIDE RECORDS SUMMARY | 2023-09-29 09:16 | External Medical Summary | Summary of Care ---
Author Name Unknown Organization [facility] Address [address] [facility] [place] [address] Phone [phone] Care Team Providers Care Client Specialist Name Role Phone Padmini Pool DO Primary Care Provider [phone] Reason for Visit * Reason Onset Date Comments Medication Refill 06/27/2023 Encounter Details Date Type Department Care Team (Late st Contact Info) Description 06/27/2023 Refill Family Practice 65 [facility] 293 [place] [phone] College, Pharmacist [address] [address] Allergies Active Allergy Reactions Criticality Noted Date Comments Amoxicillin Bleeding High 04/27/2015 Amoxicillin-Pot Clavulanate 09/05/19 14 tary stools documented as of this encounter (statuses as of 06/30/2023) Medications Medication Sig Dispensed Refills Start Date [...] A1c goal of less than 7.0% ([facility]) Use to check blood sugar once daily [...] MUSCLE SPASMS, 270 Tablet 3 03/03/2023 Active Mayelinuch Verrachel In Vitro Strip (Glucose Blood)Indications :Type 2 diabetes mellitus with hemoglobin A1c goal of less than 7.0% ([facility]) USE TO CHECK BLOOD SUGAR ONCE DAILY [...] once a week. - gets from the screw cutter! 0 04/03/2023 Active Miconazole Nitrate 2 % External Cream (Monistat Derm) Apply to skin folds as directed 0 Active Nystatin 421742 UNIT/GM External Powder (Nystop) Apply topically to affected area 3 times a day. Apply to skin folds 60 g 0 06/30/2023 Active Biotin 1000 MCG Oral TabletIndications :hair loss Take 5 Tablets by mouth in the morning. 1 Tab 0 11/02/2017 3 Discontinue d(Medicatio n List Clean Up) amLODIPine Besylate 5 MG Oral Tablet (Norvasc)Indicati ons:HTN, goal below 140/90 Take 1 Tablet by mouth in the morning. 10 Tablet 3 03/30/2023 3 Discontinue d(Medicatio n List Clean Up) Fluconazole 150 MG Oral Tablet (Diflucan) TAKE ONE TABLET BY MOUTH ONCE FOR 1 DOSE 1 Tablet 0 05/22/2023 3 Discontinue d(Medicatio n List Clean Up) Hospital, Clinic, or Other Facility Administered Medication Ordered Dose Route Frequency Start Date End Date Status vitamin b-12 (Cyanocobalamin) inj 1,000 mcgIndications:Vitamin B 12 deficiency 1000 mcg IM [id number] 12/29/2022 11/30/2023 Active documented as of this encounter (statuses as of 06/30/2023) Active Problems Problem Noted Date Diagnosed Date [...] cervical 2017 Coronary artery disease invo [place]ving [place] coronary artery [place] heart without angina pectoris 10/17/2017 Dyslipidemia, goal LDL below 70 11/13/2015 PSVT (paroxysmal supraventricular tachycardia) 0 10/14/2015 Essential hypertension with goal blood pressure less than 140/90 09/18/2014 Cerebrovascular disease, arteriosclerotic, post- stroke 07/21/2009 documented as of this encounter (statuses as of 06/30/2023) Resolved Problems Problem Noted Date Diagnosed Date [...] as of this encounter (statuses as of 06/30/2023) Immunizations Name Administration Dates Next Due COVID-19 mRNA, LNP-s, No Pre serve, 2-Dose Series ([employer]) 06/03/2021,09/30/2020,09/04/2020 Covid-19, Mrna, Lnp-s, Pf, B ivalent, [...] Miscellaneous Notes * Telephone Encounter - Padmini Polo DO - 06/30/2023 3:29 PM ESTSigned Prescriptions: Disp Refills Nystatin 700905 UNIT/GM External Powder (N*45 g 0 Sig: Apply topically to affected area 3 times a day. Apply to skin foldsAuthorizing Provider: PADMINI POOL------ * Telephone Encounter - Beti Lawton [facility] - 06/30/2023 2:12 PM EST Spoke to patient and completed CMR. She is aware Ozempic is here in fridge for her. Needs amlodipine and atenolol refilled - sent from [place]. Has > 1 week. Also potentially asking for nystatin powder for skin folds. Currently using corn starch and miconazole cream. Pended for PCP if appropriate. Advised patient not to use internally. Giacomo Desouza D, ERICCP Clinical Pharmacist [address] [facility] - Medication Therapy [facility] 06/30/2023, 2:46 PM Ph. [phone] * Telephone Encounter - Beti Lawton RP - 06/27/2023 3:57 PM EST Called patient to let her know we have her Ozempic here in the fridge. Also calling to do a med rec/CMR over the phone with pt. Giacomo Desouza, BCACP Clinical Pharmacist [address] [facility] - [facility] 06/27/2023, 3:58 PM Ph. [phone] documented in this encounter Plan of Treatment Upcoming Encounters Date Type Department Care Team (Late st Contact Info) Description 07/13/2023 11:00 AM EST Office Visit Interventional Pain Center, [facility] 132 [facility] [place] [address] Brayan Mares, DO 132 [facility] [place] [phone] 07/21/2023 8:40 AM EST Office Visit Family Practice [address] [place] [address] 293 [place] [phone] Padmini Pool, DO 293 [place] [address] 07/21/2023 10:00 AM EST Nutrition Services Nutrition Services [address] [place] [address] 293 [place] [address] Araseli Vale RDN [address] [place] [address] 11/21/2023 8:45 AM EDT Office Visit Otolaryngology [facility] 132 [facility] [place] [address] Gautam Morgan, DO 132 [place] [address] Health Maintenance Due Date Last Done Comments [...] Documents on File Type Date Recorded Patient Application Consultant Expl anation Advance Directives and Livin g [...] Advance Directives occurred with: Patient Care Teams Client Specialist Relationship Specialty Start Date End Date Padmini Pool DO [address] [place] [facility] [place] [address] PCP - General Internal Medicine 01/19/22 documented as of this encounter
--- OUTSIDE RECORDS SUMMARY | 2023-09-29 09:16 | External Medical Summary | Summary of Care ---
Author Name Unknown Organization [facility] Address [address] [facility] [place] [address] Phone [phone] Care Team Providers Care Food And Beverage Assistant Manager Name Role Phone Domo Pool DO Primary Care Provider [phone] Encounter Details Date Type Department Care Team (Late st Contact Info) Description 04/07/2023 9:30 AM EDT Nurse Only Family Practice 65 [facility] 293 [place] [phone] College, Nurse [facility] Pr[facility] [address] [address] Allergies Active Allergy Reactions Criticality Noted Date Comments Amoxicillin Bleeding High 04/27/2015 Amoxicillin-Pot Clavulanate 09/05/19 14 tary stools documented as of this encounter (statuses as of 07/05/2023) Medications Medication Sig Dispensed Refills Start Date End Date Status Aspirin 81 MG Tablet Take 1 Tablet by mouth in the morning. 0 Active Cholecalciferol (VITAMIN D) 1000 UNIT Capsule Take 1 Capsule by mouth in the morning. 0 Active traMADol HCl 50 MG Oral Tablet (Ultram)Indicati ons:Acute bilateral low back pain with left-sided sciatica Take 1 Tab by mouth every 6 hours as needed (for back pain). 60 Tab 0 1 Active Polyethylene Glycol 3350 17 GM/SCOOP Oral Powder (MiraLax) Take by mouth 17 g in the morning. One cap full in juice, to effect 1 stool per day. .. 507 g 3 2 Active Additional Information Patient taking differently:17 g Oral Daily(AM), One cap full in juice, to effect 1 stool per day. .,Indications: bloating, Reported on 06/08/2022 Prevagen Extra Strength 20 MG Oral Capsule (Apoaequorin)Ind ications:clear mind Take by mouth 1 Capsule daily . 0 Active Probiotic Acidophilus BioBeads Oral Capsule Take 1 Capsule by mouth in the morning. 0 Active OneTouch Verio w/Device Kit Use as directed . Use to test blood sugar once daily 1 Kit 0 2 Active Vitamin C 500 MG Oral Capsule Take 1 Capsule by mouth every evening. 0 Active OneTouch UltraSoft LancetsIndicatio ns:Type 2 diabetes mellitus with hemoglobin A1c goal of less than 7.0% (HCC) Use to check blood sugar once daily as directed 100 Each 3 2 Active Acetaminophen ER 650 MG Oral Tablet Extended Release Take 2 Tablets by mouth at bedtime as needed (hip pain). 0 Active Meclizine HCl 25 MG Oral Tablet (Antivert) TAKE 1 TABLET BY MOUTH 3 TIMES DAILY NEEDED FOR DIZZINESS Strength: 25 mg 30 Tablet 3 3 Active Cetirizine HCl 10 MG Oral Tablet (ZyrTEC)Indicati ons:Non-seasonal allergic rhinitis due to pollen TAKE ONE TABLET BY MOUTH EVERY MORNING 100 Tablet 3 3 12/28/19 24 Active traZODone HCl 50 MG Oral Tablet (Desyrel)Indicat ions:Primary insomnia TAKE ONE TABLET BY MOUTH AT BEDTIME 100 Tablet 1 3 12/18/19 24 Active Atorvastatin Calcium 80 MG Oral Tablet (Lipitor)Indicat ions:Type 2 diabetes mellitus with hemoglobin A1c goal of less than 7.0% (HCC),Cerebrovas cular disease, arteriosclerotic , post-stroke TAKE ONE TABLET BY MOUTH IN THE MORNING 100 Tablet 1 3 11/10/19 24 Active busPIRone HCl 10 MG Oral Tablet (Buspar)Indicati ons:Anxiety TAKE ONE TABLET BY MOUTH IN THE MORNING AND TAKE ONE TABLET BEFORE BEDTIME 200 Tablet 2 3 11/09/19 24 Active Sertraline HCl 50 MG Oral Tablet (Zoloft) TAKE ONE TABLET BY MOUTH EVERY MORNING IN ADDITION TO THE 100MG TABLET 100 Tablet 3 3 10/13/19 24 Active Pantoprazole Sodium 20 MG Oral Tablet Delayed Release (Protonix)Indica tions:Gastroesop hageal reflux disease without esophagitis TAKE ONE TABLET BY MOUTH TWICE A DAY 30 MINUTES BEFORE A MEAL DO NOT CUT, CRUSH OR CHEW THE TABLET. 200 Tablet 3 3 08/08/19 24 Active Dicyclomine HCl 10 MG Oral Capsule (Bentyl) TAKE ONE CAPSULE BY MOUTH FOUR TIMES A DAY NEEDED FOR DIARRHEA AND PAIN 120 Capsule 3 3 01/26/20 24 Active Fluticasone Propionate 50 MCG/ACT Nasal Suspension (Flonase)Indicat ions:Post-nasal drip ADMINISTER 2 SPRAYS INTO EACH NOSTRIL IN THE MORNING NEEDED 16 g 3 3 01/26/20 24 Active Gabapentin 100 MG Oral Capsule (Neurontin)Indic ations:DDD (degenerative disc disease), lumbar Take 1 Capsule by mouth in the morning and 1 Capsule at noon and 1 Capsule before bedtime. 300 Capsule 3 3 Active metFORMIN HCl 1000 MG Oral Tablet (Glucophage) Take 1 Tablet by mouth 2 times a day with morning and evening meals. 200 Tablet 3 3 Active Cyclobenzaprine HCl 5 MG Oral Tablet (Flexeril)Indica tions:DDD (degenerative disc disease), cervical,DDD (degenerative disc disease), lumbar TAKE ONE TABLET BY MOUTH THREE TIMES A DAY NEEDED FOR MUSCLE SPASMS, 270 Tablet 3 3 Active OneTouch Verio In Vitro Strip (Glucose Blood)Indication s:Type 2 diabetes mellitus with hemoglobin A1c goal of less than 7.0% ([facility]) USE TO CHECK BLOOD SUGAR ONCE DAILY DIRECTED 100 Strip 3 3 03/24/20 24 Active Atenolol 50 MG Oral Tablet (Tenormin)Indica tions:HTN, goal below 140/90 TAKE ONE TABLET BY MOUTH IN THE MORNING 100 Tablet 3 3 03/24/20 24 Active amLODIPine Besylate 5 MG Oral Tablet (Norvasc)Indicat ions:HTN, goal below 140/90 Take 1 Tablet by mouth in the morning. 100 Tablet 3 3 Active Sertraline HCl 100 MG Oral Tablet (Zoloft)Indicati ons:Anxiety Take 1 Tablet by mouth in the morning. Takes additional 50 mg tablet. 100 Tablet 3 3 Active Ozempic (0.25 or 0.5 MG/DOSE) 2 MG/3ML Solution Pen-injector (Semaglutide(0.2 5 or 0.5MG/DOS)) Inject 0.5 mg under the skin once a week. - gets from the dowel sticker operator! 0 3 Active Biotin 1000 MCG Oral TabletIndication s:hair loss Take 5 Tablets by mouth in the morning. 1 Tab 0 8 06/30/20 23 Discontinued(Med ication List Clean Up) Fluconazole 150 MG Oral Tablet (Diflucan) Take 1 Tablet by mouth once for 1 dose. 1 Tablet 0 3 05/22/20 23 Discontinued amLODIPine Besylate 5 MG Oral Tablet (Norvasc)Indicat ions:HTN, goal below 140/90 Take 1 Tablet by mouth in the morning. 10 Tablet 3 3 06/30/20 23 Discontinued(Med ication List Clean Up) Hospital, Clinic, or Other Facility Administered Medication Ordered Dose Route Frequency Start Date End Date Status vitamin b-12 (Cyanocobalamin) inj 1,000 mcgIndications:Vitamin B 12 deficiency 1000 mcg IM [id number] 12/29/2022 11/30/2023 Active documented as of this encounter (statuses as of 07/05/2023) Active Problems Problem Noted Date Diagnosed Date [...] cervical 2017 Coronary artery disease invo lving [place] coronary artery of [place] heart without angina pectoris 10/17/2017 Dyslipidemia, goal LDL below 70 11/13/2015 PSVT (paroxysmal supraventricular tachycardia) 0 10/14/2015 Essential hypertension with goal blood pressure less than 140/90 09/18/2014 Cerebrovascular disease, arteriosclerotic, post- stroke 07/21/2009 documented as of this encounter (statuses as of 07/05/2023) Resolved Problems Problem Noted Date Diagnosed Date [...] as of this encounter (statuses as of 07/05/2023) Immunizations Name Administration Dates Next Due COVID-19 [...] Sign Reading Time Taken Comments Blood Pressure 128/76 04/07/2023 9:17 AM EDT Pulse 78 04/07/2023 9:07 AM EDT Temperature - - Respiratory Rate - - Oxygen Saturation 98% 04/07/2023 9:07 AM EDT Inhaled Oxygen Concentration - - [...] as of this encounter Progress Notes * Celena Varner, RN - 04/07/2023 9:17 AM EDT Pt here fore BP check-was started on Amlodipine on 03/30/23 BP 136/74, HR 78, Pulse ox 98 Rested 10 min BP 128/[address] Pool-pt to continue with current medications. To call with any concerns. documented in this encounter Plan of Treatment Upcoming Encounters Date Type Department Care Team (Late st Contact Info) Description 07/13/2023 11:00 AM EST Office Visit Interventional Pain Center, [facility] [address] [facility] [place] [address] Brayan Mares, DO [address] [place] [address] 07/21/2023 8:40 AM EST Office Visit Family Practice [address] [place] [address] 293 [facility] [place] [address] Domo Pool, DO 293 [place] [address] 07/21/2023 10:00 AM EST Nutrition Services Nutrition Services 65 [facility] 293 [facility] [place] [address] Araseli Vale RDN [facility] [address] 11/21/2023 8:45 AM EDT Office Visit Otol[facility]ology [facility] [address] [employer] [employer] [place] [address] Gautam Morgan, DO [facility] [place] [address] Health Maintenance Due Date Last Done Comments Hepatitis B (1 of 3 - Risk 3-dose series) 2002 COVID-19 Vaccine ( - 2022- season) 2023 06/14/2022, 06/03/2021, 09/30/2020, Additional history [...] Documents on File Type Date Recorded Patient Manager Test Expl anation Advance Directives and Livin g [...] Directives occurred with: Patient Care Teams Food And Beverage Assistant Manager Relationship Specialty Start Date End Date Domo Pool DO 293 [place] [address] PCP - General Internal Medicine 01/19/22 documented as of this encounter
--- OUTSIDE RECORDS SUMMARY | 2023-09-29 09:16 | External Medical Summary | Summary of Care ---
Author Name Unknown Organization [facility] Address [address] [facility] [address] Phone [phone] Care Team Providers Care Motor Builder Winder Name Role Phone Domo Pool DO Primary Care Provider [phone] Reason for Visit * Reason Onset Date Comments Other 06/28/2023 Encounter Details Date Type Department Care Team (Latest Contact Info) Description 06/28/2023 Telephone HEALTH & WELLNESS Domo Pool DO [address] [place] [place] [address] Other Allergies Active Allergy Reactions Criticality Noted Date Comments Amoxicillin Bleeding High 04/27/2015 Amoxicillin-Pot Clavulanate 09/05/19 14 tary stools documented as of this encounter (statuses as of 06/28/2023) Medications Medication Sig Dispensed Refills Start Date End Date Status Aspirin 81 MG Tablet Take 1 Tablet by mouth in the morning. 0 Active Cholecalciferol (VITAMIN D) 1000 UNIT Capsule Take 1 Capsule by mouth in the morning. 0 Active Biotin 1000 MCG Oral TabletIndications: hair loss Take 5 Tablets by mouth in the morning. 1 Tab 0 11/02/2017 Active traMADol HCl 50 MG Oral Tablet [...] Vitamin C 500 MG Oral Capsule Take by mouth . 0 Active OneTouch UltraSoft LancetsIndications :Type 2 [...] SPASMS, 270 Tablet 3 03/03/2023 Active OneTouch Verrachel In Vitro Strip (Glucose Blood)Indications: Type 2 diabetes mellitus with hemoglobin A1c goal of less than 7.0% ([facility]) USE TO CHECK BLOOD SUGAR ONCE DAILY DIRECTED 100 Strip 3 03/25/2023 03/24/2024 Active Atenolol 50 MG Oral Tablet (Tenormin)Indicati ons:HTN, goal below 140/90 TAKE ONE TABLET BY MOUTH IN THE MORNING 100 Tablet 3 03/25/2023 03/24/2024 Active amLODIPine Besylate 5 MG Oral Tablet (Norvasc)Indicatio ns:HTN, goal below 140/90 Take 1 Tablet by mouth in the morning. 100 Tablet 3 03/30/2023 Active amLODIPine Besylate 5 MG Oral Tablet (Norvasc)Indicatio ns:HTN, goal below 140/90 Take 1 Tablet by mouth in the morning. 10 Tablet 3 03/30/2023 Active Sertraline HCl 100 MG Oral Tablet (Zoloft)Indication s:Anxiety Take 1 Tablet by mouth in the morning. Takes additional 50 mg tablet. 100 Tablet 3 04/03/2023 Active Ozempic (0.25 or 0.5 MG/DOSE) 2 MG/3ML Solution Pen-injector (Semaglutide(0.25 or 0.5MG/DOS)) Inject 0.25 mg under the skin once a week. - gets from the sales person! 0 04/03/2023 Active Fluconazole 150 MG Oral Tablet (Diflucan) TAKE ONE TABLET BY MOUTH ONCE FOR 1 DOSE 1 Tablet 0 05/22/2023 Active Miconazole Nitrate 2 % External Cream (Monistat Derm) Apply to skin folds as directed 0 Active Hospital, Clinic, or Other Facility Administered Medication Ordered Dose Route Frequency Start Date End Date Status vitamin b-12 (Cyanocobalamin) inj 1,000 mcgIndications:Vitamin B 12 deficiency 1000 mcg IM [id number] 12/29/2022 11/30/2023 Active documented as of this encounter (statuses as of 06/28/2023) Active Problems Problem Noted Date Diagnosed Date [...] cervical 2017 Coronary artery disease invo lving [place] coronary artery of [place] heart without angina pectoris 10/17/2017 Dyslipidemia, goal LDL below 70 11/13/2015 PSVT (paroxysmal supraventricular tachycardia) 0 10/14/2015 Essential hypertension with goal blood pressure less than 140/90 09/18/2014 Cerebrovascular disease, arteriosclerotic, post- stroke 07/21/2009 documented as of this encounter (statuses as of 06/28/2023) Resolved Problems Problem Noted Date Diagnosed Date [...] as of this encounter (statuses as of 06/28/2023) Immunizations Name Administration Dates Next Due COVID-19 mRNA, LNP-s, No Pre serve, 2-Dose Series (LLUSTRE) 06/03/2021,09/30/2020,09/04/2020 Covid-19, Mrna, Lnp-s, Pf, B ivalent, [...] encounter Miscellaneous Notes * Telephone Encounter - Jennifer Gordillo, Health Lens Cleaner - 06/28/2023 3:45 PM EST Patient called and lvm asking me to return her call. Returned patient's call. She is interested in group balance class and would like to sign up. She is signed up for the next beginner balance class on 07/05/23 at 10:00 a.m. documented in this encounter Plan of Treatment Upcoming Encounters Date Type Department Care Team (Late st Contact Info) Description 07/13/2023 11:00 AM EST Office Visit Interventional Pain Center, [facility] [address] [facility] [place] [address] Brayan Mares, DO 132 [facility] [place] [phone] 07/21/2023 8:40 AM EST Office Visit Family Practice [address] [place] [address] 293 [place] [address] Domo Pool, DO 293 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
--- OUTSIDE RECORDS SUMMARY | 2023-09-29 09:16 | External Medical Summary | Summary of Care ---
Author Name Unknown Organization [facility] Address [address] [facility] [place] [address] Phone [phone] Care Team Providers Care Extension Edger Name Role Phone Domo Pool DO Primary Care Provider [phone] Reason for Visit * Reason Onset Date Comments Appointment 03/20/2023 Encounter Details Date Type Department Care Team (Late st Contact Info) Description 03/20/2023 Telephone Interventional Pain Center, [facility] [address] [place] [address] CousinsDez DO Willy [address] [place] [address] Appointment Allergies Active Allergy Reactions Criticality Noted Date Comments Amoxicillin Bleeding High 04/27/2015 Amoxicillin-Pot Clavulanate 09/05/19 14 tary stools documented as of this encounter (statuses as of 06/19/2023) Medications Medication Sig Dispensed Refills Start Date [...] by mouth in the morning. 0 Active HEROZTouch Verio w/Device Kit Use as directed . Use to test blood sugar once daily 1 Kit 0 01/20/2022 Active Vitamin C 500 MG Oral Capsule Take by mouth . 0 Active HEROZTouch UltraSoft LancetsIndications :Type 2 diabetes mellitus with hemoglobin A1c goal of less than 7.0% ([facility]) Use to check blood sugar [...] A1c goal of less than 7.0% ([facility]),Cerebrovascu lar disease, arteriosclerotic, post-stroke TAKE [...] MUSCLE SPASMS, 270 Tablet 3 03/03/2023 Active Hospital, Clinic, or Other Facility Administered Medication Ordered Dose Route Frequency Start Date End Date Status vitamin b-12 (Cyanocobalamin) inj 1,000 mcgIndications:Vitamin B 12 deficiency 1000 mcg IM [id number] 12/29/2022 11/30/2023 Active documented as of this encounter (statuses as of 06/19/2023) Active Problems Problem Noted Date Diagnosed Date [...] cervical 2017 Coronary artery disease invo lving [place] coronary artery of [place] heart without angina pectoris 10/17/2017 Dyslipidemia, goal LDL below 70 11/13/2015 PSVT (paroxysmal supraventricular tachycardia) 0 10/14/2015 Essential hypertension with goal blood pressure less than 140/90 09/18/2014 Cerebrovascular disease, arteriosclerotic, post- stroke 07/21/2009 documented as of this encounter (statuses as of 06/19/2023) Resolved Problems Problem Noted Date Diagnosed Date [...] as of this encounter (statuses as of 06/19/2023) Immunizations Name Administration Dates Next Due COVID-19 mRNA, LNP-s, No Pre serve, 2-Dose Series (CorkCRM) 06/03/2021,09/30/2020,09/04/2020 Covid-19, Mrna, Lnp-s, Pf, B ivalent, 30 Mcg, IM, 12 yrs and above (CorkCRM) 06/14/2022 Pneumococcal Conjugate Vacc, 13 Valent (Prevnar) 11/19/2015 Pneumococcal Polysaccharide PPV23 (Pneumovax) 07/03/2008 Seasonal Influenza, PF, 6 M & above, IM , (FluLaval or Fluzone) 03/11/2020,04/15/2019,05/10/2018,03/27 Seasonal Influenza, Quadriva lent Hd (Fluzone Hd) 04/05/2022,04/14/2021 Seasonal Influenza, Quadriva lent, No Preserve, IM [...] encounter Miscellaneous Notes * Telephone Encounter - Ashley Rogers OSA - 03/20/2023 7:26 AM EDT Patient calling stating had a fall about 1 week ago and hurt her back, she has been taking Gabapentin 100mg taking 2 as needed. Scale from 1-10, she is saying an 8. Please call patient and advise. documented in this encounter Plan of Treatment Upcoming Encounters Date Type Department Care Team (Late st Contact Info) Description 07/13/2023 11:00 AM EST Office Visit Interventional Pain Center, [facility] [address] [place] [address] Brayan Mares, DO [address] [place] [phone] 07/21/2023 8:40 AM EST Office Visit Family Practice [address] [place] [address] 293 [place] [address] Domo Pool, DO 293 [place] [address] 07/21/2023 10:00 AM EST Nutrition Services Nutrition Services [address] [place] [address] 293 [place] [address] Araseli Vale RDN [address] [place] [address] [place] [address] 11/21/2023 8:45 AM EDT Office Visit Otolaryngology [facility] [address] [place] [address] Gautam Morgan, DO [address] [place] [address] Health Maintenance Due Date Last Done Comments [...] Documents on File Type Date Recorded Patient Tire Center Supervisor Expl anation Advance Directives and Livin [...] Advance Directives occurred with: Patient Care Teams Extension Edger Relationship Specialty Start Date End Date Domo Pool DO [address] [place] [address] PCP - General Internal Medicine 01/19/22 documented as of this encounter
--- OUTSIDE RECORDS SUMMARY | 2023-09-29 09:16 | External Medical Summary | Summary of Care ---
Author Name Unknown Organization [facility] Address [address] [address] [address] Phone [phone] Care Team Providers Care Family Services Specialist Name Role Phone Domo Pool DO Primary Care Provider [phone] Reason for Visit * Reason Comments Dosage Adjustment Via Phone (anticoag Cl inic) Medication Discussion Encounter Details Date Type Department Care Team (Late st Contact Info) Description 06/30/2023 2:20 PM [facility] Family Practice [address] [address] [place], Pharmacist [address] [address] Encounter for long-term (current) use of medications* Allergies Active Allergy Reactions Criticality Noted Date [...] hemoglobin A1c goal of less than 7.0% ([facility]) USE TO CHECK BLOOD [...] once a week. - gets from the asset protection lead! 0 04/03/2023 Active Miconazole Nitrate 2 % External Cream (Monistat Derm) Apply to skin folds as directed 0 Active Biotin 1000 MCG Oral TabletIndications :hair [...] mcgIndications:Vitamin B 12 deficiency 1000 mcg IM [id number] 12/29/2022 11/30/2023 Active documented as of this [...] cervical 2017 Coronary artery disease invo lving che[place] coronary artery of cherokee heart without angina pectoris 10/17/2017 Dyslipidemia, goal [...] 30 Mcg, IM, 12 yrs and above ([employer]) 06/14/2022 Pneumococcal Conjugate Vacc, 13 Valent (Prevnar) [...] as of this encounter Progress Notes * Beti Lawton, [facility] - 06/30/2023 2:19 PM EST Medication Therapy [facility] - Medication Reconciliation Dyana Menard is an 82 year old being seen for medication reconciliation. Prescription insurance information: [employer] Rosario Do you have any other prescription coverage: Yes, PACE Preferred pharmacy: [facility] ([facility]) [x] Problem list reviewed [x] Allergies reviewed and updated if needed [x] Drug interaction check completed [x] HEDIS list addressed Immunizations: needs hep B and covid vaccines CMR Specific Documentation: Delivery Method Phone TIPs None Health Profile Patient Active Problem List Diagnosis Code Cerebrovascular disease, arteriosclerotic, post-stroke I67.2, Z86.73 Essential hypertension with goal blood pressure less than 140/90 I10 PSVT (paroxysmal supraventricular tachycardia) I47.10 Dyslipidemia, goal LDL below 70 E78.5 Type 2 diabetes mellitus with hemoglobin A1c goal of less than 8.0% ([facility]) E11.9 Bilateral carpal tunnel syndrome G56.03 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 What type of item is this? Related to a current medication (tylenol) Describe the item for the patient takeaway: You mentioned taking 6 of the 650mg tabs daily. Describe what the patient should do (for the patient takeaway): The highest recommended dose of tylenol per day is 3000mg. Try to take a max of 4 tabs per day. Takeaway Takeaway Information Will the Patient Takeaway be sent to the Patient or someone else? Patient Language Template for the Patient Takeaway: Mosotho Medication Organization/Adherence: Has home care nurse or caregiver: no Patient uses a pill box? Yes, refill(s) completed by self When you are at home, how often do you miss doses of medications? Less than once a week How difficult is it for you to pay for your medications? Very difficult How often do you experience side effects from your medications? Less than once a week Reports specifically constipation due to gabapentin - tries to limit the dose. Labs/Vitals/Risk Scores: The ASCVD Risk score (Kayla DK, et al., 2019) failed to calculate for the following reasons: The 2019 ASCVD risk score is only valid for ages 40 to 79 The patient has a prior [place] or stroke diagnosis BP Readings from Last 3 Encounters: 05/31/23 163/87 04/07/23 128/76 03/30/23 138/76 Recent Labs Units 03/30/23 0924 12/28/22 1019 08/02/22 1406 HEMOGLOBIN A1C - [facility] % 7.7* 6.8* 6.2* Recent Labs Units 04/10/23 1033 03/30/23 0924 02/07/23 1619 ESTIMATED GLOMERULAR FILTRATION RATE - [facility] mL/min 67 62 61 Serum creatinine: 0.9 mg/dL 04/10/23 1033 Estimated creatinine clearance: 43.5 mL/min Assessment & Plan: Medication discrepancies identified: tylenol dose, stopped biotin Dose/frequency of medications appropriate for current renal function? yes Other medication problems identified: having issues with yeast infection in skin folds - asking about getting nystatin powder? Patient education provided: regarding tylenol dose per above Referral pended for follow up management of: N/A Summary- Changes & Recommendations: Med rec completed with patient. Will send request to PCP for nystatin. Repeat med rec visit in 1 year Beti Santo RPh Clinical Pharmacist - Scalemaker Medication Therapy Management Clinic 06/30/2023, 2:19 PM documented in this encounter Plan of Treatment Upcoming Encounters Date Type Department Care Team (Ignacio soto Contact Info) Description 07/13/2023 11:00 AM EST Office Visit Interventional Pain Center, [facility] 132 [facility] [place] [address] Brayan Mares, DO 132 [facility] [place] [phone] 07/21/2023 8:40 AM EST Office Visit Family Practice [address] [place] [address] [place] [address] Domo Pool, DO 293 [place] [address] 07/21/2023 10:00 AM EST Nutrition Services Nutrition Services [address] [place] [address] 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
--- OUTSIDE RECORDS SUMMARY | 2023-09-29 09:17 | External Medical Summary | Summary of Care ---
Author Name Unknown Organization [facility] Address [address] [facility] [place] [address] Phone [phone] Care Team Providers Care Collar Baster Name Role Phone Domo Pool DO Primary Care Provider [phone] Reason for Visit * Reason Onset Date Comments Appointment 06/14/2023 Encounter Details Date Type Department Care Team (Late st Contact Info) Description 06/14/2023 Telephone Family Practice 65 [facility] 293 [place] [phone] Domo Pool DO 293 [place], [place] [phone] Appointment Allergies Active Allergy Reactions Criticality Noted [...] hemoglobin A1c goal of less than 7.0% ([facility]) USE TO CHECK BLOOD SUGAR [...] once a week. - gets from the youth officer! 0 04/03/2023 Active Fluconazole 150 MG Oral [...] mcgIndications:Vitamin B 12 deficiency 1000 mcg IM [id number] 12/29/2022 11/30/2023 Active documented as of this [...] cervical 2017 Coronary artery disease invo lving [place] coronary artery of [place] heart without angina pectoris 10/17/2017 Dyslipidemia, goal [...] encounter Miscellaneous Notes * Telephone Encounter - Batsheva Bridges OSA - 06/19/2023 10:33 AM EST Pt calling to check the status of this referral. Pt states she is unable to do a video appointment at all. Pt was advised that the intake must either be in person (Taryn) or via video. Pt was offered to come in our office to use our equipment, however; pt will need to set up her MyG and have an active email address, which patient refused. Out of frustration, she told me to not worry about the referral at this time. AMBER Bello. * Telephone Encounter - Batsheva Green OSA - 06/14/2023 4:02 PM EST When patient comes in for exercise we will get her set up for video appt here at 65 * Telephone Encounter - Celena Rosenberg LPN - 06/14/2023 9:04 AM EST Please assist with scheduling psychology appointment. Thank you documented in this encounter Plan of Treatment Upcoming Encounters Date Type Department Care Team (Late st Contact Info) Description 07/13/2023 11:00 AM EST Office Visit Interventional Pain Center, [facility] 132 [facility] [place] [address] Brayan Mares, 132 [facility] [place] [phone] 07/21/2023 8:40 AM EST Office Visit Family Practice 65 [facility] 293 [place] [address] Domo Pool, 293 [place] [address] 07/21/2023 10:00 AM EST Nutrition Services Nutrition Services 65 [facility] 293 [place] [address] Araseli Vale RDN [address] [place] [address] STEPHANIAILY[place] Galindo [phone] 11/21/2023 8:45 AM EDT Office Visit Otolaryngology [facility] [address] [place] [address] Gautam Morgan, [address] [place] [address] Health Maintenance Due Date Last Done Comments [...] Documents on File Type Date Recorded Patient Scientist Propagator Expl anation Advance Directives and Livin g [...] Advance Directives occurred with: Patient Care Teams Collar Baster Relationship Specialty Start Date End Date Domo Pool DO [address] [place] [facility] [place] [address] PCP - General Internal Medicine 01/19/22 documented as of this encounter
--- OUTSIDE RECORDS SUMMARY | 2023-09-29 09:17 | External Medical Summary | Summary of Care ---
Author Name Unknown Organization [facility] Address [address] [facility] [facility] [address] Phone [phone] Care Team Providers Care Lump Room Supervisor Name Role Phone Domo Pool DO Primary Care Provider [phone] Reason for Visit * Reason Onset Date Comments Follow Up 06/13/2023 Encounter Details Date Type Department Care Team (Late st Contact Info) Description 06/13/2023 Telephone Interventional Pain Center, [facility] [address] [place] [address] CousinsDez WillyDO [address] [place] [address] Follow Up Allergies Active Allergy Reactions Criticality Noted Date Comments Amoxicillin Bleeding High 04/27/2015 Amoxicillin-Pot Clavulanate 09/05/19 14 tary stools documented as of this encounter (statuses as of 06/15/2023) Medications Medication Sig Dispensed Refills Start Date [...] by mouth in the morning. 0 Active [employer] Verio w/Device Kit Use as directed . Use to test blood sugar once daily 1 Kit 0 01/20/2022 Active Vitamin C 500 MG Oral Capsule Take by mouth . 0 Active PaymoTouch UltraSoft LancetsIndications :Type 2 diabetes mellitus with hemoglobin A1c goal of less than 7.0% ([facility]) Use to check blood sugar once [...] hemoglobin A1c goal of less than 7.0% ([facility]),Cerebrovascu lar disease, arteriosclerotic, post-stroke TAKE ONE [...] hemoglobin A1c goal of less than 7.0% ([facility]) USE TO CHECK BLOOD SUGAR ONCE [...] once a week. - gets from the dog licenser! 0 04/03/2023 Active Fluconazole 150 MG Oral [...] mcgIndications:Vitamin B 12 deficiency 1000 mcg IM [id number] 12/29/2022 11/30/2023 Active documented as of this encounter (statuses as of 06/15/2023) Active Problems Problem Noted Date Diagnosed Date [...] cervical 2017 Coronary artery disease invo lving [place] coronary artery of [place]opa heart without angina pectoris 10/17/2017 Dyslipidemia, goal LDL below 70 11/13/2015 PSVT (paroxysmal supraventricular tachycardia) 0 10/14/2015 Essential hypertension with goal blood pressure less than 140/90 09/18/2014 Cerebrovascular disease, arteriosclerotic, post- stroke 07/21/2009 documented as of this encounter (statuses as of 06/15/2023) Resolved Problems Problem Noted Date Diagnosed Date [...] as of this encounter (statuses as of 06/15/2023) Immunizations Name Administration Dates Next Due COVID-19 [...] Telephone Encounter - Basia Flores LPN - 06/13/2023 1:42 PM EST Left message * Telephone Encounter - Dez Arevalo DO - 06/13/2023 9:45 AM EST She can be seen by Dr. Mares or [place]. * Telephone Encounter - Basia Flores LPN - 06/13/2023 9:32 AM EST Patient reports no improvement after injection. Is taking Gabapentin but makes her sleepy. Wants toknow what else you recommend? See ? documented in this encounter Plan of Treatment Upcoming Encounters Date Type Department Care Team (Late st Contact Info) Description 07/13/2023 11:00 AM EST Telemedicine Interventional Pain Center, [facility] 132 [facility] [place] [address] Brayan Mares, DO 132 [facility] [place] [phone] 07/21/2023 8:40 AM EST Office Visit Family Practice [address] [place] [address] 293 [place] [address] Domo Pool DO 293 [place] [address] 07/21/2023 10:00 AM EST Nutrition Services Nutrition Services [address] [place] [address] [place] [address] Araseli Vale RDN [address] [place] [address] [place] [facility] [place] [phone] 11/21/2023 8:45 AM EDT Office Visit Otolaryngology [facility] 132 [facility] [place] [address] Gautam Morgan, DO 132 [facility] [place] [address] Health Maintenance Due Date Last Done Comments Hepatitis B (1 of 3 - Risk 3-dose series) 2002 COVID-19 Vaccine (5 - 2022- season) 2023 06/14/2022, 06/03/2021, 09/30/2020, [...] Documents on File Type Date Recorded Patient Lacemaker Expl anation Advance Directives and Livin g [...] Advance Directives occurred with: Patient Care Teams Lump Room Supervisor Relationship Specialty Start Date End Date Domo Pool DO 293 [place] [address] PCP - General Internal Medicine 01/19/22 documented as of this encounter
--- OUTSIDE RECORDS SUMMARY | 2023-09-29 09:17 | External Medical Summary | Summary of Care ---
Author Name Unknown Organization [facility] Address [address] [facility] [place] [address] Phone [phone] Care Team Providers Care Tube Washer Name Role Phone Domo Pool DO Primary Care Provider [phone] Reason for Visit * Reason Onset Date Comments FYI 06/13/2023 meds Encounter Details Date Type Department Care Team (Late st Contact Info) Description 06/13/2023 Telephone Family Practice 65 [facility] 293 [place] [phone] Domo Pool DO 293 [place] [address] FYI (meds) Allergies Active Allergy Reactions Criticality Noted Date Comments Amoxicillin Bleeding High 04/27/2015 Amoxicillin-Pot Clavulanate 09/05/19 14 tary stools documented as of this encounter (statuses as of 06/13/2023) Medications Medication Sig Dispensed Refills Start Date [...] by mouth in the morning. 0 Active FTL Global SolutionsTouch Verio w/Device Kit Use as directed . Use to test blood sugar once daily 1 Kit 0 01/20/2022 Active Vitamin C 500 MG Oral Capsule Take by mouth . 0 Active [employer]TL Global SolutionsTouch UltraSoft LancetsIndications :Type 2 diabetes mellitus with hemoglobin A1c goal of less than 7.0% ([facility]) Use to check blood sugar once [...] of less than 7.0% ([facility]),Cerebrovascu lar disease, arteriosclerotic, post-stroke TAKE ONE [...] [facility]) USE TO CHECK BLOOD SUGAR ONCE [...] once a week. - gets from the copra sampler! 0 04/03/2023 Active Fluconazole 150 MG Oral [...] mcgIndications:Vitamin B 12 deficiency 1000 mcg IM [id number] 12/29/2022 11/30/2023 Active documented as of this encounter (statuses as of 06/13/2023) Active Problems Problem Noted Date Diagnosed Date [...] cervical 2017 Coronary artery disease invo lving [place] coronary artery of [place] heart without angina pectoris 10/17/2017 Dyslipidemia, goal LDL below 70 11/13/2015 PSVT (paroxysmal supraventricular tachycardia) 0 10/14/2015 Essential hypertension with goal blood pressure less than 140/90 09/18/2014 Cerebrovascular disease, arteriosclerotic, post- stroke 07/21/2009 documented as of this encounter (statuses as of 06/13/2023) Resolved Problems Problem Noted Date Diagnosed Date [...] as of this encounter (statuses as of 06/13/2023) Immunizations Name Administration Dates Next Due COVID-19 [...] Notes * Telephone Encounter - Beti Lawton, [facility] - 06/13/2023 1:16 PM EST Spoke to patient - refills are active at mail order. Will get them sent out to her. Beti Fernandez, Pharm D, BCACP Clinical Pharmacist [address] [place] [address] - Medication Therapy Disease Management [facility] 06/13/2023, 1:16 PM Ph. [phone] * Telephone Encounter - Batsheva Green OSA - 06/13/2023 9:19 AM EST Has enough Metformin for one week Please call documented in this encounter Plan of Treatment Upcoming Encounters Date Type Department Care Team (Late st Contact Info) Description 07/13/2023 11:00 AM EST Telemedicine Interventional Pain Center, [facility] 132 [facility] [place] [address] Brayan Mares, DO 132 [facility] [place] [phone] 07/21/2023 8:40 AM EST Office Visit Family Practice [address] [place] [address] 293 [place] [address] Domo Pool, DO 293 [place] [address] 07/21/2023 10:00 AM EST Nutrition Services Nutrition Services [address] [place] [address] 293 [place] [address] Araseli Vale RDN 106 [facility] [address] 11/21/2023 8:45 AM EDT Office Visit Otolaryngology [facility] 132 [facility] [place] [address] Gautam Morgan, DO 132 [facility] [place] [address] Health Maintenance Due Date Last Done Comments Hepatitis B (1 of 3 - Risk 3-dose series) 2002 COVID-19 Vaccine (2022- season) 2023 06/14/2022, 06/03/2021, 09/30/2020, Additional history [...] goal of less than 8.0% (HCC)- Primary documented in this encounter Advance Directives Documents on File Type Date Recorded 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
--- OUTSIDE RECORDS SUMMARY | 2023-09-29 09:17 | External Medical Summary | Summary of Care ---
Author Name Unknown Organization [facility] Address [address] [facility] [place] [address] Phone [phone] Care Team Providers Care Choke Setter Name Role Phone Domo Pool DO Primary Care Provider [phone] Reason for Visit * Reason Onset Date Comments Appointment 06/14/2023 Encounter Details Date Type Department Care Team (Late st Contact Info) Description 06/14/2023 Telephone Family Practice 65 [facility] 293 [place] [phone] Domo Pool DO 293 [place], [place] [phone] Appointment Allergies Active Allergy Reactions Criticality Noted Date Comments Amoxicillin Bleeding High 04/27/2015 Amoxicillin-Pot Clavulanate 09/05/19 14 tary stools documented as of this encounter (statuses as of 06/14/2023) Medications Medication Sig Dispensed Refills Start Date [...] hemoglobin A1c goal of less than 7.0% ([facility]) USE TO CHECK BLOOD SUGAR ONCE DAILY [...] once a week. - gets from the respiratory director! 0 04/03/2023 Active Fluconazole 150 MG Oral [...] mcgIndications:Vitamin B 12 deficiency 1000 mcg IM [id number] 12/29/2022 11/30/2023 Active documented as of this encounter (statuses as of 06/14/2023) Active Problems Problem Noted Date Diagnosed Date [...] cervical 2017 Coronary artery disease invo lving [place] coronary artery of [place] heart without angina pectoris 10/17/2017 Dyslipidemia, goal LDL below 70 11/13/2015 PSVT (paroxysmal supraventricular tachycardia) 0 10/14/2015 Essential hypertension with goal blood pressure less than 140/90 09/18/2014 Cerebrovascular disease, arteriosclerotic, post- stroke 07/21/2009 documented as of this encounter (statuses as of 06/14/2023) Resolved Problems Problem Noted Date Diagnosed Date [...] as of this encounter (statuses as of 06/14/2023) Immunizations Name Administration Dates Next Due COVID-19 [...] Miscellaneous Notes * Telephone Encounter - Batsheva Green OSA - 06/14/2023 4:02 PM EST When patient comes in for exercise we will get her set up for video appt here at 65 * Telephone Encounter - Shakira Celena StanleyFARHAN - 06/14/2023 9:04 AM EST Please assist with scheduling psychology appointment. Thank you documented in this encounter Plan of Treatment Upcoming Encounters Date Type Department Care Team (Late st Contact Info) Description 07/13/2023 11:00 AM EST Telemedicine Interventional Pain Center, [facility] [address] [place] [address] Brayan Mares, DO [address] [phone] 07/21/2023 8:40 AM EST Office Visit Family Practice [address] [place] [address] 293 [place] [address] Domo Pool, DO 293 [place] [address] 07/21/2023 10:00 AM EST Nutrition Services Nutrition Services [address] [place] [address] 293 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
--- OUTSIDE RECORDS SUMMARY | 2023-09-29 09:18 | External Medical Summary | Summary of Care ---
Author Name Unknown Organization [facility] Address [address] [facility] [place] [address] Phone [phone] Care Team Providers Care Odd Jobs Day Worker Name Role Phone Domo Pool DO Primary Care Provider [phone] Reason for Visit * Reason Onset Date Comments Returning Call 06/01/2023 Encounter Details Date Type Department Care Team (Late st Contact Info) Description 06/01/2023 Telephone Family Practice 65 [facility] 293 [place] [phone] Domo Pool DO 293 [place], [place] [phone] Returning Call Allergies Active Allergy Reactions Criticality Noted Date Comments Amoxicillin Bleeding High 04/27/2015 Amoxicillin-Pot Clavulanate 09/05/19 14 tary stools documented as of this encounter (statuses as of 06/02/2023) Medications Medication Sig Dispensed Refills Start Date [...] by mouth in the morning. 0 Active BOATHOUSE [employer]OW SPORTSTouch Verio w/Device Kit Use as directed . [...] - MARION) USE TO CHECK BLOOD SUGAR ONCE DAILY [...] once a week. - gets from the cigarette packer! 0 04/03/2023 Active Fluconazole 150 MG Oral [...] mcgIndications:Vitamin B 12 deficiency 1000 mcg IM [id number] 12/29/2022 11/30/2023 Active documented as of this encounter (statuses as of 06/02/2023) Active Problems Problem Noted Date Diagnosed Date [...] cervical 2017 Coronary artery disease invo lving [place] coronary artery of [place] heart without angina pectoris 10/17/2017 Dyslipidemia, goal LDL below 70 11/13/2015 PSVT (paroxysmal supraventricular tachycardia) 0 10/14/2015 Essential hypertension with goal blood pressure less than 140/90 09/18/2014 Cerebrovascular disease, arteriosclerotic, post- stroke 07/21/2009 documented as of this encounter (statuses as of 06/02/2023) Resolved Problems Problem Noted Date Diagnosed Date [...] as of this encounter (statuses as of 06/02/2023) Immunizations Name Administration Dates Next Due COVID-19 mRNA, LNP-s, No Pre serve, 2-Dose Series (Pfizer) 06/03/2021,09/30/2020,09/04/2020 Covid-19, Mrna, Lnp-s, Pf, B ivalent, 30 Mcg, IM, 12 yrs and above (Pfizer) 06/14/2022 Pneumococcal Conjugate Vacc, 13 Valent (Prevnar) 11/19/2015 Pneumococcal Polysaccharide PPV23 (Pneumovax) 07/03/2008 SEASONAL INFLUENZA, PF, 6 M & Above, IM , (FLULAVAL or FLUZONE) 03/11/2020,04/15/2019,05/10/2018,03/27 Seasonal Influenza, Quadriva lent Hd (Fluzone [...] encounter Miscellaneous Notes * Telephone Encounter - Pat Rosenberg LPN - 06/02/2023 4:08 PM EST Called, left message stating I did not contact patient but if she needs anything to call office. Thank you * Telephone Encounter - Batsheva Green OSA - 06/01/2023 2:24 PM EST Patient called said she was returning call to pat I do not see anything of a call Please call documented in this encounter Plan of Treatment Upcoming Encounters Date Type Department Care Team (Late st Contact Info) Description 07/13/2023 11:00 AM EST Telemedicine Interventional Pain Center, [facility] [address] [place] [address] Brayan Mares, DO [address] [place] [phone] 07/21/2023 8:40 AM EST Office Visit Family Practice [address] [place] [address] [place] [address] Domo Pool, DO 293 [place] [address] 07/21/2023 10:00 AM EST Nutrition Services Nutrition Services [address] [place] [address] 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 Question Answer Comments Discussion of Advance Directives occurred with: Patient Care Teams Odd Jobs Day Worker Relationship Specialty Start Date End Date Domo Pool DO [address] [place] [address] PCP - General Internal Medicine 01/19/22 documented as of this encounter
--- OUTSIDE RECORDS SUMMARY | 2023-09-29 09:18 | External Medical Summary | Summary of Care ---
Author Name Unknown Organization [facility] Address [address] [facility] [place] [address] Phone [phone] Care Team Providers Care Frame Feeder Name Role Phone Domo Pool DO Primary Care Provider [phone] Reason for Visit * Reason Onset Date Comments Advice 06/07/2023 Back issues Encounter Details Date Type Department Care Team (Late st Contact Info) Description 06/07/2023 Telephone Family Practice 65 [facility] [address] [place] [phone] Domo Pool DO 293 [place], [place] [phone] Advice (Back issues) Allergies Active Allergy Reactions Criticality Noted Date Comments Amoxicillin Bleeding High 04/27/2015 Amoxicillin-Pot Clavulanate 09/05/19 14 tary stools documented as of this encounter (statuses as of 06/07/2023) Medications Medication Sig Dispensed Refills Start Date [...] by mouth in the morning. 0 Active ALung TechnologiesTouch Verio w/Device Kit Use as directed . Use to test blood sugar once daily 1 Kit 0 01/20/2022 Active Vitamin C 500 MG Oral Capsule Take by mouth . 0 Active ALung TechnologiesTouch UltraSoft LancetsIndications :Type 2 diabetes mellitus with hemoglobin A1c goal of less than 7.0% ([facility]) Use to check blood [...] A1c goal of less than 7.0% ([facility]) USE TO CHECK BLOOD [...] a week. - gets from the manager bakery! 0 04/03/2023 Active Fluconazole 150 MG Oral [...] mcgIndications:Vitamin B 12 deficiency 1000 mcg IM [id number] 12/29/2022 11/30/2023 Active documented as of this encounter (statuses as of 06/07/2023) Active Problems Problem Noted Date Diagnosed Date [...] cervical 2017 Coronary artery disease invo lving [place] coronary artery of [place] heart without angina pectoris 10/17/2017 Dyslipidemia, goal LDL below 70 11/13/2015 PSVT (paroxysmal supraventricular tachycardia) 0 10/14/2015 Essential hypertension with goal blood pressure less than 140/90 09/18/2014 Cerebrovascular disease, arteriosclerotic, post- stroke 07/21/2009 documented as of this encounter (statuses as of 06/07/2023) Resolved Problems Problem Noted Date Diagnosed Date [...] as of this encounter (statuses as of 06/07/2023) Immunizations Name Administration Dates Next Due COVID-19 [...] Telephone Encounter - Batsheva Bridges OSA - 06/07/2023 11:21 AM EST Pt wanted to discuss pain medicine, however; changed her mind. She will let us know if she needs anything * Telephone Encounter - Celena Varner, RN - 06/07/2023 10:29 AM EST Go ahead and add to nurse schedule-let us know when she is done * Telephone Encounter - Batsheva Green OSA - 06/07/2023 10:00 AM EST Is here to see Jennifer Would like to speak to nurse or MD She has a few questions about her back and would like to speak to someone "Will only take a few minutes " documented in this encounter Plan of Treatment Upcoming Encounters Date Type Department Care Team (Late st Contact Info) Description 07/13/2023 11:00 AM EST Telemedicine Interventional Pain Center, [facility] [address] [place] [address] Brayan Mares, DO 132 [facility] [place] [phone] 07/21/2023 8:40 AM EST Office Visit Family Practice [address] [place] [address] 293 [place] [address] Domo Pool, DO 293 [place] [address] 07/21/2023 10:00 AM EST Nutrition Services Nutrition Services [address] [place] [address] 293 [place] [address] Araseli Vale RDN [address] [place] [address] [place] [address] 11/21/2023 8:45 AM EDT Office Visit Otolaryngology [facility] [address] [place] [address] Gautam Morgan, DO [address] [place] [address] Health Maintenance Due Date Last Done Comments [...] Documents on File Type Date Recorded 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
--- OUTSIDE RECORDS SUMMARY | 2023-09-29 09:18 | External Medical Summary | Summary of Care ---
Author Name Unknown Organization [facility] Address [address] [facility] [place] [address] Phone [phone] Care Team Providers Care Cyber Crime Investigator Name Role Phone Padmini Pool DO Primary Care Provider [phone] Reason for Visit * Reason Comments NEW PATIENT Pt here regarding so me blister like lesions under abdomen and creases of legs. Duration: 2 months Treating with antibacterial soap and cornstarch. No history of skin cancer. * Evaluate & Treat - Unlimited Visits (Within 10 days (routine)) - Authorized Specialty Diagnoses / Procedures Referred By Gaurang quiles Referred To Contact Dermatology Diagnoses Skin lesions Padmini Pool, [address] [place] [address] Referral ID Status Reason Start Date Expiration Date Visits Requested Visits Authorized [id number] Authorized Specialty Services Required 02/07/2023 [id number] Encounter Details Date Type Department Care Team (Late st Contact Info) Description 05/11/2023 9:20 AM EST [facility] [place] [address] [place] [address] Twila Paz PA-C [address] [place] [phone] Dermatitis*; Candidiasis; Inflamed seborrheic keratosis Allergies Active Allergy Reactions Criticality Noted Date Comments Amoxicillin Bleeding High 04/27/2015 Amoxicillin-Pot Clavulanate 09/05/19 14 tary stools documented as of this encounter (statuses as of 05/27/2023) Medications Medication Sig Dispensed Refills Start Date [...] by mouth in the morning. 0 Active Carbon Design SystemsTouch Verio w/Device Kit Use as directed . Use to test blood sugar once daily 1 Kit 0 01/20/2022 Active Vitamin C 500 MG Oral Capsule Take by mouth . 0 Active OneTouch UltraSoft LancetsIndications :Type 2 diabetes mellitus with hemoglobin A1c goal of less than 7.0% ([facility]) Use to check blood sugar [...] goal of less than 7.0% ([facility]),Cerebrovascu lar disease, arteriosclerotic, post-stroke TAKE [...] MUSCLE SPASMS, 270 Tablet 3 03/03/2023 Active Eren Rashid In Vitro Strip (Glucose Blood)Indications: Type 2 diabetes mellitus with hemoglobin A1c goal of less than 7.0% ([facility]) USE TO CHECK BLOOD SUGAR [...] once a week. 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 0 04/03/2023 Active Hospital, Clinic, or Other Facility Administered Medication Ordered Dose Route Frequency Start Date End Date Status vitamin b-12 (Cyanocobalamin) inj 1,000 mcgIndications:Vitamin B 12 deficiency 1000 mcg IM [id number] 12/29/2022 11/30/2023 Active documented as of this encounter (statuses as of 05/27/2023) Active Problems Problem Noted Date Diagnosed Date Drug-induced hyperkalemia 04/11/2023 Overview: L[facility]IN[facility]RIL Food insecurity 04/10/2023 Overview: Per [facility] Protocol Vitamin B 12 deficiency 12/29/2022 Primary insomnia 06/08/2022 Generalized anxiety disorder 01/25/2022 Sacroiliitis, not elsewhere classified 07/26/202 2 DDD (degenerative disc disease), lumbar 01/26/20 22 Iron deficiency anemia 09/14/2018 Gastroesophageal reflux disease without esophagi tis 09/14/2018 Type 2 diabetes mellitus wit h hemoglobin A1c goal of less than 8.0% 10/17/2017 Bilateral carpal tunnel syndrome 10/17/2017 Primary osteoarthritis of left foot 10/17/2017 DDD (degenerative disc disease), cervical 2017 Coronary artery disease invo lving [place] coronary artery of [place] heart without angina pectoris 10/17/2017 Dyslipidemia, goal LDL below 70 11/13/2015 PSVT (paroxysmal supraventricular tachycardia) 0 10/14/2015 Essential hypertension with goal blood pressure less than 140/90 09/18/2014 Cerebrovascular disease, arteriosclerotic, post- stroke 07/21/2009 documented as of this encounter (statuses as of 05/27/2023) Resolved Problems Problem Noted Date Diagnosed Date [...] as of this encounter (statuses as of 05/27/2023) Immunizations Name Administration Dates Next Due COVID-19 mRNA, LNP-s, No Pre serve, 2-Dose Series (CodeBaby) 06/03/2021,09/30/2020,09/04/2020 Covid-19, Mrna, Lnp-s, Pf, B ivalent, [...] as of this encounter Progress Notes * Tonja Staples MD - 05/27/2023 5:37 PM EST I have reviewed the case/photos and discussed the patient's management with the RAMBO and agree with the note. Please refer to the documented findings and plan of care. This patient's visit today consisted of an evaluation and management plan. I was available for in person consultation during and after the visit Tonja Staples MD 05/27/2023 5:37 PM * Twila Paz PA-C - 05/11/2023 9:16 AM EST SUBJECTIVE: HPI: Dyana Menard is a 82 year old female seen at the request of Dr. Pool for evaluation and treatment of a rash . Lesions to suprapubic area x months, with a redness sometimes as well. Mild itching. No systemic symptoms Carlottaer at 22 (CVA) second daughter has ALS REVIEW OF SYSTEMS: SKIN: No other new or changing moles. HEME/LYMPH: No new or enlarging lumps or bumps. CONSTITUTIONAL: No nausea, vomiting, fevers, chills, diarrhea. No recent unintended weight loss, night sweats, appetite or malaise. 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 RCA Hearing loss Hypertension Ischemic colitis (HCC) 02/06/12 found on colonoscopy-repeat colonoscopy 05/28/12 Slow transit constipation 01/25/2022 Type 2 diabetes mellitus (HCC) FAMILY HISTORY: Skin CA: None Skin Disorders: none SOCIAL HISTORY: Social History Tobacco Use Smoking status: Former Types: Cigarettes Quit date: 07/28/1961 Years since quittin.8 Passive exposure: Current Smokeless tobacco: Never Tobacco comments: quit 40 yrs ago, only smoked 6 months. Substance Use Topics Alcohol use: No Vaping/E-Cigarette Use Vaping/E-Cigarette Use Never User Vaping/E-Cigarette Substances Vaping/E-Cigarette Devices MEDICA TIONS: Current Outpatient Medications Medication Sig Dispense Refill Aspirin 81 MG Tablet Take 1 Tablet by mouth in the morning. Cholecalciferol (VITAMIN D) 1000 UNIT Capsule Take 1 Capsule by mouth in the morning. Biotin 1000 MCG Oral Tablet Take 5 Tablets by mouth in the morning. 1 Tab 0 traMADol HCl 50 MG Oral Tablet (Ultram) Take 1 Tab by mouth every 6 hours as needed (for back pain). (Patient not taking: Reported on 04/04/2023) 60 Tab 0 Polyethylene Glycol 3350 17 [...] 1 Capsule by mouth in the morning. YouTern Verio w/Device Kit Use as directed . Use to test blood sugar once daily 1 Kit 0 Vitamin C 500 MG Oral Capsule Take by mouth . iTOKuch UltraSoft Lancets Use to check blood sugar [...] BY MOUTH EVERY MORNING 100 Tablet 3 traZODone HCl 50 MG Oral Tablet (Desyrel) TAKE ONE TABLET BY MOUTH AT BEDTIME 100 Tablet 1 Atorvastatin Calcium 80 MG Oral Tablet (Lipitor) TAKE ONE TABLET BY MOUTH IN THE MORNING 100 Tablet1 busPIRone HCl 10 MG Oral Tablet (Buspar) TAKE ONE TABLET BY MOUTH IN THE MORNING AND TAKE ONE TABLET BEFORE BEDTIME 200 Tablet 2 Sertraline HCl 50 MG Oral Tablet (Zoloft) TAKE ONE TABLET BY MOUTH EVERY MORNING IN ADDITION TO [id number] TABLET 100 Tablet 3 Pantoprazole Sodium 20 [...] mouth in the morning. 100 Tablet 3 amLODIPine Besylate 5 MG Oral Tablet (Norvasc) Take 1 Tablet by mouth in the morning. (Patient not taking: Reported on 04/04/2023) 10 Tablet 3 Sertraline HCl 100 MG Oral Tablet (Zoloft) Take 1 Tablet by mouth in the morning. Takes additional 50 mg tablet. 100 Tablet 3 Ozempic (0.25 or 0.5 MG/DOSE) 2 MG/3ML Solution Pen-injector (Semaglutide(0.25 or 0.5MG/DOS)) Inject 0.25 mg under the skin once a week. 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 Current Facility-Administered Medications Medication Dose Route Frequency Provider Last Rate Last Admin vitamin b-12 (Cyanocobalamin) inj 1,000 mcg 1,000 mcg Intramuscular Q4 Weeks Padmini Pool DO 1,000 mcg at 03/30/23 0904 ALLERG Y: Amoxicillin and Amoxicillin-pot clavulanate OBJECTIVE: GEN: Healthy, alert, no distress, appears oriented, pleasant, and cooperative. SKIN: Detailed exam of face including lids and lips, neck, chest, abdomen, and back completed and are normal except: 1. Suprapubic- waxy skin colored and pink stuck-on papules 2. Scant patches of scaling erythema ASSESS MENT/PLAN: 1. ISKs. Benign nature was discussed and no further intervention needed. Advised to call with any changes. - Once candidiasis resolves, we can cryo the SKs if she chooses 2. Candidiasis - Positive JACKSON - OTC Triple Paste AF - Gold Jules friction stick Follow-up: as needed There were no barriers tolearning and no other pain was related to today's visit. The patient and/or person accompanying patient demonstrates understanding of the visit and treatment. Twila Paz PA-C 05/11/2023 9:16 AM Ref: PADMINI POOL[[id number]] [address] [place] [address] (office) [phone] (fax) PCP: PADMINI POOL [address] [place] [address] [phone] documented in this encounter Nursing Notes * Brie Ann LPN - 05/11/2023 9:11 AM EST Patient identified by name and date of . Do you have any concerns about pain management for today's visit? No Living Will or Advance Directive for Health Care as noted on problem list. [facility] is a way you can talk to your provider online through e-mail. Would you like to sign up? I can activate it for you? DECLINES Chief Complaint Patient presents with NEW PATIENT Pt here regarding some blister like lesions under abdomen and creases of legs. Duration: 2 months Treating with antibacterial soap and cornstarch. No history of skin cancer. documented in this encounter Miscellaneous Notes * Addendum Note - Tonja Staples MD - 05/27/2023 5:38 PM ESTAddended by: TONJA STAPLES on: 05/27/2023 05:38 PM Modules accepted: Level of Service * Addendum Note - Brie Ann LPN - 05/11/2023 1:24 PM ESTAddended by: BRIE ANN on: 05/11/2023 01:24 PM Modules accepted: Orders documented in this encounter Plan of Treatment Upcoming Encounters Date Type Department Care Team (Latest Contact Info) Description 05/31/2023 9:20 AM EST Hospital Encounter OR [facility], Operating Room [facility] [address] [place] [phone] Dez Arevalo, DO [address] [place] [address] 05/31/2023 9:20 AM EST - 05/31/2023 9:40 AM EST Surgery OR [facility] [address], Operating Room [facility] [address] [place] [phone] Dez Arevalo, DO [address] [place] [address] INJECTION SACROILIAC JOINT 07/13/2023 11:00 AM EST Telemedicine Interventional Pain Center, [facility] 132 [facility] [place] [address] Brayan Mares, DO [address] [facility] [place] [phone] 07/21/2023 8:40 AM EST Office Visit Family Practice [address] [place] [address] 293 [place] [address] Padmini Pool, DO 293 [place] [address] 07/21/2023 10:00 AM EST Nutrition Services Nutrition Services [address] [place] [address] 293 [place] [address] Araseli Vale, NORB[place] [address] [place] [address] 11/21/2023 8:45 AM EDT Office Visit Otolaryngology [facility] 132 [facility] [place] [address] Gautam Morgan, DO 132 [place] [address] Pending Results Name Type Priority Associated Diagnoses Date /Time POTASSIUM HYDROXIDE SMEAR, POINT OF CARE (ENTER/EDIT) Point of Care Testing Routine Dermatitis 05/11/2023 Scheduled Procedures Name Priority Associated Diagnoses Date/Ti me INJECTION SACROILIAC JOINT Inflammation of sacroiliac joint (HCC) 05/31/2023 9:20 AM EST Health Maintenance Due Date Last Done Comments [...] Procedure Name Priority Date/Time Associated Diagnosis Comments DERM IMAGE (SITE) Routine 05/11/2023 Dermatitis documented in this encounter Results * DERM IMAGE (SITE) (05/11/2023) 05/11/2023 Twila De Leon Leonardcelina [place] DIGITAL PHOTOGR APHY documented in this encounter Visit Diagnoses Diagnosis Dermatitis- Primary Contact dermatitis and other eczema, due to unspecified cause Candidiasis Candidiasis of unspecified site Inflamed seborrheic keratosis Inflammation of sacroiliac joint (HCC) Sacroiliitis, not elsewhere classified documented in this encounter Advance Directives Documents on File Type Date Recorded 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
--- OUTSIDE RECORDS SUMMARY | 2023-09-29 09:18 | External Medical Summary | Summary of Care ---
Author Name Unknown Organization [facility] Address [address] [facility] [place] [address] Phone [phone] Care Team Providers Care Measurement Department Chief Clerk Name Role Phone Domo Pool DO Primary Care Provider [phone] Reason for Visit * Auth/Cert Specialty Diagnoses / Procedures Referred By Contac t Referred To Contact Diagnoses Inflammation of sacroiliac joint (HCC) Inflammation of sacroiliac joint (HCC) [M46.1] Procedures SACROILIAC JOINT INJECT W/GUIDANCE INJECTION SACROILIAC JOINT Referral ID Status Reason Start Date Expiration Date Visits Re quested Visits Authorized [id number] Encounter Details Date Type Department Care Team (Latest Contact Info) Description 05/31/2023 8:56 AM EST - 05/31/2023 9:26 AM EST Hospital Encounter OR [facility], Operating Room [facility] [address] [place] [phone] Dez Arevalo DO [address] [place] [address] Discharge Disposition: Home - Self Care Allergies Active Allergy Reactions Criticality Noted Date Comments Amoxicillin Bleeding High 04/27/2015 Amoxicillin-Pot Clavulanate 09/05/19 14 tary stools documented as of this encounter (statuses as of 05/31/2023) Medications Medication Sig Dispensed Refills Start Date [...] by mouth in the morning. 0 Active SparCodeTouch Verio w/Device Kit Use as directed . Use to test blood sugar once daily 1 Kit 0 01/20/2022 Active Vitamin C 500 MG Oral Capsule Take by mouth . 0 Active SparCodeTouch UltraSoft LancetsIndications :Type 2 diabetes mellitus with hemoglobin A1c goal of less than 7.0% ([facility]) Use to check blood sugar once daily [...] goal of less than 7.0% ([facility]),Cerebrovascu lar disease, arteriosclerotic, post-stroke TAKE ONE TABLET [...] goal of less than 7.0% ([facility]) USE TO CHECK BLOOD SUGAR ONCE [...] once a week. 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 0 04/03/2023 Active Fluconazole 150 MG Oral Tablet (Diflucan) TAKE ONE TABLET BY MOUTH ONCE FOR 1 DOSE 1 Tablet 0 05/22/2023 Active Miconazole Nitrate 2 % External Cream (Monistat Derm) Apply to skin folds as directed 0 Active documented as of this encounter (statuses as of 05/31/2023) Active Problems Problem Noted Date Diagnosed Date [...] cervical 2017 Coronary artery disease invo lving [place] coronary artery of [place] heart without angina pectoris 10/17/2017 Dyslipidemia, goal LDL below 70 11/13/2015 PSVT (paroxysmal supraventricular tachycardia) 0 10/14/2015 Essential hypertension with goal blood pressure less than 140/90 09/18/2014 Cerebrovascular disease, arteriosclerotic, post- stroke 07/21/2009 documented as of this encounter (statuses as of 05/31/2023) Resolved Problems Problem Noted Date Diagnosed Date [...] as of this encounter (statuses as of 05/31/2023) Immunizations Name Administration Dates Next Due COVID-19 mRNA, LNP-s, No Pre serve, 2-Dose Series ([facility]) 06/03/2021,09/30/2020,09/04/2020 Covid-19, Mrna, Lnp-s, Pf, B ivalent, [...] Sign Reading Time Taken Comments Blood Pressure 163/87 05/31/2023 9:21 AM EST Pulse 65 05/31/2023 9:21 AM EST Temperature 36.2 C (97.1 F) 05/31/2023 9:04 AM ES T Respiratory Rate 14 05/31/2023 9:21 AM EST Oxygen Saturation 92% 05/31/2023 9:21 AM EST Inhaled Oxygen Concentration - - Weight - [...] Discharge Instructions * Discharge Instr - AVS* Dez Arevalo DO - 05/31/2023 9:18 AM EST [facility] [address] [place] [address] Discharge Date: 05/31/2023 You may call [facility] at [phone] during business hours. For after-hours emergencies call [phone]. Your attending physician at the time of your discharge was: Dez Arevalo DO [address] [facility] [address] The information below provides you with the [...] unless otherwise instructed by your family physician, director internal communications or the anticoagulation clinic. Additional Instructions: Driving: . Date you may return to work or school: Follow Up: Call [phone] in 4 weeks. documented in this encounter Progress Notes * Dez Arevalo DO - 05/31/2023 9:18 AM EST [facility] [address] [address] OUTPATIENT SURGERY DISCHARGE SUMMARY NOTE Name: Dyana Menard Location: [facility] Date: 05/31/2023 Time: 9:18 AM Surgery Date: 05/31/2023 Procedure: Procedure(s): INJECTION SACROILIAC JOINT No laterality found for procedure #1 Surgeon: Surgeon(s): Dez Arevalo DO Discharge Diagnosis: Bilateral sacroiliitis After examination of this patient, I have determined she is ready for discharge to home when the patient meets criteria. Discharge instructions were given to the patient. documented in this encounter H&P Notes * Dez Arevalo DO - 05/31/2023 6:43 AM EST Interventional Pain Pre-Procedure Assessment Name:Dyana Menard Date:05/31/2023 Time:6:43 AM Procedure(s): Bilateral sacroiliac joint injections Diagnosis: Pre-Procedure Assessment: Prior to the procedure, the patient was identified. The patient's history, medications and allergies were reviewed . The patient is competent. The risks and benefits of the proposed procedure and theplanned sedation were discussed with the patient. All questions were answered and informed consent for the procedure was obtained. Prior to Admission medications Medication Sig Last Dose Discont. Miconazole Nitrate 2 % External Cream (Monistat Derm) Apply to skin folds as directed Fluconazole 150 MG Oral Tablet (Diflucan) TAKE ONE TABLET BY MOUTH ONCE FOR 1 DOSE Ozempic (0.25 or 0.5 MG/DOSE) 2 MG/3ML Solution Pen-injector (Semaglutide(0.25 or 0.5MG/DOS)) Inject 0.25 mg under the skin once a week. 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 Sertraline HCl 100 MG Oral Tablet (Zoloft) Take 1 Tablet by mouth in the morning. Takes additional 50 mg tablet. amLODIPine Besylate 5 MG Oral Tablet (Norvasc) Take 1 Tablet by mouth in the morning. amLODIPine Besylate 5 MG Oral Tablet (Norvasc) Take 1 Tablet by mouth in the morning. Atenolol 50 MG Oral Tablet (Tenormin) TAKE ONE TABLET BY MOUTH IN THE MORNING OneTouch Verio In Vitro Strip (Glucose Blood) USE TO CHECK BLOOD SUGAR ONCE DAILY DIRECTED Cyclobenzaprine HCl 5 MG Oral Tablet (Flexeril) TAKE ONE TABLET BY MOUTH THREE TIMES A DAY NEEDED FOR MUSCLE SPASMS, metFORMIN HCl 1000 MG Oral Tablet (Glucophage) Take 1 Tablet by mouth 2 times a day with morning and evening meals. Gabapentin 100 MG Oral Capsule (Neurontin) Take 1 Capsule by mouth in the morning and 1 Capsule at noon and 1 Capsule before bedtime. Dicyclomine HCl 10 MG Oral Capsule (Bentyl) TAKE ONE CAPSULE BY MOUTH FOUR TIMES A DAY NEEDED FOR DIARRHEA AND PAIN Fluticasone Propionate 50 MCG/ACT Nasal Suspension (Flonase) ADMINISTER 2 SPRAYS INTO EACH NOSTRIL IN THE MORNING NEEDED Cetirizine HCl 10 MG Oral Tablet (ZyrTEC) TAKE ONE TABLET BY MOUTH EVERY MORNING traZODone HCl 50 MG Oral Tablet (Desyrel) TAKE ONE TABLET BY MOUTH AT BEDTIME Atorvastatin Calcium 80 MG Oral Tablet (Lipitor) TAKE ONE TABLET BY MOUTH IN THE MORNING busPIRone HCl 10 MG Oral Tablet (Buspar) TAKE ONE TABLET BY MOUTH IN THE MORNING AND TAKE ONE TABLET BEFORE BEDTIME Sertraline HCl 50 MG Oral Tablet (Zoloft) TAKE ONE TABLET BY MOUTH EVERY MORNING IN ADDITION TO [id number] TABLET Meclizine HCl 25 MG Oral Tablet (Antivert) TAKE 1 TABLET BY MOUTH 3 TIMES DAILY NEEDED FOR DIZZINESS Strength: 25 mg Pantoprazole Sodium 20 MG Oral Tablet Delayed Release (Protonix) TAKE ONE TABLET BY MOUTH TWICE A DAY 30 MINUTES BEFORE A MEAL DO NOT CUT, CRUSH OR CHEW THE TABLET. Acetaminophen ER 650 MG Oral Tablet Extended Release Take 2 Tablets by mouth at bedtime as needed (hip pain). OneTouch UltraSoft Lancets Use to check blood sugar once daily as directed Vitamin C 500 MG Oral Capsule Take by mouth . OneTouch Verio w/Device Kit Use as directed . Use to test blood sugar once daily Probiotic Acidophilus BioBeads Oral Capsule Take 1 Capsule by mouth in the morning. Prevagen Extra Strength 20 MG Oral Capsule (Apoaequorin) Take by mouth 1 Capsule daily . Polyethylene Glycol 3350 17 GM/SCOOP Oral Powder (MiraLax) Take by mouth 17 g in the morning. One cap full in juice, to effect 1 stool per day. .. Patient taking differently: Take 17 g by mouth in the morning. One cap full in juice, to effect 1 stool per day. .. traMADol HCl 50 MG Oral Tablet (Ultram) Take 1 Tab by mouth every 6 hours as needed (for back pain). Biotin 1000 MCG Oral Tablet Take 5 Tablets by mouth in the morning. Aspirin 81 MG Tablet Take 1 Tablet by mouth in the morning. Cholecalciferol (VITAMIN D) 1000 UNIT Capsule Take 1 Capsule by mouth in the morning. Review of patient's allergies indicates: Allergen Reactions Amoxicillin Bleeding Amoxicillin-Pot Clavulanate tary stools There were no vitals taken for this visit. Physical Exam: Mental Status Examination: alert and oriented. Airway Examination: normal oropharyngeal airway and neck mobility. Respiratory Examination: clear to auscultation. CV Examination: normal. ASA Grade: III - A patient with severe systemic disease. After reviewing the risks and benefits, the patient was deemed in satisfactory condition to undergothe procedure. The anesthesia plan was to use local anesthesia. Dez Arevalo DO 05/31/2023 documented in this encounter Nursing Notes * Sumaya Arroyo RN - 05/31/2023 9:23 AM EST Visited by Dr Arevalo. Verbalized understanding of discharge directions. Ready for discharge to home. * Beverly Garcia RN - 05/31/2023 9:18 AM EST Band aid applied to area. Patient transferred to PACU 11 via wheelchair * Beverly Garcia RN - 05/31/2023 9:15 AM EST Patient tolerating pain management injection well. documented in this encounter OR Notes * OR Surgeon - Dez Arevalo DO - 05/31/2023 9:18 AM EST OPERATIVE RECORD OR [facility], Operating Room [address] [address] Dyana Menard : 1940 DOS: 05/31/2023 SERVICE: INTERVENTIONAL PAIN MANAGEMENT PRE-OP DIAGNOSIS: Bilateral sacroiliitis. POST-OP DIAGNOSIS: Same. SURGEON: Dez Arevalo DO. ASSISTANTS: None. ANESTHESIA: 2 mL of 1% lidocaine. OPERATION: Bilateral sacroiliac joint injections. FINDINGS: No intraoperative findings. ESTIMATED BLOOD LOSS: None. DRAINS: There were no drains placed. FLUIDS: No IV fluids. URINE OUTPUT: None. SPECIMEN: No specimens collected. COMPLICATIONS: None. CONDITION: Good. INDICATIONS AND HISTORY: Dyana Menard presents in anticipation of undergoing injection of the bilateral sacroiliac joints for persistent buttock pain refractory to conservative management. The procedure was reviewed, as well as the risks of bleeding, infection, neural injury, worsening pain, or steroid side effects. DESCRIPTION OF OPERATION: After obtaining appropriate informed consent, Dyana Menard was taken to the fluoroscopy suite, placed in a prone position. Time-out was taken to identify the patient, procedure, and the injection site, and the left sacroiliac joint was identified. The overlying skin sterilely prepped with ChloraPrep and draped. 1% lidocaine, 2 mL, was infiltrated in the skin and subcutaneous tissue, and a #25 gauge, 3-1/2 inch spinal needle was directed with fluoroscopic guidance into the inferior aspect of the joint without pain or paresthesia. After negative aspiration 0.5 mL ofOmnipaque 180 was easily injected and showed appropriate intra-articular placement. There was no evidence of intravascular spread of contrast. Kenalog 30 mg with 1 mL of 0.25% preservative-free bupivacaine was then easily injected without pain. Needle was removed. The injection was then repeated onthe right side using identical technique. Patient tolerated procedure well. Dyana Menard will giovanni-evaluated in approximately 4 weeks by phone and was given appropriate discharge instructions following postprocedural monitoring. Dez Arevalo DO 05/31/2023 9:18 AM documented in this encounter Plan of Treatment Upcoming Encounters Date Type Department Care Team (Late st Contact Info) Description 07/13/2023 11:00 AM EST Telemedicine Interventional Pain Center, [facility] [address] [facility] [place] [address] Brayan Mares DO 132 [facility] [place] [phone] 07/21/2023 8:40 AM EST Office Visit Family Practice [address] [place] [address] [address] [place] [address] Domo Pool DO 293 [place] [address] 07/21/2023 10:00 AM EST Nutrition Services Nutrition Services [address] [place] [address] [address] [place] [address] Araseli Vale RDN [address] [facility] [place] [address] 11/21/2023 8:45 AM EDT Office Visit Otolaryngology [facility] [address] [place] [address] Gautam Morgan, [address] [place] [address] Scheduled Procedures Name Priority Associated Diagnoses Date/Ti me INJECTION SACROILIAC JOINT Inflammation of sacroiliac joint (HCC) 05/31/2023 9:12 AM EST Health Maintenance Due Date Last [...] Additional history exists Zoster Vaccines Completed 12/09/2020, 05, 10/22/2020, Additional history exists Influenza Vaccine (FLU [...] Comments FLUORO INTERVENTIONAL PAIN PROCEDURE NONBILLABLE Routine 05/31/2023 9:20 AM EST documented in this encounter Results * FLUORO INTERVENTIONAL PAIN PROCEDURE NONBILLABLE (05/31/2023 9:20 AM EST) Narrative Scheduling, Silent - 05/31/2023 9:21 AM EST This procedure will not be read by a Radiologist. Please see operative note. Dez Arevalo DO RAD FLUOROSCOPY documented in this encounter Administered Medications Inactive Administered Medications - up to 3 most recent administrations Medication Order MAR Action Action Date Dose Rate Site bupivacaine (Sensorcaine) 0.25 % inj 5 mg 5 mg (2 mL), Injection, ONCE, On Mon05/31/23 at 0945, For 1 dose Given 05/31/2023 9:14 AM EST 3 mL Iohexol (Omnipaque 180) inj 1 mL 1 mL, Injection, ONCE, On Mon05/31/23 at 0945, For 1 dose Given 05/31/2023 9:14 AM EST 1 mL lidocaine 1 % inj 30 mg 30 mg (3 mL), Subcutaneous, ONCE, On Mon05/31/23 at 0945, For 1 dose Given 05/31/2023 9:13 AM EST 30 mg O ther-Specify Triamcinolone Acetonide (Kenalog) 40 MG/ML inj 60 mg 60 mg, Intra-Articular, ONCE, On Mon05/31/23 at 0945, For 1 dose Given 05/31/2023 9:14 AM EST 60 mg documented in this encounter Active and Recently Administered Medications Times are shown in EST. Scheduled Medication Order 05/29/2023 05/30/2023 05/31/2023 bupivacaine (Sensorcaine) 0.25 % inj 5 mg (COMPLETED) 5 mg (2 mL), Injection, ONCE, On Mon05/31/23 at 0945, For 1 dose 0914 (Given - Provid er: Beverly Garcia RN) Iohexol (Omnipaque 180) inj 1 mL (COMPLETED) 1 mL, Injection, ONCE, On Mon05/31/23 at 0945, For 1 dose 0914 (Given - Provid er: Beverly Garcia RN) lidocaine 1 % inj 30 mg (COMPLETED) 30 mg (3 mL), Subcutaneous, ONCE, On Mon05/31/23 at 0945, For 1 dose 0913 (Given - Provid er: Beverly Garcia RN) Triamcinolone Acetonide (Kenalog) 40 MG/ML inj 60 mg (COMPLETED) 60 mg, Intra-Articular, ONCE, On Mon05/31/23 at 0945, For 1 dose 0914 (Given - Provid er: Beverly Garcia RN) documented in this encounter Advance Directives Documents on File Type Date Recorded Patient Terminal Supervisor Expl anation Advance Directives and Livin [...] Advance Directives occurred with: Patient Care Teams Measurement Department Chief Clerk Relationship Specialty Start Date End Date Domo Pool DO [address] [place] [address] PCP - General Internal Medicine 01/19/22 documented as of this encounter
--- OUTSIDE RECORDS SUMMARY | 2023-09-29 09:18 | External Medical Summary | Summary of Care ---
Author Name Unknown Organization [facility] Address [address] [facility] [address] Phone [phone] Care Team Providers Care Rock Cutter Name Role Phone Domo Pool DO Primary Care Provider [phone] Encounter Details Date Type Department Care Team (Late st Contact Info) Description 06/07/2023 Documentation [facility]ALTH & WELLNESS Jennifer Gordillo, [facility] Director Allergies Active Allergy Reactions Criticality Noted Date [...] once a week. 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 0 04/03/2023 Active Fluconazole 150 MG Oral [...] mcgIndications:Vitamin B 12 deficiency 1000 mcg IM [id number] 12/29/2022 11/30/2023 Active documented as of this [...] cervical 2017 Coronary artery disease invo lving [place] coronary artery of [place] heart without angina pectoris 10/17/2017 Dyslipidemia, goal [...] mRNA, LNP-s, No Pre serve, 2-Dose Series ([facility]) 06/03/2021,09/30/2020,09/04/2020 Covid-19, Mrna, Lnp-s, Pf, B ivalent, 30 Mcg, IM, 12 yrs and above ([facility]) 06/14/2022 Pneumococcal Conjugate Vacc, 13 Valent (Prevnar) [...] encounter Progress Notes * Jennifer Gordillo [facility] Director - 06/07/2023 3:08 PM EST SESSION TYPE: Group exercise session: [...] 11:00 AM EST Telemedicine Interventional Pain Center, [facility] [place] [address] Brayan Mraes, DO [facility] [place] [phone] 07/21/2023 8:40 AM EST Office Visit Family Practice [address] [place] [address] 293 [place] [address] Domo Pool, DO 293 [facility] [place] [place] [address] 07/21/2023 10:00 AM EST Nutrition Services Nutrition Services [address] [place] [address] 293 [place] [address] Araseli Vale RDN 106 [place] [address] 11/21/2023 8:45 AM EDT Office Visit Otolaryngology [facility] 132 [facility] [place] [address] Gautam Morgan, DO 132 [facility] [place] [address] Health Maintenance Due Date Last Done Comments [...] Documents on File Type Date Recorded Patient Clinical Informatics Strategist Expl anation Advance Directives and Livin g [...] Advance Directives occurred with: Patient Care Teams Rock Cutter Relationship Specialty Start Date End Date Domo Pool DO [address] [place] [address] PCP - General Internal Medicine 01/19/22 documented as of this encounter
--- OUTSIDE RECORDS SUMMARY | 2023-09-29 09:19 | External Medical Summary | Summary of Care ---
Author Name Unknown Organization [facility] Address [address] [facility] [place] [address] Phone [phone] Care Team Providers Care Canceling Machine Operator Name Role Phone Domo Pool DO Primary Care Provider [phone] Reason for Visit * Reason Onset Date Comments Order Request 05/24/2023 Covid Encounter Details Date Type Department Care Team (Late st Contact Info) Description 05/24/2023 Telephone Family Practice [address] [facility] 293 [place] [phone] Domo Pool DO 293 [place] [address] Order Request (Covid) Allergies Active Allergy Reactions Criticality Noted Date Comments Amoxicillin Bleeding High 04/27/2015 Amoxicillin-Pot Clavulanate 09/05/19 14 tary stools documented as of this encounter (statuses as of 05/24/2023) Medications Medication Sig Dispensed Refills Start Date [...] by mouth in the morning. 0 Active DianDianTouch Verio w/Device Kit Use as directed . Use to test blood sugar once daily 1 Kit 0 01/20/2022 Active Vitamin C 500 MG Oral Capsule Take by mouth . 0 Active DianDianTouch UltraSoft LancetsIndications :Type 2 diabetes mellitus with [...] a week. 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 0 04/03/2023 Active Fluconazole 150 MG Oral [...] mcgIndications:Vitamin B 12 deficiency 1000 mcg IM [id number] 12/29/2022 11/30/2023 Active documented as of this encounter (statuses as of 05/24/2023) Active Problems Problem Noted Date Diagnosed Date [...] cervical 2017 Coronary artery disease invo lving [place] coronary artery of [place] heart without angina pectoris 10/17/2017 Dyslipidemia, goal LDL below 70 11/13/2015 PSVT (paroxysmal supraventricular tachycardia) 0 10/14/2015 Essential hypertension with goal blood pressure less than 140/90 09/18/2014 Cerebrovascular disease, arteriosclerotic, post- stroke 07/21/2009 documented as of this encounter (statuses as of 05/24/2023) Resolved Problems Problem Noted Date Diagnosed Date [...] as of this encounter (statuses as of 05/24/2023) Immunizations Name Administration Dates Next Due COVID-19 [...] Telephone Encounter - Celena Rosenberg LPN - 05/24/2023 9:08 AM EST Advised we will not have the testing results today. Will get a rapid test. Thank you * Telephone Encounter - Batsheva Green OSA - 05/24/2023 8:58 AM EST Is coming in to see Jennifer today Wants to know if she can be tested for Covid Visiting her daughter and doesn't want to expose her Please call documented in this encounter Plan of Treatment Upcoming Encounters Date Type Department Care Team (Latest Contact Info) Description 05/31/2023 9:20 AM EST Hospital Encounter OR [facility], Operating Room [facility] [address] [place] [phone] Dez Arevalo, DO [address] [place] [address] 05/31/2023 9:20 AM EST - 05/31/2023 9:40 AM EST Surgery OR [facility], Operating Room [facility] [address] [place] [phone] Dez Arevalo, DO [address] [place] [address] INJECTION SACROILIAC JOINT 07/13/2023 11:00 AM EST Telemedicine Interventional Pain Center, [facility] [address] [place] [address] Brayan Mares, DO [address] [place] [address] 07/21/2023 8:40 AM EST Office Visit Family Practice [address] [place] [address] 293 [place] [address] Domo Pool, DO 293 [place] [address] 07/21/2023 10:00 AM EST Nutrition Services Nutrition Services [address] [place] [address] 293 [facility], [place] [address] Araseli Vale, NORBERT 106 [facility] [place] [address] 11/21/2023 8:45 AM EDT Office Visit [facility]ol[facility]ology [facility] [place] [address] Gautam Morgan, [address] [place] [address] Scheduled Procedures Name Priority Associated Diagnoses Date/Ti [...] Documents on File Type Date Recorded Patient Accounts Receivable Assistant Expl anation Advance Directives and Livin [...] Advance Directives occurred with: Patient Care Teams Canceling Machine Operator Relationship Specialty Start Date End Date Domo Pool DO [address] [place] [address] PCP - General Internal Medicine 01/19/22 documented as of this encounter
--- OUTSIDE RECORDS SUMMARY | 2023-09-29 09:19 | External Medical Summary | Summary of Care ---
Author Name Unknown Organization [facility] Address [address] [place] [address] Phone [phone] Care Team Providers Care Tank Pumper Panelboard Name Role Phone Domo Pool DO Primary Care Provider [phone] Encounter Details Date Type Department Care Team (Late st Contact Info) Description 05/24/2023 Documentation [facility] Jennifer Gordillo, Health Patient Coordinator Front Desk Allergies Active Allergy Reactions Criticality Noted Date [...] A1c goal of less than 7.0% ([facility]) Use to check blood sugar once daily [...] A1c goal of less than 7.0% ([facility]) USE TO CHECK BLOOD SUGAR ONCE DAILY [...] once a week. 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 0 04/03/2023 Active Fluconazole 150 MG Oral [...] mcgIndications:Vitamin B 12 deficiency 1000 mcg IM [id number] 12/29/2022 11/30/2023 Active documented as of this [...] cervical 2017 Coronary artery disease invo lving [place] coronary artery of [place] heart without angina pectoris 10/17/2017 Dyslipidemia, goal [...] mRNA, LNP-s, No Pre serve, 2-Dose Series (OrangeScape) 06/03/2021,09/30/2020,09/04/2020 Covid-19, Mrna, Lnp-s, Pf, B ivalent, 30 Mcg, IM, 12 yrs and above (OrangeScape) 06/14/2022 Pneumococcal Conjugate Vacc, 13 Valent (Prevnar) [...] encounter Progress Notes * Jennifer Gordillo Health Patient Coordinator Front Desk - 05/24/2023 11:55 AM EST SESSION TYPE: Group exercise session: [...] Room [facility] [address] [place] [phone] Dez Arevalo, DO [address] [place] [address] 05/31/2023 9:20 AM EST - 05/31/2023 9:40 AM EST Surgery OR [facility], Operating Room [facility] [address] [place] [phone] Dez Arevalo, DO [address] [place] [address] INJECTION SACROILIAC JOINT 07/13/2023 11:00 AM EST Telemedicine Interventional Pain Center, [facility] [address] [place] [address] Brayan Mares, DO [address] [place] [phone] 07/21/2023 8:40 AM EST Office Visit Family Practice 65 [facility] 293 [place] [address] Domo Pool, DO 293 [facility] [place] [address] 07/21/2023 10:00 AM EST Nutrition Services Nutrition Services [address] [place] [address] 293 [place] [address] Araseli Vale RDN [address] [place] [address] [place] [address] 11/21/2023 8:45 AM EDT Office Visit Otolaryngology [facility] [address] [place] [address] Gautam Morgan, DO [address] [place] [address] Scheduled Procedures Name Priority Associated Diagnoses Date/Ti [...] Documents on File Type Date Recorded Patient Carpet Journeyman Expl anation Advance Directives and Livin g [...] Advance Directives occurred with: Patient Care Teams Tank Pumper Panelboard Relationship Specialty Start Date End Date Domo Pool DO [address] [place] [address] PCP - General Internal Medicine 01/19/22 documented as of this encounter
[2023-09-29] MEDS: SODIUM CHLORIDE 0.9% 1,000 ML IV SCH (09:20)
--- OUTSIDE RECORDS SUMMARY | 2023-09-29 09:20 | External Medical Summary | Summary of Care ---
Author Name Unknown Organization [facility] Address [address] [facility] [place] [address] Phone [phone] Care Team Providers Care Runway Model Name Role Phone Domo Pool DO Primary Care Provider [phone] Reason for Visit * Reason Onset Date Comments Medication Question 05/22/2023 Encounter Details Date Type Department Care Team (Late st Contact Info) Description 05/22/2023 Telephone Family Practice 65 [facility] 293 [place] [phone] Domo Pool DO 293 [place] [address] Medication Question Allergies Active Allergy Reactions Criticality Noted Date Comments Amoxicillin Bleeding High 04/27/2015 Amoxicillin-Pot Clavulanate 09/05/19 14 tary stools documented as of this encounter (statuses as of 05/23/2023) Medications Medication Sig Dispensed Refills Start Date [...] by mouth in the morning. 0 Active AF83Touch Verio w/Device Kit Use as directed . [...] hemoglobin A1c goal of less than 7.0% ([facility]) USE TO CHECK BLOOD SUGAR ONCE [...] once a week. - gets from the dealer relationship manager! 0 04/03/2023 Active Miconazole Nitrate 2 % External Cream (Monistat Derm) Apply to skin folds as directed 0 Active Hospital, Clinic, or Other Facility Administered Medication Ordered Dose Route Frequency Start Date End Date Status vitamin b-12 (Cyanocobalamin) inj 1,000 mcgIndications:Vitamin B 12 deficiency 1000 mcg IM [id number] 12/29/2022 11/30/2023 Active documented as of this encounter (statuses as of 05/23/2023) Active Problems Problem Noted Date Diagnosed Date [...] cervical 2017 Coronary artery disease invo lving [place] coronary artery of [place] heart without angina pectoris 10/17/2017 Dyslipidemia, goal LDL below 70 11/13/2015 PSVT (paroxysmal supraventricular tachycardia) 0 10/14/2015 Essential hypertension with goal blood pressure less than 140/90 09/18/2014 Cerebrovascular disease, arteriosclerotic, post- stroke 07/21/2009 documented as of this encounter (statuses as of 05/23/2023) Resolved Problems Problem Noted Date Diagnosed Date [...] as of this encounter (statuses as of 05/23/2023) Immunizations Name Administration Dates Next Due COVID-19 mRNA, LNP-s, No Pre serve, 2-Dose Series (gamesGRABR) 06/03/2021,09/30/2020,09/04/2020 Covid-19, Mrna, Lnp-s, Pf, B ivalent, [...] Telephone Encounter - Beti Lawton, [facility] - 05/23/2023 11:[address] Staples approved that patient can get miconazole 2%. [facility] have miconazole 2% cream for $6.48 for 30g tube. Called patient and left message letting her know. Beti Fernandez, Pharm D, BCACP Clinical Pharmacist [address] [facility] 05/23/2023, 11:51 AM Ph. [phone] * Telephone Encounter - Beti Lawton [facility] - 05/22/2023 11:08 AM EST Patient states that OTC Triple AF cream is > $25 per tube and they can't afford. Appears that active ingredient is miconazole 2% which can be purchased much cheaper as generic - forwarding to derm to see if it would be okay for her to get miconazole? Beti * Telephone Encounter - Batsheva Green [facility] - 05/22/2023 10:46 AM EST Wants to speak to Beti about medication and wants to speak to Celena also Please call documented in this encounter Plan of Treatment Upcoming Encounters Date Type Department Care Team (Latest Contact Info) Description 05/31/2023 9:20 AM EST Hospital Encounter OR [facility], Operating Room [facility] [address] [place] [phone] Dez Arevalo, DO [address] [place] [address] 05/31/2023 9:20 AM EST - 05/31/2023 9:40 AM EST Surgery OR [facility], Operating Room [facility] [address] [place] [phone] Dez Arevalo, DO [address] [place] [address] INJECTION SACROILIAC JOINT 07/13/2023 11:00 AM EST Telemedicine Interventional Pain Center, [facility] 132 [facility] [place] [address] Brayan Mares, DO 132 [facility] [place] [phone] 07/21/2023 8:40 AM EST Office Visit Family Practice [address] [place] [address] 293 [place] [address] Domo Pool, DO 293 [place] [address] 07/21/2023 10:00 AM EST Nutrition Services Nutrition Services [address] [place] [address] 293 [place] [address] Araseli Vale RDN 106 [place] [address] 11/21/2023 8:45 AM EDT Office Visit Otolaryngology [facility] 132 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
--- OUTSIDE RECORDS SUMMARY | 2023-09-29 09:20 | External Medical Summary | Summary of Care ---
Author Name Unknown Organization [facility] Address [address] [facility] [address] Phone [phone] Care Team Providers Care Stockroom Coordinator Name Role Phone Domo Pool DO Primary Care Provider Reason for Visit * Reason Comments Follow Up Encounter Details Date Type Department Care Team (Late st Contact Info) Description 05/23/2023 11:45 AM EST Office Visit Otolaryngology [facility] [address] [place] [address] Hawa Oquendo MD [address] [place] [address] Bilateral impacted cerumen [H61.23]* Allergies Active Allergy Reactions Criticality Noted Date [...] of less than 7.0% ([facility]) Use to check blood sugar once daily [...] goal of less than 7.0% ([facility]),Cerebrovascu lar disease, arteriosclerotic, post-stroke TAKE ONE TABLET [...] a week. - gets from the director geophysical laboratory! 0 04/03/2023 Active Fluconazole 150 MG Oral Tablet (Diflucan) TAKE ONE TABLET BY MOUTH ONCE FOR 1 DOSE 1 Tablet 0 05/22/2023 Active Hospital, Clinic, or Other Facility Administered Medication Ordered Dose Route Frequency Start Date End Date Status vitamin b-12 (Cyanocobalamin) inj 1,000 mcgIndications:Vitamin B 12 deficiency 1000 mcg IM [id number] 12/29/2022 11/30/2023 Active documented as of this [...] cervical 2017 Coronary artery disease invo lving [place] coronary artery of [place] heart without angina pectoris 10/17/2017 Dyslipidemia, goal [...] mRNA, LNP-s, No Pre serve, 2-Dose Series ([facility]) 06/03/2021,09/30/2020,09/04/2020 Covid-19, Mrna, Lnp-s, Pf, B ivalent, [...] Pressure - - Pulse - - Temperature 36.4 C (97.6 F) 05/23/2023 11:[address] Respiratory Rate - - Oxygen Saturation - - Inhaled Oxygen Concentration - - Weight 64.9 kg (143 lb) 05/23/2023 11:50 AM EST Height 163.2 cm (5' 4.25") 05/23/2023 11:[address] Body Mass Index 24.35 05/23/2023 11:50 AM EST documented in this [...] as of this encounter Progress Notes * Hawa Oquendo MD - 05/23/2023 12:23 PM EST 05/23/2023 Nursing Notes: Celina Caro LPN 05/23/23 1154 Signed Patient presents today for ear cleaning. States her ears are full of wax. Patient usually sees Dr. Morgan but he would to leave for an emergency surgery so I am seeing the patient instead. Procedure: Cerumen removal Attention directed to the right ear. Under leslie-microscopic guidance the impacted cerumen was removed with a suction atraumatically. The tympanic membrane was intact and the middle ear was healthy appearing. The same procedure was performed on the other side. Patient tolerated the procedure well. Procedure: In order to assess ears in further detail, the patient was brought to the microscope room and the ears were evaluated under the operating microscope. The findings are as noted in the above procedure note. Assessment 82 yo female with bilateral cerumen impaction Plan: - cerumen removed as above - follow up [address] Morgan per patient request -recommend mineral oil to use at night after taking out her hearing aids. I spent a total of 20-29 minutes (exact time 25 mins) on the date of service in preparation, delivery, and documentation of the care provided to Dyana Menard excluding any time spent in the performance of separately billed services. Hawa Oquendo MD [facility] Otolaryngology - Head and Neck [place] 05/23/2023 12:23 PM documented in this encounter Nursing Notes * Celina Caro LPN - 05/23/2023 11:46 AM EST Patient presents today for ear cleaning. States her ears are full of wax. documented in this encounter Plan of Treatment Upcoming Encounters Date Type Department Care Team (Latest Contact Info) Description 05/31/2023 9:20 AM EST Hospital Encounter OR [facility], Operating Room [facility] [address] [place] [phone] Dez Arevalo, DO [address] [place] [address] 05/31/2023 9:20 AM EST - 05/31/2023 9:40 AM EST Surgery OR [facility], Operating Room [facility] [address] [place] [phone] Dez Arevalo, DO [address] [place] [address] INJECTION SACROILIAC JOINT 07/13/2023 11:00 AM EST Telemedicine Interventional Pain Center, [facility] [address] [place] [address] Brayan Mares, DO [address] [place] [phone] 07/21/2023 8:40 AM EST Office Visit Family Practice 65 [facility] 293 [place] [phone] Domo Pool, DO 293 [place] [address] 07/21/2023 10:00 AM EST Nutrition Services Nutrition Services [address] [place] [address] 293 [place] [address] Araseli Vale RDN [address] [place] [address] [place] [phone] 11/21/2023 8:45 AM EDT Office Visit Otolaryngology [facility] [address] [place] [address] Gautam Morgan, DO [address] [place] [address] Scheduled Procedures Name Priority Associated Diagnoses Date/Ti [...] 08/02/2022, Additional history exists B-12 03/30/2024 03/30/2023, 08/01/2023, 12/28/2022, Additional history exists Depression Screening 03/30/2024 [...] as of this encounter Visit Diagnoses Diagnosis Bilateral impacted cerumen [H61.23]- Primary Impacted cerumen Inflammation of sacroiliac joint (HCC) Sacroiliitis, not elsewhere classified documented in this encounter Advance Directives Documents on File Type Date Recorded Patient [place] Boatman Expl anation Advance Directives and Livin g [...] Advance Directives occurred with: Patient Care Teams Stockroom Coordinator Relationship Specialty Start Date End Date Domo Pool DO 293 [place] [address] PCP - General Internal Medicine 01/19/22 documented as of this encounter
--- OUTSIDE RECORDS SUMMARY | 2023-09-29 09:21 | External Medical Summary | Summary of Care ---
Author Name Unknown Organization [facility] Address [address] [facility] [address] Phone [phone] Care Team Providers Care Job Boss Name Role Phone Domo Pool DO Primary Care Provider [phone] Encounter Details Date Type Department Care Team (Late st Contact Info) Description 05/16/2023 Orders Only Family Practice 65 [facility] 293 [place] [address] Domo Pool DO 293 [place] [address] Allergies Active Allergy Reactions Criticality Noted Date Comments Amoxicillin Bleeding High 04/27/2015 Amoxicillin-Pot Clavulanate 09/05/19 14 tary stools documented as of this encounter (statuses as of 05/16/2023) Medications Medication Sig Dispensed Refills Start Date [...] Active Additional Information Patient not taking.Reported on 04/04/2023 Polyethylene Glycol 3350 17 GM/SCOOP Oral Powder [...] hemoglobin A1c goal of less than 7.0% ([facility]) USE TO CHECK BLOOD SUGAR [...] the morning. 10 Tablet 3 03/30/2023 Active Additional Information Patient not taking.Reported on 04/04/2023 Sertraline HCl 100 MG Oral Tablet (Zoloft)Indication s:Anxiety Take 1 Tablet by mouth in the morning. Takes additional 50 mg tablet. 100 Tablet 3 04/03/2023 Active Ozempic (0.25 or 0.5 MG/DOSE) 2 MG/3ML Solution Pen-injector (Semaglutide(0.25 or 0.5MG/DOS)) Inject 0.25 mg under the skin once a week. - gets from the digital sales representative! 0 04/03/2023 Active Hospital, Clinic, or Other Facility Administered Medication Ordered Dose Route Frequency Start Date End Date Status vitamin b-12 (Cyanocobalamin) inj 1,000 mcgIndications:Vitamin B 12 deficiency 1000 mcg IM [id number] 12/29/2022 11/30/2023 Active documented as of this encounter (statuses as of 05/16/2023) Active Problems Problem Noted Date Diagnosed Date Drug-induced hyperkalemia 04/11/2023 Overview: LISINOPRIL Food insecurity 04/10/2023 Overview: Per [facility] Protocol Vitamin B 12 deficiency [...] cervical 2017 Coronary artery disease invo lving [place] coronary artery of [place] heart without angina pectoris 10/17/2017 Dyslipidemia, goal LDL below 70 11/13/2015 PSVT (paroxysmal supraventricular tachycardia) 0 10/14/2015 Essential hypertension with goal blood pressure less than 140/90 09/18/2014 Cerebrovascular disease, arteriosclerotic, post- stroke 07/21/2009 documented as of this encounter (statuses as of 05/16/2023) Resolved Problems Problem Noted Date Diagnosed Date [...] as of this encounter (statuses as of 05/16/2023) Immunizations Name Administration Dates Next Due COVID-19 mRNA, LNP-s, No Pre serve, 2-Dose Series ([place]) 06/03/2021,09/30/2020,09/04/2020 Covid-19, Mrna, Lnp-s, Pf, B ivalent, 30 Mcg, IM, 12 yrs and above ([place]ibel) 06/14/2022 Pneumococcal Conjugate Vacc, 13 Valent (Prevnar) [...] Department Care Team (Latest Contact Info) Description 05/23/2023 11:45 AM EST Office Visit Otolaryngology [facility] [address] [place] [address] Gautam Morgan, 132 [place] [address] 05/31/2023 9:20 AM EST Hospital Encounter OR [facility], Operating Room [facility] [address] [place] [phone] Dez Arevalo, DO [address] [place] [address] 05/31/2023 9:20 AM EST - 05/31/2023 9:40 AM EST Surgery OR [facility], Operating Room [facility] [address] [place] [phone] Dez Arevalo, DO [address] [place] [address] INJECTION SACROILIAC JOINT 07/13/2023 11:00 AM EST Telemedicine Interventional Pain Center, [facility] [address] [place] [address] Brayan Mares, DO [address] [place] [phone] 07/21/2023 8:40 AM EST Office Visit Family Practice 65 [facility] 293 [facility] [place] [phone] Domo Pool, DO 293 [place] [address] 07/21/2023 10:00 AM EST Nutrition Services Nutrition Services [address] [place] [address] 293 [facility] [place] [address] Araseli Vale RDN [address] [place] [address] [place] [address] Scheduled Procedures Name Priority Associated Diagnoses Date/Ti me INJECTION SACROILIAC JOINT Inflammation of sacroiliac joint (HCC) 05/31/2023 9:20 AM EST Health Maintenance Due Date Last Done Comments Hepatitis B (1 of 3 - Risk 3-dose series) 2002 COVID-19 Vaccine (2022-24 season) 2023 06/14/2022, 06/03/2021, 09/30/2020, Additional history exists Albumin/Creatinine Ratio 08/02/2023 023, 08/13/2021, 01/05/2017, Additional history exists DTaP,Tdap,and Td Vaccines (2 - Td or Tdap) 09/05/2023 09/04/2013 Diabetic Foot Exam 09/20/2023 09/19/2022, 0 12/17/2021, 12/09/2020, Additional history exists HbA1c 09/28/2023 03/30/2023, 12/02, 08/02/2022, Additional history exists B-12 03/30/2024 03/30/2023, 0801/2023, 12/28/2022, Additional history exists Depression Screening 03/30/2024 03/30/2023, 08/17/2017 (Course Completed) GFR 04/10/2024 04/10/2023, 03/04, 02/07/2023, Additional history exists Diabetic Eye Exam 05/16/2024 05/10/2023, , 04/11/2022, Additional history exists DXA [...] Procedure Name Priority Date/Time Associated Diagnosis Comments DIABETIC EYE EXAM Routine 05/10/2023 documented in this encounter Results * DIABETIC EYE EXAM (05/10/2023) 05/10/2023 History Per Patient OTHER OUTSIDE LAB (SEE SCANNED REPORT) documented in this encounter Advance Directives Documents on File Type Date Recorded 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
--- OUTSIDE RECORDS SUMMARY | 2023-09-29 09:21 | External Medical Summary | Summary of Care ---
Author Name Unknown Organization [facility] Address [address] [facility] [place] [address] Phone [phone] Care Team Providers Care Wealth Management Manager Name Role Phone Padmini Pool DO Primary Care Provider [phone] Reason for Visit * Reason Comments eRx-Medication Refill Encounter Details Date Type Department Care Team (Late st Contact Info) Description 05/22/2023 Refill Family Practice [address] [place] [address] [place] [address] Padmini Pool DO 293 [place] [address] Allergies Active Allergy Reactions Criticality Noted Date Comments Amoxicillin Bleeding High 04/27/2015 Amoxicillin-Pot Clavulanate 09/05/19 14 tary stools documented as of this encounter (statuses as of 05/22/2023) Medications Medication Sig Dispensed Refills Start Date [...] by mouth in the morning. 0 Active Connected[employer]Touch Verio w/Device Kit Use as directed . Use to test blood sugar once daily 1 Kit 0 01/20/2022 Active Vitamin C 500 MG Oral Capsule Take by mouth . 0 Active ConnectedHealthTouch UltraSoft LancetsIndications :Type 2 diabetes mellitus with [...] of less than 7.0% ([facility]),Cerebrovascu lar disease, arteriosclerotic, post-stroke TAKE ONE [...] [facility]) USE TO CHECK BLOOD SUGAR ONCE [...] once a week. - gets from the facilities operator! 0 04/03/2023 Active Fluconazole 150 MG Oral Tablet (Diflucan) TAKE ONE TABLET BY MOUTH ONCE FOR 1 DOSE 1 Tablet 0 05/22/2023 Active Hospital, Clinic, or Other Facility Administered Medication Ordered Dose Route Frequency Start Date End Date Status vitamin b-12 (Cyanocobalamin) inj 1,000 mcgIndications:Vitamin B 12 deficiency 1000 mcg IM [id number] 12/29/2022 11/30/2023 Active documented as of this encounter (statuses as of 05/22/2023) Active Problems Problem Noted Date Diagnosed Date [...] cervical 2017 Coronary artery disease invo lving [place] coronary artery of [place] heart without angina pectoris 10/17/2017 Dyslipidemia, goal LDL below 70 11/13/2015 PSVT (paroxysmal supraventricular tachycardia) 0 10/14/2015 Essential hypertension with goal blood pressure less than 140/90 09/18/2014 Cerebrovascular disease, arteriosclerotic, post- stroke 07/21/2009 documented as of this encounter (statuses as of 05/22/2023) Resolved Problems Problem Noted Date Diagnosed Date [...] as of this encounter (statuses as of 05/22/2023) Immunizations Name Administration Dates Next Due COVID-19 [...] Telephone Encounter - Padmini Pool DO - 05/22/2023 5:22 PM ESTSigned Prescriptions: Disp Refills Fluconazole 150 MG Oral Tablet (Diflucan) 1 Tabl*0 Sig: TAKE ONETABLET BY MOUTH ONCE FOR 1 DOSEAuthorizing Provider: PADMINI POOL * Telephone Encounter - Beti Lawton RP - 05/22/2023 2:28 PM ESTPending Prescriptions: Disp Refills Fluconazole 150 MG Oral Tablet [Pharmacy M*1 Tabl*0 Sig: TAKE ONE TABLET BY MOUTH ONCE FOR 1 DOSE * Telephone Encounter - Beti Lawton RP - 05/22/2023 2:28 PM EST Patient thinks she has another yeast infection - requesting fluconazole. Beti Fernandez, Pharm D, [facility] [address] - [facility] 05/22/2023, 2:28 PM Ph. [phone] * Telephone Encounter - Orlando Mccoy - 05/22/2023 1:16 PM ESTPending Prescriptions: Disp Refills Fluconazole 150 MG Oral Tablet [Pharmacy M*1 Tabl*0 Sig: TAKE ONE TABLET BY MOUTH ONCE FOR 1 DOSE documented in this encounter Plan of Treatment Upcoming Encounters Date Type Department Care Team (Latest Contact Info) Description 05/23/2023 11:45 AM EST Office Visit Otolaryngology [facility] [address] [place] [address] Gautam Morgan, DO [address] [place] [address] 05/31/2023 9:20 AM EST Hospital Encounter [facility], Operating Room [facility] [address] [place] [phone] Dez Arevalo, DO [address] [place] [address] 05/31/2023 9:20 AM EST - 05/31/2023 9:40 AM EST Surgery OR [facility], Operating Room [facility] [address] [place] [phone] Dez Arevalo, DO [address] [place] [address] INJECTION SACROILIAC JOINT 07/13/2023 11:00 AM EST Telemedicine Interventional Pain Center, [facility] [address] [place] [address] Brayan Mares, DO [address] [place] [address] 07/21/2023 8:40 AM EST Office Visit Family Practice [address] [place] [address] 293 [place] [address] Padmini Pool, DO 293 [facility] [place] [address] 07/21/2023 10:00 AM EST Nutrition Services Nutrition Services [address] [place] [address] [place] [address] Araseli Vale, NORBERT [address] [facility] [place] [address] Scheduled Procedures Name Priority [...] Documents on File Type Date Recorded Patient Program Manager Environmental Planning Expl anation Advance Directives and Livin g [...] Advance Directives occurred with: Patient Care Teams Wealth Management Manager Relationship Specialty Start Date End Date Padmini Pool DO [address] [place] [address] PCP - General Internal Medicine 01/19/22 documented as of this encounter
--- OUTSIDE RECORDS SUMMARY | 2023-09-29 09:21 | External Medical Summary | Summary of Care ---
Author Name Unknown Organization [facility] Address [address] [facility] [place] [address] Phone [phone] Care Team Providers Care Line Closer Name Role Phone Padmini Pool DO Primary Care Provider [phone] Reason for Visit * Reason Comments NEW [...] To Contact Dermatology Diagnoses Skin lesions Padmini Pool DO [address] [place] [address] Referral ID Status Reason Start Date Expiration Date Visits Requested Visits Authorized [id number] Authorized Specialty Services Required 02/07/2023 999 [id number] Encounter Details Date Type Department Care Team (Late st Contact Info) Description 05/11/2023 9:20 AM EST Office Visit [facility] [place] [address] [place] [address] Twila Paz PA-C [address] [place] [address] Dermatitis*; Candidiasis; Inflamed seborrheic keratosis Allergies Active Allergy Reactions Criticality Noted Date Comments Amoxicillin Bleeding High 04/27/2015 Amoxicillin-Pot Clavulanate 09/05/19 14 tary stools documented as of this encounter (statuses as of 05/11/2023) Medications Medication Sig Dispensed Refills Start Date [...] goal of less than 7.0% ([facility]) Use to check blood sugar [...] goal of less than 7.0% ([facility]) USE TO CHECK BLOOD SUGAR [...] once a week. 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 0 04/03/2023 Active Hospital, Clinic, or Other Facility Administered Medication Ordered Dose Route Frequency Start Date End Date Status vitamin b-12 (Cyanocobalamin) inj 1,000 mcgIndications:Vitamin B 12 deficiency 1000 mcg IM [id number] 12/29/2022 11/30/2023 Active documented as of this encounter (statuses as of 05/11/2023) Active Problems Problem Noted Date Diagnosed Date [...] cervical 2017 Coronary artery disease invo lving [place] coronary artery of [place] heart without angina pectoris 10/17/2017 Dyslipidemia, goal LDL below 70 11/13/2015 PSVT (paroxysmal supraventricular tachycardia) 0 10/14/2015 Essential hypertension with goal blood pressure less than 140/90 09/18/2014 Cerebrovascular disease, arteriosclerotic, post- stroke 07/21/2009 documented as of this encounter (statuses as of 05/11/2023) Resolved Problems Problem Noted Date Diagnosed Date [...] as of this encounter (statuses as of 05/11/2023) Immunizations Name Administration Dates Next Due COVID-19 [...] or making decisions? (5 years old or older No 04/27/2015 documented as of this encounter Progress Notes * Twila Paz PA-C - 05/11/2023 9:16 [...] 1 Capsule by mouth in the morning. Pure Nootropics w/Device Kit Use as directed . Use to test blood sugar once daily 1 Kit 0 Vitamin C 500 MG Oral Capsule Take by mouth . OneTouch UltraSoft Lancets Use to check blood [...] BY MOUTH EVERY MORNING IN ADDITION TO [id number] TABLET 100 Tablet 3 Pantoprazole Sodium 20 [...] once a week. 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 Current Facility-Administered Medications Medication Dose Route Frequency Provider Last Rate Last Admin vitamin b-12 (Cyanocobalamin) inj 1,000 mcg 1,000 mcg Intramuscular Q4 Weeks Padmini Pool, DO 1,000 mcg at 03/30/23 0904 ALLERG [...] Paz PA-C 05/11/2023 9:16 AM Ref: PADMINI POOL[[id number]] 293 [place] [address] (office) [phone] (fax) PCP: PADMINI POOL [address] [place] [address] [phone] documented in this encounter Nursing Notes * [...] encounter Miscellaneous Notes * Addendum Note - Brie Ann LPN - 05/11/2023 1:24 PM ESTAddended by: BRIE ANN on: 05/11/2023 01:24 PM Modules accepted: Orders documented in this encounter Plan of Treatment Upcoming Encounters Date Type Department Care Team (Latest Contact Info) Description 05/23/2023 11:45 AM EST Office Visit Otolaryngology [facility] [address] [place] [address] Gautam Morgan, DO [address] [place] [address] 05/31/2023 9:20 AM EST Hospital Encounter [facility], Operating Room [facility] [address] [place] [phone] Dez Arevalo, DO [address] [place] [address] 05/31/2023 9:20 AM EST - 05/31/2023 9:40 AM EST Surgery OR [facility], Operating Room [facility] [address] [place] [phone] Dez Arevalo, DO [address] [place] [address] INJECTION SACROILIAC JOINT 07/13/2023 11:00 AM EST Telemedicine Interventional Pain Center, [facility] [address] [place] [address] Brayan Mares, DO [address] [place] [address] 07/21/2023 8:40 AM EST Office Visit Family Practice [facility] 293 [facility] [place] [phone] Padmini Pool DO 293 [place] [address] 07/21/2023 10:00 AM EST Nutrition Services Nutrition Services [address] [facility] 293 [facility] [place] [address] Araseli Vale RDN [address] [place] [address] Pending Results Name Type Priority Associated Diagnoses [...] Depression Screening 03/30/2024 03/30/2023, 08/17/2017 (Course Completed) Diabetic Eye Exam 03/30/2024 03/30/2023, , 04/05/2022, Additional history exists GFR 04/10/2024 04/10/2023, 03/04, 02/07/2023, Additional history exists DXA Scan 07/20/2025 07/20/2022, [...] as of this encounter Visit Diagnoses Diagnosis Dermatitis- Primary Contact dermatitis and other eczema, due to unspecified cause Candidiasis Candidiasis of unspecified site Inflamed seborrheic keratosis Inflammation of sacroiliac joint (HCC) Sacroiliitis, not elsewhere classified documented in this encounter Advance Directives Documents on File Type Date Recorded Patient Bush Regenerator Expl anation Advance Directives and Livin g [...] Advance Directives occurred with: Patient Care Teams Line Closer Relationship Specialty Start Date End Date Padmini Pool DO [address] [place] [address] PCP - General Internal Medicine 01/19/22 documented as of this encounter
--- OUTSIDE RECORDS SUMMARY | 2023-09-29 09:21 | External Medical Summary | Summary of Care ---
Author Name Unknown Organization [facility] Address [address] [facility] [place] [address] Phone [phone] Care Team Providers Care Agency Development Manager Name Role Phone Padmini Pool DO Primary Care Provider [phone] Reason for Visit * Reason Comments NEW [...] Diagnoses Skin lesions Padmini Pool DO [address] [place] [address] Referral ID Status Reason Start Date Expiration Date Visits Requested Visits Authorized [id number] Authorized Specialty Services Required 02/07/[phone] Encounter Details Date Type Department Care Team (Late st Contact Info) Description 05/11/2023 9:20 AM EST Office Visit [facility] [place] [address] [place] [address] Twila Paz PA-C [address] [place] [...] hemoglobin A1c goal of less than 7.0% ([facility]) Use to check blood sugar [...] hemoglobin A1c goal of less than 7.0% ([facility]) USE TO CHECK BLOOD SUGAR [...] once a week. - gets from the skin former! 0 04/03/2023 Active Hospital, Clinic, or Other Facility Administered Medication Ordered Dose Route Frequency Start Date End Date Status vitamin b-12 (Cyanocobalamin) inj 1,000 mcgIndications:Vitamin B 12 deficiency 1000 mcg IM [id number] 12/29/2022 11/30/2023 Active documented as of this [...] cervical 2017 Coronary artery disease invo lving [place] coronary artery of [place] heart without angina pectoris 10/17/2017 Dyslipidemia, goal [...] 1 Capsule by mouth in the morning. Military Wraps w/Device Kit Use as directed . Use [...] BY MOUTH EVERY MORNING IN ADDITION TO [id number] TABLET 100 Tablet 3 Pantoprazole Sodium 20 [...] once a week. - gets from the skin former! Current Facility-Administered Medications Medication Dose Route Frequency [...] Paz PA-C 05/11/2023 9:16 AM Ref: PADMINI POOL[[id number]] [address] [place] [address] (office) [phone] (fax) PCP: PADMINI POOL [address] [place] [address] [phone] documented in this encounter Nursing Notes * Mitzy Ann LPN - 05/11/2023 9:11 AM EST [...] of skin cancer. documented in this encounter Plan of Treatment Upcoming Encounters Date Type Department Care Team (Latest Contact Info) Description 05/23/2023 11:45 AM EST Office Visit Otolaryngology [facility] [address] [place] [address] Gautam Morgan, DO [address] [place] [address] 05/31/2023 9:20 AM EST Hospital Encounter OR [facility], Operating Room [facility] [address] [place] [phone] Dez Arevalo, DO [address] [place] [address] 05/31/2023 9:20 AM EST - 05/31/2023 9:40 AM EST Surgery OR [facility], Operating Room [facility] [address] [place] [phone] Dez Arevalo, DO [address] [place] [address] INJECTION SACROILIAC JOINT 07/13/2023 11:00 AM EST Telemedicine Interventional Pain Center, [facility] [address] [place] [address] Brayan Mares, DO [address] [place] [address] 07/21/2023 8:40 AM EST Office Visit Family Practice [address] [place] [address] 293 [place] [address] Padmini Pool, DO 293 [facility] [place] [address] 07/21/2023 10:00 AM EST Nutrition Services Nutrition Services [address] [place] 293 [place] [address] Araseli Vale RDN 106 [facility] [place] [address] Pending Results Name Type Priority Associated Diagnoses [...] on File Type Date Recorded Patient Manager Poker Expl anation Advance Directives and Livin g [...] Advance Directives occurred with: Patient Care Teams Agency Development Manager Relationship Specialty Start Date End Date Padmini Pool DO [address] [facility] [place] [address] PCP - General Internal Medicine 01/19/22 documented as of this encounter
--- OUTSIDE RECORDS SUMMARY | 2023-09-29 09:21 | External Medical Summary | Summary of Care ---
Author Name Unknown Organization [facility] Address [address] [place] [address] Phone [phone] Care Team Providers Care Offc Spec Name Role Phone Domo Pool DO Primary Care Provider [phone] Reason for Visit * Reason Onset Date Comments Advice 05/22/2023 Encounter Details Date Type Department Care Team (Late st Contact Info) Description 05/22/2023 Telephone Dermatology [facility] [address] [place] [address] Services, Scheduling [address] [place] [address] Advice Allergies Active Allergy Reactions Criticality Noted Date [...] by mouth in the morning. 0 Active Torrent LoadingSystemsTouch Verio w/Device Kit Use as directed . Use to test blood sugar once daily 1 Kit 0 01/20/2022 Active Vitamin C 500 MG Oral Capsule Take by mouth . 0 Active Torrent LoadingSystemsTouch UltraSoft LancetsIndications :Type 2 diabetes mellitus with [...] [facility]) USE TO CHECK BLOOD SUGAR ONCE [...] once a week. 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 0 04/03/2023 Active Hospital, Clinic, or Other Facility Administered Medication Ordered Dose Route Frequency Start Date End Date Status vitamin b-12 (Cyanocobalamin) inj 1,000 mcgIndications:Vitamin B 12 deficiency 1000 mcg IM [id number] 12/29/2022 11/30/2023 Active documented as of this encounter (statuses as of 05/22/2023) Active Problems Problem Noted Date Diagnosed Date Drug-induced hyperkalemia 04/11/2023 Overview: [employer] Food insecurity 04/10/2023 Overview: Per [facility] Protocol Vitamin B 12 deficiency [...] 2017 Coronary artery disease invo lving [place] coronary artery of [place] heart without angina pectoris 10/17/2017 Dyslipidemia, goal [...] mRNA, LNP-s, No Pre serve, 2-Dose Series ([employer]) 06/03/2021,09/30/2020,09/04/2020 Covid-19, Mrna, Lnp-s, Pf, B ivalent, 30 Mcg, IM, 12 yrs and above ([employer]) 06/14/2022 Pneumococcal Conjugate Vacc, 13 Valent (Prevnar) [...] encounter Miscellaneous Notes * Telephone Encounter - Sabi Joseph MED ASSIST - 05/22/2023 10:16 AM EST Spoke with patient. She lost the note that contained the OTC products that Twila recommended. Patient provided the information of Triple Paste AF and Gold Jules Friction stick. Patient will call if these are unsuccessful. * Telephone Encounter - Mili Alves OSA - 05/22/2023 8:30 AM EST Jeanette Pt has a few questions about her recent visit and wants to speak to a nurse. Please call pt At [phone] Thank you documented in this encounter Plan of Treatment Upcoming Encounters Date Type Department Care Team (Latest Contact Info) Description 05/23/2023 11:45 AM EST Office Visit Otolaryngology [facility] [address] [place] [address] Gautam Morgan, DO [address] [place] [address] 05/31/2023 9:20 AM EST Hospital Encounter OR [facility], Operating Room [facility] [address] [place] [phone] Dez Arevalo, DO [address] [place] [address] 05/31/2023 9:20 AM EST - 05/31/2023 9:40 AM EST Surgery OR [facility], Operating Room [facility] [address] [place] [phone] Dez Arevalo, DO [address] [place] [address] INJECTION SACROILIAC JOINT 07/13/2023 11:00 AM EST Telemedicine Interventional Pain Center, [facility] [address] [place] [address] Brayan Mares, DO [address] [place] [phone] 07/21/2023 8:40 AM EST Office Visit [address] 293 [facility], [place] [address] Domo Pool, DO 293 [place] [address] 07/21/2023 10:00 AM EST Nutrition Services Nutrition Services [address], [place] 293 [place] [address] Araseli Vale, JACKIEN 106 [facility] [place] [address] Scheduled Procedures Name Priority [...] Documents on File Type Date Recorded Patient Signal Wirer Expl anation Advance Directives and Livin g [...] Advance Directives occurred with: Patient Care Teams Offc Spec Relationship Specialty Start Date End Date Domo Pool DO [address] [facility] [place] [address] PCP - General Internal Medicine 01/19/22 documented as of this encounter
--- OUTSIDE RECORDS SUMMARY | 2023-09-29 09:21 | External Medical Summary | Summary of Care ---
Author Name Unknown Organization [facility] Address [address] [facility] [address] Phone [phone] Care Team Providers Care Country Sales Manager Name Role Phone Domo Pool DO Primary Care Provider [phone] Encounter Details Date Type Department Care Team (Late st Contact Info) Description 05/17/2023 Documentation [facility] Jennifer Gordillo, Health Manager [employer]ospace Allergies Active Allergy Reactions Criticality Noted Date Comments Amoxicillin Bleeding High 04/27/2015 Amoxicillin-Pot Clavulanate 09/05/19 14 tary stools documented as of this encounter (statuses as of 05/17/2023) Medications Medication Sig Dispensed Refills Start Date [...] goal of less than 7.0% ([facility]) USE TO CHECK BLOOD SUGAR [...] once a week. 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 0 04/03/2023 Active Hospital, Clinic, or Other Facility Administered Medication Ordered Dose Route Frequency Start Date End Date Status vitamin b-12 (Cyanocobalamin) inj 1,000 mcgIndications:Vitamin B 12 deficiency 1000 mcg IM [id number] 12/29/2022 11/30/2023 Active documented as of this encounter (statuses as of 05/17/2023) Active Problems Problem Noted Date Diagnosed Date [...] cervical 2017 Coronary artery disease invo lving [place] coronary artery of [place] heart without angina pectoris 10/17/2017 Dyslipidemia, goal LDL below 70 11/13/2015 PSVT (paroxysmal supraventricular tachycardia) 0 10/14/2015 Essential hypertension with goal blood pressure less than 140/90 09/18/2014 Cerebrovascular disease, arteriosclerotic, post- stroke 07/21/2009 documented as of this encounter (statuses as of 05/17/2023) Resolved Problems Problem Noted Date Diagnosed Date [...] as of this encounter (statuses as of 05/17/2023) Immunizations Name Administration Dates Next Due COVID-19 mRNA, LNP-s, No Pre serve, 2-Dose Series (Pfizer) 06/03/2021,09/30/2020,09/04/2020 Covid-19, Mrna, Lnp-s, Pf, B ivalent, 30 Mcg, IM, 12 yrs and above ([employer]) 06/14/2022 Pneumococcal Conjugate Vacc, 13 Valent (Prevnar) [...] encounter Progress Notes * Jennifer Gordillo Health Manager Aerospace - 05/17/2023 11:40 AM EST SESSION TYPE: Group exercise session: [...] 05/23/2023 11:45 AM EST Office Visit Otolaryngology [address] [place] [address] Gautam Morgan, DO [address] [place] [address] 05/31/2023 9:20 AM EST Hospital Encounter OR [facility], Operating Room [facility] [address] [place] [phone] Dez Arevalo, DO [address] [place] [address] 05/31/2023 9:20 AM EST - 05/31/2023 9:40 AM EST Surgery OR [facility], Operating Room [facility] [address] [place] [phone] Dez Arevalo, DO [address] [place] [address] INJECTION SACROILIAC JOINT 07/13/2023 11:00 AM EST Telemedicine Interventional Pain Center, [facility] [address] [place] [address] Brayan Mares, DO [address] [place] [phone] 07/21/2023 8:40 AM EST Office Visit Family Practice 65 [facility] 293 [place] [address] Domo Pool, DO 293 [place] [address] 07/21/2023 10:00 AM EST Nutrition Services Nutrition Services [address] [place] [address] 293 [place] [address] Araseli Vale RDN [address] [place] [address] [place] [address] Scheduled Procedures Name Priority Associated Diagnoses Date/Ti [...] Documents on File Type Date Recorded Patient Computer Forensics Technician Expl anation Advance Directives and Livin [...] Advance Directives occurred with: Patient Care Teams Country Sales Manager Relationship Specialty Start Date End Date Domo Pool DO 293 [place] [address] PCP - General Internal Medicine 01/19/22 documented as of this encounter
--- OUTSIDE RECORDS SUMMARY | 2023-09-29 09:22 | External Medical Summary | Summary of Care ---
Author Name Unknown Organization [facility] Address [address] [facility] [place] [address] Phone [phone] Care Team Providers Care Plate Setter Name Role Phone Domo Pool DO Primary Care Provider Encounter Details Date Type Department Care Team (Late st Contact Info) Description 04/26/2023 Documentation HEALTH & WELLNESS Jennifer Gordillo, Health Auto Transport Driver Allergies Active Allergy Reactions Criticality Noted Date Comments Amoxicillin Bleeding High 04/27/2015 Amoxicillin-Pot Clavulanate 09/05/19 14 tary stools documented as of this encounter (statuses as of 04/26/2023) Medications Medication Sig Dispensed Refills Start Date [...] less than 7.0% ([facility]) USE TO CHECK BLOOD SUGAR ONCE DAILY [...] once a week. - gets from the solderer! 0 04/03/2023 Active Hospital, Clinic, or Other Facility Administered Medication Ordered Dose Route Frequency Start Date End Date Status vitamin b-12 (Cyanocobalamin) inj 1,000 mcgIndications:Vitamin B 12 deficiency 1000 mcg IM [id number] 12/29/2022 11/30/2023 Active documented as of this encounter (statuses as of 04/26/2023) Active Problems Problem Noted Date Diagnosed Date [...] cervical 2017 Coronary artery disease invo lving [place] coronary artery of [place] heart without angina pectoris 10/17/2017 Dyslipidemia, goal LDL below 70 11/13/2015 PSVT (paroxysmal supraventricular tachycardia) 0 10/14/2015 Essential hypertension with goal blood pressure less than 140/90 09/18/2014 Cerebrovascular disease, arteriosclerotic, post- stroke 07/21/2009 documented as of this encounter (statuses as of 04/26/2023) Resolved Problems Problem Noted Date Diagnosed Date [...] as of this encounter (statuses as of 04/26/2023) Immunizations Name Administration Dates Next Due COVID-19 mRNA, LNP-s, No Pre serve, 2-Dose Series (Pfizer) 06/03/2021,09/30/2020,09/04/2020 Covid-19, Mrna, Lnp-s, Pf, B ivalent, 30 Mcg, IM, 12 yrs and above (Enertiv) 06/14/2022 Pneumococcal Conjugate Vacc, 13 Valent (Prevnar) [...] encounter Progress Notes * Jennifer Gordillo Health Auto Transport Driver - 04/26/2023 12:43 PM EDT SESSION TYPE: Group exercise session: Exercise Subtype or Modality: Balance Training Patient completed a group exercise session which consisted of balance training. All exercises included improving balance and strength of lower extremities. She tolerated the exercises well and had nocomplaints. documented in this encounter Plan of Treatment Upcoming Encounters Date Type Department Care Team (Latest Contact Info) Description 05/11/2023 9:20 AM EST Office Visit Dermatology Dilip Durbin [place] 200 [facility] [place] [address] Twila Paz PA-C 200 [facility] [place] [phone] 05/23/2023 11:45 AM EST Office Visit Otolaryngology [facility] [address] [place] [address] Gautam Morgan, DO [address] [place] [address] 05/31/2023 9:20 AM EST Hospital Encounter OR [facility], Operating Room [facility] [address] [place] [phone] Dez Arevalo, DO 132 [place] [address] 05/31/2023 9:20 AM EST - 05/31/2023 9:40 AM EST Surgery OR [facility], Operating Room [facility] [address] [place] [phone] Dez Arevalo, DO 132 [place] [address] INJECTION SACROILIAC JOINT 07/21/2023 8:40 AM EST Office Visit Family Practice 65 [facility] 293 [place] [address] Domo Pool, DO 293 [place] [address] 07/21/2023 10:00 AM EST Nutrition Services Nutrition Services 65 [facility] 293 [place] [address] Araseli Vale RDN 106 [facility] [place] [address] Scheduled Procedures Name Priority Associated Diagnoses Date/Ti [...] 03/30/2023, 08/0 01/2023, 12/28/2022, Additional history exists DIABETES-EYE EXAM 03/30/2024 03/30/2023, , 04/05/2022, Additional history exists Depression Screening 03/30/2024 03/30/2023, [...] Documents on File Type Date Recorded Patient Coconut Boiler Expl anation Advance Directives and Livin g [...] Advance Directives occurred with: Patient Care Teams Plate Setter Relationship Specialty Start Date End Date Domo Pool DO [address] [facility] [place] [address] PCP - General Internal Medicine 01/19/22 documented as of this encounter
--- OUTSIDE RECORDS SUMMARY | 2023-09-29 09:22 | External Medical Summary | Summary of Care ---
Author Name Unknown Organization [facility] Address [address] [facility] [place] [address] Phone [phone] Care Team Providers Care Sales Marketing Name Role Phone Domo Pool DO Primary Care Provider [phone] Reason for Visit * Reason Onset Date Comments Information 04/14/2023 DM eye Encounter Details Date Type Department Care Team Description 04/14/2023 Telephone Family Practice 65 [facility] 293 [place] [address] Domo Pool DO 293 [place] [address] Information (DM eye) Allergies Active Allergy Reactions Severity Noted Date Comments Amoxicillin Bleeding High 04/27/2015 Amoxicillin-Pot Clavulanate 09/05/19 14 tary stools documented as of this encounter (statuses as of 04/14/2023) Medications Medication Sig Dispensed Refills Start Date [...] by mouth in the morning. 0 Active CompellonTouch Verio w/Device Kit Use as directed . [...] once a week. - gets from the corporate representative! 0 04/03/2023 Active Hospital, Clinic, or Other Facility Administered Medication Ordered Dose Route Frequency Start Date End Date Status vitamin b-12 (Cyanocobalamin) inj 1,000 mcgIndications:Vitamin B 12 deficiency 1000 mcg IM [id number] 12/29/2022 11/30/2023 Active documented as of this encounter (statuses as of 04/14/2023) Active Problems Problem Noted Date Drug-induced hyperkalemia 04/11/2023 Overview: LISINOPRIL Food insecurity 04/10/2023 Overview: Per [facility] Protocol Vitamin B 12 deficiency 12/29/2022 Primary insomnia 06/08/2022 Generalized anxiety disorder 01/25/2022 Sacroiliitis, not elsewhere classified 0 01/25/2022 DDD (degenerative disc disease), lumbar 01/25/2022 Iron deficiency anemia 09/14/2018 Gastroesophageal reflux disease without esophagitis 09/14/2018 Type 2 diabetes mellitus with hemoglobin A1c goal of less than 8.0% 10/17/2017 Bilateral carpal tunnel syndrome 018 Primary osteoarthritis of left foot 10/01 DDD (degenerative disc disease), cervica l 10/17/2017 Coronary artery disease invo lving [place] coronary artery of [place] heart without angina pectoris 10/17/2017 Dyslipidemia, goal LDL below 70 11/13/19 16 PSVT (paroxysmal supraventricular tachyc ardia) 10/14/2015 Essential hypertension with goal blood p ressure less than 140/90 09/18/2014 Cerebrovascular disease, arterioscleroti c, post-stroke 07/21/2009 documented as of this encounter (statuses as of 04/14/2023) Resolved Problems Problem Noted Date Resolved Date Slow transit constipation 01/25/20222022 Food insecurity 02/08/2021 04/14/2022 Overview: Per [facility] [...] Diabetes mellitus with stage 3 chronic kidney di sease 03/22/2018 12/17/2020 Overview: Per CKD protocol Kidney disease, chronic, stage III (GFR 30-59 ml /min) 10/23/2017 04/16/2018 History of ischemic colitis 12/28/2016 0310/2018 Abnormal stress echocardiogram 10/14/2015 0 03/22/2018 BARRON (dyspnea on exertion) 09/24/20152017 Palpitations 09/24/2015 03/22/2018 Closed fracture of second cervical vertebra 04/0312/27/2016 Gastritis 04/15/2015 11/02/2017 Anxiety 03/24/2014 01/25/2022 Tubulovillous adenoma of colon 06/27/2012 0 03/22/2018 Ischemic colitis 02/06/2012 12/28/2016 Overview: found on colonoscopy HTN, goal below 130/80 07/29/2009 5 Overview: Per HTN Taxonomy. Type 2 diabetes mellitus wit h hemoglobin A1c goal of less than 7.0% 04/16/2009 04/05/2022 Overview: Modified per Diabetes protocol #14. ICD-10 update of inactive term DM type 2, not at goal 06/05/2008 9 Overview: Modified per Diabetes protocol #14. HTN, goal below 140/90 06/05/2008 0 Overview: Per HTN Taxonomy. documented as of this encounter (statuses as of 04/14/2023) Immunizations Name Administration Dates Next Due COVID-19 mRNA, LNP-s, No Pre serve, 2-Dose Series ([place]uck) 06/03/2021,09/30/2020,09/04/2020 Covid-19, Mrna, Lnp-s, Pf, B ivalent, [...] drink = 0.6 oz pur e alcohol) Food Insecurity Answer Date Recorded Within the past 12 months, y ou worried that your food would run out before you got money to buy more. Never true 2022 Within the past 12 months, t he food you bought just didn't last and you didn't have money to get more. Sometimes true Sex Assigned at Date Recorded Female 10/11/2018 12:10 PM EDT Job Start Date Occupation Industry [...] encounter Miscellaneous Notes * Telephone Encounter - Selena Reddy LPN - 04/14/2023 10:00 AM EDT Patient Diabetic Retinopathy scan not able to be interpreted. Outreach action taken: Already Scheduled See encounter 03/30 Selena Reddy LPN documented in this encounter Plan of Treatment Upcoming Encounters Date Type Specialty Care Team Description 04/26/2023 Imaging Radiology 05/11/2023 Office Visit Dermatology Twila Paz PA-C 200 [facility] [address] [place] [phone] 05/31/2023 Hospital Encounter Surgery TammiesinDez khanna Willy, DO [address] [place] [address] 05/31/2023 Surgery Surgery CouDez walsh, DO [address] [place] [address] INJECTION SACROILIAC JOINT 07/21/2023 Office Visit Family Medicine Domo Pool, DO [address] [place] [facility], [place] [address] 07/21/2023 Nutrition Services Nutrition Services Araseli Vale RDN [facility] [id number] Scheduled Procedures Name Priority Associated Diagnoses Date/Ti me INJECTION SACROILIAC JOINT Inflammation of sacroiliac joint (HCC) 05/31/2023 9:20 AM EST Health Maintenance Due Date Last Done Comments COVID-19 Vaccine ( season) 2023 06/14/2022, 06/03/2021, [...] Documents on File Type Date Recorded Patient Custodial Aide Expl anation Advance Directives and Livin g [...] Advance Directives occurred with: Patient Care Teams Sales Marketing Relationship Specialty Start Date End Date Domo Pool, [address] [place] [address] PCP - General Internal Medicine 01/19/22 documented as of this encounter
--- OUTSIDE RECORDS SUMMARY | 2023-09-29 09:22 | External Medical Summary | Summary of Care ---
Author Name Unknown Organization [facility] Address [address] [facility] [place] [address] Phone [phone] Care Team Providers Care Box Turner Name Role Phone Domo Pool DO Primary Care Provider [phone] Encounter Details Date Type Department Care Team Description 04/14/2023 Documentation HEALTH & WELLNESS Jennifer Gordillo, Health German Professor Allergies Active Allergy Reactions Severity Noted Date [...] than 7.0% ([facility]),Cerebrovascu lar disease, arteriosclerotic, post-stroke TAKE [...] once a week. - gets from the professor of counseling! 0 04/03/2023 Active Hospital, Clinic, or Other Facility Administered Medication Ordered Dose Route Frequency Start Date End Date Status vitamin b-12 (Cyanocobalamin) inj 1,000 mcgIndications:Vitamin B 12 deficiency 1000 mcg IM [id number] 12/29/2022 11/30/2023 Active documented as of this [...] l 10/17/2017 Coronary artery disease invo lving [place] coronary artery of [place] heart without angina pectoris 10/17/2017 Dyslipidemia, goal [...] /min) 10/23/2017 04/16/2018 History of ischemic colitis 12/28/201610/2018 Abnormal stress echocardiogram 10/14/2015 0 03/22/2018 BARRON [...] mRNA, LNP-s, No Pre serve, 2-Dose Series ([employer]-Value) 06/03/2021,09/30/2020,09/04/2020 Covid-19, Mrna, Lnp-s, Pf, B ivalent, [...] encounter Progress Notes * Jennifer Gordillo, Health German Professor - 04/14/2023 12:22 PM EDT Images from the original note were not included. 1. Chair Stand (30 seconds): Followed Protocol: Yes, Result 5 2. Arm Curls (30 seconds): Followed Protocol: No, patient completed with 3lbs for 12 reps each arm 3. Two Minute March: Followed Protocol: No, deferred due to LBP 4. Chair Sit and Reach (nearest 1/2 inch: +/-): Followed Protocol: Yes, Result: Right -0.5, Left 0 5. Back Stretch (nearest 1/2 inch: +/-): Followed Protocol: Yes, Result: Right -18, Left -15.5 6. Tug test Followed Protocol: (less than 12 seconds No, completed in 13.4s. She lost her balance twice during the test Goals: - Improve balance - Limit falls - Be more aware and cautious - Strengthen her back Modified [place]send Balance Test - Standing unsupported with eyes closed instructions: 3 - able to stand 10 seconds with supervision Standing unsupported with feet together instructions: 4 - able to place feet together independentlyand stand 1 minute safely Reaching forward with outstretched arm while standin - can reach forward 5 cm (2 inches) group marketing vp object from the floor from a standing position: 3 - able to slat pickler slipper but needs supervision Turning to look behind over left and right shoulders while standin - looks behind one side onlyother side shows less weight shift Turn 360 degrees: deferred due to vertigo Place alternate foot on step or stool while standing unsupported: 3 - able to stand independently and complete 8 steps in greater than 20 seconds Standing unsupported one foot in front: 2 - able to take small step independently and hold 30 seconds Standing on one le - tries to lift leg, unable to hold 3 seconds but remains standing independently Balance Assessment Modified total: Patient completed balance and fitness assessment and tolerated exercise well. She is interested in group balance classes to improve her balance. She is going to look at her calendar to see when she can attend group classes. I gave her my contact information and encouraged her to call me to sign-up for classes. documented in this encounter Plan of Treatment Upcoming Encounters Date Type Specialty Care Team Description 04/26/2023 Imaging Radiology 05/11/2023 Office Visit Dermatology Twila Paz PA-C [address] [place] [phone] 05/23/2023 Office Visit Otolaryngology Gautam Morgan, DO [address] [place] [address] 05/31/2023 Hospital Encounter Surgery Dez Arevalo, DO [address] [place] [address] 05/31/2023 Surgery Surgery Dez Arevalo, DO [address] [place] [address] INJECTION SACROILIAC JOINT 07/21/2023 Office Visit Family Medicine Domo Pool, [address] [place], [place] [address] 07/21/2023 Nutrition Services Nutrition Services Araseli Vale RDN [facility] [place] [address] Scheduled Procedures Name Priority Associated Diagnoses [...] Documents on File Type Date Recorded Patient Concrete Mixer Operator Helper Expl anation Advance Directives and Livin g [...] Advance Directives occurred with: Patient Care Teams Box Turner Relationship Specialty Start Date End Date Domo Pool, DO [address] [place] [address] PCP - General Internal Medicine 01/19/22 documented as of this encounter
--- OUTSIDE RECORDS SUMMARY | 2023-09-29 09:22 | External Medical Summary | Summary of Care ---
Author Name Unknown Organization [facility] Address [address] [place] [address] Phone [phone] Care Team Providers Care Marine Mechanic Name Role Phone Domo Pool DO Primary Care Provider [phone] Encounter Details Date Type Department Care Team Description 01/11/[address] [facility] [address] [place] [address] Services, Scheduling [address] [place] [address] Allergies Active Allergy Reactions Severity Noted Date Comments Amoxicillin Bleeding High 04/27/2015 Amoxicillin-Pot Clavulanate 09/05/19 14 tary stools documented as of this encounter (statuses as of 04/12/2023) Medications Medication Sig Dispensed Refills Start Date [...] by mouth in the morning. 0 Active AloricaTouch Verio w/Device Kit Use as directed . Use to test blood sugar once daily 1 Kit 0 01/20/2022 Active Vitamin C 500 MG Oral Capsule Take by mouth . 0 Active AloricaTouch UltraSoft LancetsIndications :Type 2 diabetes mellitus with [...] TABLET. 200 Tablet 3 08/08/2022 08/08/2023 Active Hospital, Clinic, or Other Facility Administered Medication Ordered Dose Route Frequency Start Date End Date Status vitamin b-12 (Cyanocobalamin) inj 1,000 mcgIndications:Vitamin B 12 deficiency 1000 mcg IM [id number] 12/29/2022 11/30/2023 Active documented as of this encounter (statuses as of 04/12/2023) Active Problems Problem Noted Date Drug-induced hyperkalemia 04/11/2023 Overview: LISINOPRIL Vitamin B [...] l 10/17/2017 Coronary artery disease invo lving [place] coronary artery of [place] heart without angina pectoris 10/17/2017 Dyslipidemia, goal LDL below 70 11/13/19 16 PSVT (paroxysmal supraventricular tachyc ardia) 10/14/2015 Essential hypertension with goal blood p ressure less than 140/90 09/18/2014 Cerebrovascular disease, arterioscleroti c, post-stroke 07/21/2009 documented as of this encounter (statuses as of 04/12/2023) Resolved Problems Problem Noted Date Resolved Date [...] /min) 10/23/2017 04/16/2018 History of ischemic colitis 12/28/[address] 10/2018 Abnormal stress echocardiogram 10/14/2015 0 03/22/2018 BARRON [...] as of this encounter (statuses as of 04/12/2023) Immunizations Name Administration Dates Next Due COVID-19 [...] encounter Miscellaneous Notes * Telephone Encounter - Gely Nava LPN - 01/11/2023 10:41 AM EDT Spoke with pt, She is asking what can she take to help reduce discomfort unitl injection with Dr Parnell. States tylenol isn't helping much. Advised if she doesn't have stomach or kidney issues, to try NSAID with food. Pt voiced understanding. Gely Lizarraga LPN * Telephone Encounter - CATERINA Ochoa - 01/11/2023 8:38 AM EDT Pt is calling and asking if Dr. Zamudio nurse could give her a call. She has questions about her hip x-rays. Ph. [phone] documented in this encounter Plan of Treatment Upcoming Encounters Date Type Specialty Care Team Description 04/26/2023 Imaging Radiology 05/11/2023 Office Visit Dermatology Twila Paz PA-C [address] [place] [address] 05/31/2023 Hospital Encounter Surgery Dez Arevalo, DO [address] [place] [address] 05/31/2023 Surgery Surgery CouDez walsh Willy, DO [address] [place] [address] INJECTION SACROILIAC JOINT 07/21/2023 Office Visit Family Medicine Domo Pool, DO [address] [place] [address] 07/21/2023 Nutrition Services Nutrition Services Araseli Vale RDN 106 [facility] [place] [id number] Scheduled Procedures Name Priority Associated Diagnoses Date/Ti me INJECTION SACROILIAC JOINT Inflammation of sacroiliac joint (HCC) 05/31/2023 9:20 AM EST Health Maintenance Due Date Last Done Comments COVID-19 Vaccine (2022- season) 2023 06/14/2022, 06/03/2021, [...] Documents on File Type Date Recorded 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
--- OUTSIDE RECORDS SUMMARY | 2023-09-29 09:22 | External Medical Summary | Summary of Care ---
Author Name Unknown Organization [facility] Address [address] [facility] [address] Phone [phone] Care Team Providers Care Director Content Marketing Name Role Phone Domo Pool DO Primary Care Provider [phone] Encounter Details Date Type Department Care Team (Late st Contact Info) Description 05/03/2023 Documentation HEALTH & WELLNESS Jennifer Gordillo, Health Fur Polisher Allergies Active Allergy Reactions Criticality Noted Date Comments Amoxicillin Bleeding High 04/27/2015 Amoxicillin-Pot Clavulanate 09/05/19 14 tary stools documented as of this encounter (statuses as of 05/03/2023) Medications Medication Sig Dispensed Refills Start Date [...] hemoglobin A1c goal of less than 7.0% ([facility]) USE TO CHECK BLOOD SUGAR ONCE DAILY [...] once a week. - gets from the cyber operator! 0 04/03/2023 Active Hospital, Clinic, or Other Facility Administered Medication Ordered Dose Route Frequency Start Date End Date Status vitamin b-12 (Cyanocobalamin) inj 1,000 mcgIndications:Vitamin B 12 deficiency 1000 mcg IM [id number] 12/29/2022 11/30/2023 Active documented as of this encounter (statuses as of 05/03/2023) Active Problems Problem Noted Date Diagnosed Date [...] Coronary artery disease invo lving [place] coronary artery of [place] heart without angina pectoris 10/17/2017 Dyslipidemia, goal LDL below 70 11/13/2015 PSVT (paroxysmal supraventricular tachycardia) 0 10/14/2015 Essential hypertension with goal blood pressure less than 140/90 09/18/2014 Cerebrovascular disease, arteriosclerotic, post- stroke 07/21/2009 documented as of this encounter (statuses as of 05/03/2023) Resolved Problems Problem Noted Date Diagnosed Date [...] as of this encounter (statuses as of 05/03/2023) Immunizations Name Administration Dates Next Due COVID-19 mRNA, LNP-s, No Pre serve, 2-Dose Series (Pfizer) 06/03/2021,09/30/2020,09/04/2020 Covid-19, Mrna, Lnp-s, Pf, B ivalent, 30 Mcg, IM, 12 yrs and above ([employer]) 06/14/2022 Pneumococcal Conjugate Vacc, 13 Valent (Prevnar) [...] encounter Progress Notes * Jennifer Gordillo Health Fur Polisher - 05/03/2023 11:10 AM EDT SESSION TYPE: Group exercise session: Exercise [...] AM EST Office Visit Dermatology Dilip Durbin [place] 200 [facility], [place] [address] Twila Paz PA-C 200 [facility] [place] [phone] 05/11/2023 11:00 AM EST Office Visit Interventional [facility], [facility] [address] [place] [address] Brayan Mares, DO [address] [place] [phone] 05/23/2023 11:45 AM EST Office Visit Otolaryngology [facility] [address] [place] [address] Gautam Morgan, DO [address] [place] [address] 05/31/2023 9:20 AM EST Hospital Encounter OR [facility], Operating Room [facility] [address] [place] [phone] Dez Arevalo, DO [address] [place] [address] 05/31/2023 9:20 AM EST - 05/31/2023 9:40 AM EST Surgery OR [facility], Operating Room [facility] [address] [place] [phone] Dez Arevalo, DO [address] [place] [address] INJECTION SACROILIAC JOINT 07/21/2023 8:40 AM EST Office Visit Family Practice [address] [place] [address] 293 [place] [address] Domo Pool, DO 293 [facility] [place] [address] 07/21/2023 10:00 AM EST Nutrition Services Nutrition Services [address] [place] 293 [place] [address] Araseli Vale, NORBERT 106 [facility] [place] [address] Scheduled Procedures Name [...] Documents on File Type Date Recorded Patient Engravings Polisher Expl anation Advance Directives and Livin [...] Advance Directives occurred with: Patient Care Teams Director Content Marketing Relationship Specialty Start Date End Date Domo Pool DO [address] [place] [facility] [place] [address] PCP - General Internal Medicine 01/19/22 documented as of this encounter
--- OUTSIDE RECORDS SUMMARY | 2023-09-29 09:22 | External Medical Summary | Summary of Care ---
Author Name Unknown Organization [facility] Address [address] [facility] [address] Phone [phone] Care Team Providers Care Blocking Machine Operator Name Role Phone Domo Pool DO Primary Care Provider Reason for Visit * Reason Onset Date Comments Other 04/24/2023 Encounter Details Date Type Department Care Team (Latest Contact Info) Description 04/24/2023 Telephone HEALTH & WELLNESS Domo Pool DO [address] [facility] [place] [address] Other Allergies Active Allergy Reactions Criticality Noted Date Comments Amoxicillin Bleeding High 04/27/2015 Amoxicillin-Pot Clavulanate 09/05/19 14 tary stools documented as of this encounter (statuses as of 04/24/2023) Medications Medication Sig Dispensed Refills Start Date [...] by mouth in the morning. 0 Active Genetix FusionTouch Verio w/Device Kit Use as directed . Use to test blood sugar once daily 1 Kit 0 01/20/2022 Active Vitamin C 500 MG Oral Capsule Take by mouth . 0 Active Genetix FusionTouch UltraSoft LancetsIndications :Type 2 diabetes mellitus with [...] goal of less than 7.0% ([facility]) USE TO CHECK BLOOD SUGAR ONCE [...] once a week. - gets from the surface logging systems logger! 0 04/03/2023 Active Hospital, Clinic, or Other Facility Administered Medication Ordered Dose Route Frequency Start Date End Date Status vitamin b-12 (Cyanocobalamin) inj 1,000 mcgIndications:Vitamin B 12 deficiency 1000 mcg IM [id number] 12/29/2022 11/30/2023 Active documented as of this encounter (statuses as of 04/24/2023) Active Problems Problem Noted Date Diagnosed Date [...] as of this encounter (statuses as of 04/24/2023) Resolved Problems Problem Noted Date Diagnosed Date [...] as of this encounter (statuses as of 04/24/2023) Immunizations Name Administration Dates Next Due COVID-19 mRNA, LNP-s, No Pre serve, 2-Dose Series ([employer]) 06/03/2021,09/30/2020,09/04/2020 Covid-19, Mrna, Lnp-s, Pf, B ivalent, 30 Mcg, IM, 12 yrs and above ([facility]) 06/14/2022 Pneumococcal Conjugate Vacc, 13 Valent (Prevnar) [...] encounter Miscellaneous Notes * Telephone Encounter - Mathew Tristan Community Liaison Officer - 04/24/2023 2:50 PM EDT Returned patient's call to set up time to exercise. When I called I received the busy signal. Will try to reach patient again tomorrow. documented in this encounter Plan of Treatment Upcoming Encounters Date Type Department Care Team (Latest Contact Info) Description 04/26/2023 8:45 AM EDT Imaging Radiology [facility] [address] [place] [address] 05/11/2023 9:20 AM EST Office Visit Dermatology [facility] [address] [place] [address] Twila Paz PA-C [address] [place] [phone] 05/23/2023 11:45 AM EST Office Visit Otolaryngology [facility] [address] [place] [address] Gautam Morgan, DO [address] [place] [address] 05/31/2023 9:20 AM EST Hospital Encounter OR [facility], Operating Room [facility] [address] [place] [phone] Dez Arevalo, DO [address] [place] [address] 05/31/2023 9:20 AM EST - 05/31/2023 9:40 AM EST Surgery OR [facility], Operating Room [facility] [address] [place] [phone] Dez Arevalo, DO [address] [place] [address] INJECTION SACROILIAC JOINT 07/21/2023 8:40 AM EST Office Visit Family Practice 65 [facility] [address] [place] [phone] Domo Pool, DO 293 [facility], [place] [address] 07/21/2023 10:00 AM EST Nutrition Services Nutrition Services 65 [facility] [address] [facility], [place] [address] Araseli Vale, NORBERT [address] [facility] [place] [address] Scheduled Procedures Name [...] Documents on File Type Date Recorded Patient Health Equipment Servicer Expl anation Advance Directives and Livin g [...] Advance Directives occurred with: Patient Care Teams Blocking Machine Operator Relationship Specialty Start Date End Date Domo Pool DO [address] [facility] [place] [address] PCP - General Internal Medicine 01/19/22 documented as of this encounter
--- OUTSIDE RECORDS SUMMARY | 2023-09-29 09:22 | External Medical Summary | Summary of Care ---
Author Name Unknown Organization [facility] Address [address] [facility] [place] [address] Phone [phone] Care Team Providers Care Change Over Name Role Phone Domo Pool DO Primary Care Provider [phone] Reason for Visit * Reason Comments Back Pain Encounter Details Date Type Department Care Team (Latest Contact Info) Description 05/11/2023 11:00 AM EST Office Visit Interventional Pain Center, [facility] [address] [place] [address] Brayan Mares DO [address] [place] [address] Sacroiliitis (HCC)*; Spondylosis of lumbosacral region without myelopathy or [...] by mouth in the morning. 0 Active Luxr Verio w/Device Kit Use as directed . Use to test blood sugar once daily 1 Kit 0 01/20/2022 Active Vitamin C 500 MG Oral Capsule Take by mouth . 0 Active TaggledTouch UltraSoft LancetsIndications :Type 2 diabetes mellitus with [...] once a week. - gets from the phone banker! 0 04/03/2023 Active Hospital, Clinic, or Other Facility Administered Medication Ordered Dose Route Frequency Start Date End Date Status vitamin b-12 (Cyanocobalamin) inj 1,000 mcgIndications:Vitamin B 12 deficiency 1000 mcg IM [id number] 12/29/2022 11/30/2023 Active documented as of this [...] cervical 2017 Coronary artery disease invo lving [place] coronary artery of [place] heart without angina pectoris 10/17/2017 Dyslipidemia, goal [...] encounter Progress Notes * Brayan Mares, - 05/11/2023 11:13 AM EST Interventional Pain Follow-up Appointment Subjective: Chief Complaint: Chief Complaint Patient presents with Back Pain History of Present Illness: Dyana Menard is a 82 year old year-old female with a pain history remarkable for cervical DDD, chronic SIJ pain and lumbar DDD who is well-known to Dr. Arevalo who presents to [facility] care in anticipation of [facility]. Scheduled for SIJ injection on 05/31/2023. The pain is located in the lower back/upper buttock region bilaterally, and it does not radiate to the legs. She describes it as a dull achy painful sensation. Aggravating factors include: prolonged standing, dishes, prolonged sitting. Has been doing balance training. Alleviating factors include: unclear. The pain is present most of time. Her current pain score is 8/10. Her pain at its least is 2-3 / 10. Her worst pain is 10 / 10. Denies weakness. Denies numbness. Denies bowel or bladder incontinence. Denies symptoms of saddle anesthesia. Denies fevers/chills/night sweats. Denies unintentional weight loss. Has had issues with falls so she is doing balance training, history of CVA at 67. Review of Systems: A focused 12-pt ROS [...] - [facility] NEGATIVE 04/27/2015 04:20 PM Imaging: Objective Physical Exam: Vital Signs: There were [...] lesions appreciated on exposed skin Neuromuscular Exam: TTP over bilateral SIJs. TTP over lumbar facet line bilaterally. Assessment: Dyana is a 82 year old year-old female with: Sacroiliitis (HCC) (Primary) Spondylosis of lumbosacral region without myelopathy or radiculopathy Plan: Recommend continued work with PT. Continue with Dr. Arevalo' plan to inject bilateral SIJ with corticosteroids under XR guidance. Recommend follow-up after Dr. Arevalo' injection in 6-8 weeks with me. Medical Decision Making I spent 25 minutes reviewing the patient's prior visit office notes, procedure notes, images, conducting the history and physical examination, formulating a care plan, considering interventional options, drafting orders and medication prescriptions as well as recording the medical documentation. Brayan Mares DO Interventional Pain Center, [facility] 132 [facility] [place] [address] documented in this encounter Nursing Notes * Basia Flores LPN - 05/11/2023 10:56 AM EST Patient here to meet Scheduled with inj with documented in this encounter Plan of Treatment Upcoming Encounters Date Type Department Care Team (Latest Contact Info) Description 05/23/2023 11:45 AM EST Office Visit [facility] [place] [address] Gautam Morgan DO 132 [facility] [place] [address] 05/31/2023 9:20 AM EST Hospital Encounter OR [facility], Operating Room [facility] [address] [place] [phone] Dez Arevalo, DO [address] [place] [address] 05/31/2023 9:20 AM EST - 05/31/2023 9:40 AM EST Surgery OR [facility], Operating Room [facility] [address] [place] [phone] Dez Arevalo, DO [address] [place] [address] INJECTION SACROILIAC JOINT 07/13/2023 11:00 AM EST Telemedicine Interventional [facility], [facility] [address] [place] [address] Brayan Mares, DO [address] [place] [phone] 07/21/2023 8:40 AM EST Office Visit Family Practice [address] [place] [address] 293 [place] [address] Domo Pool, DO 293 [place] [address] 07/21/2023 10:00 AM EST Nutrition Services Nutrition Services [address] [place] [address], [place] [address] Araseli Vale RDN [address] [place], [place] [address] [address] Scheduled Procedures Name Priority Associated Diagnoses Date/Ti me INJECTION SACROILIAC JOINT Inflammation of sacroiliac joint (HCC) 05/31/2023 9:20 AM EST Health Maintenance Due Date Last Done Comments Hepatitis B (1 of 3 - Risk 3-dose series) 2002 COVID-19 Vaccine (5 - 2022-24 season) 2023 06/14/2022, 06/03/2021, 09/30/2020, Additional history [...] as of this encounter Visit Diagnoses Diagnosis Sacroiliitis (HCC)- Primary Sacroiliitis, not elsewhere classified Spondylosis of lumbosacral region without myelopathy or radiculopathy Lumbosacral spondylosis without myelopathy Inflammation of sacroiliac joint (HCC) Sacroiliitis, not elsewhere classified documented in this encounter Advance Directives Documents on File Type Date Recorded Patient Skatesman Expl anation Advance Directives and Livin g [...] Advance Directives occurred with: Patient Care Teams Change Over Relationship Specialty Start Date End Date Domo Pool DO [address] [place] [address] PCP - General Internal Medicine 01/19/22 documented as of this encounter
--- OUTSIDE RECORDS SUMMARY | 2023-09-29 09:23 | External Medical Summary | Summary of Care ---
Author Name Unknown Organization [facility] Address [address] [facility] [place] [address] Phone [phone] Care Team Providers Care Cuff Cutter Name Role Phone Domo Pool DO Primary Care Provider [phone] Encounter Details Date Type Department Care Team Description 04/10/2023 Laboratory Lab 65 [facility] [address] [place] [address] [place], Lab [address] [address] Potassium serum increased Allergies Active Allergy Reactions Severity Noted Date Comments Amoxicillin Bleeding High 04/27/2015 Amoxicillin-Pot Clavulanate 09/05/19 14 tary stools documented as of this encounter (statuses as of 04/10/2023) Medications Medication Sig Dispensed Refills Start Date [...] once a week. - gets from the substation operator helper! 0 04/03/2023 Active Hospital, Clinic, or Other Facility Administered Medication Ordered Dose Route Frequency Start Date End Date Status vitamin b-12 (Cyanocobalamin) inj 1,000 mcgIndications:Vitamin B 12 deficiency 1000 mcg IM [id number] 12/29/2022 11/30/2023 Active documented as of this encounter (statuses as of 04/10/2023) Active Problems Problem Noted Date Vitamin B 12 deficiency 12/29/2022 Primary insomnia [...] l 10/17/2017 Coronary artery disease invo lving [place] coronary artery of [place] heart without angina pectoris 10/17/2017 Dyslipidemia, goal LDL below 70 11/13/19 16 PSVT (paroxysmal supraventricular tachyc ardia) 10/14/2015 Essential hypertension with goal blood p ressure less than 140/90 09/18/2014 Cerebrovascular disease, arterioscleroti c, post-stroke 07/21/2009 documented as of this encounter (statuses as of 04/10/2023) Resolved Problems Problem Noted Date Resolved Date [...] 10/23/2017 04/16/2018 History of ischemic colitis 12/28/2016 03/0 10/2018 Abnormal stress echocardiogram 10/14/2015 0 03/22/2018 [...] as of this encounter (statuses as of 04/10/2023) Immunizations Name Administration Dates Next Due COVID-19 [...] of this encounter Progress Notes * Celena Rosenberg LPN - 04/10/2023 10:28 AM EDT LAB DRAWN AND SENT TO [facility]. documented in this encounter Plan of Treatment Upcoming Encounters Date Type Specialty Care Team Description 04/26/2023 Imaging Radiology 05/11/2023 Office Visit Dermatology Twila Paz PA-C [address] [place] [address] 05/31/2023 Hospital Encounter Surgery Dez Arevalo, DO [address] [place] [address] 05/31/2023 Surgery Surgery Dez Arevalo, DO [address] [place] [address] INJECTION SACROILIAC JOINT 07/21/2023 Office Visit Family Medicine Domo Pool, DO [address] [place], [place] [address] 07/21/2023 Nutrition Services Nutrition Services Araseli Vale RDN 106 [facility] [place] [address] Pending Results Name Type Priority Associated Diagnoses Date /Time BASIC METABOLIC PANEL Lab Routine Potassium serum increased 04/10/2023 10:33 AM EDT Scheduled Procedures Name Priority Associated Diagnoses Date/Ti [...] Screening 03/30/2024 03/30/2023, 08/17/2017 (Course Completed) GFR 03/30/2024 03/30/2023, 08/0 01/2023, 12/28/2022, Additional history exists DXA Scan 07/20/2025 07/20/2022, [...] as of this encounter Visit Diagnoses Diagnosis Potassium serum increased Hyperpotassemia Inflammation of sacroiliac joint (HCC) Sacroiliitis, not elsewhere classified documented in this encounter Advance Directives Documents on File Type Date Recorded Patient Guest Services Coordinator Expl anation Advance Directives and Livin [...] Advance Directives occurred with: Patient Care Teams Cuff Cutter Relationship Specialty Start Date End Date Domo Pool, 293 [place] [address] PCP - General Internal Medicine 01/19/22 documented as of this encounter
--- OUTSIDE RECORDS SUMMARY | 2023-09-29 09:23 | External Medical Summary | Summary of Care ---
Author Name Unknown Organization [facility] Address [address] [facility] [place] [address] Phone [phone] Care Team Providers Care Language Interpreter Name Role Phone Domo Pool DO Primary Care Provider [phone] Reason for Visit * Reason Onset Date Comments Test Results 04/11/202304/11 Encounter Details Date Type Department Care Team Description 04/11/2023 Telephone Family Practice 65 [facility] [place] 293 [place] [address] Domo Pool DO [address] [place] [address] Test Results (04/11) Allergies Active Allergy Reactions Severity Noted Date [...] by mouth in the morning. 0 Active ZenaminsTouch Verio w/Device Kit Use as directed . [...] goal of less than 7.0% ([facility]),Cerebrovascu lar disease, arteriosclerotic, post-stroke TAKE [...] of less than 7.0% ([facility]) USE TO CHECK BLOOD SUGAR [...] once a week. - gets from the general internist and physician leader! 0 04/03/2023 Active Hospital, Clinic, or Other Facility Administered Medication Ordered Dose Route Frequency Start Date End Date Status vitamin b-12 (Cyanocobalamin) inj 1,000 mcgIndications:Vitamin B 12 deficiency 1000 mcg IM [id number] 12/29/2022 11/30/2023 Active documented as of this [...] l 10/17/2017 Coronary artery disease invo lving [place] coronary artery of [place] heart without angina pectoris 10/17/2017 Dyslipidemia, goal [...] mRNA, LNP-s, No Pre serve, 2-Dose Series ([employer]) 06/03/2021,09/30/2020,09/04/2020 Covid-19, Mrna, Lnp-s, Pf, B ivalent, [...] Telephone Encounter - Celena Rosenberg LPN - 04/12/2023 2:51 PM EDT Patient is aware and will comply. Thank you * Telephone Encounter - Celena Varner RN - 04/11/2023 4:52 PM EDT Call to pt-no answer-message left to call back at [phone] * Telephone Encounter - Celena Varner RN - 04/11/2023 4:51 PM EDT ----- Message from Domo Pool DO sent at 04/11/2023 8:03 AM EDT ----- Potassium is good. Stay off of Lisinopril documented in this encounter Plan of Treatment Upcoming Encounters Date Type Specialty Care Team Description 04/26/2023 Imaging Radiology 05/11/2023 Office Visit Dermatology Twila Paz PA-C 200 [facility] [place] [address] 05/31/2023 Hospital Encounter Surgery Dez Arevalo, [address] [place] [address] 05/31/2023 Surgery Surgery Dez Arevalo DO [address] [place] [address] INJECTION SACROILIAC JOINT 07/21/2023 Office Visit Family Medicine Domo Pool DO 293 [place] [address] 07/21/2023 Nutrition Services Nutrition Services Araseli Vale RDN [address] [place], [place] [address] [address] Scheduled Procedures Name Priority Associated Diagnoses Date/Ti [...] Documents on File Type Date Recorded Patient Process Stripper Expl anation Advance Directives and Livin g [...] Advance Directives occurred with: Patient Care Teams Language Interpreter Relationship Specialty Start Date End Date Domo Pool, [address] [place] [address] PCP - General Internal Medicine 01/19/22 documented as of this encounter
--- OUTSIDE RECORDS SUMMARY | 2023-09-29 09:23 | External Medical Summary | Summary of Care ---
Author Name Unknown Organization [facility] Address [address] [facility] [place] [address] Phone [phone] Care Team Providers Care Donor Recruiter Name Role Phone Domo Pool DO Primary Care Provider [phone] Reason for Visit * Reason Comments Medical Nutrition Therapy Encounter Details Date Type Department Care Team Description 04/05/2023 Nutrition Services Nutrition Services [facility] [place] [facility] [address] Araseli Vale RDN [facility] [place] [address] Type 2 diabetes mellitus with hemoglobin A1c goal of less than 8.0% ([facility])*; Essential hypertension with goal blood pressure less than 140/90 Allergies Active Allergy Reactions Severity Noted Date Comments Amoxicillin Bleeding High 04/27/2015 Amoxicillin-Pot Clavulanate 09/05/19 14 tary stools documented as of this encounter (statuses as of 04/05/2023) Medications Medication Sig Dispensed Refills Start Date [...] by mouth in the morning. 0 Active TaskmitTouch Verio w/Device Kit Use as directed . Use to test blood sugar once daily 1 Kit 0 01/20/2022 Active Vitamin C 500 MG Oral Capsule Take by mouth . 0 Active TaskmitTouch UltraSoft LancetsIndications :Type 2 diabetes mellitus with [...] once a week. - gets from the data developer! 0 04/03/2023 Active Hospital, Clinic, or Other Facility Administered Medication Ordered Dose Route Frequency Start Date End Date Status vitamin b-12 (Cyanocobalamin) inj 1,000 mcgIndications:Vitamin B 12 deficiency 1000 mcg IM [id number] 12/29/2022 11/30/2023 Active documented as of this encounter (statuses as of 04/05/2023) Active Problems Problem Noted Date Vitamin B [...] l 10/17/2017 Coronary artery disease invo lving [place] coronary artery of [place] heart without angina pectoris 10/17/2017 Dyslipidemia, goal LDL below 70 11/13/19 16 PSVT (paroxysmal supraventricular tachyc ardia) 10/14/2015 Essential hypertension with goal blood p ressure less than 140/90 09/18/2014 Cerebrovascular disease, arterioscleroti c, post-stroke 07/21/2009 documented as of this encounter (statuses as of 04/05/2023) Resolved Problems Problem Noted Date Resolved Date [...] as of this encounter (statuses as of 04/05/2023) Immunizations Name Administration Dates Next Due COVID-19 mRNA, LNP-s, No Pre serve, 2-Dose Series ([employer]) 06/03/2021,09/30/2020,09/04/2020 Covid-19, Mrna, Lnp-s, Pf, B ivalent, [...] - Inhaled Oxygen Concentration - - Weight 64 kg (141 lb) 04/05/2023 9:03 AM EDT Height - - Body Mass Index 24.01 03/30/2023 8:30 AM EDT documented in this encounter Functional [...] * Patient Instructions* Araseli Vale RDN - 04/05/2023 9:30 AM EDT Current Goals: Discussed the following goals with patient who agrees to the following: Choose to eat 3 meals/day. documented in this encounter Progress Notes * Araseli Jeanie Kavin, RDN - 04/05/2023 9:00 AM EDT NUTRITION FOLLOW-UP NOTE - [facility] [place] Name: Dyana Menard Location: NUTRITION SERVICES [address] [address] Date: 04/05/2023 Time: 8:51 AM Patient location: [facility] [place] [facility]. Patient was seen [id number] in the clinic. Patient was verified with two unique identifiers. Reason for Nutrition Follow-up: Type 2 Diabetes, hyperkalemia NUTRITION ASSESSMENT: Client History Patient reports she started back on Ozempic. Stress is affecting patient, "feeling a little bit mixed up some times". Increased stress around daughter and care for grand child. [facility] has a piccoloist visit for assistance with the cost of the hearing aid. Has difficulty chewing certain foods because she needs a new plates (dentures). Patient has made good progress towards the following goals: I will continue to choose low sodium foods I will continue to take mediations as ordered Support System: Spouse Barriers to Learning: None Special Education Needs: None Food/Nutrition-Related History Describes typical diet history/24 hr recall Breakfast: cheerios and coffee Lunch: vegetable soup; water Dinner: sandwich (roast beef and whole wheat bread); water Snacks: none Drinks: coffee, water, diet soda (2 x/week); 1% milk Restaurant meals: rare; none in >1 year Diet Recall/Food Logs Indicate: AREAS FOR IMPROVEMENT: Inadequate fruit and vegetable intake POSITIVE: Portion control Food and Nutrient Intake and other pertinent information: Continues to get food from office of aging every Monday; receiving food assistance from the community. Physical Activity: Patient signed up for balance assessment/classes Medications Changes/Updates: Current Outpatient Medications Medication Sig [...] 1 Capsule by mouth in the morning. [employer] Verio w/Device Kit Use as directed . Use to test blood sugar once daily 1 Kit 0 Vitamin C 500 MG Oral Capsule Take by mouth . TaskmitTouch UltraSoft Lancets Use to check blood sugar [...] BY MOUTH EVERY MORNING IN ADDITION TO [id number] TABLET 100 Tablet 3 Pantoprazole Sodium 20 [...] once a week. - gets from the data developer! Current Facility-Administered Medications Medication Dose Route Frequency Provider Last Rate Last Admin vitamin b-12 (Cyanocobalamin) inj 1,000 mcg 1,000 mcg Intramuscular Q4 Weeks Domo Pool DO 1,000 mcg at 03/30/23 0904 Nutrition-Focused Physical Findings Overall appearance: thin extremities Fluid accumulation: Fluid Assessment: Normal Fluid Location: N/A Fluid Description: N/A Digestive system: Appetite: fair, Complete dentures Nerves and cognition: Awake, alert and Oriented Anthropometric Measurements Current Weight: Wt Readings from Last 1 Encounters: 04/05/23 64 kg (141 lb) Wt Readings from Last 4 Encounters: 04/05/23 64 kg (141 lb) 03/30/23 64.6 kg (142 lb 8 oz) 03/02/23 65.5 kg (144 lb 4.8 oz) 02/07/23 64.2 kg (141 lb 9.6 oz) Weight Change: decreased by 5 pounds in the past 7 months BMI Readings from Last 1 Encounters: 04/05/23 24.01 kg/m Biochemical Data, Medical Tests, and Procedures Self-Monitoring Blood Glucose Source of Information: Participant verbally reviewed from memory Frequency of tests: once daily Summary: 134 this AM; just restarted Ozempic Hypoglycemia?: No Hemoglobin AIC Results: Lab [...] (H) 10/28/2019 08:11 AM Previous Nutrition Diagnosis: Food and nutrition-related knowledge deficit related to Significant sodium intake as evidenced by Reported diet and/or activity recall CURRENT NUTRITION DIAGNOSIS Inconsistent carbohydrate intake related to Poor meal distribution as evidenced by Reported diet and/or activity recall NUTRITION INTERVENTION: NUTRITION EDUCATION Comprehensive nutrition education NUTRITION COUNSELING Strategies Motivational Interviewing Diabetes Standards of Care: Care Gaps have been addressed with other members of [facility] Care Team Nutrition Prescription: Diet: 2000 mg Sodium Consistent Carbohydrate Heart Healthy Low Fat/Low Cholesterol Daily Calorie Needs: 4318-7529 Kcals (20-25 kcal/kg) Daily Protein Needs: 67-80 Grams protein (1-1.2g protein/kg) Current Goals: Discussed the following goals with patient who agrees to the following: Choose to eat 3 meals/day. Dietitian Action: Offered emotional support for ongoing stressors in personal life (spouse has multiple health issuesand daughter with ALS is now receiving tube feedings) Discussed carbohydrate consistency Discussed importance of a lean protein paired with carbohydrates Encouraged whole grains and non-starchy vegetables Recommendations to Ordering Provider: Continue current plan of nutrition care. NUTRITION MONITORING AND EVALUATION: The following will be monitored and evaluated at the next visit: Monitor weight. Monitor labs. Monitor goals and progress. Plan: Patient scheduled to return in 3-4 months; dietitian phone # given for future reference. 30 minutes Medical Nutrition Therapy Time In: 0859 (04/05/23 114) Time Out: 0935 (04/05/23 1149) 15 min (8-22 min) 30 min (23-37 min) 45 min (38-52 min) 60 min (53-67 min) 75 min (68-82 min) 90 min (83-97 min) 105 min (98-113 min) Araseli Vale RDN 04/05/2023 8:51 AM NUTRITION SERVICES [address] [place] [address] documented in this encounter Plan of Treatment Upcoming Encounters Date Type Specialty Care Team Description 04/07/2023 Nurse Only [facility], Nurse Arjun Prac [address] [place] [address], [place] [address] 04/26/2023 Imaging Radiology 05/11/2023 Office Visit Dermatology Twila Paz PA-C [address] [place] [phone] 05/31/2023 Hospital Encounter Surgery Dez Arevalo DO [address] [place] [address] 05/31/2023 Surgery Surgery Dez Arevalo DO [address] [place] [address] INJECTION SACROILIAC JOINT 07/21/2023 Office Visit Family Medicine Domo Pool DO 293 [place] [address] 07/21/2023 Nutrition Services Nutrition Services Araseli Vale RDN 106 [facility] [place] [address] Scheduled Procedures Name Priority Associated Diagnoses Date/Ti [...] goal of less than 8.0% (HCC)- Primary Essential hypertension with goal blood pressure less than 140/90 Inflammation of sacroiliac joint (HCC) Sacroiliitis, not elsewhere classified documented in this encounter Advance Directives Documents on File Type Date Recorded Patient Tumor Registrar Expl anation Advance Directives and Livin g [...] Advance Directives occurred with: Patient Care Teams Donor Recruiter Relationship Specialty Start Date End Date Domo Pool, 293 [place] [address] PCP - General Internal Medicine 01/19/22 documented as of this encounter
--- OUTSIDE RECORDS SUMMARY | 2023-09-29 09:23 | External Medical Summary | Summary of Care ---
Author Name Unknown Organization [facility] Address [address] [facility] [place] [address] Phone [phone] Care Team Providers Care Die Sinking Machine Operator Name Role Phone Domo Pool DO Primary Care Provider [phone] Reason for Visit * Reason Comments Medical Nutrition Therapy Encounter Details Date Type Department Care Team Description 04/05/2023 Nutrition Services Nutrition Services 65 [facility] [place] 293 [facility] [address] [facility] 106 [facility] [place] [address] Type 2 diabetes mellitus with hemoglobin A1c goal of less than 8.0% ([facility])*; Essential hypertension with goal blood pressure [...] by mouth in the morning. 0 Active [employer]Touch Verio w/Device Kit Use as directed . Use to test blood sugar once daily 1 Kit 0 01/20/2022 Active Vitamin C 500 MG Oral Capsule Take by mouth . 0 Active [employer]Touch UltraSoft LancetsIndications :Type 2 diabetes mellitus with [...] once a week. 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 0 04/03/2023 Active Hospital, Clinic, or Other Facility Administered Medication Ordered Dose Route Frequency Start Date End Date Status vitamin b-12 (Cyanocobalamin) inj 1,000 mcgIndications:Vitamin B 12 deficiency 1000 mcg IM [id number] 12/29/2022 11/30/2023 Active documented as of this [...] l 10/17/2017 Coronary artery disease invo lving [place] coronary artery of [place] heart without angina pectoris 10/17/2017 Dyslipidemia, goal [...] mRNA, LNP-s, No Pre serve, 2-Dose Series ([employer]) 06/03/2021,09/30/2020,09/04/2020 Covid-19, Mrna, Lnp-s, Pf, B ivalent, [...] [place] Name: Dyana Menard Location: NUTRITION SERVICES [address] [place] [address] Date: 04/05/2023 Time: 8:51 AM Patient location: [facility] [place] [facility]. Patient was seen [id number] in the clinic. Patient was verified with two unique identifiers. Reason for Nutrition Follow-up: Type 2 Diabetes, hyperkalemia NUTRITION ASSESSMENT: Client History Patient reports she started back on Ozempic. Stress is affecting patient, "feeling a little bit mixed up some times". Increased stress around daughter and care for grand child. [facility] has a combine inspector visit for assistance with the cost of [...] 1 Capsule by mouth in the morning. [employer] Verio w/Device Kit Use as directed . Use to test blood sugar once daily 1 Kit 0 Vitamin C 500 MG Oral Capsule Take by mouth . [employer]Touch UltraSoft Lancets Use to check blood sugar [...] BY MOUTH EVERY MORNING IN ADDITION TO [id number] TABLET 100 Tablet 3 Pantoprazole Sodium 20 [...] once a week. 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 Current Facility-Administered Medications Medication Dose Route Frequency [...] Weight: Wt Readings from Last 1 Encounters: 03/30/23 64.6 kg (142 lb 8 oz) Wt Readings from Last 4 Encounters: 03/30/23 64.6 kg (142 lb 8 oz) 03/02/23 65.5 kg (144 lb 4.8 oz) 02/07/23 64.2 kg (141 lb 9.6 oz) 12/28/22 61.6 kg (135 lb 12.8 oz) Weight Change: decreased by 5 pounds in the past 7 months BMI Readings from Last 1 Encounters: 03/30/23 24.27 kg/m Biochemical Data, Medical Tests, and Procedures [...] Healthy Low Fat/Low Cholesterol Daily Calorie Needs: 0407-9117 Kcals (20-25 kcal/kg) Daily Protein Needs: 67-80 [...] future reference. 30 minutes Medical Nutrition Therapy 15 min (8-22 min) 30 min (23-37 min) 45 min (38-52 min) 60 min (53-67 min) 75 min (68-82 min) 90 min (83-97 min) 105 min (98-113 min) Araseli Vale RDN 04/05/2023 8:51 AM NUTRITION SERVICES [address] [place] [address] documented in this encounter Plan of Treatment Upcoming Encounters Date Type Specialty Care Team Description 04/07/2023 Nurse Only [facility], Nurse Arjun Prac [address] [place] [address], [place] [address] 04/26/2023 Imaging Radiology 05/11/2023 Office Visit Dermatology Twila Paz PA-C [address] [place] [phone] 05/31/2023 Hospital Encounter Surgery Dez Arevalo, DO [address] [place] [address] 05/31/2023 Surgery Surgery Dez Arevalo, [address] [place] [address] INJECTION SACROILIAC JOINT 07/21/2023 Office Visit Family Medicine Domo Pool, DO 293 [place] [address] 07/21/2023 Nutrition Services Nutrition Services Araseli Vale RDN 106 [facility] [place] [address] Scheduled Procedures Name Priority Associated Diagnoses Date/Ti me INJECTION SACROILIAC JOINT Inflammation of sacroiliac joint (HCC) 05/31/2023 9:20 AM EST Health Maintenance Due Date Last Done Comments COVID-19 Vaccine (2022-24 season) 2023 06/14/2022, 06/03/2021, [...] Documents on File Type Date Recorded 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
--- OUTSIDE RECORDS SUMMARY | 2023-09-29 09:23 | External Medical Summary ---
Author Name Unknown Address Unknown Organization K01:[facility] [place] - [address] [place] [address] Laboratory Report Ordering Provider Test Date Status SANA WASHINGTON 04/10/2023 10:33:47 Final Observation Date Value Abnormality Reference (Units ) Status BUN 04/10/2023 10:33:47 20 6-20 (mg/dL) Final Creatinine 04/10/2023 10:33:47 0.9 0.5-1.0 (mg/dL) Final Glomerular filtration rate/1.73 sq M.predicted [Volume Rate/Area] in Serum, Plasma or Blood by Creatinine-based formula (CKD-EPI) 04/10/2023 10:33:47 67 >=60 (mL/min) Final eGFR is calculated based on the CKD-EPI 2020 equation SODIUM 04/10/2023 10:33:47 141 135-146 (m mol/L) Final Potassium 04/10/2023 10:33:47 4.7 3.5-5.1 (m mol/L) Final Cl 04/10/2023 10:33:47 107 98-107 (mm ol/L) Final CO2 04/10/2023 10:33:47 22 22-32 (mmo l/L) Final Anion gap 04/10/2023 10:33:47 12 7-15 (mmol /L) Final Glucose 04/10/2023 10:33:47 163 Above high normal 70 -120 (mg/dL) Final Calcium 04/10/2023 10:33:47 9.8 8.4-10.2 ( mg/dL) Final Performing Location [facility] [place] - [address] [place] [address]
--- OUTSIDE RECORDS SUMMARY | 2023-09-29 09:24 | External Medical Summary | Summary of Care ---
Author Name Unknown Organization [facility] Address [address] [facility] [place] [address] Phone [phone] Care Team Providers Care Clinical Trial Leader Name Role Phone Domo Pool DO Primary Care Provider [phone] Reason for Visit * Reason Onset Date Comments Test Results 03/31/202303/31 Encounter Details Date Type Department Care Team Description 03/31/2023 Telephone Family Practice 65 [facility] [place] 293 [place] [phone] Domo Pool DO 293 [place], [place] [id number] Test Results (03/31) Allergies Active Allergy Reactions Severity Noted Date Comments Amoxicillin Bleeding High 04/27/2015 Amoxicillin-Pot Clavulanate 09/05/19 14 tary stools documented as of this encounter (statuses as of 04/03/2023) Medications Medication Sig Dispensed Refills Start Date End Date Status Aspirin 81 MG Tablet Take 1 Tablet by mouth in the morning. 0 Active Cholecalciferol (VITAMIN D) 1000 UNIT Capsule Take 1 Capsule by mouth in the morning. 0 Active Biotin 1000 MCG Oral TabletIndications [...] by mouth in the morning. 0 Active [employer] Verio w/Device Kit Use as directed . Use to test blood sugar once daily 1 Kit 0 01/20/2022 Active Vitamin C 500 MG Oral Capsule Take by mouth . 0 Active OneTouch UltraSoft LancetsIndication s:Type 2 [...] additional 50 mg tablet. 100 Tablet 3 10/13/2022 3 Discontinue d(Refill) Lisinopril 10 MG Oral Tablet (Prinivil)Indicat ions:HTN, goal below 140/90 Take 1 Tablet by mouth in the morning. 100 Tablet 3 02/07/2023 3 Discontinue d(Medicatio n List Clean Up) Ozempic (0.25 or 0.5 MG/DOSE) 2 MG/3ML Solution Pen-injector (Semaglutide(0.25 or 0.5MG/DOS)) Inject 0.25 mg under the skin once a week. 3 mL 3 03/24/2023 3 Discontinue d(Transferr ed) Hospital, Clinic, or Other Facility Administered Medication Ordered Dose Route Frequency Start Date End Date Status vitamin b-12 (Cyanocobalamin) inj 1,000 mcgIndications:Vitamin B 12 deficiency 1000 mcg IM [id number] 12/29/2022 11/30/2023 Active documented as of this encounter (statuses as of 04/03/2023) Active Problems Problem Noted Date Vitamin B [...] l 10/17/2017 Coronary artery disease invo lving [place] coronary artery of [place] heart without angina pectoris 10/17/2017 Dyslipidemia, goal LDL below 70 11/13/19 16 PSVT (paroxysmal supraventricular tachyc ardia) 10/14/2015 Essential hypertension with goal blood p ressure less than 140/90 09/18/2014 Cerebrovascular disease, arterioscleroti c, post-stroke 07/21/2009 documented as of this encounter (statuses as of 04/03/2023) Resolved Problems Problem Noted Date Resolved Date [...] as of this encounter (statuses as of 04/03/2023) Immunizations Name Administration Dates Next Due COVID-19 mRNA, LNP-s, No Pre serve, 2-Dose Series ([employer]) 06/03/2021,09/30/2020,09/04/2020 Covid-19, Mrna, Lnp-s, Pf, B ivalent, [...] Telephone Encounter - Celena Rosenberg LPN - 04/03/2023 4:58 PM EDT Patient is aware and will comply. Thank you * Telephone Encounter - Celena Rosenberg LPN - 03/31/2023 3:49 PM EDT Called, left message for patient to return call. Thank you * Telephone Encounter - Celena Rosenberg LPN - 03/31/2023 3:48 PM EDT ----- Message from Domo Pool DO sent at 03/31/2023 7:51 AM EDT ----- Potassium is up. Stop Lisinopril. Repeat BMP on Monday Hgba1c is higher than previous. Continue all other medications Needs BP check in 1 week documented in this encounter Plan of Treatment Upcoming Encounters Date Type Specialty Care Team Description 04/04/2023 Office Visit Pain Medicine Dez Arevalo DO [address] [place] [address] 04/05/2023 Nutrition Services Nutrition [facility] RDN 106 [facility] [id number] 04/26/2023 Imaging Radiology 05/11/2023 Office Visit Dermatology Twila Paz PA-C 200 [facility] [place] [phone] 07/21/2023 Office Visit Family Medicine Domo Pool DO [address] [place] [address] Scheduled Orders Name Type Priority Associated Diagnoses Orde r Schedule BASIC METABOLIC PANEL Lab Routine Potassium serum increased Expected: 04/07/2023 (Approximate), Expires: 03/30/2024 Health Maintenance Due Date Last Done Comments Albumin/Creatinine Ratio 08/02/2023 023, 08/13/2021, 01/05/2017, Additional [...] Completed 12/09/2020, 11/01, 10/22/2020, Additional history exists COVID-19 Vaccine Completed 06/14/2022, 08/2020, 09/30/2020, Additional history exists Influenza Vaccine (FLU shot) [...] this encounter Visit Diagnoses Diagnosis Potassium serum increased- Primary Hyperpotassemia documented in this encounter Advance Directives Documents on File Type Date Recorded Patient Lead Sales Consultant Expl anation Advance Directives and Livin [...] Advance Directives occurred with: Patient Care Teams Clinical Trial Leader Relationship Specialty Start Date End Date Domo Pool, [address] [place] [address] PCP - General Internal Medicine 01/19/22 documented as of this encounter
--- OUTSIDE RECORDS SUMMARY | 2023-09-29 09:24 | External Medical Summary | Summary of Care ---
Author Name Unknown Organization [facility] Address [address] [facility] [place] [address] Phone [phone] Care Team Providers Care Body Fitter Name Role Phone Domo Pool DO Primary Care Provider [phone] Reason for Visit * Reason Comments Back Pain Encounter Details Date Type Department Care Team Description 04/04/2023 Office Visit Interventional Pain Center, [facility] [address] [place] [address] Cousins Dez Aguilera DO [address] [place] [address] Sacroiliitis (HCC)* Allergies Active Allergy Reactions Severity Noted Date Comments Amoxicillin Bleeding High 04/27/2015 Amoxicillin-Pot Clavulanate 09/05/19 14 tary stools documented as of this encounter (statuses as of 04/04/2023) Medications Medication Sig Dispensed Refills Start Date [...] hemoglobin A1c goal of less than 7.0% ([facility]) Use to check blood sugar once daily [...] hemoglobin A1c goal of less than 7.0% ([facility]),Cerebrovascu lar disease, arteriosclerotic, post-stroke TAKE ONE TABLET [...] hemoglobin A1c goal of less than 7.0% ([facility]) USE TO CHECK BLOOD SUGAR ONCE DAILY [...] once a week. 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 0 04/03/2023 Active Hospital, Clinic, or Other Facility Administered Medication Ordered Dose Route Frequency Start Date End Date Status vitamin b-12 (Cyanocobalamin) inj 1,000 mcgIndications:Vitamin B 12 deficiency 1000 mcg IM [id number] 12/29/2022 11/30/2023 Active documented as of this encounter (statuses as of 04/04/2023) Active Problems Problem Noted Date Vitamin B [...] l 10/17/2017 Coronary artery disease invo lving iroquois coronary artery of iroquois heart without angina pectoris 10/17/2017 Dyslipidemia, goal LDL below 70 11/13/19 16 PSVT (paroxysmal supraventricular tachyc ardia) 10/14/2015 Essential hypertension with goal blood p ressure less than 140/90 09/18/2014 Cerebrovascular disease, arterioscleroti c, post-stroke 07/21/2009 documented as of this encounter (statuses as of 04/04/2023) Resolved Problems Problem Noted Date Resolved Date [...] as of this encounter (statuses as of 04/04/2023) Immunizations Name Administration Dates Next Due COVID-19 mRNA, LNP-s, No Pre serve, 2-Dose Series ([facility]) 06/03/2021,09/30/2020,09/04/2020 Covid-19, Mrna, Lnp-s, Pf, B ivalent, 30 Mcg, IM, 12 yrs and above ([facility]) 06/14/2022 Pneumococcal Conjugate Vacc, 13 Valent (Prevnar) [...] as of this encounter Progress Notes * Dez Arevalo, DO - 04/04/2023 9:48 AM EDT Name: Dyana Menard Date: 04/04/2023 HPI: Dyana Menard is a 82 year old female seen in the pain management clinic for re-evaluation. She had undergone bilateral lumbar facet joint radiofrequency ablation in December of this year was good overall improvement. Unfortunately she was digging a alvarez in her yd and it released while she was pulling on it. She fell onto her buttocks. This occurred about a month ago but she feels this is aggravated her SI joint pain. She has no lower extremity radicular pain or motor weakness. She was seen by her primary care physician recently and she would no other apparent injuries. She also had an injection of her knee recently. History: Past Medical History: Diagnosis Date Anxiety Bloating [...] performed by Riaz Hanson MD at [facility] COLONOSCOPY, DIAGNOSTIC (RECTUM) 02/03/2016 normal, repeat 5 yrs/COLONOSCOPY FLEXIBLE PROXIMAL DIAGNOSTIC performed by Debbie Gordon DO at [facility] COLONOSCOPY, DIAGNOSTIC (RECTUM) 05/11/2020 adenomatous polyp, diverticulosis / COLONOSCOPY FLEXIBLE PROXIMAL DIAGNOSTIC performed by Samy Roe MD at [facility] DESTROY LUMBAR SACRAL NERVE IMAGING SINGLE 04/24/2017 DESTROY LUMBAR SACRAL NERVE IMAGING SINGLE performed by Dez Arevalo DO at [facility] DESTROY LUMBAR SACRAL NERVE IMAGING SINGLE 02/15/2018 DESTROY LUMBAR SACRAL NERVE IMAGING SINGLE performed by Dez Arevalo DO at [facility] DESTROY LUMBAR SACRAL NERVE IMAGING SINGLE 01/18/2023 DESTROY LUMBAR SACRAL NERVE IMAGING SINGLE performed by Dez Arevlao DO at [facility] EGD, FLEXIBLE, DIAGNOSTIC 09/17/2012 biopsies--intestinal metaplasia EGD, FLEXIBLE, DIAGNOSTIC 02/03/2016 mild gastritis, sm HH/ESOPHAGOGASTRODUODENOSCOPY (EGD), FLEXIBLE, TRANSORAL, DIAGNOSTIC performed by Debbie Gordon DO at [facility] EGD, FLEXIBLE, DIAGNOSTIC 05/11/2020 normal bx / ESOPHAGOGASTRODUODENOSCOPY (EGD), FLEXIBLE, TRANSORAL, DIAGNOSTIC performed by Samy Quintana MD at [facility] EGD, FLEXIBLE, TRANSENDOSCOPIC DILATION <30MM 03/04/2014 ESOPHAGOGASTRODUODENOSCOPY (EGD), FLEXIBLE, TRANSORAL, BALLOON DILATION LESS THAN 30MM performed byRiaz Hanson MD at [facility] INFORMATION Pin in right hip for chronic dislocation INFORMATION 02/07/2014 needle loc parial mastectomy/lumpectomy with oncoplastic closure and right axilla sentinel lymph node biopsy [facility] 02/07/14 jillian mandel L-/S-SPINE PARAVERTEBRAL FACET [...] of the splenic flexure Dr Hanson [facility]06/11/12 REMOVE GALLBLADDER SACROILIAC JOINT INJECT W/GUIDANCE [...] 01/18/2021 INJECTION SACROILIAC JOINT performed by Dez Arevalo DO at OR [facility] SACROILIAC JOINT INJECT W/GUIDANCE 07/12/2021 INJECTION SACROILIAC JOINT performed by Dez Arevalo, at OR [facility] SACROILIAC JOINT INJECT W/GUIDANCE 01/19/2022 INJECTION SACROILIAC JOINT performed by Dez Arevalo DO at OR [facility] TOTAL ABD HYSTERECTOMY W/WO REMOVAL OF TUBE(S) Bilateral age 47 TOTAL HYSTERECTOMY Current Outpatient Medications Medication Sig Dispense Refill Aspirin 81 MG Tablet Take 1 Tablet by mouth in the morning. Cholecalciferol (VITAMIN D) 1000 UNIT Capsule Take 1 Capsule by mouth in the morning. Biotin 1000 MCG Oral Tablet Take 5 Tablets by mouth in the morning. 1 Tab 0 Prevagen Extra Strength 20 MG Oral Capsule (Apoaequorin) Take by mouth 1 Capsule daily . Probiotic Acidophilus BioBeads Oral Capsule Take 1 Capsule by mouth in the morning. Vitamin C 500 MG Oral Capsule Take by mouth . Cetirizine HCl 10 MG Oral Tablet (ZyrTEC) [...] BY MOUTH EVERY MORNING IN ADDITION TO [id number] TABLET 100 Tablet 3 Pantoprazole Sodium 20 [...] morning and evening meals. 200 Tablet 3 Atenolol 50 MG Oral Tablet [...] once a week. 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 traMADol HCl 50 MG Oral Tablet (Ultram) [...] stool per day. ..) 507 g 3 [employer] Verio w/Device Kit Use as directed . Use to test blood sugar once daily 1 Kit 0 [employer] 3DTouch UltraSoft Lancets Use to check blood sugar once daily as directed 100 Each 3 Acetaminophen ER 650 MG Oral Tablet Extended Release Take 2 Tablets by mouth at bedtime as needed (hip pain). Meclizine HCl 25 MG Oral Tablet (Antivert) TAKE 1 TABLET BY MOUTH 3 TIMES DAILY NEEDED FOR DIZZINESS Strength: 25 mg 30 Tablet 3 Cyclobenzaprine HCl 5 MG Oral Tablet (Flexeril) TAKE ONE TABLET BY MOUTH THREE TIMES A DAY NEEDED FOR MUSCLE SPASMS, 270 Tablet 3 [employer] VerWattbot In Vitro Strip (Glucose Blood) USE TO CHECK BLOOD SUGAR ONCE DAILY DIRECTED 100 Strip 3 amLODIPine Besylate 5 MG Oral Tablet (Norvasc) Take 1 Tablet by mouth in the morning. (Patient not taking: Reported on 04/04/2023) 10 Tablet 3 Current Facility-Administered Medications Medication Dose Route Frequency Provider Last Rate Last Admin vitamin b-12 (Cyanocobalamin) inj 1,000 mcg 1,000 mcg Intramuscular Q4 Weeks Domo Pool DO 1,000 mcg at 03/30/23 0904 Review of patient's allergies indicates: Allergen Reactions Amoxicillin Bleeding Amoxicillin-Pot Clavulanate tary stools Social History Tobacco Use Smoking Status Former Types: Cigarettes Quit date: 07/28/1961 Years since quittin.7 Passive exposure: Current Smokeless Tobacco Never Tobacco Comments quit 40 yrs ago, only smoked 6 months. Social History Substance and Sexual Activity Alcohol Use No PHYSICAL EXAM: There were no vitals taken for this visit. She can stand ambulate without gait abnormality. She has +5 over 5 motor function lower extremities. There are no gross sensory deficits noted. There is tenderness over the sacroiliac joints bilaterally with positive LATOYA. There is no ecchymosis. ASSESSMENT: Bilateral sacroiliitis Lumbar spondylosis without myelopathy or radiculopathy RECOMMENDATION: Her last SI joint injections were over a year ago and certainly would be reasonable pursue this again. She would like to proceed will be scheduled pending insurance approval. Dez Arevalo DO 04/04/2023 9:48 AM I spent a total of 20-29 minutes (exact time 22 mins) on the date of service in preparation, delivery, and documentation of the care provided to Dyana Menard excluding any time spent in the performance of separately billed services. documented in this encounter Nursing Notes * Basia Flores LPN - 04/04/2023 9:28 AM EDT Patient reports increased pain in low back since falling 2wks ago No new imaging, did not go to ER Worse with standing/sitting documented in this encounter Plan of Treatment Upcoming Encounters Date Type Specialty Care Team Description 04/05/2023 Nutrition Services Nutrition Services Araseli Vale RDN [address] [facility] [place] [address] 04/26/2023 Imaging Radiology 05/11/2023 Office Visit Dermatology Twila Paz PA-C [address] [place] [phone] 05/31/2023 Hospital Encounter Surgery Dez Arevalo, DO [address] [place] [address] 05/31/2023 Surgery Surgery KianclemenciaDez Willy, DO [address] [place] [address] INJECTION SACROILIAC JOINT 07/21/2023 Office Visit Family Medicine Domo Pool, DO [address] [place] [address] Scheduled Orders Name Type Priority Associated Diagnoses Orde r Schedule SACROILIAC JOINT INJECT W/GUIDANCE Procedures Routine Sacroiliitis (HCC) Expected: 04/18/2023, Expires: 05/05/2024 Scheduled Procedures Name Priority Associated Diagnoses Date/Ti [...] Sacroiliitis (HCC)- Primary Sacroiliitis, not elsewhere classified Inflammation of sacroiliac joint (HCC) Sacroiliitis, not elsewhere classified documented in this encounter Advance Directives Documents on File Type Date Recorded Patient Environmental Engineering Aide Expl anation Advance Directives and Livin [...] Advance Directives occurred with: Patient Care Teams Body Fitter Relationship Specialty Start Date End Date Domo Pool, [address] [facility] [address] PCP - General Internal Medicine 01/19/22 documented as of this encounter
--- NOTE | 2023-09-29 09:36 | XRay Report ---
KUB CLINICAL HISTORY: Small bowel obstruction. FINDINGS: 2 AP, portable, supine abdominal radiographs are correlated with abdominal CT dated 09/28/19 24. Distended and gas-filled loops of small bowel measure up to 3.6 cm. This indicates persistent obs truction. No evidence of intraperitoneal free air is seen on these supine images. Cholecystectomy cli ps are noted in the right upper quadrant. The bladder is filled with excreted IV contrast. There are no abnormal abdominal calcifications. Phleboliths are seen in the pelvis. The skeletal structures are osteopenic and appear intact. There is advanced lumbosacral spondylosis and scoliosis. A cortical la g screw transfixes the right sacroiliac joint. The lung bases are clear as imaged. IMPRESSION: Persistent small bowel obstruction. Electronically signed by: Pepe Estevez M.D. 09/29/2023 9:35 AM
[2023-09-29] MEDS: ACETAMINOPHEN 1,000 MG/100 ML VIAL IV PRN (13:35)
--- NOTE | 2023-09-29 15:25 | Hospitalist Progress Note ---
Date of Service September 29, 2023 Assessment & Plan (1) Small bowel obstruction: Plan: 82-year-old female with past medical history significant for type 2 diabetes, hyperlipidemia, drug-induced hyperkalemia, history of CVA, hypertension, paroxysmal supraventricular tachycardia, history of CAD, GERD, vitamin B12 deficiency, degenerative's disc disease, iron deficiency anemia, general anxiety disorder, primary insomnia, presents with abdominal pain and found to have small bowel obstruction. Small bowel obstruction History of multiple bowel surgery; presents with abdominal pain, nausea and vomiting CT abdomen pelvis on admission personally reviewed shows small bowel obstruction with indeterminate zone of transition, mild hiatal hernia Continue conservative measures; encouraged ambulation. Continue IV fluids, pain control with IV Tylenol as needed Will advance diet to clear liquid if has a bowel movement Hypomagnesia Repleted Type 2 diabetes Hold metformin Sliding scale Will monitor HbA1c of 7.1% Mild nonobstructive CAD On aspirin, statin and beta-yamilet History of CVA History of PFO On statin and aspirin, continue History of hypertension On amlodipine and atenolol, continue Will monitor Paroxysmal supplemental tachycardia On atenolol, continue Hyperlipidemia On statin, continue GERD Protonix, continue GERD anxiety disorder Buspirone, continue Zoloft, continue Insomnia Trazodone, continue DVT prophylaxis Lovenox Disposition Medical floor Full code Please note the above document was generated using voice recognition software. It may contain grammatical, syntax or spelling errors. Any formal questions or concerns about the content, text or information contained within the body of this dictation should be directly addressed to the provider for clarification Admission and Anticipated Discharge Date Admission Date: September 29, 2023 Subjective Patient seen and examined at bedside. She reports that her nausea and vomiting has improved. She reports passing some gas but no bowel movement yet. Vitals are stable. Review of Systems Review of Systems: All systems reviewed & are unremarkable except as noted in Subjective Physical Exam Physical Exam: Constitutional: Alert oriented x 3; not in distress. Respiratory: normal respiratory effort, lungs clear to auscultation, no wheeze, rales, rhonchi. Normal insp/exp effort, no accessory muscle use Cardiovascular: RRR, no murmur, no edema Vessels: no JVD or carotid bruit Chest: normal inspection of chest Abdomen: normal bowel sounds, soft, nontender, no hepatosplenomegaly Musculoskeletal: no cyanosis or clubbing, extremities motor strength 5/5 Skin: no rashes, warm and dry normal turgor Neurologic: PERRL, EOMI, accommodation nl, no face palsy, no dysarthria CN's II- XI intact bilaterally and moves all extremities Psychiatric: A+Ox3, euthymic affect Results & Data Results & Data Vital Signs (Past 12 Hours) Vital Signs Temp Pulse Resp BP Pulse Ox O2 Del Method 09/29/23 07:25 36.6 C 79 18 155/79 H 97 Room Air
--- NOTE | 2023-09-29 16:13 | Electrocardiogram Report ---
Test Reason : Blood Pressure : / mmHG Vent. Rate : 087 BPM Atrial Rate : 087 BPM P-R Int : 124 ms QRS Dur : 088 ms QT Int : 370 ms P-R-T Axes : 044 026 043 degrees QTc Int : 445 ms Normal sinus rhythm Normal ECG When compared with ECG of 07-JUN-2012 12:01, Premature ventricular complexes are no longer Present Confirmed by Jermaine Dodson ([id number]) on 09/29/2023 4:13:24 PM Referred By: REFERRED SELF Confirmed By:Jermaine Dodson
[2023-09-29] MEDS: traZODone HCL 50 MG TAB PO SCH (20:15)
[2023-09-30 03:17] LABS: Appearance Urine Clear (Clear); Bacteria Urine Automated Negative (Negative); Bilirubin Urine Negative (Negative); Blood Urine Negative (Negative); Cast Urine Automated 0 /lpf (0-5); Color Urine Yellow; Glucose Urine UA Negative (Negative); Ketones Urine Negative (Negative); Leukocyte Esterase Urine 1+ (Negative); Nitrite Urine Negative (Negative); Protein Urine Negative (Negative); RBC Urine Automated 0-4 /hpf (0-4); Specific Gravity Urine 1.013 (1.000-1.030); Urobilinogen Urine Negative (Negative)
--- NOTE | 2023-09-30 05:17 | Surgery Progress Note ---
Date of Service September 30, 2023 Assessment & Plan (1) Small bowel obstruction: Plan: Patient has been admitted on the hospital service. From surgery perspective we recommend to continue as follows: Provide analgesics as needed Provide antiemetics as needed Continue IV fluids until oral intake is deemed adequate As patient has had a bowel movement this morning consideration be given to initiating diet beginning with clear liquids Check a.m. labs when available Continue to encourage ambulation Lovenox is in place for DVT prevention Admission and Anticipated Discharge Date Admission Date: September 29, 2023 Subjective Patient is resting comfortably in bed. Patient notes that she has minimal to no abdominal pain. She says she has been passing flatus over the past shift. She denies any fevers, shakes, or chills and is not short of breath. Shortly after my visit I was notified by nursing staff that patient had a soft, small bowel movement. Physical Exam Gastrointestinal (Abdomen): Abdomen is soft and nondistended. Bowel sounds are present. There is minimal to no pain with palpation. Results & Data Vital Signs (Past 12 Hours) Vital Signs Temp Pulse Resp BP Pulse Ox O2 Del Method 09/29/23 21:08 36.6 C 71 12 121/66 93 Room Air 09/29/23 20:00 Room Air PG Care Time/CCT Total # of Minutes Spent Total Time Spent with Patient: Total time spent is greater than 50% in coordination of care (as documented) at patient's floor/unit and/or counseling patient: Critical Care Time I have seen and examined this patient this am. Will try clears this am Coding Level of Care Code 16549 SUB INP/OBS CARE 07/27MIN Diagnoses Small bowel obstruction K56.609
[2023-09-30 07:17] LABS: Basophils # (auto) 0.02 K/uL (0.00-0.20); Basophils % (auto) 0.5 %; Eosinophils # (auto) 0.17 K/uL (0.00-0.50); Eosinophils % (auto) 3.9 %; Hematocrit (blood only) 30.3 % (37.0-47.0); Hemoglobin 9.9 g/dl (12.0-16.0); Immature Granulocytes # (auto) 0.01 K/uL (0.01-0.20); Immature Granulocytes % (auto) 0.2 %; Lymphocytes # (auto) 1.08 K/uL (1.20-3.40); Lymphocytes % (auto) 25.1 %; Mean Corpuscular Hemoglobin 28.8 pg (25.0-34.0); Mean Corpuscular Hgb Conc 32.7 g/dL (32.0-36.0); Mean Corpuscular Volume 88.1 fL (80.0-100.0); Mean Platelet Volume 10.1 fL (9.4-12.4); Monocytes # (auto) 0.47 K/uL (0.11-0.59); Monocytes % (auto) 10.9 %; Neutrophils # (auto) 2.56 K/uL (1.40-6.50); Neutrophils % (auto) 59.4 %; Platelet Count 158 K/uL (130-400); RDW Coefficient of Variation 14.2 % (11.5-14.5); RDW Standard Deviation 45.4 fL (36.4-46.3); Red Blood Count 3.44 M/uL (4.20-5.40); White Blood Count 4.31 K/ul (4.8-10.8)
[2023-09-30 07:58] LABS: BUN Creatinine Ratio 14.3 (10-20); Calcium 8.1 mg/dl (8.6-10.3); Creatinine Clr Calc Pharmacy 54.6 ml/min; Est GFR (African American) 84.5 ml/min; Est GFR (Non-African American) 72.9 ml/min; Potassium 3.9 mmol/L (3.5-5.1)
[2023-09-30] MEDS: CARBAMIDE PEROXIDE 6.5% 15 ML BTL OT SCH (09:20)
--- NOTE | 2023-09-30 15:06 | Hospitalist Progress Note ---
Date of Service September 30, 2023 Assessment & Plan (1) Small bowel obstruction: Plan: 82-year-old female with past medical history significant for type 2 diabetes, hyperlipidemia, drug-induced hyperkalemia, history of CVA, hypertension, paroxysmal supraventricular tachycardia, history of CAD, GERD, vitamin B12 deficiency, degenerative's disc disease, iron deficiency anemia, general anxiety disorder, primary insomnia, presents with abdominal pain and found to have small bowel obstruction. Small bowel obstruction History of multiple bowel surgery; presents with abdominal pain, nausea and vomiting CT abdomen pelvis on admission personally reviewed shows small bowel obstruction with indeterminate zone of transition, mild hiatal hernia Patient is started on clear liquid diet; encouraged ambulation. Stop IV fluid, pain control with IV Tylenol as needed Advance diet as tolerated to low fiber diet. Hypomagnesia Repleted Type 2 diabetes Hold metformin Sliding scale Will monitor HbA1c of 7.1% Mild nonobstructive CAD On aspirin, statin and beta-yamilet History of CVA History of PFO On statin and aspirin, continue History of hypertension On amlodipine and atenolol, continue Will monitor Paroxysmal supplemental tachycardia On atenolol, continue Hyperlipidemia On statin, continue GERD Protonix, continue GERD anxiety disorder Buspirone, continue Zoloft, continue Insomnia Trazodone, continue DVT prophylaxis Lovenox Disposition Medical floor Full code Please note the above document was generated using voice recognition software. It may contain grammatical, syntax or spelling errors. Any formal questions or concerns about the content, text or information contained within the body of this dictation should be directly addressed to the provider for clarification Admission and Anticipated Discharge Date Admission Date: September 29, 2023 Subjective Patient reports improvement in abdominal pain. She is having multiple bowel movements. Review of Systems Review of Systems: All systems reviewed & are unremarkable except as noted in Subjective Physical Exam Physical Exam: Constitutional: Alert oriented x 3; not in distress. Respiratory: normal respiratory effort, lungs clear to auscultation, no wheeze, rales, rhonchi. Normal insp/exp effort, no accessory muscle use Cardiovascular: RRR, no murmur, no edema Vessels: no JVD or carotid bruit Chest: normal inspection of chest Abdomen: normal bowel sounds, soft, nontender, no hepatosplenomegaly Musculoskeletal: no cyanosis or clubbing, extremities motor strength 5/5 Skin: no rashes, warm and dry normal turgor Neurologic: PERRL, EOMI, accommodation nl, no face palsy, no dysarthria CN's II- XI intact bilaterally and moves all extremities Psychiatric: A+Ox3, euthymic affect Results & Data Results & Data Vital Signs (Past 12 Hours) Vital Signs Temp Pulse Resp BP Pulse Ox O2 Del Method 09/30/23 14:54 36.8 C 78 18 152/80 H 95 Room Air 09/30/23 08:27 36.6 C 80 18 165/83 H 96 Room Air
[2023-09-30] MEDS ORDERED: Nursing to Pharmacy Communication SCH (20:45)
[2023-09-30] MEDS: INSULIN ASPART PER UNIT CHARGE SC SCH (20:59)
[2023-09-30] MEDS: KETOROLAC TROMETHAMINE 15 MG/ML VIAL IV ONE (21:20)
--- NOTE | 2023-10-01 05:22 | Surgery Progress Note ---
Date of Service October 01, 2023 Assessment & Plan (1) Small bowel obstruction: Plan: Patient has been admitted on the hospital service. From surgery perspective we recommend to continue as follows: Continue analgesics as needed Continue antiemetics as needed Continue IV fluids until oral intake is deemed adequate Check a.m. labs when available Continue to encourage ambulation Lovenox is in place for DVT prevention Admission and Anticipated Discharge Date Admission Date: September 29, 2023 Supervising Physician Co-Signing Physician Notes I have seen and examined this patient. I agree with the above assessment. Progressing well with clinical resolution of SBO, tolerated clears and advanced to full liquids c/o headaches yesterday, Tylenol order is in, specifically make usable for headaches if not already specified Ambulate, will follow up in the am Subjective Patient is resting comfortably in bed. Patient notes that she had clear liquids yesterday which did not cause any worsening abdominal pain. She denies any nausea or vomiting and has had a bowel movement over the past 24 hours. She does not report a great appetite however and is has not had to have her diet advanced at the present time. Physical Exam Gastrointestinal (Abdomen): Abdomen is soft and nondistended. There is no pain noted with palpation. Results & Data Vital Signs (Past 12 Hours) Vital Signs Temp Pulse Resp BP Pulse Ox O2 Del Method 09/30/23 21:46 36.7 C 72 18 160/87 H 93 Room Air 09/30/23 17:44 84 16 165/79 H 97 Room Air PG Care Time/CCT Total # of Minutes Spent Total Time Spent with Patient: Total time spent is greater than 50% in coordination of care (as documented) at patient's floor/unit and/or counseling patient: Coding Level of Care Code 57438 SUB INP/OBS CARE 07/27MIN Diagnoses Small bowel obstruction K56.609
[2023-10-01 08:01] LABS: BUN Creatinine Ratio 11.7 (10-20); Calcium 8.5 mg/dl (8.6-10.3); Creatinine Clr Calc Pharmacy 54.6 ml/min; Est GFR (African American) 84.5 ml/min; Est GFR (Non-African American) 72.9 ml/min; Potassium 3.6 mmol/L (3.5-5.1)
--- NOTE | 2023-10-01 11:39 | Hospitalist Progress Note ---
Date of Service October 01, 2023 Assessment & Plan (1) Small bowel obstruction: Plan: 82-year-old female with past medical history significant for type 2 diabetes, hyperlipidemia, drug-induced hyperkalemia, history of CVA, hypertension, paroxysmal supraventricular tachycardia, history of CAD, GERD, vitamin B12 deficiency, degenerative's disc disease, iron deficiency anemia, general anxiety disorder, primary insomnia, presents with abdominal pain and found to have small bowel obstruction. Small bowel obstruction History of multiple bowel surgery; presents with abdominal pain, nausea and vomiting CT abdomen pelvis on admission personally reviewed shows small bowel obstruction with indeterminate zone of transition, mild hiatal hernia Advance diet to full liquid; will advance further to low fiber diet if tolerated Stop IV fluid, pain control with IV Tylenol as needed Encourage ambulation Hypomagnesia Repleted Type 2 diabetes Hold metformin Sliding scale Will monitor HbA1c of 7.1% Mild nonobstructive CAD On aspirin, statin and beta-yamilet History of CVA History of PFO On statin and aspirin, continue History of hypertension On amlodipine and atenolol, continue Will monitor Paroxysmal supplemental tachycardia On atenolol, continue Hyperlipidemia On statin, continue GERD Protonix, continue GERD anxiety disorder Buspirone, continue Zoloft, continue Insomnia Trazodone, continue DVT prophylaxis Lovenox Disposition Medical floor. Admitted for small bowel obstruction. Diet advanced to full liquid diet. Possible DC tomorrow if patient tolerates low fiber diet. Full code Please note the above document was generated using voice recognition software. It may contain grammatical, syntax or spelling errors. Any formal questions or concerns about the content, text or information contained within the body of this dictation should be directly addressed to the provider for clarification Admission and Anticipated Discharge Date Admission Date: September 29, 2023 Subjective Patient seen and examined at bedside. She is lying on the bed comfortably; not in distress She is having regular bowel movements. No nausea, vomiting or abdominal pain Review of Systems Review of Systems: All systems reviewed & are unremarkable except as noted in Subjective Physical Exam Physical Exam: Constitutional: Alert oriented x 3; not in distress. Respiratory: normal respiratory effort, lungs clear to auscultation, no wheeze, rales, rhonchi. Normal insp/exp effort, no accessory muscle use Cardiovascular: RRR, no murmur, no edema Vessels: no JVD or carotid bruit Chest: normal inspection of chest Abdomen: normal bowel sounds, soft, nontender, no hepatosplenomegaly Musculoskeletal: no cyanosis or clubbing, extremities motor strength 5/5 Skin: no rashes, warm and dry normal turgor Neurologic: PERRL, EOMI, accommodation nl, no face palsy, no dysarthria CN's II- XI intact bilaterally and moves all extremities Psychiatric: A+Ox3, euthymic affect Results & Data Results & Data Vital Signs (Past 12 Hours) Vital Signs Temp Pulse Resp BP Pulse Ox O2 Del Method 10/01/23 07:36 36.4 C L 75 16 169/81 H 96 Room Air
[2023-10-02 07:12] LABS: Hemoglobin 11.4 g/dl (12.0-16.0); Mean Corpuscular Hemoglobin 28.6 pg (25.0-34.0); Mean Corpuscular Hgb Conc 32.6 g/dL (32.0-36.0); Mean Corpuscular Volume 87.7 fL (80.0-100.0); Platelet Count 225 K/uL (130-400); Red Blood Count 3.99 M/uL (4.20-5.40); White Blood Count 5.28 K/ul (4.8-10.8)
[2023-10-02 07:30] LABS: BUN Creatinine Ratio 10.3 (10-20); Calcium 9.2 mg/dl (8.6-10.3); Creatinine Clr Calc Pharmacy 48.3 ml/min; Est GFR (African American) 72.9 ml/min; Est GFR (Non-African American) 62.9 ml/min; Potassium 4.2 mmol/L (3.5-5.1)
[2023-10-02 07:33] LABS: Basophils # (auto) 0.03 K/uL (0.00-0.20); Basophils % (auto) 0.6 %; Eosinophils # (auto) 0.19 K/uL (0.00-0.50); Eosinophils % (auto) 3.6 %; Immature Granulocytes # (auto) 0.02 K/uL (0.01-0.20); Immature Granulocytes % (auto) 0.4 %; Lymphocytes # (auto) 1.69 K/uL (1.20-3.40); Monocytes # (auto) 0.48 K/uL (0.11-0.59); Monocytes % (auto) 9.1 %; Neutrophils # (auto) 2.87 K/uL (1.40-6.50); Neutrophils % (auto) 54.3 %
--- NOTE | 2023-10-02 11:02 | XRay Report ---
KUB HISTORY: Acute generalized abdominal pain follow up SBO COMPARISON: 09/29/2023 FINDINGS: Cholecystectomy. Right SI joint bolt. Surgical suture material within the midline pelvis. P ersistent small bowel obstruction with air filled dilated loops measuring up to 3.2 cm, previously 3. 6 in meters. No renal calculi. No ureteral calculi. No pneumoperitoneum or pneumatosis. Lumbar levosc oliosis. No fracture. IMPRESSION: Persistent small bowel obstruction with decreased small bowel distention compared to the study from . Continued follow-up recommended. ACT 112: Negative or not required by law. The above report was generated using voice recognition software. It may contain grammatical, syntax o r spelling errors. Electronically signed by: Rajeev Gonzalez M.D. 10/02/2023 11:01 AM
--- NOTE | 2023-10-02 12:33 | Surgery Progress Note ---
Date of Service October 02, 2023 Assessment & Plan (1) Small bowel obstruction: Plan: resolving Plan: No acute surgical intervention required okay to advance to low fiber diet continue conservative management highly encouraged ambulating to increase gi motility continue medical management may need outpatient colonoscopy as stools have been thinner in last few weeks per patient our services signing off, call with questions/concerns. Discussed with Dr. mccall who agrees with above. Admission and Anticipated Discharge Date Admission Date: September 29, 2023 Subjective feeling good tolerating full liquids passing gas, no bm yet no n,v abdominal pain resolved Physical Exam Constitutional: well developed, well nourished, cooperative and comfortable; no acute distress Respiratory: normal respiratory effort; no respiratory distress and no labored breathing Gastrointestinal (Abdomen): Inspection/Auscultation: abdomen normal to inspection; abdomen not distended Percussion/Palpation: abdomen soft; abdomen nontender, no guarding and abdomen not rigid Psychiatric: Orientation: alert and oriented x 3 Results & Data Vital Signs (Past 12 Hours) Vital Signs Temp Pulse Resp BP Pulse Ox O2 Del Method 10/02/23 07:25 36.9 C 70 16 159/80 H 95 Room Air Laboratory Results 10/02/23 10/02/23 10/02/23 Range/Units 11:50 07:35 06:37 WBC 5.28 (4.8-10.8) K/ul RBC 3.99 L (4.20-5.40) M/uL Hgb 11.4 L (12.0-16.0) g/dl Hct 35.0 L (37.0-47.0) % MCV 87.7 (80.0-100.0) fL MCH 28.6 (25.0-34.0) pg MCHC 32.6 (32.0-36.0) g/dL RDW Std Deviation 45.0 (36.4-46.3) fL RDW Coeff of Nel[place] 14.0 (11.5-14.5) % Plt Count 225 (130-400) K/uL MPV 10.0 (9.4-12.4) fL Immature Gran % (Auto) 0.4 % Neut % (Auto) 54.3 % Lymph % (Auto) 32.0 % [place] % (Auto) 9.1 % Eos % (Auto) 3.6 % Baso % (Auto) 0.6 % Neut # (Auto) 2.87 (1.40-6.50) K/uL Lymph # (Auto) 1.69 (1.20-3.40) K/uL [place] # (Auto) 0.48 (0.11-0.59) K/uL Eos # (Auto) 0.19 (0.00-0.50) K/uL Baso # (Auto) 0.03 (0.00-0.20) K/uL Immature Gran # (Auto) 0.02 (0.01-0.20) K/uL Sodium 141 (136-145) mmol/L Potassium 4.2 (3.5-5.1) mmol/L Chloride 108 H (98-107) mmol/L Carbon Dioxide 27 (21-32) mmol/L Anion Gap 6 (3-11) BUN 9 (6-23) mg/dl Creatinine 0.87 (0.6-1.2) mg/dl Est Cr Clr Drug Dosing 48.3 ml/min Est GFR ( Amer) 72.9 ml/min Est GFR (Non-Af Amer) 62.9 ml/min BUN/Creatinine Ratio 10.3 (10-20) Glucose 133 H (70-99(Fasting)) mg/dl POC Glucose 151 H 143 H (70-99) mg/dl Calcium 9.2 (8.6-10.3) mg/dl 10/01/23 10/01/23 Range/Units 20:30 16:29 WBC (4.8-10.8) K/ul RBC (4.20-5.40) M/uL Hgb (12.0-16.0) g/dl Hct (37.0-47.0) % MCV (80.0-100.0) fL MCH (25.0-34.0) pg MCHC (32.0-36.0) g/dL RDW Std Deviation (36.4-46.3) fL RDW Coeff of Nelida (11.5-14.5) % Plt Count (130-400) K/uL MPV (9.4-12.4) fL Immature Gran % (Auto) % Neut % (Auto) % Lymph % (Auto) % [place] % (Auto) % Eos % (Auto) % Baso % (Auto) % Neut # (Auto) (1.40-6.50) K/uL Lymph # (Auto) (1.20-3.40) K/uL [place] # (Auto) (0.11-0.59) K/uL Eos # (Auto) (0.00-0.50) K/uL Baso # (Auto) (0.00-0.20) K/uL Immature Gran # (Auto) (0.01-0.20) K/uL Sodium (136-145) mmol/L Potassium (3.5-5.1) mmol/L Chloride (98-107) mmol/L Carbon Dioxide (21-32) mmol/L Anion Gap (3-11) BUN (6-23) mg/dl Creatinine (0.6-1.2) mg/dl Est Cr Clr Drug Dosing ml/min Est GFR ( Amer) ml/min Est GFR (Non-Af Amer) ml/min BUN/Creatinine Ratio (10-20) Glucose (70-99(Fasting)) mg/dl POC Glucose 105 H 120 H (70-99) mg/dl Calcium (8.6-10.3) mg/dl
--- NOTE | 2023-10-02 14:11 | Hospitalist Progress Note ---
Date of Service October 02, 2023 Assessment & Plan (1) Small bowel obstruction: Plan: 82-year-old female with past medical history significant for type 2 diabetes, hyperlipidemia, drug-induced hyperkalemia, history of CVA, hypertension, paroxysmal supraventricular tachycardia, history of CAD, GERD, vitamin B12 deficiency, degenerative's disc disease, iron deficiency anemia, general anxiety disorder, primary insomnia, presents with abdominal pain and found to have small bowel obstruction. Small bowel obstruction History of multiple bowel surgery; presents with abdominal pain, nausea and vomiting CT abdomen pelvis on admission personally reviewed shows small bowel obstruction with indeterminate zone of transition, mild hiatal hernia Tolerating full liquid diet, diet advance to low fiber She has not yet had return of bowel function, but is passing flatus Encourage ambulation Hypomagnesia Repleted Type 2 diabetes Hold metformin sliding scale, BSG stable over last ~ 24hrs HbA1c of 7.1% will resume metformin at discharge Mild nonobstructive CAD On aspirin, statin and beta-yamilet History of CVA History of PFO On statin and aspirin, continue History of hypertension On amlodipine and atenolol, continue Will monitor Paroxysmal supplemental tachycardia On atenolol, continue Hyperlipidemia On statin, continue GERD Protonix, continue General anxiety disorder Buspirone, continue Zoloft, continue Insomnia Trazodone, continue DVT prophylaxis Lovenox Disposition Medical floor. Admitted for small bowel obstruction. Diet advanced to low fiber. Likely discharge in a.m. if tolerating diet and return of bowel function Full code Please note the above document was generated using voice recognition software. It may contain grammatical, syntax or spelling errors. Any formal questions or concerns about the content, text or information contained within the body of this dictation should be directly addressed to the provider for clarification Admission and Anticipated Discharge Date Admission Date: September 29, 2023 Supervising Physician Co-Signing Physician Notes Patient seen and examined at bedside. Discussed with above provider. Diet slowly advance to low fiber diet. She denies any abdominal pain or discomfort. No nausea, vomiting. Possible DC in a.m. if she continues to tolerate low fiber diet. I have reviewed the advanced practitioner's documentation, and I agree with, and take responsibility for the plan of care I spent a total of 15 minutes coordinating, documenting, and providing care for this patient excluding time spent in the performance of separately billed services. All of the aforementioned completed while collaborating with the assigned advanced practitioner for a full treatment plan Subjective Patient was seen and examined in 356. Follow-up small bowel obstruction. She is currently tolerating a liquid diet. She denies any nausea and vomiting. She is passing flatus, but has not yet had a bowel movement. She is hesitant to be discharged home until she moves her bowels and is able to tolerate diet. She denies fever, chills, sweats, lightheadedness, dizziness, chest pain, shortness breath, nausea or vomiting. Review of Systems Review of Systems: All systems reviewed & are unremarkable except as noted in HPI & below Physical Exam Physical Exam: Gen: WD/WN, NAD, A&O x3 HEENT: Normocephalic, atraumatic, conjunctivae moist, sclerae anicteric, mucous membranes moist. Lung: Clear to Auscultation bilaterally, no wheezes/rales/rhonchi Heart: Regular rate, regular rhythm, no murmurs, rubs, or gallops Abdomen: Soft, NT, ND +BS x 4 Extremities: No edema Skin: Warm, no rash, negative turgor. Results & Data Results & Data Vital Signs (Past 12 Hours) Vital Signs Temp Pulse Resp BP Pulse Ox O2 Del Method 10/02/23 07:25 36.9 C 70 16 159/80 H 95 Room Air Laboratory Results Short CBC 10/02/23 Range/Units 06:37 WBC 5.28 (4.8-10.8) K/ul Hgb 11.4 L (12.0-16.0) g/dl Hct 35.0 L (37.0-47.0) % Plt Count 225 (130-400) K/uL BMP 10/02/23 06:37 Sodium 141 Potassium 4.2 Chloride 108 H Carbon Dioxide 27 BUN 9 Creatinine 0.87 Glucose 133 H Calcium 9.2 Medications Administered Current Inpatient Medications Amlodipine Besylate (Amlodipine Besylate 5 Mg Tab) 5 mg PO DAILY TERRI Stop: 10/29/23 08:59 Last Admin: 10/02/23 07:57 Dose: 5 mg Aspirin (Aspirin 81 Mg Ectab) 81 mg PO DAILY TERRI Stop: 10/29/23 08:59 Last Admin: 10/02/23 07:57 Dose: 81 mg Atenolol (Atenolol 50 Mg Tablet) 50 mg PO DAILY TERRI Stop: 10/29/23 08:59 Last Admin: 10/02/23 07:56 Dose: 50 mg Atorvastatin Calcium (Atorvastatin 40 Mg Tab) 80 mg PO DAILY TERRI Stop: 10/29/23 08:59 Last Admin: 10/02/23 07:56 Dose: 80 mg Buspirone HCl (Buspirone 5 Mg Tab) 10 mg PO BID TERRI Stop: 10/29/23 08:59 Last Admin: 10/02/23 07:56 Dose: 10 mg Carbamide Peroxide (Carbamide Peroxide 6.5% 15 Ml Btl) 5 drops OT BID TERRI Stop: 10/04/23 08:59 Last Admin: 10/02/23 07:58 Dose: 5 drops Cetirizine HCl (Cetirizine Hcl 10 Mg Tablet) 10 mg PO DAILY TERRI Stop: 10/29/23 08:59 Last Admin: 10/02/23 07:57 Dose: 10 mg Dextrose (Dextrose 50% 50 Ml Syringe) 25 - 50 ml IV UD PRN; Protocol PRN Reason: Hypoglycemia Protocol Stop: 10/29/23 02:42 Enoxaparin Sodium (Enoxaparin Inj 40 Mg/0.4 Ml Syr) 40 mg SQ Q24H TERRI Stop: 10/29/23 07:59 Last Admin: 10/02/23 07:55 Dose: 40 mg Glucagon (Glucagon For Inj 1 Mg Vial) 1 mg SQ UD PRN; Protocol PRN Reason: Hypoglycemia Protocol Stop: 10/29/23 02:42 Glucose (Glucose 10 Tab/Tube) 4 - 8 tab PO UD PRN; Protocol PRN Reason: Hypoglycemia Treatment Stop: 10/29/23 02:42 Glucose (Glucose 40% Gel 15 Gm Tube) 15 - 30 gm PO UD PRN; Protocol PRN Reason: Hypoglycemia Protocol Stop: 10/29/23 02:42 Insulin Aspart (Insulin Aspart Per Unit Charge) 0 units SC ACHS TERRI Stop: 10/29/23 05:59 Last Admin: 10/02/23 12:11 Dose: 5 units Ketoconazole (Ketoconazole 2% Cr 15 Gm Tube) 1 appln EXT BID TERRI Stop: 10/09/23 08:59 Last Admin: 10/02/23 07:57 Dose: 1 appln Miscellaneous (Carbohydrates For Hypoglycemia ) 15 - 30 gm PO UD PRN PRN Reason: Hypoglycemia Protocol Stop: 10/29/23 02:42 Ondansetron HCl (Ondansetron Inj 2 Mg/Ml 2 Ml Vial) 4 mg IV Q6H PRN PRN Reason: Nausea Stop: 10/29/23 02:42 Pantoprazole Sodium (Pantoprazole 40 Mg Tab) 40 mg PO DAILY TERRI Stop: 10/29/23 08:59 Last Admin: 10/02/23 07:56 Dose: 40 mg Sertraline HCl (Sertraline Hcl 100 Mg Tablet) 100 mg PO DAILY TERRI Stop: 10/29/23 08:59 Last Admin: 10/02/23 07:57 Dose: 100 mg Trazodone HCl (Trazodone Hcl 50 Mg Tab) 50 mg PO HS [facility] Stop: 10/29/23 20:59 Last Admin: 10/01/23 21:06 Dose: 50 mg
[2023-10-02] MEDS: ACETAMINOPHEN 325 MG TAB PO PRN (15:07)
[2023-10-02] MEDS: POLYETHYLENE (MIRALAX) 17 GM PACK PO SCH (16:44)
[2023-10-03 08:07] LABS: Hematocrit (blood only) 38.2 % (37.0-47.0); Hemoglobin 12.6 g/dl (12.0-16.0); Mean Corpuscular Hemoglobin 28.8 pg (25.0-34.0); Mean Corpuscular Volume 87.2 fL (80.0-100.0); Mean Platelet Volume 9.9 fL (9.4-12.4); Platelet Count 292 K/uL (130-400); RDW Coefficient of Variation 13.8 % (11.5-14.5); Red Blood Count 4.38 M/uL (4.20-5.40); White Blood Count 7.05 K/ul (4.8-10.8)
[2023-10-03 08:34] LABS: Basophils # (auto) 0.05 K/uL (0.00-0.20); Basophils % (auto) 0.7 %; Echinocytes 1+; Eosinophils # (auto) 0.19 K/uL (0.00-0.50); Eosinophils % (auto) 2.7 %; Immature Granulocytes # (auto) 0.02 K/uL (0.01-0.20); Immature Granulocytes % (auto) 0.3 %; Lymphocytes % (auto) 39.7 %; Monocytes # (auto) 0.55 K/uL (0.11-0.59); Monocytes % (auto) 7.8 %; Neutrophils # (auto) 3.44 K/uL (1.40-6.50); Neutrophils % (auto) 48.8 %
[2023-10-03 08:52] LABS: BUN Creatinine Ratio 13.4 (10-20); Calcium 9.3 mg/dl (8.6-10.3); Creatinine Clr Calc Pharmacy 43.3 ml/min; Est GFR (African American) 63.9 ml/min; Est GFR (Non-African American) 55.2 ml/min; Magnesium 1.4 mg/dl (1.7-2.4); Potassium 3.4 mmol/L (3.5-5.1)
[2023-10-03] MEDS: MAGNESIUM HYDROXIDE SUSP 30 ML UDC PO ONE (10:31)
--- NOTE | 2023-10-03 14:18 | Hospitalist Progress Note ---
Date of Service October 03, 2023 Assessment & Plan (1) Small bowel obstruction: Plan: 82-year-old female with past medical history significant for type 2 diabetes, hyperlipidemia, drug-induced hyperkalemia, history of CVA, hypertension, paroxysmal supraventricular tachycardia, history of CAD, GERD, vitamin B12 deficiency, degenerative's disc disease, iron deficiency anemia, general anxiety disorder, primary insomnia, presents with abdominal pain and found to have small bowel obstruction. 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 Hypomagnesia Repleted Type 2 diabetes Hold metformin sliding scale, BSG stable over last ~ 24hrs HbA1c of 7.1% will resume metformin at discharge Mild nonobstructive CAD On aspirin, statin and beta-yamilet History of CVA History of PFO On statin and aspirin, continue History of hypertension On amlodipine and atenolol, continue Will monitor Paroxysmal supplemental tachycardia On atenolol, continue Hyperlipidemia On statin, continue GERD Protonix, continue General anxiety disorder Buspirone, continue Zoloft, continue Insomnia Trazodone, continue DVT prophylaxis Lovenox Disposition Medical floor. Admitted for small bowel obstruction. Tolerating diet, discharge tomorrow, 4/3 Full code Pt was seen and examined in collaboration with Dr. Childs, please see addendum A total of 44 minutes was spent coordinating, documenting, and providing care for this patient excluding time spent in the performance of separately billed services. This included personally viewing all current laboratories and imaging studies, medication reconciliation, outpatient chart review, and discussion with specialists. Admission and Anticipated Discharge Date Admission Date: September 29, 2023 Supervising Physician Co-Signing Physician Notes Patient seen and examined at bedside. Discussed with above provider. Patient reports no bowel movement today. She reports mild nausea and no appetite. Milk of magnesia ordered as bowel softener Possible discharge in a.m. depending on clinical improvement. I have reviewed the advanced practitioner's documentation, and I agree with, and take responsibility for the plan of care I spent a total of 15 minutes coordinating, documenting, and providing care for this patient excluding time spent in the performance of separately billed services. All of the aforementioned completed while collaborating with the assigned advanced practitioner for a full treatment plan Subjective Patient was seen and examined in 356. Follow-up small bowel obstruction. She was feeling well yesterday. This morning she tried to eat scrambled eggs and couldn't. She hasn't had a good bowel movement yet. She isn't passing gas this morning and it has her worried. She wishes to remain admitted until she moves her bowels. Otherwise she is tolerating diet. She denies f/c/s, chest pain, sob, n/v/d. Review of Systems Review of Systems: All systems reviewed & are unremarkable except as noted in HPI & below Physical Exam Physical Exam: Gen: WD/WN, NAD, A&O x3 HEENT: Normocephalic, atraumatic, conjunctivae moist, sclerae anicteric, mucous membranes moist. Lung: Clear to Auscultation bilaterally, no wheezes/rales/rhonchi Heart: Regular rate, regular rhythm, no murmurs, rubs, or gallops Abdomen: Soft, NT, ND +BS x 4 Extremities: No edema Skin: Warm, no rash, negative turgor. Results & Data Results & Data Vital Signs (Past 12 Hours) Vital Signs Temp Pulse Resp BP Pulse Ox O2 Del Method 10/03/23 11:45 36.7 C 86 18 148/84 H 97 Room Air 10/03/23 07:45 36.5 C 74 18 153/87 H 97 Room Air
[2023-10-03] MEDS: POTASSIUM CHLORIDE CRTAB 20 MEQ TABCR PO STA (14:25)
[2023-10-04 07:21] LABS: BUN Creatinine Ratio 18.1 (10-20); Est GFR (African American) 58.1 ml/min; Est GFR (Non-African American) 50.1 ml/min; Potassium 4.4 mmol/L (3.5-5.1)
[2023-10-04] MEDS: MAGNESIUM SULFATE / D5W 1 GM/100 ML BAG IV SCH (08:23)
--- NOTE | 2023-10-04 11:45 | Discharge Summary ---
Discharge Summary Date of Service October 04, 2023 Notes For Next Care Provider Patient admitted with small bowel obstruction. Treat with conservative management, n.p.o. and bowel rest. Diet gradually advance to low fiber. She is tolerating diet and moving bowels on day of discharge. Potassium and magnesium are low during hospital stay. Recommend checking a BMP and magnesium at hospital follow-up. Medication Changes From Visit Milk of magnesia, 5 mL daily as needed to promote daily bowel movements. Continue all other medications. Admission HPI Per Admitting Provider 82-year-old female with past medical history significant for type 2 diabetes, hyperlipidemia, drug-induced hyperkalemia, history of CVA, hypertension, paroxysmal supraventricular tachycardia, history of CAD, GERD, vitamin B12 deficiency, degenerative's disc disease, iron deficiency anemia, general anxiety disorder, primary insomnia, presents with abdominal pain and found to have small bowel obstruction. Patient states since last couple of days she is having abdominal pain all over the abdomen 5/10 in severity. And today she had several episodes of vomiting before the ambulance came. Currently after pain medication pain is improved. She had a small bowel movement in the ER. Normal micturition. No fevers. No chest pain or shortness of breath. No cough. No earache. No runny nose or sore throat. No headache. Resting comfortably and hemodynamically stable. past medical history. As mentioned above. Past surgical history. Colonoscopy. EGD. EGD with transendoscopic dilatation. 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 Laparoscopic hand-assisted sigmoid colon resection, laparoscopic mobilization of the splenic flexure. Cholecystectomy. Sacroiliac joint injection. Total abdominal hysterectomy with removal of tubes. Social history. . Quit smoking 1961. No alcohol use. No drug use. Family history. Daughter has ALS. Daughter passed of stroke. Mother had retroperitoneal sarcoma. Father had pancreatitis. Ulcers. Maternal grandmother had heart disease. Admission Exam Per Admitting Provider General- Not in distress Head- atraumatic Eyes- PERRL. ENT- oropharynx clear Neck- supple, no JVD. Lungs- clear to auscultation , no wheezing or crackles. Heart- regular rhythm; no murmur, no gallop. Abdomen- normal bowel sounds, soft, mild diffuse tenderness, no guarding no distension Extremities- no pretibial edema, no erythema seen Neuro- alert, oriented PERRL, no facial palsy; no dysarthria; moves extremities. Principal Dx & Hospital Course #1 = Principal Diagnosis (1) Small bowel obstruction: 82-year-old female with past medical history significant for type 2 diabetes, hyperlipidemia, drug-induced hyperkalemia, history of CVA, hypertension, paroxysmal supraventricular tachycardia, history of CAD, GERD, vitamin B12 deficiency, degenerative's disc disease, iron deficiency anemia, general anxiety disorder, primary insomnia, presents with abdominal pain and found to have small bowel obstruction. 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 She will be discharged home today Hypomagnesia 1.4 on 10/02. Will replete prior to d/c Type 2 diabetes Hold metformin sliding scale, BSG stable over last ~ 24hrs HbA1c of 7.1% will resume metformin at discharge Mild nonobstructive CAD On aspirin, statin and beta-yamilet History of CVA History of PFO On statin and aspirin, continue History of hypertension On amlodipine and atenolol, continue Will monitor Paroxysmal supplemental tachycardia On atenolol, continue Hyperlipidemia On statin, continue GERD Protonix, continue General anxiety disorder Buspirone, continue Zoloft, continue Insomnia Trazodone, continue Disposition Discharge to home Full code Pt was seen and examined in collaboration with Dr. Coronado, please see addendum Discharge Exam Gen: WD/WN, NAD, A&O x3 HEENT: Normocephalic, atraumatic, conjunctivae moist, sclerae anicteric, mucous membranes moist. Lung: Clear to Auscultation bilaterally, no wheezes/rales/rhonchi Heart: Regular rate, regular rhythm, no murmurs, rubs, or gallops Abdomen: Soft, NT, ND +BS x 4 Extremities: No edema Skin: Warm, no rash, negative turgor. Updated Medication List Medication Instructions Recorded Confirmed Type amlodipine 5 mg tablet 5 mg PO DAILY 09/29/23 09/29/23 History aspirin 81 mg tablet,delayed 81 mg PO DAILY 09/29/23 09/29/23 History release atenolol 50 mg tablet 50 mg PO DAILY 09/29/23 09/29/23 History atorvastatin 80 mg tablet 80 mg PO DAILY 09/29/23 09/29/23 History buspirone 10 mg tablet 10 mg PO BID 09/29/23 09/29/23 History cetirizine 10 mg tablet 10 mg PO DAILY 09/29/23 09/29/23 History ketoconazole 2 % topical cream 1 applic topical BID 09/29/23 09/29/23 History metformin 1,000 mg tablet 1,000 mg PO BID 09/29/23 09/29/23 History pantoprazole 20 mg tablet,delayed 20 mg PO DAILY 09/29/23 09/29/23 History release sertraline 100 mg tablet 100 mg PO DAILY 09/29/23 09/29/23 History trazodone 50 mg tablet 50 mg PO HS 09/29/23 09/29/23 History magnesium hydroxide 400 mg/5 mL 5 ml PO DAILY PRN constipation 10/04/23 Rx oral suspension (Milk of Magnesia) #355 mL Hospital Stay Data Consultations 09/29/23 00:21 ED Decision to Admit Stat 09/29/23 08:00 Consult Gastroenterology Routine Diagnostic Imagining Performed Abdomen/Pelvis CT 09/28/23 22:30 Exam(s): CT ABDOMEN + PELVIS With Contrast IV Amt: 90 ml optiray 320 EXAM: CT Abdomen and Pelvis With Intravenous Contrast CLINICAL HISTORY: Reason for exam: mid abd pain. TECHNIQUE: Axial computed tomography images of the abdomen and pelvis with intravenous contrast. CTDI is 22.59 mGy and DLP is 1053.17 mGy-cm. Automated exposure control was utilized for the study. A dose lowering technique was utilized adhering to the principles of ALARA. CONTRAST: Patient received 90 ml optiray 320 of IV contrast COMPARISON: None. FINDINGS: Lung bases: Trace bilateral lower lobe subpleural atelectasis otherwise clear lung parenchyma. Heart: Unremarkable. No cardiomegaly. No significant pericardial effusion. Normal cardiac size with coronary artery calcifications. Mediastinum: Small hiatal hernia. ABDOMEN: Liver: Unremarkable. No mass. Gallbladder and bile ducts: Status post cholecystectomy with intrahepatic biliary distention. No ductal dilation. Pancreas: Unremarkable. No mass. No ductal dilation. Spleen: The spleen measures 13.0 cm consistent with bright lights but no megaly. Adrenals: Unremarkable. No mass. Kidneys and ureters: Unremarkable. No solid mass. No hydronephrosis. Stomach and bowel: Multiple loops of small bowel distended up to a maximum diameter of 3.4 cm consistent with small bowel obstruction, zone of transition indeterminate. The descending colon is decompressed. There are stuck with the changes along the sigmoid. No mucosal thickening. PELVIS: Appendix: Normal appendix. Bladder: Unremarkable. No mass. Reproductive: Unremarkable as visualized. ABDOMEN and PELVIS: Intraperitoneal space: Unremarkable. No free air. No significant fluid collection. Bones/joints: Advanced degenerative disease of the spine with scoliosis and multilevel vacuum phenomenon. No acute fracture. No dislocation. Soft tissues: There are 2 ventral hernias, one at the umbilicus and one cephalad containing fat. Vasculature: Atherosclerotic disease of aorta with no aneurysm or dissection. Lymph nodes: Unremarkable. No enlarged lymph nodes. IMPRESSION: 1. Small bowel obstruction with indeterminate zone of transition. 2. Mild hiatal hernia. 3. Status post cholecystectomy with nonspecific intrahepatic biliary distention. Remainder of abdominal viscera unremarkable. Electronically signed by: Azalia James MD 09/29/23 00:17 AM Chest X-Ray 09/28/23 22:30 SINGLE VIEW CHEST CLINICAL HISTORY: Upper abdominal pain. FINDINGS: An AP, portable, upright chest radiograph is compared to study dated 04/27/2015 and correlated with chest CT dated 08/19/2019. The examination is mildly degraded by portable technique and patient rotation. The heart is mildly enlarged noting atherosclerotic calcification of the thoracic aorta. The pulmonary vasculature is noncongested. Chronic interstitial thickening is similar to previous. There is mild elevation of the left hemidiaphragm with associated atelectasis. A 9 mm right upper lobe pulmonary nodule is similar to previous. This was also seen on the [address] The lungs and pleural spaces are otherwise clear. No pneumothorax is seen. The skeletal structures are osteopenic. The bony thorax is grossly intact. IMPRESSION: No acute cardiopulmonary abnormality. ACT 112: Negative or not required by law. Electronically signed by: Pepe Estevez M.D. 09/28/2023 11:01 PM KUB X-Ray 09/29/23 09:00 KUB CLINICAL HISTORY: Small bowel obstruction. FINDINGS: 2 AP, portable, supine abdominal radiographs are correlated with abdominal CT dated 09/28/2023. Distended and gas-filled loops of small bowel measure up to 3.6 cm. This indicates persistent obstruction. No evidence of intraperitoneal free air is seen on these supine images. Cholecystectomy clips are noted in the right upper quadrant. The bladder is filled with excreted IV contrast. There are no abnormal abdominal calcifications. Phleboliths are seen in the pelvis. The skeletal structures are osteopenic and appear intact. There is advanced lumbosacral spondylosis and scoliosis. A cortical lag screw transfixes the right sacroiliac joint. The lung bases are clear as imaged. IMPRESSION: Persistent small bowel obstruction. Electronically signed by: Pepe Estevez M.D. 09/29/2023 9:35 AM KUB X-Ray 10/02/23 09:47 KUB HISTORY: Acute generalized abdominal pain follow up [facility] COMPARISON: 09/29/2023 FINDINGS: Cholecystectomy. Right SI joint bolt. Surgical suture material within the midline pelvis. Persistent small bowel obstruction with air filled dilated loops measuring up to 3.2 cm, previously 3.6 in meters. No renal calculi. No ureteral calculi. No pneumoperitoneum or pneumatosis. Lumbar levoscoliosis. No fracture. IMPRESSION: Persistent small bowel obstruction with decreased small bowel distention compared to the study from 09/29/2023. Continued follow-up recommended. ACT 112: Negative or not required by law. The above report was generated using voice recognition software. It may contain grammatical, syntax or spelling errors. Electronically signed by: Rajeev Gonzalez M.D. 10/02/2023 11:01 AM Pending Results Patient Have Any Pending Studies at Discharge: No Discharge Instructions Given to Patient (Per Discharging Provider) MEDICATION CHANGES: Milk of magnesia, 5 mL daily as needed to promote daily bowel movements. Continue all other medications. SUMMARY OF TEST RESULTS: You were admitted to hospital secondary to abdominal pain and found to have a small bowel obstruction. It is felt that obstruction is likely due to your previous history of bowel surgeries. You were treated with conservative management and bowel rest. Your diet was gradually advanced as tolerated. On day of discharge you are tolerating a low fiber diet. Your magnesium and potassium was low during her hospital stay and this was repla waldo. PENDING TEST RESULTS: None RECOMMENDATIONS FOR FOLLOW-UP: Please follow-up with your primary care provider as scheduled. Please take all medications as prescribed. You may utilize milk of magnesia to promote daily bowel habits. Recommend following a low fiber diet for approximately 2 weeks. You may then gradually start to reintroduce fiber back into your diet. When you follow up with your primary care provider I would recommend they recheck your electrolytes, kidney function and magnesium level. OTHER INSTRUCTIONS: Seek medical attention if you have: * temperature above 101 * chest pain or trouble breathing * abdominal pain, nausea, vomiting * diarrhea, dark stools or bloody stools * any unanswered questions or concerns Call 911 if symptoms are severe. Please take good care of yourself. It has been a pleasure taking care of you. Please take care of yourself. If you have any questions regarding your recent hospitalization please contact [facility] and request Manuelito Romanoist @ [phone]. Doreen Narvaez PA-C Total Time Total Time Spent Total Time Spent (In Minutes): 45 minutes Supervising Physician Co-Signing Physician Notes Patient seen and examined at bedside. Discussed with above provider. Patient reports +ve bowel movement today. She reports tolerating diet well and no abdominal discomfort w/ eating. Milk of magnesia as bowel softener Pt states she would like to go home today. I have reviewed the advanced practitioner's documentation, and I agree with, and take responsibility for the plan of care I spent a total of 25 minutes coordinating, documenting, and providing care for this patient excluding time spent in the performance of separately billed services. All of the aforementioned completed while collaborating with the assigned advanced practitioner for a full treatment plan
== END 2023-10-04 14:07 | disposition home or self-care (01) | DRG 390 ==
LOC: ED 22:18 → 3W 09-29 01:27 → SUATTDRO 09-29 01:27 → 3W 09-29 02:25